=== PATIENT | male | born 1935 | race American Indian/Alaskan Native ===

== ENCOUNTER 2016-03-16 00:43 | Emergency (ER) | payer OTHER ==
[2016-03-16 01:01] VITALS: BP 148/57; PULSE 80; TEMP 98.7; BMI 24.3
--- NOTE | 2016-03-16 01:04 | PDOC ---
History of Present Illness - General Stated Complaint: BLEEDING FROM CARDIAC CATH SITE Time Seen by Provider: 03/16/16 00:57 History Source: Patient Exam Limitations: No Limitations - History of Present Illness Initial Comments: 03/16/16 00:57 This is an 80-year-old male who comes in with his for evaluation of bleeding status post cardiac catheter. said patient came home from the hospital today after the cardiac catheter and this evening she noted that there was blood leaking onto his trousers. change the dressing several times but it continued to have some bleeding so she brought him in for evaluation. Otherwise he is up without complaints no chest pain shortness of breath or dizziness or lightheadedness. PAST MEDICAL HISTORY: no significant history PAST SURGICAL HISTORY: no significant history FAMILY HISTORY: no pertinant history SOCIAL HISTORY: Pt lives with family and is retired MEDICATIONS: reviewed ALLERGIES: As per nursing notes Review of Systems General: No fevers or chills, no weakness, no weight loss HEENT: No change in vision. No sore throat,. No ear pain CardioVascular: No chest pain or shortness of breath Respiratory:No cough, or wheezing. Gastrointestinal: no nausea, vomitting, diarrhea or constipation, No rectal bleeding Genitourinary: No dysuria, hematuria, or frequency Musculoskeletal: No joint or muscle pain or swelling Neurologic: No headache, vertigo, dizziness or loss of consciousness Psychiatric: nor depression Skin: No rashes or easy bruising Endocrine: no increased thirst or abnormal weight change Allergic: no skin or latex allergy All other systems reviewed and normal GENERAL: The patient is awake, alert, and fully oriented, in no acute distress. HEAD: Normal with no signs of trauma. EYES: Pupils equal, round and reactive to light, extraocular movements intact, sclera anicteric, conjunctiva clear. EXTREMITIES: Left groin there is a dressing in place that is a small amount of blood on it. NEUROLOGICAL: Normal speech, no procedure: rmal gait. PSYCH: Normal mood, normal affect. SKIN: Warm, Dry, normal turgor, no rashes or lesions noted.. Procedure: Left groin there was a pressure dressing applied by myself with multiple layers of gauze and a white Adam bandage. Assessment and plan: This is an 80-year-old male who is status post cardiac air catheter and he was bleeding from catheter site the catheter site. Pressure was applied and a pressure dressing was put over the area with gauze and a wide Adam wrap. Patient discharged home will follow-up with his investigative research specialist as needed. Past History - Past Medical History Allergies/Adverse Reactions: Allergies Allergy/AdvReac Type Severity Reaction Status Date / Time amoxicillin Allergy Intermediate sob Verified 05/08/14 14:09 Penicillins Allergy Intermediate weakness & Verified 05/08/14 14:09 snoring Home Medications: Ambulatory Orders Aspirin [ASA -] 81 mg PO DAILY 03/11/12 Carvedilol [Coreg] 3.125 mg PO DAILY 03/11/12 Clopidogrel Bisulfate [Plavix -] 75 mg PO DAILY 03/11/12 Furosemide [Lasix -] 40 mg PO DAILY 03/11/12 Nitroglycerin Patch [Nitro-Dur Patch -] 0 mg TD DAILY 03/11/12 Ranolazine [Ranexa -] 500 mg PO DAILY 03/11/12 Rosuvastatin Calcium [Crestor] 20 mg PO DAILY 03/11/12 Isosorbide Mononitrate [Imdur -] 60 mg PO DAILY #0 tab.sr.24h 05/10/14 Anemia: No Asthma: No Cancer: No Cardiac Disorders: Yes CVA: No COPD: No CHF: No Dementia: No Diabetes: No GI Disorders: No Disorders: No HTN: Yes Hypercholesterolemia: Yes Liver Disease: No Seizures: No Thyroid Disease: No - Surgical History Abdominal Surgery: No Appendectomy: No Cardiac Surgery: Yes (CABG, STENT X1) Cholecystectomy: No Lung Surgery: No Neurologic Surgery: No Orthopedic Surgery: No - Psycho/Social/Smoking Cessation Hx Suicidal Ideation: No Smoking Status: Yes Smoking History: Former smoker Have you smoked in the past 12 months: No Number of Cigarettes Smoked Daily: 0 If you are a former smoker, when did you quit?: 1972 Hx Alcohol Use: Yes Drug/Substance Use Hx: No Substance Use Type: Alcohol Hx Substance Use Treatment: No *DC/Admit/Observation/Transfer Diagnosis at time of Disposition: Groin hematoma Qualifiers: Encounter type: initial encounter Qualified Code(s): S30.1XXA - Contusion of abdominal wall, initial encounter - Discharge Dispostion Disposition: HOME Condition at time of disposition: Stable Admit: No - Patient Instructions Printed Discharge Instructions: DI for Groin Hernia Additional Instructions: Leave the dressing and Adam bandage on the puncture site until tomorrow morning. Tomorrow morning U can take the extra gauze off but still leave a dressing over the area. If he starts bleeding again reapply the gauze and pressure. Return to the emergency department immediately with ANY new, persistent or worsening symptoms. Continue any medications as previously prescribed by your physician. You should follow up with your primary doctor as soon as possible regarding today's emergency department visit. . Please make sure your doctor reviews the results of your emergency evaluation. Thank you for coming to the Emergency Department today for your care. It was a pleasure to see you today. Please note that your evaluation is INCOMPLETE until you follow-up with your doctor.
== END 2016-03-16 01:17 | disposition home or self-care (01) ==
LOC: FER 00:43
DX: S30.1XXA Contusion of abdominal wall, initial encounter (principal); X58.XXXA Exposure to other specified factors, initial encounter; Y93.9 Activity, unspecified; Z95.1 Presence of aortocoronary bypass graft; Z95.5 Presence of coronary angioplasty implant and graft; Z87.891 Personal history of nicotine dependence; I10 Essential (primary) hypertension; E78.00 Pure hypercholesterolemia, unspecified; Z79.82 Long term (current) use of aspirin
CPT/HCPCS: 99281-25

== ENCOUNTER 2016-11-24 08:36 | Emergency (ER) | payer OTHER ==
[2016-11-24 08:53] VITALS: BP 139/55; PULSE 71; TEMP 98.4; BMI 27.3
--- NOTE | 2016-11-24 09:13 | PDOC ---
History of Present Illness - General Chief Complaint: Cold Symptoms Stated Complaint: COUGH Time Seen by Provider: 11/24/16 08:46 History Source: Patient Exam Limitations: No Limitations Past History - Past Medical History Allergies/Adverse Reactions: Allergies Allergy/AdvReac Type Severity Reaction Status Date / Time amoxicillin Allergy Intermediate sob Verified 11/24/16 08:42 Penicillins Allergy Intermediate weakness & Verified 11/24/16 08:42 snoring Home Medications: Ambulatory Orders Amlodipine Besylate [Norvasc -] 5 mg PO DAILY 03/16/16 Aspirin [ASA -] 81 mg PO DAILY 03/16/16 Carvedilol [Coreg] 6.25 mg PO DAILY 03/16/16 Furosemide [Lasix] 20 mg PO DAILY 03/16/16 Isosorbide Mononitrate [Isosorbide Mononitrate ER] 30 mg PO DAILY 03/16/16 Ranolazine [Ranexa] 500 mg PO DAILY 03/16/16 Rosuvastatin Calcium [Crestor] 20 mg PO DAILY 03/16/16 Ticagrelor [Brilinta] 90 mg PO DAILY 03/16/16 Anemia: No Asthma: No Cancer: No Cardiac Disorders: Yes CVA: No COPD: No CHF: No Dementia: No Diabetes: No GI Disorders: No Disorders: No HTN: Yes Hypercholesterolemia: Yes Liver Disease: No Seizures: No Thyroid Disease: No - Surgical History Abdominal Surgery: No Appendectomy: No Cardiac Surgery: Yes (CABG, STENT X1) Cholecystectomy: No Lung Surgery: No Neurologic Surgery: No Orthopedic Surgery: No - Psycho/Social/Smoking Cessation Hx Anxiety: No Suicidal Ideation: No Smoking Status: Yes Smoking History: Never smoked Have you smoked in the past 12 months: No Number of Cigarettes Smoked Daily: 0 If you are a former smoker, when did you quit?: 1972 Information on smoking cessation initiated: No Hx Alcohol Use: Yes Drug/Substance Use Hx: No Substance Use Type: Alcohol Hx Substance Use Treatment: No Respiratory Specific PMHX - Complaint Specific PMHX Angina: Yes *Physical Exam - Vital Signs Last Vital Signs Temp Pulse Resp BP Pulse Ox 98.4 F 71 18 139/55 99 11/24/16 08:38 11/24/16 08:38 11/24/16 08:38 11/24/16 08:38 11/24/16 08:38
--- NOTE | 2016-11-24 09:44 | PDOC ---
History of Present Illness - General History Source: Patient, Spouse Exam Limitations: No Limitations - History of Present Illness Initial Comments: 11/24/16 09:47 The patient is a 81 year old male, with a significant past medical history of [place] , CABG, hypertension, hyperlipidemi who presents to the emergency department complaining of a cough for approximately 1 week. The patient reports visiting his PCP 4 days ago for evaluation of his cough. At the time, the patient was started on azithromycin and virtussin. Patient reports he has been compliant with his antibiotic treatment thus far, with minimum relief of symptoms. As per , the patients cough has been worsening and is dry in nature. The patient reports associated pleuritic chest pain, but denies any diaphoresis, palpitations, shortness of breath, or lower extremity edema. Patient reports presenting to the ED 3 days ago, where he had a CXR done, which revealed no acute pathology. Patient denies any fever, chills, headache, or dizziness. He denies any abdominal pain, nausea, vomiting, diarrhea, constipation, or changes in urination patterns. He denies any recent travel or sick contacts. Allergies: Amoxicillin, penicillins Past Surgical History: CABG Cardiac Catheter Social History: Non smoker. No ETOH or recreational drug use. PCP: Dr. Rich Customer Care Consultant: Dr. Guzman <Obdulio Noel - Last Filed: 11/24/16 10:50> <Jessy Garcia - Last Filed: 11/24/16 11:08> - General Chief Complaint: Cold Symptoms Stated Complaint: COUGH Time Seen by Provider: 11/24/16 08:46 Past History <Obdulio Noel - Last Filed: 11/24/16 10:50> - Past Medical History Anemia: No Asthma: No Cancer: No Cardiac Disorders: Yes CVA: No COPD: No CHF: No Dementia: No Diabetes: No GI Disorders: No Disorders: No HTN: Yes Hypercholesterolemia: Yes Liver Disease: No Seizures: No Thyroid Disease: No - Surgical History Abdominal Surgery: No Appendectomy: No Cardiac Surgery: Yes (CABG, STENT X1) Cholecystectomy: No Lung Surgery: No Neurologic Surgery: No Orthopedic Surgery: No - Psycho/Social/Smoking Cessation Hx Anxiety: No Suicidal Ideation: No Smoking Status: Yes Smoking History: Former smoker Have you smoked in the past 12 months: No Number of Cigarettes Smoked Daily: 0 If you are a former smoker, when did you quit?: 1971 Information on smoking cessation initiated: No Hx Alcohol Use: Yes Drug/Substance Use Hx: No Substance Use Type: Alcohol Hx Substance Use Treatment: No <Brooke Garciaen - Last Filed: 11/24/16 11:08> - Past Medical History Allergies/Adverse Reactions: Allergies Allergy/AdvReac Type Severity Reaction Status Date / Time amoxicillin Allergy Intermediate sob Verified 11/24/16 08:42 Penicillins Allergy Intermediate weakness & Verified 11/24/16 08:42 snoring Home Medications: Ambulatory Orders Amlodipine Besylate [Norvasc -] 5 mg PO DAILY 03/16/16 Aspirin [ASA -] 81 mg PO DAILY 03/16/16 Furosemide [Lasix] 40 mg PO DAILY 03/16/16 Isosorbide Mononitrate [Isosorbide Mononitrate ER] 30 mg PO DAILY 03/16/16 Ranolazine [Ranexa] 500 mg PO DAILY 03/16/16 Rosuvastatin Calcium [Crestor] 20 mg PO DAILY 03/16/16 Albuterol Sulfate [Proair Respiclick] 90 mcg IH BID PRN #1 aer.[email or web address] 11/24/16 Azithromycin 250 mg PO DAILY 11/24/16 Benzonatate 100 mg PO BID #10 capsule 11/24/16 Guaifenesin/Codeine Phosphate [Virtussin AC Liquid] 5 mg PO BID 11/24/16 Methylprednisolone [Medrol Dose Justin] 4 mg PO ASDIR #21 tablet 11/24/16 Metoprolol Succinate [Toprol Xl -] 25 mg PO DAILY 11/24/16 Review of Systems - Review of Systems Able to Perform ROS?: Yes Comments:: 11/24/16 09:48 GENERAL/CONSTITUTIONAL: No fever or chills. No weakness. HEAD, EYES, EARS, NOSE AND THROAT: No change in vision. No ear pain or discharge. No sore throat. CARDIOVASCULAR: Yes: +chest pain. No shortness of breath. RESPIRATORY: Yes: +cough. No wheezing, or hemoptysis. GASTROINTESTINAL: No nausea, vomiting, diarrhea or constipation. GENITOURINARY: No dysuria, frequency, or change in urination. MUSCULOSKELETAL: No joint or muscle swelling or pain. No neck or back pain. SKIN: No rash NEUROLOGIC: No headache, vertigo, loss of consciousness, or change in strength/ sensation. ENDOCRINE: No increased thirst. No abnormal weight change. HEMATOLOGIC/LYMPHATIC: No anemia, easy bleeding, or history of blood clots. ALLERGIC/IMMUNOLOGIC: No hives or skin allergy. <Obdulio Noel - Last Filed: 11/24/16 10:50> *Physical Exam - Vital Signs Last Vital Signs Temp Pulse Resp BP Pulse Ox 98.4 F 71 18 139/55 99 11/24/16 08:38 11/24/16 08:38 11/24/16 08:38 11/24/16 08:38 11/24/16 08:38 - Physical Exam Comments: 11/24/16 09:49 GENERAL: Awake, alert, and fully oriented, in no acute distress HEAD: No signs of trauma EYES: PERRLA, EOMI, sclera anicteric, conjunctiva clear ENT: Auricles normal inspection, hearing grossly normal, nares patent, oropharynx clear without exudates. Moist mucosa NECK: Normal ROM, supple, no lymphadenopathy, JVD, or masses LUNGS: Breath sounds equal, clear to auscultation bilaterally. No wheezes, and no crackles HEART: Regular rate and rhythm, normal S1 and S2, no murmurs, rubs or gallops ABDOMEN: Soft, nontender, normoactive bowel sounds. No guarding, no rebound. No masses EXTREMITIES: Trace pedal edema bilaterally. Normal range of motion. No clubbing or cyanosis. No cords, erythema, or tenderness NEUROLOGICAL: Cranial nerves II through XII grossly intact. Normal speech( speaking in full sentences. nontoxic appearing), normal gait SKIN: Warm, Dry, normal turgor, no rashes or lesions noted. <Obdulio Noel - Last Filed: 11/24/16 10:50> - Vital Signs Last Vital Signs Temp Pulse Resp BP Pulse Ox 98.4 F 71 18 139/55 99 11/24/16 08:38 11/24/16 08:38 11/24/16 08:38 11/24/16 08:38 11/24/16 08:38 <Jessy Garcia - Last Filed: 11/24/16 11:08> Heart Score/ECG Review - ECG Intrepretation Comment:: 11/24/16 10:10 sinus at 67 bpm, intraventricular conduction delay. no acute st changes. <Obdulio Noel - Last Filed: 11/24/16 10:50> ED Treatment Course - LABORATORY CBC & Chemistry Diagram: 11/24/16 10:00 11/24/16 09:56 - RADIOLOGY Radiograph Interpretation: 11/24/16 10:12 EXAM: CXR INTERPRETED BY: Dr. Gonsalez REVIEWED BY: Dr. Garcia IMPRESSION: No evidence of active pulmonary disease. <Obdulio Noel - Last Filed: 11/24/16 10:50> - LABORATORY CBC & Chemistry Diagram: 11/24/16 10:00 11/24/16 09:56 - RADIOLOGY Radiology Studies Ordered: Category Date Time Status CHEST PA & LAT [RAD] Stat Radiology 11/24/16 09:22 Ordered <Jessy Garcia - Last Filed: 11/24/16 11:08> Medical Decision Making - Medical Decision Making 11/24/16 10:50 First call placed to Dr. Rich at 10:51. Case discussed at this time. <Obdulio Noel - Last Filed: 11/24/16 10:50> - Medical Decision Making 11/24/16 10:45 I, Dr. Jessy Garcia, DO, attest that this document has been prepared under my direction and personally reviewed by me in its entirety. I further attest, that it accurately reflects all work, treatment, procedures and medical decision -making performed by me. 11/24/16 10:45 a/p: 81yo male with cough/congestion x 4 days - on azithromycin since thursday without relief -hx of chf, will check labs, ekg, cxr -no infectious systemic symptoms - no f/c, cough productive white sputum -no increase in LE swelling (legs smaller than before with edema) -will discuss with PMD once labs/imaging obtained. 11/24/16 10:58 discussed all labs and imaging results with the patient. pt without acute cp/sob /cough in the ED. case discussed with Dr. Rich - recommends stopping azithromycin, starting medrol dose justin, benzonatate acetate, proair recommends follow up in the office on between 12-6 if symptoms persisting. case discussed with Dr. Osborne - hx of LBBB on prior EKG. <Jessy Garcia - Last Filed: 11/24/16 11:08> *DC/Admit/Observation/Transfer - Attestations Scribe Attestion: 11/24/16 09:49 Documentation prepared by Obdulio Noel, acting as medical record coder for Jessy Garcia DO. <Obdulio Noel - Last Filed: 11/24/16 10:50> - Discharge Dispostion Admit: No - Attestations Physician Attestion: 11/24/16 09:44 I, Dr. Jessy Garcia DO, attest that this document has been prepared under my direction and personally reviewed by me in its entirety. I further attest, that it accurately reflects all work, treatment, procedures and medical decision -making performed by me. <Jessy Garcia - Last Filed: 11/24/16 11:08> Diagnosis at time of Disposition: Cough in adult - Discharge Dispostion Disposition: HOME Condition at time of disposition: Stable - Prescriptions Prescriptions: Benzonatate 100 mg PO BID #10 capsule Methylprednisolone [Medrol Dose Justin] 4 mg PO ASDIR #21 tablet Albuterol Sulfate [Proair Respiclick] 90 mcg IH BID PRN #1 aer.[email or web address] PRN Reason: Cough - Referrals Referrals: Nacho Rich MD [Primary Care Provider] - Mauricio Guzman MD [Staff Physician] - - Patient Instructions Printed Discharge Instructions: DI for Viral Upper Respiratory Infection -- Adult Additional Instructions: Please take all meds as prescribed. Please follow up with your PMD on between 12-6p if symptoms persist. Please stop taking your azithromycin. Please return to the ED with any further concerns.
[2016-11-24 10:20] LABS: BASOPHIL 0.9 % (0-2.0); EOSINOPHIL 7.7 % (0-4.5); MCH 32.3 pg (25.7-33.7); MCHC 34.5 g/dl (32.0-35.9); MEAN CELL VOLUME 93.8 fl (80-96); MEAN PLT VOLUME 7.7 fl (7.5-11.1); NEUTROPHILS 50.7 % (42.8-82.8); PLATELET COUNT 157 K/MM3 (134-434); RDW 12.5 % (11.9-15.9); WHITE BLOOD COUNT 6.4 K/mm3 (4.0-10.0)
[2016-11-24 10:42] LABS: ALBUMIN 3.9 g/dl (3.4-5.0); ANION GAP 8 (8-16); BILIRUBIN,TOTAL 0.6 mg/dL (0.2-1.0); CALCIUM 8.4 mg/dL (8.5-10.1); CO2 26 mmol/L (21-32); CREATININE 1.3 mg/dL (0.7-1.3); GLUCOSE,RANDOM 111 mg/dL (74-106); MAGNESIUM 2.4 mg/dL (1.8-2.4); SGOT/AST 26 U/L (15-37); SGPT/ALT 29 U/L (12-78); TOT PROT 7.3 g/dl (6.4-8.2)
[2016-11-24 10:43] LABS: ALK PHOS 75 U/L (45-117); CPK 183 IU/L (39-308); TROPONIN I < 0.02 ng/ml (0.00-0.05)
--- NOTE | 2016-11-24 21:30 | EKG ---
Test Reason : Blood Pressure : / mmHG Vent. Rate : 067 BPM Atrial Rate : 067 BPM P-R Int : 182 ms QRS Dur : 138 ms QT Int : 464 ms P-R-T Axes : 043 036 003 degrees QTc Int : 490 ms NORMAL SINUS RHYTHM NON-SPECIFIC INTRA-VENTRICULAR CONDUCTION BLOCK ABNORMAL ECG WHEN COMPARED WITH ECG OF 08-MAY-2014 15:46, QUESTIONABLE CHANGE IN QRS DURATION Confirmed by MICHELLE MESA MD ([id number]) on 11/24/2016 9:30:30 PM Referred By: Confirmed By:MICHELLE MESA MD
== END 2016-11-24 11:45 | disposition home or self-care (01) ==
LOC: JER 08:36 → JERFT 08:36 → JER 11:45
DX: J06.9 Acute upper respiratory infection, unspecified (principal); B97.89 Other viral agents as the cause of diseases classified elsewhere; I25.2 Old myocardial infarction; I25.10 Atherosclerotic heart disease of native coronary artery without angina pectoris; I10 Essential (primary) hypertension; Z95.1 Presence of aortocoronary bypass graft; Z95.5 Presence of coronary angioplasty implant and graft; E78.00 Pure hypercholesterolemia, unspecified
CPT/HCPCS: 36415; 71020-TC; 80053; 82553; 83735; 83880; 84484; 85025; 93005; 93010; 99284-25

== ENCOUNTER 2017-06-23 09:57 | Inpatient (IN) | payer OTHER ==
[2017-06-23 20:37] VITALS: BMI 24.4
[2017-07-06 10:42] VITALS: BP 132/50; PULSE 88; TEMP 97.3
== END 2017-07-06 12:08 | DRG 871 ==
LOC: JER 09:57 → JERBED 13:15 → J7W 18:15 → J8W 06-26 21:52
PROVIDERS: ADMIT Family Medicine; ATTEND Family Medicine
DX: A41.9 Sepsis, unspecified organism (principal); J18.9 Pneumonia, unspecified organism; G93.41 Metabolic encephalopathy; E87.2 Acidosis; I13.0 Hypertensive heart and chronic kidney disease with heart failure and stage 1 through stage 4 chronic kidney disease, or unspecified chronic kidney disease; I50.32 Chronic diastolic (congestive) heart failure; R04.2 Hemoptysis; E78.5 Hyperlipidemia, unspecified; Z95.1 Presence of aortocoronary bypass graft; I25.10 Atherosclerotic heart disease of native coronary artery without angina pectoris; Z88.0 Allergy status to penicillin; Z87.891 Personal history of nicotine dependence; I44.7 Left bundle-branch block, unspecified; N18.9 Chronic kidney disease, unspecified; I27.20 Pulmonary hypertension, unspecified; R94.5 Abnormal results of liver function studies; K80.80 Other cholelithiasis without obstruction; R74.8 Abnormal levels of other serum enzymes
CPT/HCPCS: 36415; 71045-TC-FY; 71046-TC-FY; 71250-TC; 74019-TC-FY; 74181-TC; 76705-TC; 80053; 80074; 81003; 81015; 82150; 82248; 82550; 82803; 82977; 83605; 83690; 83735; 84100; 84484; 85025; 85610; 85651; 85730; 86140; 86480; 87040; 87070; 87077; 87086; 87116; 87205; 87206; 87556; 87804; 87899; 93005; 93010; 94640; 97116-GP; 97161-GP; 99285-25; J0131; J7030; J7620

== ENCOUNTER 2017-11-04 17:29 | Emergency (ER) | payer OTHER ==
[2017-11-04 17:57] VITALS: BP 96/71; PULSE 69; TEMP 98.6; BMI 27.4
--- NOTE | 2017-11-04 18:00 | PDOC ---
Rapid Medical Evaluation Chief Complaint: Headache Time Seen by Provider: 11/04/17 17:49 Medical Evaluation: Allergies Allergy/AdvReac Type Severity Reaction Status Date / Time amoxicillin Allergy Intermediate sob Verified 11/04/17 17:52 Penicillins Allergy Intermediate weakness & Verified 11/04/17 17:52 snoring Vital Signs Temp Pulse Resp BP Pulse Ox 98.6 F 69 16 96/71 98 11/04/17 17:53 11/04/17 17:53 11/04/17 17:53 11/04/17 17:53 11/04/17 17:53 11/04/17 18:00 Pt c/o: dizzinees then fell and hit hea, no loc, now with headache, on asa, also c/o rt hip pain Pt on exam: vss, aox3, perrl Pt ordered for: head ct Pt to proceed to the ED Discharge Disposition - Diagnosis Head injury - Referrals - Patient Instructions - Post Discharge Activity
[2017-11-04] MEDS ORDERED: DIPHTH,PERTUSS(ACELL),TET 0.5 ML DISP.SYRIN IM ONE (19:00)
--- NOTE | 2017-11-04 19:13 | PDOC ---
History of Present Illness - General Chief Complaint: Headache Stated Complaint: HEAD PAIN Time Seen by Provider: 11/04/17 17:49 - History of Present Illness Initial Comments: 11/04/17 19:01 Patient is an 82 year old male with a PMH of CAD (s/p CABG) presents to the ED following a fall on Thursday (10/31/2017). Patient was walking outside in [facility] when he was going to step up on a sidewalk and states his L leg twisted underneath him causing him to fall. Denies any pre-fall chest pain, shortness of breath lightheadedness, palpitations. EMS @ scene, patient declined transport to hospital as he wanted to attend his prayer group on Thursday and his 82nd birthday was on Thursday. Has been ambulatory since fall and was evaluated by his PMD, Dr. Rich earlier this week. H/o previous fall in 2016 w/intracerebral hemmorhage- no neurosurgical intervention. 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 Allergy: Penicillin family including amoxicillin Surgical: CABG (1981) Social: denies toxic habits PMD: Dr. Nacho Rich Past History - Past Medical History Allergies/Adverse Reactions: Allergies Allergy/AdvReac Type Severity Reaction Status Date / Time amoxicillin Allergy Intermediate sob Verified 11/04/17 17:52 Penicillins Allergy Intermediate weakness & Verified 11/04/17 17:52 snoring Home Medications: Ambulatory Orders Aspirin [Aspirin EC] 81 mg PO DAILY 11/04/17 Carvedilol [Coreg -] 3.125 mg PO BID 11/04/17 Furosemide [Lasix -] 20 mg PO DAILY 11/04/17 Isosorbide Mononitrate [Isosorbide Mononitrate ER] 30 mg PO DAILY 11/04/17 Metoprolol Succinate [Toprol Xl] 25 mg PO DAILY 11/04/17 Nystatin Ointment [Mycostatin Ointment -] 1 applic TP BID 11/04/17 Nystatin Powder [Nystop Topical Powder -] 60 gm TP DAILY 11/04/17 Ranolazine [Ranexa] 1,000 mg PO BID 11/04/17 Rosuvastatin Calcium [Crestor] 40 mg PO DAILY 11/04/17 Triamcinolone 0.1% Cream [Aristocort] 1 applic TP BID 11/04/17 Anemia: No Cardiac Disorders: Yes COPD: No DVT: No HTN: Yes Hypercholesterolemia: Yes - Surgical History Cardiac Surgery: Yes (CABG, STENT X1) - Immunization History Immunization Up to Date: Yes - Suicide/Smoking/Psychosocial Hx Smoking Status: Yes Smoking History: Never smoked Have you smoked in the past 12 months: No Number of Cigarettes Smoked Daily: 0 If you are a former smoker, when did you quit?: 1972 Cigars Per Day: 0 Information on smoking cessation initiated: No Hx Alcohol Use: No Drug/Substance Use Hx: No Substance Use Type: None Hx Substance Use Treatment: No Review of Systems - Review of Systems Constitutional: No: Chills, Fever HEENTM: No: Blurred Vision, Double Vision Respiratory: No: Cough, Shortness of Breath, Stridor, Wheezing Cardiac (ROS): No: Chest Pain, Lightheadedness, Palpitations, Syncope ABD/GI: No: Constipated, Diarrhea, Nausea, Vomiting : No: Burning, Dysuria Neurological: Yes: Unsteady Gait. No: Headache, Numbness, Tingling, Tremors *Physical Exam - Vital Signs Last Vital Signs Temp Pulse Resp BP Pulse Ox 98.6 F 69 16 96/71 98 11/04/17 17:53 11/04/17 17:53 11/04/17 17:53 11/04/17 17:53 11/04/17 17:53 - Physical Exam Comments: 11/04/17 19:18 General: Alert, jocular HEENT: healed abrasion on R frontal/temporal lobe, (-) Cagle sign, (-) racoon eyes, no C-spine, L/T/S vertebral tenderness CV: S1/S2, no M/R/G Respiratory: CLTA B/L Extremity: R lateral hip hematoma, 2+ DP pulses B/L; R 2nd and 3rd digits healed abrasions. General Appearance: Yes: Nourished, Appropriately Dressed HEENT: positive: EOMI, LEONIDAS, Normal Voice, Hearing Grossly Normal. negative: TM Bulging, TM Dull, TM Erythema Neck: positive: Trachea midline, Supple Respiratory/Chest: positive: Lungs Clear, Normal Breath Sounds. negative: Crackles, Rales, Rhonchi, Stridor, Wheezing Cardiovascular: positive: S1, S2, Edema (B/L LE edema ) Gastrointestinal/Abdominal: positive: Normal Bowel Sounds, Soft Musculoskeletal: negative: CVA Tenderness (R), CVA Tenderness (L), Vertebral Tenderness Extremity: positive: Normal Capillary Refill, Pelvis Stable, Other (R lateral thigh hematoma) Integumentary: positive: Normal Color, Dry, Warm, Ecchymosis Neurologic: positive: Fully Oriented, Alert ED Treatment Course - RADIOLOGY Radiology Studies Ordered: Category Date Time Status CHEST X-RAY PORTABLE* [RAD] Stat Radiology 11/04/17 18:59 Ordered HIP & PELVIS-RIGHT [RAD] Stat Radiology 11/04/17 18:59 Ordered Medical Decision Making - Medical Decision Making 11/04/17 19:14 82 year old male presents s/p fall. VS unremarkable. Neurologically intact. H/ o previous fall in 2017. Alert, moving all 4 extremities. No C-spine or L/T/S tenderness, pelvis stable. Will obtain CT head to r/o acute bleed. EKG to r/o arrthymia. CBC, CMP to r/o anemia and electrolyte abnormality respectively as fall etiology. Tetanus prophylaxis as patient has healing abrasions. Reassess. 11/04/17 20:[address] negative for acute bleed 11/04/17 21:49 ECG shows NSR, HR 66, no RAFIQ/STD/TWI - non ischemic ECG. At this time patient has no active bleed from fall and fall etiology is unlikely to be acute ischemic process. Will discharge home with strict return precautions and instruction to follow-up with cardiology and PMD. *DC/Admit/Observation/Transfer Diagnosis at time of Disposition: Fall - Discharge Dispostion Disposition: HOME Condition at time of disposition: Good Decision to Admit order: No - Referrals Referrals: Nacho Rich MD [Primary Care Provider] - Mauricio Guzman MD [Staff Physician] - - Patient Instructions Additional Instructions: You were evaluated today for a fall. Your head CT showed no acute bleed. At this time you are safe for discharge. Please follow up with Dr. Guzman for further cardiac evaluation as well as Dr. Rich. Return to the Emergency Department for any new/worsening/concerning symptoms including headache, confusion, chest pain, shortness of breath. - Post Discharge Activity
--- NOTE | 2017-11-04 21:18 | PDOC ---
Attending Attestation - HPI HPI: 11/04/17 21:58 The patient is a 82 year old male, with a significant PMH of CAD, HTN, and HLD, who presents to the emergency department for evaluation of a fall that occurred on 10/31/2017. The patient states he was in [facility] when he twisted his left leg and fell while trying to step up on a sidewalk. The patient states he denied transport to hospital from EMS because he wanted to attend his prayer group on Thursday and his 82nd birthday was on Thursday. He reports following up with his PCP, Dr. Rich, earlier this week and has been ambulatory since fall. The patient states he experienced a similar fall in 2017 with an intracerebral hemorrhage but there were no neurological intervention. The patient denies chest pain, shortness of breath, headache and dizziness. Denies fever, chills, nausea, vomit, diarrhea and constipation. Denies dysuria, frequency, urgency and hematuria. Allergies: amoxicillin, penicillin Past surgical history: CABG (1981) Social history: None reported PCP: Dr. Nacho Rich Documentation prepared by Ginny White, acting as medical office rep for Serafin Kendall MD. <Ginny White - Last Filed: 11/04/17 21:58> - Resident Resident Name: William Esteban - ED Attending Attestation I have performed the following: I have examined & evaluated the patient, The case was reviewed & discussed with the resident, I agree w/resident's findings & plan, Exceptions are as noted - Physicial Exam PE: 11/04/17 21:17 *Physical Exam General Appearance: Yes: Appropriately Dressed. No: Apparent Distress, Intoxicated HEENT: positive: EOMI, LEONIDAS, Normal ENT Inspection, Normal Voice, TMs Normal, Pharynx Normal. negative: Pale Conjunctivae, Photophobia, Scleral Icterus (R), Scleral Icterus (L) Neck: positive: Trachea midline, Normal Thyroid, Supple. negative: Tender, Rigid, Carotid bruit, Stridor, Lymphadenopathy (R), Lymphadenopathy (L), Thyromegaly Respiratory/Chest: positive: Lungs Clear, Normal Breath Sounds. negative: Chest Tender, Respiratory Distress, Accessory Muscle Use, Labored Respiration, RES, Crackles, Rales, Rhonchi, Stridor, Wheezing, Dullness Cardiovascular: positive: Regular Rhythm, Regular Rate, S1, S2. negative: Edema , JVD, Murmur, Bradycardia, Tachycardia Vascular Pulses: Dorsalis-Pedis (R): 2+, Doralis-Pedis (L): 2+ Gastrointestinal/Abdominal: positive: Normal Bowel Sounds, Flat, Soft. negative : Tender, Organomegaly, Pulsatile Mass, Increased Bowel Sounds, Decreased BS, Distended, Guarding, Rebound, Hernia, Hepatomegaly, Spleenomegaly Lymphatic: negative: Adenopathy, Tenderness Musculoskeletal: positive: Normal Inspection. negative: CVA Tenderness, Decreased Range of Motion Extremity: positive: Normal Capillary Refill, Normal Inspection, Normal Range of Motion, Pelvis Stable. negative: Tender, Pedal Edema, Swelling, Erythema Integumentary: positive: Normal Color, Dry, Warm. negative: Cyanotic, Erythema , Jaundice, Rash Neurologic: positive: steel erector II-XII NML intact, Fully Oriented, Alert, Normal Mood/ Affect, Motor Strength 5/5. negative: EOM Palsy, Facial Droop, Sensory Deficit - Medical Decision Making 11/04/17 21:17 Pt treated and released. <Serafin Kendall - Last Filed: 11/04/17 22:00>
--- NOTE | 2017-11-05 15:42 | EKG ---
Test Reason : Blood Pressure : / mmHG Vent. Rate : 066 BPM Atrial Rate : 066 BPM P-R Int : 172 ms QRS Dur : 110 ms QT Int : 438 ms P-R-T Axes : 057 022 064 degrees QTc Int : 459 ms NORMAL SINUS RHYTHM NORMAL ECG WHEN COMPARED WITH ECG OF 23-JUN-2017 10:48, PREMATURE ATRIAL COMPLEXES ARE NO LONGER PRESENT QRS DURATION HAS DECREASED T WAVE INVERSION NO LONGER EVIDENT IN INFERIOR LEADS QT HAS SHORTENED Confirmed by Ellie George ([id number]) on 11/05/2017 3:41:56 PM Referred By: Confirmed By:Ellie George
== END 2017-11-04 22:09 | disposition home or self-care (01) ==
LOC: JER 17:29
PROC: 3E0234Z Introduction of Serum, Toxoid and Vaccine into Muscle, Percutaneous Approach (ICD-10-PCS; principal; 2017-11-04)
DX: S09.8XXA Other specified injuries of head, initial encounter (principal); S70.01XA Contusion of right hip, initial encounter; S60.418A Abrasion of other finger, initial encounter; W10.1XXA Fall (on)(from) sidewalk curb, initial encounter; Y93.01 Activity, walking, marching and hiking; Y92.480 Sidewalk as the place of occurrence of the external cause; Y99.8 Other external cause status; I25.10 Atherosclerotic heart disease of native coronary artery without angina pectoris; I10 Essential (primary) hypertension; Z95.1 Presence of aortocoronary bypass graft; Z95.5 Presence of coronary angioplasty implant and graft; E78.5 Hyperlipidemia, unspecified; Z79.82 Long term (current) use of aspirin; Z88.0 Allergy status to penicillin
CPT/HCPCS: 70450-TC; 71045-TC-FY; 73523-TC-FY; 90715; 93005; 93010; 99281-25; 99283-25

== ENCOUNTER 2018-05-03 11:26 | Inpatient (IN) | payer OTHER ==
--- NOTE | 2018-05-03 11:55 | PDOC ---
History of Present Illness - General Chief Complaint: Weakness Stated Complaint: CHEST PAIN Time Seen by Provider: 05/03/18 11:52 History Source: Patient Exam Limitations: No Limitations - History of Present Illness Initial Comments: 82 yo M w a pmh of HTN, hyperlipidemia, CAD/CHF status post CABG in 1991 and s/ p cardiac stent in 2013, with baseline exertional dyspnea and angina, psoriasis , and chronic venous stasis dermatitis presents to the [facility] ED via private auto referred from Dr. Rich to be admitted with the chief complaint of generalized bilateral leg weakness this past Thursday associated with a fever up to 100.5. the patient also endorses more frequent episodes of chest pain which he says are his typical stable angina symptoms including dyspnea on exertion as well as chest pain with physical activity requiring him to take his nitro more frequently. The who is with the patient at bedside reports she has been giving him more tylenol recently because of his fever since Thursday, but the patient is not febrile here in the ER. The also says that for the past few days he has been very confused at times, dizzy like he is going to fall down, feels lightheaded, and is not steady on his feet, The patient endorses these random generalized episodes of bilateral leg weakness which when they come about he is unable to even stand up to goto the bathroom and urinate. He denies one side being worse than the other side. Patient currently denies any chest pain, SOB, nausea, vomiting, diarrhea, constipation, difficulty breathing, chills, numbness, tingling, headache, blurry vision, neck pain, back pain, abdominal pain, dysuria, frequency, urgency , or vertigo. Allergies: amoxicillin, penicillins Surgical History: CABG (1991 x1 stent) Social History: Former smoker (quit 1971), denies alcohol or other substance usage. PCP: Dr. Rich Wood Drill Operator: Dr. Guzman Past History - Past Medical History Allergies/Adverse Reactions: Allergies Allergy/AdvReac Type Severity Reaction Status Date / Time amoxicillin Allergy Intermediate sob Verified 11/04/17 17:52 Penicillins Allergy Intermediate weakness & Verified 11/04/17 17:52 snoring Home Medications: Ambulatory Orders Aspirin [Aspirin EC] 81 mg PO DAILY 11/04/17 Furosemide [Lasix -] 20 mg PO DAILY 11/04/17 Isosorbide Mononitrate [Isosorbide Mononitrate ER] 30 mg PO DAILY 11/04/17 Metoprolol Succinate [Toprol Xl] 25 mg PO BID 11/04/17 Nystatin Ointment [Mycostatin Ointment -] 1 applic TP BID 11/04/17 Nystatin Powder [Nystop Topical Powder -] 60 gm TP DAILY 11/04/17 Ranolazine [Ranexa] 1,000 mg PO BID 11/04/17 Rosuvastatin Calcium [Crestor] 40 mg PO DAILY 11/04/17 Triamcinolone 0.1% Cream [Aristocort] 1 applic TP BID 11/04/17 Anemia: No Cardiac Disorders: Yes COPD: No DVT: No HTN: Yes Hypercholesterolemia: Yes - Surgical History Cardiac Surgery: Yes (CABG, STENT X1) - Immunization History Immunization Up to Date: Yes - Suicide/Smoking/Psychosocial Hx Smoking Status: Yes Smoking History: Former smoker Have you smoked in the past 12 months: No Number of Cigarettes Smoked Daily: 0 If you are a former smoker, when did you quit?: many years ago Cigars Per Day: 0 Information on smoking cessation initiated: No Hx Alcohol Use: No Drug/Substance Use Hx: No Substance Use Type: None Hx Substance Use Treatment: No Review of Systems - Review of Systems Able to Perform ROS?: Yes Comments:: CONSTITUTIONAL: Present: Fevers Absent: no chills, no fatigue EYES: Absent: visual changes ENT: Absent: ear pain, no sore throat CARDIOVASCULAR: Present: Chest pain Absent: no palpitations RESPIRATORY: Absent: cough, no SOB GI: Absent: abdominal pain, no nausea, no vomiting, no constipation, no diarrhea GENITOURINARY: Absent: dysuria, no frequency, no hematuria MUSKULOSKELETAL: Absent: back pain, no arthralgia, no myalgia SKIN: Absent: rash NEURO: Present: Focal weakness, mental status changes, unsteady gait, dizziness Absent: headache, paresthesias, bladder or bowel incontinence *Physical Exam - Vital Signs Last Vital Signs Temp Pulse Resp BP Pulse Ox 98.3 F 70 18 147/60 98 05/03/18 11:42 05/03/18 11:42 05/03/18 11:42 05/03/18 11:42 05/03/18 11:42 - Physical Exam Comments: GENERAL: Well-appearing, well-nourished. No apparent distress. HEENT: bilateral cataacts.. Stuck on lesion on the left cheek. Normocephalic, atraumatic. PERRL, EOM intact. CARDIOVASCULAR: Normal S1, S2. Regular rate and rhythm. PULMONARY: No evidence of respiratory distress. Lungs clear to auscultation bilaterally. No wheezing, rales or rhonchi. ABDOMEN: Soft, non-distended, non-tender. EXTREMITIES: Normal ROM in all four extremities. No gross deformities. SKIN: Warm, dry. The right leg is erythematous, scaly and mildly painful to touch. NEUROLOGICAL: Alert, awake, appropriate. Cranial nerves 2-12 intact. No deficits to light touch in the face, upper extremities and lower extremities. No motor deficits in the in face, upper extremities and lower extremities. Normal speech. Moderate Sedation - Procedure Monitoring Vital Signs: Procedure Monitoring Vital Signs Temperature 98.3 F 05/03/18 11:42 Pulse Rate 70 05/03/18 11:42 Respiratory Rate 18 05/03/18 11:42 Blood Pressure 147/60 05/03/18 11:42 O2 Sat by Pulse Oximetry (%) 98 05/03/18 11:42 ED Treatment Course - LABORATORY CBC & Chemistry Diagram: 05/03/18 13:11 05/03/18 13:11 Medical Decision Making - Medical Decision Making 82 yo M w a pmh of HTN, hyperlipidemia, CAD/CHF status post CABG in 1991 and s/ p cardiac stent in 2013, with baseline exertional dyspnea and angina, psoriasis , and chronic venous stasis dermatitis presents to the [facility] ED via private auto referred from Dr. Rich to be admitted with the chief complaint of generalized bilateral leg weakness this past Thursday associated with a fever up to 100.5. the patient also endorses more frequent episodes of chest pain which he says are his typical stable angina symptoms including dyspnea on exertion as well as chest pain with physical activity requiring him to take his nitro more frequently. The who is with the patient at bedside reports she has been giving him more tylenol recently because of his fever since Thursday, but the patient is not febrile here in the ER. The also says that for the past few days he has been very confused at times, dizzy like he is going to fall down, feels lightheaded, and is not steady on his feet, The patient endorses these random generalized episodes of bilateral leg weakness which when they come about he is unable to even stand up to goto the bathroom and urinate. He denies one side being worse than the other side. VS: WNL DDx IBNLT: CVA/TIA, ACS/SC, arrhythmia, electrolyte disturbance, PNA, pneumothorax, influenza, other infection bacterial vs viral, Cellulitis, UTI, influenza. Plan: Labs, Urine, Head Ct, CXR, EKG, flu swab, cardiac monitoring, Cardiac consult, Neuro consult, re-assess. - Will ultimately admit patient to telemetry after workup. Labs do not support UTI, acs/mi. No elevated WBC count. - Head CT unremarkable for weakeness. Patient has an erythematous area on his left lower leg suspicious for cellulitis. - Will start treatment in the ED with Aztreonam and admit patient to telemetry for further care. *DC/Admit/Observation/Transfer Diagnosis at time of Disposition: Weakness, Chest pain, Cellulitis of leg, left - Discharge Dispostion Condition at time of disposition: Stable Decision to Admit order: Yes - Referrals - Patient Instructions - Post Discharge Activity
[2018-05-03 13:22] LABS: BASO % 0.6 % (0-2.0); EOS % 1.7 % (0-4.5); HEMATOCRIT 39.5 % (35.4-49); HEMOGLOBIN 13.9 GM/dL (11.7-16.9); LYMPH % 15.5 % (8-40); MCH 35.2 pg (25.7-33.7); MCHC 35.2 g/dl (32.0-35.9); MEAN PLT VOLUME 8.2 fl (7.5-11.1); MONO % 9.9 % (3.8-10.2); NEUT % 72.3 % (42.8-82.8); PLATELET COUNT 136 K/MM3 (134-434); RBC 3.95 M/mm3 (4.00-5.60); RDW 13.2 % (11.9-15.9); WHITE BLOOD COUNT 8.9 K/mm3 (4.0-10.0)
[2018-05-03 13:30] LABS: URINE APPEARANCE CLEAR; URINE BILIRUBIN NEGATIVE (<2.0 mg/dL); URINE COLOR STRAW; URINE GLUCOSE (UA) NEGATIVE (NEGATIVE); URINE KETONE NEGATIVE (NEGATIVE); URINE LEUK ESTERASE NEGATIVE (NEGATIVE); URINE NITRITE NEGATIVE (NEGATIVE); URINE PROTEIN NEGATIVE (NEGATIVE); URINE UROBILINOGEN NEGATIVE mg/dL (0.2-1.0)
[2018-05-03 13:46] LABS: ALBUMIN 3.5 g/dl (3.4-5.0); ALK PHOS 68 U/L (45-117); ANION GAP 7 MMOL/L (8-16); BILIRUBIN,TOTAL 0.4 mg/dL (0.2-1); BLOOD UREA NITROGEN 20 mg/dL (7-18); CALCIUM 8.3 mg/dL (8.5-10.1); CHLORIDE 103 mmol/L (98-107); CHOLESTEROL 125 mg/dL (50-200); CO2 26 mmol/L (21-32); CREATININE 1.6 mg/dL (0.55-1.3); GLUCOSE,RANDOM 102 mg/dL (74-106); HDL CHOLESTEROL 43 mg/dL (40-60); MAGNESIUM 2.5 mg/dL (1.8-2.4); POTASSIUM 4.4 mmol/L (3.5-5.1); SGOT/AST 25 U/L (15-37); SGPT/ALT 17 U/L (13-61); SODIUM 135 mmol/L (136-145); TOT PROT 6.9 g/dl (6.4-8.2); TRIGLYCERIDES 89 mg/dL (0-150)
--- NOTE | 2018-05-03 13:49 | EKG ---
Test Reason : Blood Pressure : / mmHG Vent. Rate : 077 BPM Atrial Rate : 077 BPM P-R Int : 000 ms QRS Dur : 144 ms QT Int : 442 ms P-R-T Axes : 031 056 -31 degrees QTc Int : 500 ms SINUS RHYTHM WITH PREMATURE SUPRAVENTRICULAR COMPLEXES LEFT BUNDLE BRANCH BLOCK ABNORMAL ECG WHEN COMPARED WITH ECG OF 04-NOV-2017 21:40, PREMATURE SUPRAVENTRICULAR COMPLEXES ARE NOW PRESENT LEFT BUNDLE BRANCH BLOCK IS NOW PRESENT Confirmed by REJI GORDON MD ([id number]) on 05/03/2018 1:49:02 PM Referred By: Confirmed By:REJI GORDON MD
[2018-05-03 13:52] LABS: INR 1.23 (0.83-1.09); PROTHROMBIN TIME (PATIENT) 14.5 SEC (9.7-13.0)
--- NOTE | 2018-05-03 14:53 | PDOC ---
Attending Attestation - HPI HPI: 05/03/18 15:54 The patient is a 82 year old male, with a significant past medical history of HTN, hyperlipidemia, CAD/CHF status post CABG in 1991 and s/p cardiac stent in 2013, with baseline exertional dyspnea and angina, psoriasis, and chronic venous stasis dermatitis, who presents to the emergency department from Dr. Min office with, blt leg weakness and fever (Tmax 100.5). Allergies: amoxicillin, penicillins Past surgical history: CABG (1991 x1 stent) Social History: Former smoker (quit 1971). Denies EtOH use and recreational drug use. Primary Care Physician: Dr. Rich Press Clipper: Dr. Guzman - Physicial Exam PE: 05/03/18 15:54 GENERAL: Awake, alert, and fully oriented, in no acute distress HEAD: No signs of trauma NECK: Normal ROM, supple, no lymphadenopathy, JVD, or masses LUNGS: Breath sounds equal, clear to auscultation bilaterally. No wheezes, and no crackles HEART: Regular rate and rhythm, normal S1 and S2, no murmurs, rubs or gallops ABDOMEN: Soft, nontender, normoactive bowel sounds. No guarding, no rebound. No masses +EXTREMITIES: Left anterior leg: Erythema, warmth, and tenderness. Normal range of motion, no edema. NEUROLOGICAL: Alert, awake, appropriate. Cranial nerves 2-12 intact. No deficits to light touch and temperature in face, upper extremities and lower extremities. No motor deficits in the in face, upper extremities and lower extremities. No pronator drift. Normoreflexic in the upper and lower extremities. Normal speech. Toes are down-going bilaterally. <Geovanny Velez - Last Filed: 05/03/18 15:54> - Resident Resident Name: Everton Cummins - ED Attending Attestation I have performed the following: I have examined & evaluated the patient, The case was reviewed & discussed with the resident, I agree w/resident's findings & plan, Exceptions are as noted - Medical Decision Making 05/03/18 14:53 A portion of this note was documented by scribe services under my direction. I have reviewed the details of the note, within reason, and agree with the documentation with the following case summary and management plan written by me. Patient treated in the ED. Nursing notes are reviewed and incorporated into the medical decision-making. Vital signs reviewed. Peripheral IV access obtained by the nurse, laboratory studies are drawn and sent, reviewed and interpreted by myself. Vital Signs Temp Pulse Resp BP Pulse Ox 98.3 F 70 18 147/60 98 05/03/18 11:42 05/03/18 11:42 05/03/18 11:42 05/03/18 11:42 05/03/18 11:42 82-year-old male with history of psoriasis, hypertension, hyperlipidemia, coronary disease, congestive heart failure status post CABG, cardiac stents in 2014, exertional dyspnea and angina, psoriasis, chronic venous stasis dermatitis presents to the emergency department for admission to the hospital for chest pain and weakness. 2 days ago, the patient was undergoing routine evaluation by his chaser tar, Dr. Guzman. At that time, was discovered that the patient had a new left bundle branch block. Patient never endorse any chest pain but felt generally weak. 2 days ago, the patient also started developing low-grade fevers up to 100. Patient also started noticing some worsening redness of the left leg. This is on top of his chronic psoriasis. Because of this, she symptoms, the patient sent to the ED for admission. The patient will need evaluation for new left bundle branch block including cardiac. Patient also feels unstable with his gait. Head CT is negative but patient should have a stroke evaluation. Left lower extremity concerning for cellulitis so should start empiric antibiotics. The patient should be admitted to the hospital. <Cam Green - Last Filed: 05/18/18 09:49> Attestations - Attestations 05/03/18 15:57 Documentation prepared by Geovanny Velez, acting as lpn or medical assistant for Cam Green MD. <Geovanny Velez - Last Filed: 05/03/18 15:54>
[2018-05-03] MEDS ORDERED: AZTREONAM 2 GM in DEXTROSE 5%-WATER 100 ML IVPB ONE (15:33)
--- NOTE | 2018-05-03 16:29 | HP ---
Admitting History and Physical - Primary Care Physician PCP: Nacho Rich - Admission Chief Complaint: sent in by pcp History of Present Illness: 82-year-old male with history of psoriasis, hypertension, hyperlipidemia, coronary disease, congestive heart failure status post CABG, cardiac stents in 2014, exertional dyspnea and angina, psoriasis, chronic venous stasis dermatitis presents to the emergency department for admission to the hospital for chest pain and weakness. 2 days ago, the patient was undergoing routine evaluation by his manager internet, Dr. Guzman. At that time, was discovered that the patient had a new left bundle branch block. Patient never endorse any chest pain but felt generally weak. 2 days ago, the patient also started developing low-grade fevers up to 100. Patient also started noticing some worsening redness of the left leg. This is on top of his chronic psoriasis. Because of this, she symptoms, the patient sent to the ED for admission. in ER aztreonam - Past Medical History Cardiovascular: Yes: Aortic Insufficiency, CAD (s/p CABG and stents), CHF (end diastolic), HTN, Hyperlipdemia, Pulmonary Hypertension, Other (carotid and peripheral vascular disease) Pulmonary: Yes: Pneumonia Hepatobiliary: Yes: Cholelithiasis Renal/: Yes: Renal Inusuff Endocrine: Yes: Diabetes Mellitus - Past Surgical History Past Surgical History: Yes: CABG, Stent - Smoking History Smoking history: Former smoker Have you smoked in the past 12 months: No Aproximately how many cigarettes per day: 0 If you are a former smoker, when did you quit?: many years ago - Alcohol/Substance Use Hx Alcohol Use: No History of Substance Use: reports: None - Social History ADL: Independent 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 [employer] History of Recent Travel: No Home Medications - Allergies Allergies/Adverse Reactions: Allergies Allergy/AdvReac Type Severity Reaction Status Date / Time amoxicillin Allergy Intermediate sob Verified 11/04/17 17:52 Penicillins Allergy Intermediate weakness & Verified 11/04/17 17:52 snoring - Home Medications Home Medications: Ambulatory Orders Aspirin [Aspirin EC] 81 mg PO DAILY 11/04/17 Furosemide [Lasix -] 20 mg PO DAILY 11/04/17 Isosorbide Mononitrate [Isosorbide Mononitrate ER] 30 mg PO DAILY 11/04/17 Metoprolol Succinate [Toprol Xl] 25 mg PO BID 11/04/17 Nystatin Ointment [Mycostatin Ointment -] 1 applic TP BID 11/04/17 Nystatin Powder [Nystop Topical Powder -] 60 gm TP DAILY 11/04/17 Ranolazine [Ranexa] 1,000 mg PO BID 11/04/17 Rosuvastatin Calcium [Crestor] 40 mg PO DAILY 11/04/17 Triamcinolone 0.1% Cream [Aristocort] 1 applic TP BID 11/04/17 Family Disease History - Family Disease History Family Disease History: Diabetes: Mother ( of diabetic complications), Respiratory: Father ( of COPD) Review of Systems - Review of Systems Cardiovascular: reports: Edema Musculoskeletal: reports: Muscle Weakness Physical Examination Vital Signs: Vital Signs Temperature 98.1 F 05/03/18 16:02 Pulse Rate 66 05/03/18 16:02 Respiratory Rate 20 05/03/18 16:02 Blood Pressure 131/53 L 05/03/18 16:02 O2 Sat by Pulse Oximetry (%) 99 05/03/18 16:02 Constitutional: Yes: Calm Cardiovascular: Yes: Regular Rate and Rhythm, S1, S2 Respiratory: Yes: CTA Bilaterally Gastrointestinal: Yes: Normal Bowel Sounds, Soft Extremities: Yes: Erythema (of the left leg with swelling) Labs: CBC, BMP 05/03/18 13:11 05/03/18 13:11 Problem List - Problems (1) Cellulitis of leg, left Assessment/Plan: pcn allergy ID eval aztreonam Code(s): L03.116 - CELLULITIS OF LEFT LOWER LIMB (2) Chest pain Assessment/Plan: telemtry echo carotid doppler head ct cardiologyu eval Code(s): R07.9 - CHEST PAIN, UNSPECIFIED (3) Weakness Assessment/Plan: carotid doppler echo ct head PT Code(s): R53.1 - WEAKNESS
[2018-05-03] MEDS ORDERED: AZTREONAM 1 GM in DEXTROSE 5%-WATER - 50 ML IVPB SCH ×2 (18:00→20:00)
[2018-05-03 18:11] VITALS: BMI 25.4
[2018-05-03] MEDS: metoPROLOL SUCCINATE 25 MG TAB.SR.24H (FP) PO SCH (22:56)
[2018-05-03] MEDS: ROSUVASTATIN CA 10 MG TABLET (FP) PO SCH (22:56)
[2018-05-03] MEDS: HEPARIN NA (PORCINE) 5,000 UNITS/ML 1ML VIAL SQ SCH (22:56)
[2018-05-03] MEDS: RANOLAZINE E.R. 1,000 MG TABLET (FP) PO SCH (22:56)
[2018-05-04] MEDS ORDERED: AZTREONAM 1 GM in DEXTROSE 5%-WATER - 50 ML IVPB ONE (05:00)
[2018-05-04 06:25] LABS: BASO % 0.4 % (0-2.0); HEMATOCRIT 36.3 % (35.4-49); HEMOGLOBIN 12.9 GM/dL (11.7-16.9); LYMPH % 22.3 % (8-40); MCH 34.8 pg (25.7-33.7); MCHC 35.5 g/dl (32.0-35.9); MEAN PLT VOLUME 8.3 fl (7.5-11.1); MONO % 11.7 % (3.8-10.2); NEUT % 61.6 % (42.8-82.8); PLATELET COUNT 130 K/MM3 (134-434); RBC 3.71 M/mm3 (4.00-5.60); RDW 13.2 % (11.9-15.9); WHITE BLOOD COUNT 6.7 K/mm3 (4.0-10.0)
[2018-05-04 06:40] LABS: INR 1.22 (0.83-1.09); PROTHROMBIN TIME (PATIENT) 14.4 SEC (9.7-13.0)
[2018-05-04 06:42] LABS: ACTIVATED PTT 34.3 SECONDS (25.2-36.5)
[2018-05-04 07:05] LABS: ANION GAP 8 MMOL/L (8-16); BLOOD UREA NITROGEN 21 mg/dL (7-18); CALCIUM 8.2 mg/dL (8.5-10.1); CHLORIDE 104 mmol/L (98-107); CHOLESTEROL 129 mg/dL (50-200); CO2 24 mmol/L (21-32); CREATININE 1.6 mg/dL (0.55-1.3); GLUCOSE,RANDOM 107 mg/dL (74-106); HDL CHOLESTEROL 37 mg/dL (40-60); MAGNESIUM 2.1 mg/dL (1.8-2.4); PHOSPHOROUS 2.6 mg/dL (2.5-4.9); POTASSIUM 3.9 mmol/L (3.5-5.1); SODIUM 137 mmol/L (136-145); TRIGLYCERIDES 97 mg/dL (0-150)
--- NOTE | 2018-05-04 07:50 | CON.CARD ---
Consult Consult Specialty:: Cardiology Referred by:: Dr. Rich Reason for Consultation:: abnl ECG, CAD, CABG - History of Present Illness Chief Complaint: Weakness History of Present Illness: 82-year-old male with past medical history of hypertension, hyperlipidemia, hypertriglyceridemia, former smoker, multiple coronary interventions, Plavix nonresponder, prior CABG, prior PTCA of the left circumflex with in-stent restenosis, recurrent ISR now PTCA and atherectomy of left circumflex 2015 at [facility]. Complex coronary anatomy with patent GONZALEZ to LAD , occluded SVG to RCA, occluded SVG to D1 and in-stent restenosis of mid left circumflex. Developed recurrent angina, but also fell at home and upon evaluation in the [place] [facility] head CT revealed subdural hematoma. He followed up with neurology in the [place] clinic and a repeat head CT done on 09/18/[address] Seth a neurology resident showed trace Parafalcine subdural hemorrhage decreased since the previous study of 2016. Has had great response with less SOB and less angina He was cathed again recently at [place] and was recommended for reop CABG but he refused. He was hospitalized with PNA at [facility] and went to rehab, about 6 weeks ago. Now returns to ER for: " presents to the [facility] ED via private auto referred from Dr. Rich to be admitted with the chief complaint of generalized bilateral leg weakness this past Thursday associated with a fever up to 100.5. the patient also endorses more frequent episodes of chest pain which he says are his typical stable angina symptoms including dyspnea on exertion as well as chest pain with physical activity requiring him to take his nitro more frequently. The who is with the patient at bedside reports she has been giving him more tylenol recently because of his fever since Thursday, but the patient is not febrile here in the ER. The also says that for the past few days he has been very confused at times, dizzy like he is going to fall down, feels lightheaded, and is not steady on his feet, The patient endorses these random generalized episodes of bilateral leg weakness which when they come about he is unable to even stand up to goto the bathroom and urinate. He denies one side being worse than the other side. Patient currently denies any chest pain, SOB, nausea, vomiting, diarrhea, constipation, difficulty breathing, chills, numbness, tingling, headache, blurry vision, neck pain, back pain, abdominal pain, dysuria, frequency, urgency , or vertigo. " - History Source History Provided By: Patient, Significant Other Limitations to Obtaining History: No Limitations - Past Medical History Cardio/Vascular: Yes: Aortic Insufficiency, CAD (s/p CABG and stents), CHF (end diastolic), HTN, Hyperlipdemia, Pulmonary Hypertension, Other (carotid and peripheral vascular disease) Pulmonary: Yes: Pneumonia Hepatobiliary: Yes: Cholelithiasis Renal/: Yes: Renal Inusuff Endocrine: Yes: Diabetes Mellitus - Past Surgical History Past Surgical History: Yes: CABG, Stent - Alcohol/Substance Use Hx Alcohol Use: No History of Substance Use: reports: None - Smoking History Smoking history: Former smoker Have you smoked in the past 12 months: No Aproximately how many cigarettes per day: 0 If you are a former smoker, when did you quit?: many years ago - Social History Usual Living Arrangement: With Spouse ADL: Independent 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 [employer] History of Recent Travel: No Home Medications - Allergies Allergies/Adverse Reactions: Allergies Allergy/AdvReac Type Severity Reaction Status Date / Time amoxicillin Allergy Intermediate sob Verified 11/04/17 17:52 Penicillins Allergy Intermediate weakness & Verified 11/04/17 17:52 snoring - Home Medications Home Medications: Ambulatory Orders Aspirin [Aspirin EC] 81 mg PO DAILY 11/04/17 Furosemide [Lasix -] 40 mg PO DAILY 11/04/17 Isosorbide Mononitrate [Isosorbide Mononitrate ER] 30 mg PO DAILY 11/04/17 Metoprolol Succinate [Toprol Xl] 25 mg PO BID 11/04/17 Nystatin Ointment [Mycostatin Ointment -] 1 applic TP BID 11/04/17 Nystatin Powder [Nystop Topical Powder -] 60 gm TP DAILY 11/04/17 Ranolazine [Ranexa] 500 mg PO BID 11/04/17 Rosuvastatin Calcium [Crestor] 40 mg PO DAILY 11/04/17 Triamcinolone 0.1% Cream [Aristocort] 1 applic TP BID 11/04/17 Family Disease History - Family Disease History Family Disease History: Diabetes: Mother ( of diabetic complications), Respiratory: Father ( of COPD) Review of Systems Findings/Remarks: see HPI - Review of Systems Constitutional: reports: Chills, Weakness Cardiovascular: reports: Chest Pain, Shortness of Breath Respiratory: reports: Exercise Intolerance, SOB on Exertion Gastrointestinal: denies: No Symptoms, Abdominal Pain, Bloating, Constipation, Diarrhea, Dysphagia, Indigestion, Melena, Nausea, Rectal Bleeding, Vomiting, Vomiting Blood, Other Genitourinary: denies: No Symptoms, Burning, Discharge, Dysuria, Flank Pain, Frequency, Hematuria, Incontinence, Lesions, Menses, Pain, Testicular Mass, Testicular Pain, Testicular Swelling, Urgency, Vaginal Bleeding, Other Breasts: denies: No Symptoms Reported, See HPI, Breast Implants, Discharge from Nipple, Lumps, Pain, Skin Changes, Other Musculoskeletal: denies: No Symptoms, Back Pain, Crepitus, Decreased ROM, Extremity Pain, Joint Pain, Joint Swelling, Muscle Pain, Muscle Cramps, Muscle Weakness, Other Neurological: reports: Weakness Endocrine: denies: No Symptoms, Excessive Sweating, Flushing, Increased Hunger, Increased Thirst, Intolerance to Cold, Intolerance to Heat, Unexplained Weight Gain, Unexplained Weight Loss, Other Hematology/Lymphatic: denies: No Symptoms, Easily Bruised, Excessive Bleeding, Swollen Glands, Other Psychiatric: denies: No Symptoms, Altered Sleep Pattern, Anxiety, Depression, Hallucinations, Panic, Paranoia, Suicidal, Other - Risk Factors Known Risk Factors: Yes: Hypertension, Prior [place] /Emb Stroke, Other (Known CAD) Vital Signs: Vital Signs Temperature 98.0 F 05/04/18 05:50 Pulse Rate 79 05/04/18 05:50 Respiratory Rate 18 05/04/18 05:50 Blood Pressure 140/56 L 05/04/18 05:50 O2 Sat by Pulse Oximetry (%) 99 05/03/18 20:00 Constitutional: Yes: No Distress, Calm Eyes: Yes: Conjunctiva Clear, EOM Intact HENT: Yes: Normocephalic Neck: Yes: Trachea Midline Respiratory: Yes: CTA Bilaterally Gastrointestinal: Yes: Soft (NT) Cardiovascular: Yes: Regular Rate and Rhythm JVD: No Carotid Bruit: No PMI: Non-Displaced Heart Sounds: Yes: S1, S2 (RRR) Edema: Yes Edema: RLE: 2+ Peripheral Pulses WNL: Yes Neurological: Yes: Alert ...Motor Strength: WNL Psychiatric: Yes: WNL - Other Data Labs, Other Data: CBC, BMP 05/04/18 05:30 05/04/18 05:30 INR, PTT INR 1.22 (0.83-1.09) H 05/04/18 05:30 Troponin, BNP 05/03/18 05/03/18 05/04/18 13:11 16:30 05:30 Troponin I < 0.02 < 0.02 B-Natriuretic Peptide 1390.5 H Troponin, BNP 05/03/18 05/03/18 05/04/18 13:11 16:30 05:30 Troponin I < 0.02 < 0.02 B-Natriuretic Peptide 1390.5 H Microbiology Laboratory Tests 05/03/18 05/03/18 05/03/18 13:11 13:11 13:11 WBC Hgb Hct Plt Count Sodium Potassium BUN Creatinine Magnesium Troponin I < 0.02 B-Natriuretic Peptide Cholesterol Ur Specific [place] 1.006 L Influenza A (Rapid) Negative Influenza B (Rapid) Negative 05/03/18 05/04/18 05/04/18 16:30 05:30 05:30 WBC 6.7 Hgb 12.9 Hct 36.3 Plt Count 130 L Sodium 137 Potassium 3.9 BUN 21 H Creatinine 1.6 H Magnesium 2.1 Troponin I < 0.02 B-Natriuretic Peptide 1390.5 H Cholesterol 129 Ur Specific [place] Influenza A (Rapid) Influenza B (Rapid) NSR, chronic LBBB/ IVCD Echo: Pending Imaging - Results Chest X-ray: Image Reviewed Cat Scan: Image Reviewed EKG: Image Reviewed Problem List - Problems (1) Cellulitis of leg, left Code(s): L03.116 - CELLULITIS OF LEFT LOWER LIMB (2) Weakness Code(s): R53.1 - WEAKNESS (3) ASHD (arteriosclerotic heart disease) Code(s): I25.10 - ATHSCL HEART DISEASE OF [place] CORONARY ARTERY W/O ANG PCTRS (4) Hx of CABG Code(s): Z95.1 - PRESENCE OF AORTOCORONARY BYPASS GRAFT (5) Chronic stable angina Code(s): I20.8 - OTHER FORMS OF ANGINA PECTORIS (6) LBBB (left bundle branch block) Code(s): I44.7 - LEFT BUNDLE-BRANCH BLOCK, UNSPECIFIED (7) Carotid arterial disease Code(s): I77.9 - DISORDER OF ARTERIES AND ARTERIOLES, UNSPECIFIED Qualifiers: Laterality: left Assessment/Plan IMP: CAD s/p CABG, chronic stable angina, anatomy not amenable to PCI (refused CABG) Generalized weakness and dizziness Suspected cellulitis lower extremity Moderate left carotid stenosis Abnl ECG REC: 1. Dizziness and weakness likely secondary to cellulitis/infection. -Given extensive cardiac hx and reports of presyncope will r/o arrhythmia 2. Echo for EF assessment, r/o 3. Blood cultures, abx as per PMD 4. Continue home meds for OMT CAD/chronic angina: Metoprolol/Imdur/Ranexa/ Statin. Resume ASA 5. DVT prophylaxis 6. Would likely benefit from SNF upon d/c Will follow Thank you.
--- NOTE | 2018-05-04 08:37 | PN ---
Progress Note, Physician - Current Medication List Current Medications: Active Medications Furosemide (Lasix -) 20 mg PO DAILY [facility] Heparin Sodium (Porcine) (Heparin -) 5,000 unit SQ BID [facility] Last Admin: 05/03/18 22:56 Dose: 5,000 unit Aztreonam 1 gm/ Dextrose 50 mls @ 100 mls/hr IVPB RBID [facility]; Protocol Isosorbide Mononitrate (Imdur -) 30 mg PO DAILY [facility] Metoprolol Succinate (Toprol Xl -) 25 mg PO BID [facility] Last Admin: 05/03/18 22:56 Dose: 25 mg Ranolazine (Ranexa -) 1,000 mg PO BID [facility] Last Admin: 05/03/18 22:56 Dose: 1,000 mg Rosuvastatin Calcium (Crestor -) 10 mg PO HS [facility] Last Admin: 05/03/18 22:56 Dose: 10 mg - Objective Vital Signs: Vital Signs Temperature 98.0 F 05/04/18 05:50 Pulse Rate 79 05/04/18 05:50 Respiratory Rate 18 05/04/18 05:50 Blood Pressure 140/56 L 05/04/18 05:50 O2 Sat by Pulse Oximetry (%) 99 05/03/18 20:00 Labs: CBC, BMP 05/04/18 05:30 05/04/18 05:30 INR, PTT INR 1.22 (0.83-1.09) H 05/04/18 05:30 Problem List - Problems (1) Cellulitis of leg, left Assessment/Plan: pcn allergy ID eval aztreonam Code(s): L03.116 - CELLULITIS OF LEFT LOWER LIMB (2) Chest pain Assessment/Plan: telemtry echo carotid doppler head ct cardiologyu eval Code(s): R07.9 - CHEST PAIN, UNSPECIFIED (3) Weakness Assessment/Plan: carotid doppler echo ct head PT Code(s): R53.1 - WEAKNESS
[2018-05-04] MEDS: ISOSORBIDE MONONITRATE 30 MG TAB.SR.24H (FP) PO SCH (09:30)
[2018-05-04] MEDS: FUROSEMIDE 20 MG TABLET (FP) PO SCH (09:30)
[2018-05-04] MEDS: metoPROLOL SUCCINATE 25 MG TAB.SR.24H (FP) PO SCH ×2 (09:30→21:42)
[2018-05-04] MEDS: RANOLAZINE E.R. 1,000 MG TABLET (FP) PO SCH ×2 (09:30→21:42)
[2018-05-04] MEDS: HEPARIN NA (PORCINE) 5,000 UNITS/ML 1ML VIAL SQ SCH ×2 (09:30→21:41)
[2018-05-04] MEDS: ASPIRIN 81 MG CHEWABLE TABLETS PO SCH (09:32)
--- NOTE | 2018-05-04 12:49 | PN ---
Progress Note (short form) - Note Progress Note: ID CONSULT DICTATED CELLULITIS L LE PCN ALLERGY AZOTEMIA EMPIRIC VANCOMYCIN, ADJUSTED FOR RENAL FAILURE
[2018-05-04] MEDS: VANCOMYCIN 1 GRAM (PRE-DOCKED) 1,000 MG/250 ML BAG IVPB SCH (13:21)
--- NOTE | 2018-05-04 15:00 | ECHO ---
Name: IVA SLATER Exam:Adult Echocardiogram Study Date: 05/04/2018 09:47 AM Age: 82 yrs Reason For Study: SYNCOPE,CAD,CABG Height: 64 in Weight: 152 lb BSA: 1.7 m2 MMode/2D Measurements & Calculations IVSd: 0.91 cm LVPWs: 1.4 cm LVIDd: 5.2 cm LVIDs: 4.0 cm LVPWd: 0.67 cm IVSs: 1.2 cm EDV(Teich): 129.1 ml LVOT diam: 2.0 cm ESV(Teich): 71.3 ml Doppler Measurements & Calculations MV E max balwinder: 101.2 cm/sec Ao V2 max: 244.0 cm/sec MV A max balwinder: 91.8 cm/sec Ao max P.0 mmHg MV E/A: 1.1 Ao V2 mean: 160.5 cm/sec Ao mean P.3 mmHg Ao V2 VTI: 59.3 cm LAM(I,D): 0.84 cm2 AI P1/2t: 294.0 msec LAM(V,D): 0.98 cm2 AI max balwinder: 361.1 cm/sec LV V1 max P.3 mmHg AI max P.4 mmHg LV V1 mean P.3 mmHg AI dec slope: 359.7 cm/sec2 LV V1 max: 75.9 cm/sec LV V1 mean: 53.9 cm/sec LV V1 VTI: 15.7 cm MR max balwinder: 323.4 cm/sec SV(LVOT): 49.6 ml MR max P.7 mmHg TR max balwinder: 325.8 cm/sec Med Peak E' Balwinder: 3.5 cm/sec TR max P.8 mmHg Med E/e': 28.8 Lat Peak E' Balwinder: 5.3 cm/sec Lat E/e': 19.2 Procedure A two-dimensional transthoracic echocardiogram with color flow and Doppler was performed. The study w as technically difficult with many images being suboptimal in quality. The patient was in normal sinus r hythm during the exam. Left Ventricle The left ventricle is normal in size. Left ventricular systolic function is low normal. Ejection Frac tion = 50%. Diastolic dysfunction, Grade II, consistent with elevated left atrial pressure. Right Ventricle The right ventricle is normal in size and function. Atria The left atrium is mildly dilated. Right atrial size is normal. Mitral Valve There is mild mitral annular calcification. There is mild mitral regurgitation. Tricuspid Valve The tricuspid valve is not well visualized, but is grossly normal. There is mild tricuspid regurgitat ion. Right ventricular systolic pressure is elevated at 50-60mmHg. Aortic Valve There is moderate to severe aortic sclerosis.;. Moderate valvular aortic stenosis. Moderate aortic regurgitation. Pulmonic Valve The pulmonic valve is not well visualized. Pericardium/Pleura There is no pericardial effusion. Interpretation Summary The study was technically difficult with many images being suboptimal in quality. Left ventricular systolic function is low normal. The right ventricle is normal in size and function. There is mild mitral regurgitation. There is mild tricuspid regurgitation. Moderate valvular aortic stenosis. Moderate aortic regurgitation. There is no pericardial effusion. Diastolic dysfunction, Grade II, consistent with elevated left atrial pressure. Right ventricular systolic pressure is elevated at 50-60mmHg. MD Ricco Parmar 05/04/2018 03:00 PM
--- NOTE | 2018-05-04 18:54 | CONS ---
DATE OF CONSULTATION: 05/04/2018 HISTORY OF PRESENT ILLNESS: The patient is an 82-year-old male who was evaluated for cellulitis of the left lower extremity. He was admitted to the hospital on May 03, 2018 with complaints of lower extremity weakness and low-grade fever. He also complained of dizziness and chest pain. The patient was admitted to the telemetry unit. He was found to have erythema, warmth and swelling of the left lower extremity. The patient has a history of PENICILLIN ALLERGY. The patient denies any traumatic injury to the left lower extremity; no insect or animal bites or scratches. He does have psoriasis. No history of previous soft tissue infection requiring hospitalization or documented history of MRSA. PAST MEDICAL HISTORY: Positive hypertension, hyperlipidemia, coronary artery disease, congestive heart failure, chronic venous stasis and dermatitis. PAST SURGICAL HISTORY: Status post coronary artery stent, coronary artery bypass. ALLERGIES: AMOXICILLIN and PENICILLIN. The patient is unaware of the nature of the allergy. MEDICATIONS: Aspirin, Lasix, isosorbide, Toprol, Ranexa, Crestor. SOCIAL HISTORY: He is a former smoker. He lives at home in the community. REVIEW OF SYSTEMS: Neurologic: No loss of consciousness, seizure activity or focal weakness. Cardiac: As per HPI. Respiratory: Negative for cough or sputum production. Gastrointestinal: Negative for vomiting or diarrhea. Genitourinary: Negative for urinary tract infection. LABORATORY DATA: White count 6.7, hematocrit 36.3, platelet count 130, BUN 21, creatinine 1.6. Urinalysis is negative. A flu swab is negative. Blood and urine cultures pending PHYSICAL EXAMINATION: General: He is awake and alert. He is in not acutely toxic-appearing. Vital Signs: Temperature 98.1, pulse 68 and regular, blood pressure 131/79, respiratory rate 20 per minute. HEENT:: Sclerae anicteric. Heart: Heart sounds S1, S2. Lungs: Clear bilaterally. No wheezes, rales or rhonchi. Abdomen: Soft and nontender. Extremities: On examination of the left lower extremity, there is swelling of the left lower extremity from below the knee to the foot with chronic venous stasis dermatitis and superimposed fine erythema and warmth. There is no calf tenderness. No crepitus or fluctuance. No lymphangitic streaking. IMPRESSION: 1. Cellulitis of the left lower extremity. 2. PENICILLIN ALLERGY. 3. Azotemia. PLAN: 1. Pending cultures. 2. Empiric antibiotic coverage in this PENICILLIN-ALLERGIC patient with vancomycin 1 gram IV piggyback every 24 hours. 3. Elevation. 4. Diuretic therapy. 5. Will follow. Thank you for the kind referral. DENNIS RYDER M.D. [id number]
[2018-05-04] MEDS: ROSUVASTATIN CA 10 MG TABLET (FP) PO SCH (21:42)
--- NOTE | 2018-05-05 08:55 | PN ---
Progress Note, Physician Chief Complaint: seen and examined on telemetry Denies CP, SOB. No further presyncope. TEL: NSR, APCs. No pauses or sustained arrhythmias. - Current Medication List Current Medications: Active Medications Aspirin (Asa -) 81 mg PO DAILY [facility] Last Admin: 05/04/18 09:32 Dose: 81 mg Furosemide (Lasix -) 20 mg PO DAILY [facility] Last Admin: 05/04/18 09:30 Dose: 20 mg Heparin Sodium (Porcine) (Heparin -) 5,000 unit SQ BID [facility] Last Admin: 05/04/18 21:41 Dose: 5,000 unit Vancomycin HCl (Vancomycin (Pre-Docked)) 1,000 mg in 250 mls @ 200 mls/hr IVPB Q24H [facility]; Protocol Last Admin: 05/04/18 13:21 Dose: 200 mls/hr Isosorbide Mononitrate (Imdur -) 30 mg PO DAILY [facility] Last Admin: 05/04/18 09:30 Dose: 30 mg Metoprolol Succinate (Toprol Xl -) 25 mg PO BID [facility] Last Admin: 05/04/18 21:42 Dose: 25 mg Ranolazine (Ranexa -) 1,000 mg PO BID [facility] Last Admin: 05/04/18 21:42 Dose: 1,000 mg Rosuvastatin Calcium (Crestor -) 10 mg PO HS [facility] Last Admin: 05/04/18 21:42 Dose: 10 mg - Objective Vital Signs: Vital Signs Temperature 98 F 05/05/18 06:00 Pulse Rate 77 05/05/18 06:00 Respiratory Rate 18 05/05/18 06:00 Blood Pressure 142/53 L 05/05/18 06:00 O2 Sat by Pulse Oximetry (%) 99 05/04/18 22:00 Constitutional: Yes: No Distress, Calm Eyes: Yes: Conjunctiva Clear Cardiovascular: Yes: Regular Rate and Rhythm Respiratory: Yes: CTA Bilaterally (no wheezing or rales) Gastrointestinal: Yes: Soft Edema: Yes Edema: LLE: 2+ (cellulitic) Neurological: Yes: Alert, Oriented ...Motor Strength: WNL Labs: CBC, BMP 05/04/18 05:30 05/04/18 05:30 INR, PTT INR 1.22 (0.83-1.09) H 05/04/18 05:30 - ....Imaging Ultrasound: Report Reviewed (negative for DVT) EKG: Image Reviewed Problem List - Problems (1) Cellulitis of leg, left Code(s): L03.116 - CELLULITIS OF LEFT LOWER LIMB (2) Weakness Code(s): R53.1 - WEAKNESS (3) ASHD (arteriosclerotic heart disease) Code(s): I25.10 - ATHSCL HEART DISEASE OF [place] CORONARY ARTERY W/O ANG PCTRS (4) Hx of CABG Code(s): Z95.1 - PRESENCE OF AORTOCORONARY BYPASS GRAFT (5) Chronic stable angina Code(s): I20.8 - OTHER FORMS OF ANGINA PECTORIS (6) LBBB (left bundle branch block) Code(s): I44.7 - LEFT BUNDLE-BRANCH BLOCK, UNSPECIFIED (7) Carotid arterial disease Code(s): I77.9 - DISORDER OF ARTERIES AND ARTERIOLES, UNSPECIFIED Qualifiers: Laterality: left Assessment/Plan IMP: CAD s/p CABG, chronic stable angina, anatomy not amenable to PCI (refused CABG) Moderate Aortic Valve stenosis Moderate to severe chronic PHTN Generalized weakness and dizziness Suspected cellulitis lower extremity Moderate left carotid stenosis Abnl ECG REC: 1. Dizziness and weakness likely secondary to cellulitis/infection. -Thus far no arrhythmias 2. Echo showed low normal EF, moderate - unlikely to explain his sx 3. Blood cultures remain negative to date 4. Continue home meds for OMT CAD/chronic angina: Metoprolol/Imdur/Ranexa/ Statin. Resume ASA 5. DVT prophylaxis 6. Chronic PHTN is secondary to left sided disease: Moderate chronic diastolic CHF and moderate . No specific treatment other than to optimize his volume status with good medical therapy. 7. Would likely benefit from SNF upon d/c
[2018-05-05] MEDS: metoPROLOL SUCCINATE 25 MG TAB.SR.24H (FP) PO SCH ×2 (09:21→21:47)
[2018-05-05] MEDS: RANOLAZINE E.R. 1,000 MG TABLET (FP) PO SCH ×2 (09:21→21:45)
[2018-05-05] MEDS: ISOSORBIDE MONONITRATE 30 MG TAB.SR.24H (FP) PO SCH (09:21)
[2018-05-05] MEDS: FUROSEMIDE 20 MG TABLET (FP) PO SCH (09:21)
[2018-05-05] MEDS: HEPARIN NA (PORCINE) 5,000 UNITS/ML 1ML VIAL SQ SCH ×2 (09:22→21:48)
[2018-05-05] MEDS: ASPIRIN 81 MG CHEWABLE TABLETS PO SCH (09:22)
--- NOTE | 2018-05-05 11:46 | PN ---
Progress Note, Physician - Current Medication List Current Medications: Active Medications Aspirin (Asa -) 81 mg PO DAILY [facility] Last Admin: 05/05/18 09:22 Dose: 81 mg Furosemide (Lasix -) 20 mg PO DAILY [facility] Last Admin: 05/05/18 09:21 Dose: 20 mg Heparin Sodium (Porcine) (Heparin -) 5,000 unit SQ BID [facility] Last Admin: 05/05/18 09:22 Dose: 5,000 unit Vancomycin HCl (Vancomycin (Pre-Docked)) 1,000 mg in 250 mls @ 200 mls/hr IVPB Q24H [facility]; Protocol Last Admin: 05/04/18 13:21 Dose: 200 mls/hr Isosorbide Mononitrate (Imdur -) 30 mg PO DAILY [facility] Last Admin: 05/05/18 09:21 Dose: 30 mg Metoprolol Succinate (Toprol Xl -) 25 mg PO BID [facility] Last Admin: 05/05/18 09:21 Dose: 25 mg Ranolazine (Ranexa -) 1,000 mg PO BID [facility] Last Admin: 05/05/18 09:21 Dose: 1,000 mg Rosuvastatin Calcium (Crestor -) 10 mg PO HS [facility] Last Admin: 05/04/18 21:42 Dose: 10 mg - Objective Vital Signs: Vital Signs Temperature 98 F 05/05/18 09:00 Pulse Rate 68 05/05/18 09:00 Respiratory Rate 18 05/05/18 09:00 Blood Pressure 136/60 05/05/18 09:00 O2 Sat by Pulse Oximetry (%) 99 05/05/18 09:00 Cardiovascular: Yes: Regular Rate and Rhythm Respiratory: Yes: Regular, CTA Bilaterally Gastrointestinal: Yes: Normal Bowel Sounds, Soft. No: Tenderness Edema: Yes Wound/Incision: Yes: Reddened (LESS) Labs: CBC, BMP 05/04/18 05:30 05/04/18 05:30 INR, PTT INR 1.22 (0.83-1.09) H 05/04/18 05:30 Problem List - Problems (1) Cellulitis of leg, left Assessment/Plan: pcn allergy ID eval aztreonam Code(s): L03.116 - CELLULITIS OF LEFT LOWER LIMB (2) Chest pain Assessment/Plan: RESOLVED telemtry echo carotid doppler head ct cardiology eval noted Code(s): R07.9 - CHEST PAIN, UNSPECIFIED (3) Weakness Assessment/Plan: carotid doppler echo ct head PT Code(s): R53.1 - WEAKNESS
[2018-05-05] MEDS: VANCOMYCIN 1 GRAM (PRE-DOCKED) 1,000 MG/250 ML BAG IVPB SCH (13:12)
[2018-05-05] MEDS: ROSUVASTATIN CA 10 MG TABLET (FP) PO SCH (21:47)
--- NOTE | 2018-05-05 21:47 | PN ---
Progress Note, Physician History of Present Illness: NO C/O LEG PAIN NO FEVER/ CHILLS TOLERATING VANCOMYCIN BC NO GROWTH - Current Medication List Current Medications: Active Medications Aspirin (Asa -) 81 mg PO DAILY [facility] Last Admin: 05/05/18 09:22 Dose: 81 mg Furosemide (Lasix -) 20 mg PO DAILY [facility] Last Admin: 05/05/18 09:21 Dose: 20 mg Heparin Sodium (Porcine) (Heparin -) 5,000 unit SQ BID [facility] Last Admin: 05/05/18 09:22 Dose: 5,000 unit Vancomycin HCl (Vancomycin (Pre-Docked)) 1,000 mg in 250 mls @ 200 mls/hr IVPB Q24H [facility]; Protocol Last Admin: 05/05/18 13:12 Dose: 200 mls/hr Isosorbide Mononitrate (Imdur -) 30 mg PO DAILY [facility] Last Admin: 05/05/18 09:21 Dose: 30 mg Metoprolol Succinate (Toprol Xl -) 25 mg PO BID [facility] Last Admin: 05/05/18 09:21 Dose: 25 mg Ranolazine (Ranexa -) 1,000 mg PO BID [facility] Last Admin: 05/05/18 09:21 Dose: 1,000 mg Rosuvastatin Calcium (Crestor -) 10 mg PO HS [facility] Last Admin: 05/04/18 21:42 Dose: 10 mg - Objective Vital Signs: Vital Signs Temperature 98.0 F 05/05/18 18:00 Pulse Rate 71 05/05/18 18:00 Respiratory Rate 18 05/05/18 18:00 Blood Pressure 139/57 L 05/05/18 18:00 O2 Sat by Pulse Oximetry (%) 99 05/05/18 09:00 Constitutional: Yes: No Distress Cardiovascular: Yes: Regular Rate and Rhythm, S1, S2 Respiratory: Yes: CTA Bilaterally Gastrointestinal: Yes: Normal Bowel Sounds, Soft Extremities: Yes: Other (PERSISTANT ERYTHEMA L LE) Labs: CBC, BMP 05/04/18 05:30 05/04/18 05:30 INR, PTT INR 1.22 (0.83-1.09) H 05/04/18 05:30 Assessment/Plan CELLULITIS L LE PCN ALERGY AZOTEMIA CONTINUE VANCOMYCIN
--- NOTE | 2018-05-06 08:45 | PN ---
Progress Note, Physician Chief Complaint: no distress Denies CP or SOB Feels light headed when stands - Current Medication List Current Medications: Active Medications Aspirin (Asa -) 81 mg PO DAILY [facility] Last Admin: 05/05/18 09:22 Dose: 81 mg Furosemide (Lasix -) 20 mg PO DAILY [facility] Last Admin: 05/05/18 09:21 Dose: 20 mg Heparin Sodium (Porcine) (Heparin -) 5,000 unit SQ BID [facility] Last Admin: 05/05/18 21:48 Dose: 5,000 unit Vancomycin HCl (Vancomycin (Pre-Docked)) 1,000 mg in 250 mls @ 200 mls/hr IVPB Q24H [facility]; Protocol Last Admin: 05/05/18 13:12 Dose: 200 mls/hr Isosorbide Mononitrate (Imdur -) 30 mg PO DAILY [facility] Last Admin: 05/05/18 09:21 Dose: 30 mg Metoprolol Succinate (Toprol Xl -) 25 mg PO BID [facility] Last Admin: 05/05/18 21:47 Dose: 25 mg Ranolazine (Ranexa -) 1,000 mg PO BID [facility] Last Admin: 05/05/18 21:45 Dose: 1,000 mg Rosuvastatin Calcium (Crestor -) 10 mg PO HS [facility] Last Admin: 05/05/18 21:47 Dose: 10 mg - Objective Vital Signs: Vital Signs Temperature 98.1 F 05/06/18 02:00 Pulse Rate 64 05/06/18 02:00 Respiratory Rate 18 05/06/18 02:00 Blood Pressure 136/84 05/06/18 02:00 O2 Sat by Pulse Oximetry (%) 99 05/05/18 21:00 Constitutional: Yes: No Distress, Calm Cardiovascular: Yes: Regular Rate and Rhythm Respiratory: Yes: CTA Bilaterally (no wheezing or rales.) Gastrointestinal: Yes: Soft (NT) Edema: Yes Edema: LLE: 1+ (venous stasis), RLE: 1+ (venous stasis) Neurological: Yes: Alert ...Motor Strength: WNL Labs: CBC, BMP 05/04/18 05:30 05/04/18 05:30 INR, PTT INR 1.22 (0.83-1.09) H 05/04/18 05:30 - ....Imaging EKG: Image Reviewed Problem List - Problems (1) Cellulitis of leg, left Code(s): L03.116 - CELLULITIS OF LEFT LOWER LIMB (2) Weakness Code(s): R53.1 - WEAKNESS (3) ASHD (arteriosclerotic heart disease) Code(s): I25.10 - ATHSCL HEART DISEASE OF [place] CORONARY ARTERY W/O ANG PCTRS (4) Hx of CABG Code(s): Z95.1 - PRESENCE OF AORTOCORONARY BYPASS GRAFT (5) Chronic stable angina Code(s): I20.8 - OTHER FORMS OF ANGINA PECTORIS (6) LBBB (left bundle branch block) Code(s): I44.7 - LEFT BUNDLE-BRANCH BLOCK, UNSPECIFIED (7) Carotid arterial disease Code(s): I77.9 - DISORDER OF ARTERIES AND ARTERIOLES, UNSPECIFIED Qualifiers: Laterality: left Assessment/Plan IMP: CAD s/p CABG, chronic stable angina, anatomy not amenable to PCI (refused CABG) Moderate Aortic Valve stenosis Moderate to severe chronic PHTN Generalized weakness and dizziness Suspected cellulitis lower extremity Moderate left carotid stenosis Abnl ECG Elevated BNP on the basis of chronic valvular heart disease, PHTN, CKD- does not reflect clinical decompensation. REC: 1. Dizziness and weakness likely secondary to cellulitis/infection. -Thus far no arrhythmias; will check orthostatics. 2. Echo showed low normal EF, moderate - unlikely to explain his sx 3. Blood cultures remain negative to date 4. Continue home meds for OMT CAD/chronic angina: Metoprolol/Imdur/Ranexa/ Statin. Resume ASA 5. DVT prophylaxis 6. Chronic PHTN is secondary to left sided disease: Moderate chronic diastolic CHF and moderate . No specific treatment other than to optimize his volume status with good medical therapy. 7. Would likely benefit from SNF upon d/c
[2018-05-06] MEDS: FUROSEMIDE 20 MG TABLET (FP) PO SCH (10:22)
[2018-05-06] MEDS: metoPROLOL SUCCINATE 25 MG TAB.SR.24H (FP) PO SCH (10:22)
[2018-05-06] MEDS: RANOLAZINE E.R. 1,000 MG TABLET (FP) PO SCH (10:22)
[2018-05-06] MEDS: ISOSORBIDE MONONITRATE 30 MG TAB.SR.24H (FP) PO SCH (10:22)
[2018-05-06] MEDS: ASPIRIN 81 MG CHEWABLE TABLETS PO SCH (10:23)
[2018-05-06] MEDS: HEPARIN NA (PORCINE) 5,000 UNITS/ML 1ML VIAL SQ SCH (10:23)
--- NOTE | 2018-05-06 12:35 | DS ---
Physical Examination Vital Signs: Vital Signs Temperature 98.1 F 05/06/18 02:00 Pulse Rate 71 05/06/18 08:43 Respiratory Rate 18 05/06/18 02:00 Blood Pressure 146/52 L 05/06/18 08:43 O2 Sat by Pulse Oximetry (%) 99 05/06/18 08:46 Constitutional: Yes: Calm Cardiovascular: Yes: Regular Rate and Rhythm, S1, S2 Respiratory: Yes: CTA Bilaterally Gastrointestinal: Yes: Normal Bowel Sounds, Soft Edema: Yes Neurological: Yes: Alert, Oriented Labs: CBC, BMP 05/04/18 05:30 05/04/18 05:30 Discharge Summary Reason For Visit: CHEST PAIN,WEAKNESS,CELLULITIS OF LEFT EXTREMITY Current Active Problems ASHD (arteriosclerotic heart disease) (Acute) Carotid arterial disease (Acute) Cellulitis of leg, left (Acute) Chest pain (Acute) Chronic stable angina (Acute) Hx of CABG (Acute) LBBB (left bundle branch block) (Acute) Weakness (Acute) Hospital Course: PCP: Nacho Rich - Admission Chief Complaint: sent in by pcp History of Present Illness: 82-year-old male with history of psoriasis, hypertension, hyperlipidemia, coronary disease, congestive heart failure status post CABG, cardiac stents in 2014, exertional dyspnea and angina, psoriasis, chronic venous stasis dermatitis presents to the emergency department for admission to the hospital for chest pain and weakness. 2 days ago, the patient was undergoing routine evaluation by his owner consulting engineer, Dr. Guzman. At that time, was discovered that the patient had a new left bundle branch block. Patient never endorse any chest pain but felt generally weak. 2 days ago, the patient also started developing low-grade fevers up to 100. Patient also started noticing some worsening redness of the left leg. This is on top of his chronic psoriasis. Because of this, she symptoms, the patient sent to the ED for admission. cellulitus on iv vancomycin Condition: Stable - Instructions [facility] - Home Medications Comprehensive Discharge Medication List: Ambulatory Orders Aspirin [Aspirin EC] 81 mg PO DAILY 11/04/17 Furosemide [Lasix -] 40 mg PO DAILY 11/04/17 Isosorbide Mononitrate [Isosorbide Mononitrate ER] 30 mg PO DAILY 11/04/17 Metoprolol Succinate [Toprol Xl] 25 mg PO BID 11/04/17 Nystatin Ointment [Mycostatin Ointment -] 1 applic TP BID 11/04/17 Nystatin Powder [Nystop Topical Powder -] 60 gm TP DAILY 11/04/17 Ranolazine [Ranexa] 500 mg PO BID 11/04/17 Rosuvastatin Calcium [Crestor] 40 mg PO DAILY 11/04/17 Triamcinolone 0.1% Cream [Aristocort] 1 applic TP BID 11/04/17
--- NOTE | 2018-05-06 15:09 | PN ---
Progress Note, Physician History of Present Illness: NO C/O LEG PAIN NO FEVER/ CHILLS AFEBRILE TOLERATING VANCOMYCIN BC NO GROWTH - Current Medication List Current Medications: Active Medications Aspirin (Asa -) 81 mg PO DAILY [facility] Last Admin: 05/06/18 10:23 Dose: 81 mg Furosemide (Lasix -) 20 mg PO DAILY [facility] Last Admin: 05/06/18 10:22 Dose: 20 mg Heparin Sodium (Porcine) (Heparin -) 5,000 unit SQ BID [facility] Last Admin: 05/06/18 10:23 Dose: 5,000 unit Vancomycin HCl (Vancomycin (Pre-Docked)) 1,000 mg in 250 mls @ 200 mls/hr IVPB Q24H [facility]; Protocol Last Admin: 05/05/18 13:12 Dose: 200 mls/hr Isosorbide Mononitrate (Imdur -) 30 mg PO DAILY [facility] Last Admin: 05/06/18 10:22 Dose: 30 mg Metoprolol Succinate (Toprol Xl -) 25 mg PO BID [facility] Last Admin: 05/06/18 10:22 Dose: 25 mg Ranolazine (Ranexa -) 1,000 mg PO BID [facility] Last Admin: 05/06/18 10:22 Dose: 1,000 mg Rosuvastatin Calcium (Crestor -) 10 mg PO HS [facility] Last Admin: 05/05/18 21:47 Dose: 10 mg - Objective Vital Signs: Vital Signs Temperature 98.1 F 05/06/18 02:00 Pulse Rate 71 05/06/18 08:43 Respiratory Rate 18 05/06/18 02:00 Blood Pressure 146/52 L 05/06/18 08:43 O2 Sat by Pulse Oximetry (%) 99 05/06/18 08:46 Constitutional: Yes: No Distress Cardiovascular: Yes: Regular Rate and Rhythm, S1, S2 Respiratory: Yes: CTA Bilaterally Gastrointestinal: Yes: Normal Bowel Sounds, Soft Extremities: Yes: Other (ERYTHEMA/ WARMTH L LE IMPROVED) Edema: Yes Edema: LUE: Trace, LLE: 2+, RLE: 2+ Labs: CBC, BMP 05/04/18 05:30 05/04/18 05:30 INR, PTT INR 1.22 (0.83-1.09) H 05/04/18 05:30 Assessment/Plan CELLULITIS L LE IMPROVED PCN ALLERGY AZOTEMIA SUBSTITUTE CLINDAMYCIN 300MG PO TID + PROBIOTIC X 5-7D
[2018-05-06 15:24] VITALS: BP 128/59; PULSE 65; TEMP 98.2
== END 2018-05-06 16:30 | DRG 603 ==
LOC: JER 11:26 → JERBED 14:41 → J4W 17:32
PROVIDERS: ADMIT Family Medicine; ATTEND Family Medicine
DX: L03.116 Cellulitis of left lower limb (principal); I25.110 Atherosclerotic heart disease of native coronary artery with unstable angina pectoris; I50.30 Unspecified diastolic (congestive) heart failure; E78.5 Hyperlipidemia, unspecified; L40.9 Psoriasis, unspecified; I27.20 Pulmonary hypertension, unspecified; E11.51 Type 2 diabetes mellitus with diabetic peripheral angiopathy without gangrene; R53.1 Weakness; R07.89 Other chest pain; I44.7 Left bundle-branch block, unspecified; E78.1 Pure hyperglyceridemia; I35.1 Nonrheumatic aortic (valve) insufficiency; I11.0 Hypertensive heart disease with heart failure; N28.9 Disorder of kidney and ureter, unspecified; R94.31 Abnormal electrocardiogram [ECG] [EKG]; I65.22 Occlusion and stenosis of left carotid artery; Z95.1 Presence of aortocoronary bypass graft; Z87.891 Personal history of nicotine dependence; Z95.5 Presence of coronary angioplasty implant and graft; Z88.0 Allergy status to penicillin
CPT/HCPCS: 36415; 70450-TC; 71045-TC-FY; 80048; 80053; 80061; 81003; 82465; 82550; 83036; 83605; 83718; 83721; 83735; 83880; 84100; 84478; 84484; 85025; 85027; 85610; 85730; 86850; 86900; 86901; 87040; 87086; 87804; 93005; 93010; 93306-TC; 93880-TC; 93970-TC; 97116-GP; 97161-GP; 99284-25; J1644

== ENCOUNTER 2018-05-10 02:35 | Inpatient (IN) | payer OTHER ==
--- NOTE | 2018-05-10 03:02 | PDOC ---
History of Present Illness <Alley Campbell - Last Filed: 05/10/18 04:52> - History of Present Illness Initial Comments: 05/10/18 02:59 82 yo M with h/o HTN, HLD, CAD ( s/p CABG, stents), LBBB, CHF, Pulm HTN, Aortic Valve Stenosis, Pulmonary HTN, who p/w fever and non productive cough. Patient reports 3 days of worsening, non productive cough. Patient reports 3 days of worsening non productive cough following rehabilitation at [facility]. 2 days of fevers, Tmax 102.0 (05/10/18). Nml CXR 05/09/18. Recent hospitalization for BL LE cellulitis, weakness. No home O2 requirements, or duoneb use. Ambulatory without assistance or difficulty. Patient denies Palpitations, leg pain/swelling, orthopnea, PND, N/V, F,C, CP, SOB, urinary complaints, abdominal pain, diarrhea, constipation, lightheadedness , weakness, sensory changes. PMHx: as noted above ROS: as noted SHx: Denies Etoh, IVDA. Distant tobacco use/smoking hx. Allergies: NKDA PMD: Nacho Rich Cardiology: Arlin <Naga Joshi - Last Filed: 05/10/18 05:12> - General Chief Complaint: Respiratory Stated Complaint: FEVER Time Seen by Provider: 05/10/18 02:49 Past History <Alley Campbell - Last Filed: 05/10/18 04:52> - Past Medical History Anemia: No Cardiac Disorders: Yes (CAD) COPD: No CHF: Yes DVT: No Diabetes: Yes HTN: Yes Hypercholesterolemia: Yes - Surgical History Cardiac Surgery: Yes (CABG, STENT X1) - Immunization History Immunization Up to Date: Yes - Suicide/Smoking/Psychosocial Hx Smoking Status: Yes Smoking History: Never smoked Have you smoked in the past 12 months: No Number of Cigarettes Smoked Daily: 0 If you are a former smoker, when did you quit?: many years ago Cigars Per Day: 0 Hx Alcohol Use: No Drug/Substance Use Hx: No Substance Use Type: None Hx Substance Use Treatment: No <Naga Joshi - Last Filed: 05/10/18 05:12> - Past Medical History Allergies/Adverse Reactions: Allergies Allergy/AdvReac Type Severity Reaction Status Date / Time amoxicillin Allergy Intermediate sob Verified 05/10/18 02:42 Penicillins Allergy Intermediate weakness & Verified 05/10/18 02:42 snoring Home Medications: Ambulatory Orders Aspirin [Aspirin EC] 81 mg PO DAILY 11/04/17 Furosemide [Lasix -] 40 mg PO DAILY 11/04/17 Isosorbide Mononitrate [Isosorbide Mononitrate ER] 30 mg PO DAILY 11/04/17 Metoprolol Succinate [Toprol Xl] 25 mg PO BID 11/04/17 Nystatin Ointment [Mycostatin Ointment -] 1 applic TP BID 11/04/17 Nystatin Powder [Nystop Powder -] 60 gm TP DAILY 11/04/17 Ranolazine [Ranexa] 500 mg PO BID 11/04/17 Rosuvastatin Calcium [Crestor] 40 mg PO DAILY 11/04/17 Triamcinolone 0.1% Cream [Aristocort 0.1% Cream -] 1 applic TP BID 11/04/17 Clindamycin [Cleocin -] 300 mg PO TID #14 capsule 05/06/18 Lactobacillus Acidophilus [Probiotic] 1 each PO BID #14 capsule MDD 2 05/06/18 Review of Systems - Review of Systems Comments:: 05/10/18 03:44 GENERAL/CONSTITUTIONAL: No fever or chills. No weakness. HEAD, EYES, EARS, NOSE AND THROAT: No change in vision. No ear pain or discharge. No sore throat. CARDIOVASCULAR: No chest pain or shortness of breath RESPIRATORY: + Fever, cough. No wheezing, or hemoptysis. GASTROINTESTINAL: No nausea, vomiting, diarrhea or constipation. GENITOURINARY: No dysuria, frequency, or change in urination. MUSCULOSKELETAL: No joint or muscle swelling or pain. No neck or back pain. SKIN: No rash NEUROLOGIC: No headache, vertigo, loss of consciousness, or change in strength/ sensation. ENDOCRINE: No increased thirst. No abnormal weight change HEMATOLOGIC/LYMPHATIC: No anemia, easy bleeding, or history of blood clots. ALLERGIC/IMMUNOLOGIC: No hives or skin allergy. <Naga Joshi - Last Filed: 05/10/18 05:12> *Physical Exam - Vital Signs Last Vital Signs Temp Pulse Resp BP Pulse Ox 99.0 F 78 20 146/50 L 93 L 05/10/18 02:36 05/10/18 02:36 05/10/18 02:36 05/10/18 02:36 05/10/18 02:36 <Alley Campbell - Last Filed: 05/10/18 04:52> - Vital Signs Last Vital Signs Temp Pulse Resp BP Pulse Ox 99.0 F 78 20 146/50 L 93 L 05/10/18 02:36 05/10/18 02:36 05/10/18 02:36 05/10/18 02:36 05/10/18 02:36 - Physical Exam Comments: 05/10/18 03:46 GENERAL: Awake, alert, and fully oriented, in no acute distress HEAD: No signs of trauma, normocephalic, atraumatic EYES: PERRLA, EOMI, sclera anicteric, conjunctiva clear ENT: Hearing grossly normal, nares patent, oropharynx clear without exudates. Moist mucosa NECK: Normal ROM, supple, no lymphadenopathy, JVD, or masses LUNGS: No distress, speaks full sentences, clear to auscultation bilaterally HEART: Regular rate and rhythm, normal S1 and S2, no murmurs, rubs or gallops, peripheral pulses normal and equal bilaterally. ABDOMEN: Soft, nontender, normoactive bowel sounds. No guarding, no rebound. No masses EXTREMITIES : Normal inspection, Normal range of motion, no edema. No clubbing or cyanosis. NEUROLOGICAL: Cranial nerves II through XII grossly intact. Normal speech, normal gait, no focal sensorimotor deficits SKIN: Warm, Dry, normal turgor, no rashes or lesions noted <Naga Joshi - Last Filed: 05/10/18 05:12> Moderate Sedation - Procedure Monitoring Vital Signs: Procedure Monitoring Vital Signs Temperature 99.0 F 05/10/18 02:36 Pulse Rate 78 05/10/18 02:36 Respiratory Rate 20 05/10/18 02:36 Blood Pressure 146/50 L 05/10/18 02:36 O2 Sat by Pulse Oximetry (%) 93 L 05/10/18 02:36 <Alley Campbell - Last Filed: 05/10/18 04:52> - Procedure Monitoring Vital Signs: Procedure Monitoring Vital Signs Temperature 99.0 F 05/10/18 02:36 Pulse Rate 78 05/10/18 02:36 Respiratory Rate 20 05/10/18 02:36 Blood Pressure 146/50 L 05/10/18 02:36 O2 Sat by Pulse Oximetry (%) 93 L 05/10/18 02:36 <Naga Joshi - Last Filed: 05/10/18 05:12> ED Treatment Course - LABORATORY CBC & Chemistry Diagram: 05/10/18 03:15 05/10/18 03:15 - ADDITIONAL ORDERS Additional order review: Laboratory Results 05/10/18 03:15 Sodium 134 L Potassium 4.2 Chloride 104 Carbon Dioxide 25 Anion Gap 6 L BUN 14 Creatinine 1.7 H Creat Clearance w eGFR 38.78 Random Glucose 118 H Calcium 7.9 L Total Bilirubin 0.5 AST 25 ALT 23 Alkaline Phosphatase 70 Total Protein 7.0 Albumin 3.5 05/10/18 03:15 RBC 4.01 MCV 98.8 H MCHC 35.4 RDW 13.3 MPV 7.7 Neutrophils % 70.6 Lymphocytes % 11.2 D Monocytes % 9.9 Eosinophils % 7.5 H D Basophils % 0.8 - Medications Given in the ED: ED Medications Discontinued Medications Generic Name Dose Route Start Last Admin Trade Name Freq PRN Reason Stop Dose Admin Oseltamivir Phosphate 75 mg 05/10/18 03:39 05/10/18 03:54 Tamiflu - PO 05/10/18 03:40 75 mg ONCE ONE Administration <Alley Campbell - Last Filed: 05/10/18 04:52> - LABORATORY CBC & Chemistry Diagram: 05/10/18 03:15 05/10/18 03:15 - RADIOLOGY Radiology Studies Ordered: Category Date Time Status CXRPORT [CHEST X-RAY PORTABLE*] [RAD] Stat Radiology 05/10/18 02:58 Ordered <Naga Joshi - Last Filed: 05/10/18 05:12> Medical Decision Making - Medical Decision Making 05/10/18 03:41 2 yo M with h/o HTN, HLD, CAD ( s/p CABG, stents), LBBB, CHF, Pulm HTN, Aortic Valve Stenosis, Pulmonary HTN, BIBA with fever and non productive cough, myalgias. O2 93 % RA, Oral temp 99.0. Physical exam unremarkable. Vitals otherwise wnl. ACS/GA r/o. Will consider PNA, Viral URI, Flu, acute CHF, COPD. ED Course: Flu A: + Tamiflu EKG: NSR with LBBB. Absent acute RAFIQ/STD. Normal interval duration and axis. Similiar to prior EKG ( 05/03/18) 05/10/18 03:51 Patient high risk Flu complications pulmonary disease, carrdiovasuclar dz. CBC: Unremarkable 05/10/18 04:21 CXR: Unremarkable 05/10/18 05:11 CMP: Unremarkable BNP: 1785 Trop: Neg Patient endorsed to Dr. Mckeon Admit to juno/zen <Naga Joshi - Last Filed: 05/10/18 05:12> *DC/Admit/Observation/Transfer - Discharge Dispostion Decision to Admit order: Yes <Alley Campbell - Last Filed: 05/10/18 04:52> <Naga Joshi - Last Filed: 05/10/18 05:12> Diagnosis at time of Disposition: Influenza A, Hx of CABG, LBBB (left bundle branch block), Cough in adult
--- NOTE | 2018-05-10 03:04 | PDOC ---
Attending Attestation - Resident Resident Name: Naga Joshi - ED Attending Attestation I have performed the following: I have examined & evaluated the patient, The case was reviewed & discussed with the resident, I agree w/resident's findings & plan - HPI HPI: 05/10/18 04:14 Pt comes with flu like symptoms and fever and cough from the [place]. He was recently admitted to our hospital. Pt seems to have influenza or pneumonia - Physicial Exam PE: 05/10/18 04:15 Agree with resident exam - Medical Decision Making 05/10/18 03:26 Pt is febrile and coughing. 05/10/18 04:21 Labs unchanged from previous. He has flu A positive. Pt has a clear CXR. Poor inspiratory effort; one view.
[2018-05-10 03:34] LABS: BASO % 0.8 % (0-2.0); EOS % 7.5 % (0-4.5); HEMATOCRIT 39.6 % (35.4-49); LYMPH % 11.2 % (8-40); MCHC 35.4 g/dl (32.0-35.9); MEAN CELL VOLUME 98.8 fl (80-96); MEAN PLT VOLUME 7.7 fl (7.5-11.1); MONO % 9.9 % (3.8-10.2); NEUT % 70.6 % (42.8-82.8); PLATELET COUNT 182 K/MM3 (134-434); RBC 4.01 M/mm3 (4.00-5.60); RDW 13.3 % (11.9-15.9); WHITE BLOOD COUNT 7.2 K/mm3 (4.0-10.0)
[2018-05-10] MEDS ORDERED: OSELTAMIVIR PHOSPHATE 75 MG CAPSULE PO ONE (03:39)
[2018-05-10] MEDS ORDERED: OSELTAMIVIR PHOSPHATE 75 MG CAPSULE ONE (03:51)
[2018-05-10 04:00] LABS: ALBUMIN 3.5 g/dl (3.4-5.0); ALK PHOS 70 U/L (45-117); ANION GAP 6 MMOL/L (8-16); BILIRUBIN,TOTAL 0.5 mg/dL (0.2-1); BLOOD UREA NITROGEN 14 mg/dL (7-18); CALCIUM 7.9 mg/dL (8.5-10.1); CHLORIDE 104 mmol/L (98-107); CO2 25 mmol/L (21-32); CREATININE 1.7 mg/dL (0.55-1.3); GLUCOSE,RANDOM 118 mg/dL (74-106); POTASSIUM 4.2 mmol/L (3.5-5.1); SGOT/AST 25 U/L (15-37); SGPT/ALT 23 U/L (13-61); SODIUM 134 mmol/L (136-145)
[2018-05-10 05:09] LABS: N-TERMINAL BNP 1785.7 pg/ml (5-450)
--- NOTE | 2018-05-10 06:07 | HP ---
CHIEF COMPLAINT: Coughing at [place] PCP: Dr. Miller's Service HISTORY OF PRESENT ILLNESS: Thank you Dr. Miller for allowing us to take part in the ongoing care of your patient. Briefly, this is a 82 y/o male with a PMH consisting of HTN, HLD, CAD s/p multiple PCI (with in-stent restenosis, found to be plavix nonresponder-- per his electro mechanical assembler's note he has very complex coronary anatomy)/CABG, SDH, carotid A. stenosis. He was recently re-cathed at [facility] and was recommended to undergo repeat CABG which was refused by patient. He was subsequentially hospitalized and sent to rehab and returned several weeks later for cellulitis. He was treated appropriately and seen by Dr. Guzman at that time and discharged to SNF. He states that during his last hospitalization his roommate was sick and that he developed a cough while here that worsened and was noted by staff when he was at his rehab. It is nonproductive. He was also note to be febrile at the [place] and to have some subjective fevers. He is otherwise in good spirits and is not requiring O2, etc. BNP in the ER is slightly higher than it was last time. He denies chest pain. He has some LE edema which is unchanged from his baseline. CXR is similar to prior and old LBBB seen on EKG. Echo was done 05/04 on last hospitalization and shows a technically difficult study but with low normal LVEF, moderate valvular , mod AR, Grade 2 DD with elevated LAP and RVSP 50-60. He is found to be positive for Influenza A. Recent Travel: None PAST MEDICAL HISTORY: Per HPI PAST SURGICAL HISTORY: CABG, PCI; unchanged from prior admits Social History: No current EtOH or tobacco Family History: Asked and noncontributory Allergies amoxicillin Allergy (Intermediate, Verified 05/10/18 02:42) sob Penicillins Allergy (Intermediate, Verified 05/10/18 02:42) weakness & snoring Diarrhea HOME MEDICATIONS: Home Medications Medication Instructions Recorded Aspirin [Aspirin EC] 81 mg PO DAILY 11/04/17 Furosemide [Lasix -] 40 mg PO DAILY 11/04/17 Isosorbide Mononitrate [Isosorbide 30 mg PO DAILY 11/04/17 Mononitrate ER] Metoprolol Succinate [Toprol Xl] 25 mg PO BID 11/04/17 Nystatin Ointment [Mycostatin 1 applic TP BID 11/04/17 Ointment -] Nystatin Powder [Nystop Powder -] 60 gm TP DAILY 11/04/17 Ranolazine [Ranexa] 500 mg PO BID 11/04/17 Rosuvastatin Calcium [Crestor] 40 mg PO DAILY 11/04/17 Triamcinolone 0.1% Cream 1 applic TP BID 11/04/17 [Aristocort 0.1% Cream -] Clindamycin [Cleocin -] 300 mg PO TID #14 capsule 05/06/18 Lactobacillus Acidophilus 1 each PO BID #14 capsule MDD 2 05/06/18 [Probiotic] REVIEW OF SYSTEMS 10 sys ROS done and negative aside from HPI PHYSICAL EXAMINATION Vital Signs - 24 hr 05/10/18 02:36 Temperature 99.0 F Pulse Rate 78 Respiratory 20 Rate Blood Pressure 146/50 L O2 Sat by Pulse 93 L Oximetry (%) GENERAL: Awake, alert, and fully oriented, in no acute distress. HEAD: Normal with no signs of trauma. EYES: Pupils equal, round and reactive to light, extraocular movements intact EARS, NOSE, THROAT: Ears normal, nares patent, oropharynx clear without exudates NECK: Normal range of motion, supple without lymphadenopathy, trace to +1 LE edema noed LUNGS: Breath sounds equal, mild rales near the L base, w/ sym exp HEART: Regular rate and rhythm, normal S1 and S2 without murmur, rub or gallop. ABDOMEN: Soft, nontender, not distended, normoactive bowel sounds MUSCULOSKELETAL: Normal range of motion at all joints. NEUROLOGICAL: Cranial nerves II-XII intact. Normal speech. Normal gait. PSYCHIATRIC: Cooperative. Good eye contact. Appropriate mood and affect. SKIN: Warm, dry, normal turgor, L-leg consistent with prior exams Laboratory Results - last 24 hr 05/10/18 05/10/18 05/10/18 02:40 03:15 03:15 WBC 7.2 RBC 4.01 Hgb 14.0 Hct 39.6 MCV 98.8 H MCH 35.0 H MCHC 35.4 RDW 13.3 Plt Count 182 D MPV 7.7 Absolute Neuts (auto) 5.1 Neutrophils % 70.6 Lymphocytes % 11.2 D Monocytes % 9.9 Eosinophils % 7.5 H D Basophils % 0.8 Nucleated RBC % 0 Sodium Potassium Chloride Carbon Dioxide Anion Gap BUN Creatinine Creat Clearance w eGFR Random Glucose Lactic Acid Calcium Total Bilirubin AST ALT Alkaline Phosphatase Creatine Kinase 136 Troponin I 0.03 B-Natriuretic Peptide 1785.7 H Total Protein Albumin Influenza A (Rapid) Positive A Influenza B (Rapid) Negative 05/10/18 05/10/18 03:15 03:15 WBC RBC Hgb Hct MCV MCH MCHC RDW Plt Count MPV Absolute Neuts (auto) Neutrophils % Lymphocytes % Monocytes % Eosinophils % Basophils % Nucleated RBC % Sodium 134 L Potassium 4.2 Chloride 104 Carbon Dioxide 25 Anion Gap 6 L BUN 14 Creatinine 1.7 H Creat Clearance w eGFR 38.78 Random Glucose 118 H Lactic Acid 1.1 Calcium 7.9 L Total Bilirubin 0.5 AST 25 ALT 23 Alkaline Phosphatase 70 Creatine Kinase Troponin I B-Natriuretic Peptide Total Protein 7.0 Albumin 3.5 Influenza A (Rapid) Influenza B (Rapid) Echo 2019 reviewed Old imaging reviewed CXR reviewed CT pending ASSESSMENT/PLAN: Patient presents with cough from [place] found to be flu positive with slightly elevated BNP compared to last time (hx gII-DD); admitting to telemetry 1) Cough -2/2 influenza likely vs. mild fluid overload; not frankly SOB and not requiring O2. Will be discussed separately. -Incentive spirometry -Obtaining CT to r/o occult process; if he does have an occult PNA given his recent history will need to consider HAP treatment. 2) Influenza -Positive in ER; on tamiflu BID. Monitor for any superinfection. Followup CT and abx if needed 3) Elevated BNP with history of diastolic dysfunction -1700-range now and was 1300-range 1 week ago; his renal function is impaired though with minor increase in Cr from 1.6 to 1.7 which in and of itself doesn't constitute an DRE but definitely could explain renal retention. Clinically doesn't appar to be in a trudy CHF exacerbation. Continue home medications and monitor respiratory status; can consider CV consult for med optimization if warranted 4) Recent Cellulitis -Dc'd with recommendation for PO clindamycin for 5-7 days; no growth blood cx. Will continue course. 5) Moderate -Noted on echo; careful BP management 6) LBBB -Known; seen on last admission 7) Chronic PHTN -As per CV's last note work to continue GDMT to optimize his volume status. 8) Moderate L-Carotid Stenosis -Noted on history; asx at this point. Close OP followup 9) Severe CAD not amenable to PCI (with refusal of CABG) -Continue optimal medical care as per cardiology with continuation of his home medications. Metoprolol, Imdur, ranolazine, high-intensity statin, ASA 10) CKD -Last Cr 1.6 now 1.7; continue to trend,. Continue home diuresis for now.
[2018-05-10 08:54] LABS: MAGNESIUM 2.4 mg/dL (1.8-2.4)
--- NOTE | 2018-05-10 09:41 | EKG ---
Test Reason : Blood Pressure : / mmHG Vent. Rate : 076 BPM Atrial Rate : 076 BPM P-R Int : 176 ms QRS Dur : 142 ms QT Int : 438 ms P-R-T Axes : 050 048 -44 degrees QTc Int : 492 ms NORMAL SINUS RHYTHM LEFT BUNDLE BRANCH BLOCK ABNORMAL ECG WHEN COMPARED WITH ECG OF 03-MAY-2018 11:31, PREMATURE SUPRAVENTRICULAR COMPLEXES ARE NO LONGER PRESENT Confirmed by MICHELLE MESA MD [id number]) on 05/10/2018 9:41:15 AM Referred By: Confirmed By:MICHELLE MESA MD
[2018-05-10] MEDS ORDERED: FUROSEMIDE 40 MG TABLET (FP) PO SCH (10:00)
[2018-05-10 10:25] VITALS: BMI 25.0
--- NOTE | 2018-05-10 11:18 | PN ---
Progress Note, Physician Chief Complaint: patient admitted for cough positve flu sleeping in bed - Current Medication List Current Medications: Active Medications Aspirin (Ecotrin -) 81 mg PO DAILY [facility] Clindamycin HCl (Cleocin -) 300 mg PO TID [facility] Furosemide (Lasix -) 40 mg PO DAILY [facility] Heparin Sodium (Porcine) (Heparin -) 5,000 unit SQ BID [facility] Isosorbide Mononitrate (Imdur -) 30 mg PO DAILY [facility] Lactobacillus Acidophilus (Bacid -) 1 tab PO BID [facility] Metoprolol Succinate (Toprol Xl -) 25 mg PO BID [facility] Nystatin (Mycostatin Ointment -) 1 applic TP BID [facility] Oseltamivir Phosphate (Tamiflu -) 30 mg PO BID [facility] Stop: 05/15/18 10:59 Ranolazine (Ranexa -) 500 mg PO BID [facility] Rosuvastatin Calcium (Crestor -) 40 mg PO HS [facility] Triamcinolone Acetonide (Aristocort 0.1% Cream -) 1 applic TP BID [facility] - Objective Vital Signs: Vital Signs Temperature 99.4 F 05/10/18 10:20 Pulse Rate 83 05/10/18 10:20 Respiratory Rate 20 05/10/18 10:20 Blood Pressure 159/64 05/10/18 10:20 O2 Sat by Pulse Oximetry (%) 94 L 05/10/18 10:36 Constitutional: Yes: Calm Cardiovascular: Yes: Regular Rate and Rhythm, S1, S2 Respiratory: Yes: CTA Bilaterally Gastrointestinal: Yes: Normal Bowel Sounds, Soft Labs: CBC, BMP 05/10/18 03:15 05/10/18 03:15 Problem List - Problems (1) Cough in adult Assessment/Plan: chest ct ID tamiflu droplet precuation on clindamcyin Code(s): R05 - COUGH (2) Influenza A Assessment/Plan: tamiflu dose adjusted for crcl Code(s): J10.1 - FLU DUE TO OTH IDENT INFLUENZA VIRUS W OTH RESP MANIFEST (3) ASHD (arteriosclerotic heart disease) Assessment/Plan: aspirin,imdur ranexa,toprol.statin Code(s): I25.10 - ATHSCL HEART DISEASE OF [place] CORONARY ARTERY W/O ANG PCTRS (4) CKD (chronic kidney disease) Assessment/Plan: kidney bladder sono renal eval Code(s): N18.9 - CHRONIC KIDNEY DISEASE, UNSPECIFIED
[2018-05-10] MEDS: metoPROLOL SUCCINATE 25 MG TAB.SR.24H (FP) PO SCH ×2 (11:54→21:43)
[2018-05-10] MEDS: LACTOBACILLUS ACIDOPHILUS 1 TABLET PO SCH ×2 (11:54→21:44)
[2018-05-10] MEDS: ASPIRIN COATED 81 MG TABLET.EC PO SCH (11:55)
[2018-05-10] MEDS: HEPARIN NA (PORCINE) 5,000 UNITS/ML 1ML VIAL SQ SCH ×2 (11:55→21:44)
[2018-05-10] MEDS: RANOLAZINE E.R. 500 MG TABLET (FP) PO SCH ×2 (11:55→21:44)
[2018-05-10] MEDS: ISOSORBIDE MONONITRATE 30 MG TAB.SR.24H (FP) PO SCH (11:55)
[2018-05-10] MEDS: TRIAMCINOLONE ACET 0.1% CREAM 15 GM TUBE TP SCH ×2 (11:56→21:46)
[2018-05-10] MEDS: OSELTAMIVIR PHOSPHATE 30 MG CAPSULE PO SCH ×2 (11:57→21:45)
[2018-05-10] MEDS: NYSTATIN 100000 UNIT/GM TOPICAL OINTMENT 15 GM TUBE TP SCH ×2 (11:57→21:48)
--- NOTE | 2018-05-10 14:06 | PN ---
Progress Note (short form) - Note Progress Note: ID consult dictated imp/reccd Influenza A cellulitis resolved ckd droplet isolation tamiflu adjusted for ckd d/c clindamycin- cellulitis resolved Problem List - Problems (1) Influenza A Code(s): J10.1 - FLU DUE TO OTH IDENT INFLUENZA VIRUS W OTH RESP MANIFEST (2) Cellulitis of leg, left Code(s): L03.116 - CELLULITIS OF LEFT LOWER LIMB (3) CKD (chronic kidney disease) Code(s): N18.9 - CHRONIC KIDNEY DISEASE, UNSPECIFIED
[2018-05-10] MEDS ORDERED: PT OWN MED DRAWER 7, Y5N ONE (14:30)
--- NOTE | 2018-05-10 16:33 | CONS ---
DATE OF CONSULTATION: DATE OF DICTATION: 05/10/2018 REQUESTING PHYSICIAN: Nacho Rich M.D. CONSULTING PHYSICIAN: Lissa Nazario M.D. HISTORY OF PRESENT ILLNESS: This is an 82-year-old man who was [facility] with fever and cough. He was recently in the hospital from the to the with chest pain and cellulitis of his left lower extremity. He was discharged on clindamycin, as he has a PENICILLIN allergy. He now returns with fever and cough. In the emergency room he had an influenza screen done that was found to be positive for influenza A. I was asked to see him for further evaluation. His past medical history notable for history of hypertension, hyperlipidemia, hypertriglyceridemia, congestive heart failure, pulmonary hypertension, carotid and peripheral vascular disease. He has a history of aortic insufficiency. Prior pneumonia, cholelithiasis, chronic kidney disease, diabetes. Surgical history of notable for CABG and stent. He currently, since his last admission, was discharged to the [facility], and he has been residing at the penitentiary. SOCIAL HISTORY: He is a former smoker. He quit many years ago. No history of substance use. Social history, prior to his last admission, he was living at home with his independently. 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 ALLERGIES: He is allergic to AMOXICILLIN and PENICILLIN. CURRENT MEDICATIONS: His current medications at the penitentiary include Crestor, Ranexa, Mycostatin ointment, Toprol XL, probiotics, clindamycin, Lasix, isosorbide, and aspirin. REVIEW OF SYSTEMS: He essentially has no complaints. PHYSICAL EXAMINATION: VITAL SIGNS: He apparently had fever to 102.8 in the penitentiary. Here in the hospital, his recorded T-max is 99.4. Pulse is 83, blood pressure 159/64, respiratory rate 20, he weighs 66 kg. He is saturating 94% on room air. HEENT: Normocephalic. Eyes are anicteric. No thrush. LUNGS: Clear to auscultation. He has diminished breath sounds at the bases. HEART: Regular rate and rhythm. ABDOMEN: Soft, nontender. EXTREMITIES: He has bilateral venous stasis changes. There is no evidence of any erythema. LABORATORY: Notable for white count of 7.2, hemoglobin 14, platelets 182. The chemistries are notable for BUN and creatinine of 14 and 1.7 with a sodium of 134. Liver function tests are normal. BNP is 1785. As stated before, his influenza A screen is positive and blood cultures are pending. Chest x-ray shows no acute infiltrate. IMPRESSION: In summary, this is an elderly man admitted from the [facility]it[facility]iary with influenza A, resolved cellulitis, chronic kidney disease, in the setting of coronary artery disease. I would suggest droplet isolation, Tamiflu which would be 30 mg p.o. b.i.d. I would stop his clindamycin as his cellulitis is resolved. Further recommendations to follow. Tali CONWAY/[id number]
--- NOTE | 2018-05-10 17:15 | CONSULT ---
Consult - text type - Consultation Consultation Note: Renal consult for DRE vs. CKD This is a 82 year old gentleman with hx of CAD s/p CABG, HTN, HLD who presented [place] home with cough and fever from the [place] and found to have influenza with Cr of 1.7. Pt denies any hx fo CKD. EMR shows that his Cr colin to 1.5 last year but was normal after that. Denies any NSAID use. No flank pain, urinary retention. No CP or SOB. Does reports decreased oral intake. No N/V/D. No skin rash. PMhx: as above Allergies: PCN Family Hx: NC Social Hx: No T/A/D ROS: as per HPI all other pertinent ros negative Home Medications Medication Instructions Recorded Aspirin [Aspirin EC] 81 mg PO DAILY 11/04/17 Furosemide [Lasix -] 40 mg PO DAILY 11/04/17 Isosorbide Mononitrate [Isosorbide 30 mg PO DAILY 11/04/17 Mononitrate ER] Metoprolol Succinate [Toprol Xl] 25 mg PO BID 11/04/17 Nystatin Ointment [Mycostatin 1 applic TP BID 11/04/17 Ointment -] Nystatin Powder [Nystop Powder -] 60 gm TP DAILY 11/04/17 Ranolazine [Ranexa] 500 mg PO BID 11/04/17 Rosuvastatin Calcium [Crestor] 40 mg PO DAILY 11/04/17 Triamcinolone 0.1% Cream 1 applic TP BID 11/04/17 [Aristocort 0.1% Cream -] Clindamycin [Cleocin -] 300 mg PO TID #14 capsule 05/06/18 Lactobacillus Acidophilus 1 each PO BID #14 capsule MDD 2 05/06/18 [Probiotic] Vital Signs Temperature 99.4 F 05/10/18 10:20 Pulse Rate 83 05/10/18 10:20 Respiratory Rate 20 05/10/18 10:20 Blood Pressure 159/64 05/10/18 10:20 O2 Sat by Pulse Oximetry (%) 94 L 05/10/18 10:36 Intake & Output 05/07/18 05/08/18 05/09/18 05/10/18 23:59 23:59 23:59 23:59 Output Total 100 Balance -100 Weight 66.281 kg NAD awake and alert neck supple, no JVD RRR, no m/R CTA soft NT/ND no flank tenderness no bladder distension no LE edema CBC, BMP 05/10/18 03:15 05/10/18 03:15 Current Medications Aspirin (Ecotrin -) 81 mg PO DAILY [facility] Last Admin: 05/10/18 11:55 Dose: 81 mg Furosemide (Lasix -) 40 mg PO DAILY [facility] Last Admin: 05/10/18 11:55 Dose: 40 mg Heparin Sodium (Porcine) (Heparin -) 5,000 unit SQ BID [facility] Last Admin: 05/10/18 11:55 Dose: 5,000 unit Isosorbide Mononitrate (Imdur -) 30 mg PO DAILY [facility] Last Admin: 05/10/18 11:55 Dose: 30 mg Lactobacillus Acidophilus (Bacid -) 1 tab PO BID [facility] Last Admin: 05/10/18 11:54 Dose: 1 tab Metoprolol Succinate (Toprol Xl -) 25 mg PO BID [facility] Last Admin: 05/10/18 11:54 Dose: 25 mg Nystatin (Mycostatin Ointment -) 1 applic TP BID [facility] Last Admin: 05/10/18 11:57 Dose: 1 applic Oseltamivir Phosphate (Tamiflu -) 30 mg PO BID [facility] Stop: 05/15/18 10:59 Last Admin: 05/10/18 11:57 Dose: Not Given Ranolazine (Ranexa -) 500 mg PO BID [facility] Last Admin: 05/10/18 11:55 Dose: 500 mg Rosuvastatin Calcium (Crestor -) 40 mg PO HS [facility] Triamcinolone Acetonide (Aristocort 0.1% Cream -) 1 applic TP BID [facility] Last Admin: 05/10/18 11:56 Dose: 1 applic 82 year old gentleman with hx of CAD s/p CABG, HTN, HLD who presented [place] with [place] and found to have influenza with Cr of 1.7. #DRE vs. CKD #Influenza #CAD #Hx of CHF with reduced LVEF Suspect mild component of volume depletion imaging studies showed no evidence of CHF would consider holding diuretics for 48 hours and monitoring renal function and clinical status during that time check US of the kidney to r/o obstruction would not start RALPH/ARB at this time Continue Tamiflu as per ID Thank you Will follow Tony Castro DO
[2018-05-10] MEDS ORDERED: ROSUVASTATIN CA 40 MG TABLET PO SCH (22:00)
[2018-05-11 08:06] LABS: BASO % 0.4 % (0-2.0); HEMOGLOBIN 13.6 GM/dL (11.7-16.9); LYMPH % 23.5 % (8-40); MCH 34.7 pg (25.7-33.7); MCHC 35.9 g/dl (32.0-35.9); MEAN CELL VOLUME 96.7 fl (80-96); MEAN PLT VOLUME 7.9 fl (7.5-11.1); MONO % 11.2 % (3.8-10.2); NEUT % 60.9 % (42.8-82.8); PLATELET COUNT 182 K/MM3 (134-434); RBC 3.93 M/mm3 (4.00-5.60); RDW 13.1 % (11.9-15.9); WHITE BLOOD COUNT 6.7 K/mm3 (4.0-10.0)
[2018-05-11] MEDS: CLINDAMYCIN HCL 150 MG CAPSULE (FP) PO SCH (08:42)
[2018-05-11 08:49] LABS: ALBUMIN 3.2 g/dl (3.4-5.0); ALK PHOS 60 U/L (45-117); ANION GAP 10 MMOL/L (8-16); BLOOD UREA NITROGEN 18 mg/dL (7-18); CALCIUM 7.9 mg/dL (8.5-10.1); CHLORIDE 104 mmol/L (98-107); CO2 22 mmol/L (21-32); CREATININE 1.6 mg/dL (0.55-1.3); GLUCOSE,RANDOM 96 mg/dL (74-106); POTASSIUM 3.8 mmol/L (3.5-5.1); SGOT/AST 25 U/L (15-37); SGPT/ALT 23 U/L (13-61); SODIUM 136 mmol/L (136-145); TOT PROT 6.6 g/dl (6.4-8.2)
[2018-05-11] MEDS: HEPARIN NA (PORCINE) 5,000 UNITS/ML 1ML VIAL SQ SCH ×2 (10:18→21:11)
[2018-05-11] MEDS: metoPROLOL SUCCINATE 25 MG TAB.SR.24H (FP) PO SCH ×2 (10:18→21:11)
[2018-05-11] MEDS: ISOSORBIDE MONONITRATE 30 MG TAB.SR.24H (FP) PO SCH (10:18)
[2018-05-11] MEDS: RANOLAZINE E.R. 500 MG TABLET (FP) PO SCH ×2 (10:18→21:11)
[2018-05-11] MEDS: LACTOBACILLUS ACIDOPHILUS 1 TABLET PO SCH ×2 (10:18→21:11)
[2018-05-11] MEDS: ASPIRIN COATED 81 MG TABLET.EC PO SCH (10:18)
[2018-05-11] MEDS: NYSTATIN 100000 UNIT/GM TOPICAL OINTMENT 15 GM TUBE TP SCH ×2 (10:19→21:12)
[2018-05-11] MEDS: TRIAMCINOLONE ACET 0.1% CREAM 15 GM TUBE TP SCH ×2 (10:19→21:12)
[2018-05-11] MEDS: OSELTAMIVIR PHOSPHATE 30 MG CAPSULE PO SCH ×2 (10:19→21:15)
--- NOTE | 2018-05-11 15:05 | PN ---
Progress Note (short form) - Note Progress Note: Renal follow up for DRE Pt seen and examined at the bedside continues to have cough no chest pain, sob, abd pain making urine Vital Signs Temperature 98.7 F 05/11/18 14:00 Pulse Rate 73 05/11/18 14:00 Respiratory Rate 18 05/11/18 14:00 Blood Pressure 127/48 L 05/11/18 14:00 O2 Sat by Pulse Oximetry (%) 94 L 05/11/18 09:00 Intake & Output 05/08/18 05/09/18 05/10/18 05/11/18 23:59 23:59 23:59 23:59 Intake Total 350 Output Total 300 Balance -300 350 Weight 66.281 kg 65.431 kg NAD awake and alert neck supple, no JVD RRR, no m/R CTA soft NT/ND no flank tenderness no bladder distension no LE edema CBC, BMP 05/11/18 07:00 05/11/18 07:00 Current Medications Aspirin (Ecotrin -) 81 mg PO DAILY [facility] Last Admin: 05/11/18 10:18 Dose: 81 mg Heparin Sodium (Porcine) (Heparin -) 5,000 unit SQ BID [facility] Last Admin: 05/11/18 10:18 Dose: 5,000 unit Isosorbide Mononitrate (Imdur -) 30 mg PO DAILY [facility] Last Admin: 05/11/18 10:18 Dose: 30 mg Lactobacillus Acidophilus (Bacid -) 1 tab PO BID [facility] Last Admin: 05/11/18 10:18 Dose: 1 tab Metoprolol Succinate (Toprol Xl -) 25 mg PO BID [facility] Last Admin: 05/11/18 10:18 Dose: 25 mg Nystatin (Mycostatin Ointment -) 1 applic TP BID [facility] Last Admin: 05/11/18 10:19 Dose: 1 applic Oseltamivir Phosphate (Tamiflu -) 30 mg PO BID [facility] Stop: 05/15/18 10:59 Last Admin: 05/11/18 10:19 Dose: 30 mg Ranolazine (Ranexa -) 500 mg PO BID [facility] Last Admin: 05/11/18 10:18 Dose: 500 mg Rosuvastatin Calcium (Crestor -) 40 mg PO [facility] Triamcinolone Acetonide (Aristocort 0.1% Cream -) 1 applic TP BID [facility] Last Admin: 05/11/18 10:19 Dose: 1 applic 82 year old gentleman with hx of CAD s/p CABG, HTN, HLD who presented from home with cough and fever from the [place] and found to have influenza with Cr of 1.7. #DRE vs. CKD #Influenza #CAD #Hx of CHF with reduced LVEF Renal function stable/slight improvement imaging studies showed no evidence of CHF urine studies show FeNa < 1 indicating preserved tubular function Continue to hold diuretics for now check US of the kidney to r/o obstruction would not start RALPH/ARB at this time Continue Tamiflu as per ID Thank you Will follow Tony Castro DO
--- NOTE | 2018-05-11 16:23 | PN ---
Progress Note, Physician Chief Complaint: AWAKE ALERT EVENTS AND NOTES REVIEWED - Current Medication List Current Medications: Active Medications Aspirin (Ecotrin -) 81 mg PO DAILY [facility] Last Admin: 05/11/18 10:18 Dose: 81 mg Heparin Sodium (Porcine) (Heparin -) 5,000 unit SQ BID [facility] Last Admin: 05/11/18 10:18 Dose: 5,000 unit Isosorbide Mononitrate (Imdur -) 30 mg PO DAILY [facility] Last Admin: 05/11/18 10:18 Dose: 30 mg Lactobacillus Acidophilus (Bacid -) 1 tab PO BID [facility] Last Admin: 05/11/18 10:18 Dose: 1 tab Metoprolol Succinate (Toprol Xl -) 25 mg PO BID [facility] Last Admin: 05/11/18 10:18 Dose: 25 mg Nystatin (Mycostatin Ointment -) 1 applic TP BID [facility] Last Admin: 05/11/18 10:19 Dose: 1 applic Oseltamivir Phosphate (Tamiflu -) 30 mg PO BID [facility] Stop: 05/15/18 10:59 Last Admin: 05/11/18 10:19 Dose: 30 mg Ranolazine (Ranexa -) 500 mg PO BID [facility] Last Admin: 05/11/18 10:18 Dose: 500 mg Rosuvastatin Calcium (Crestor -) 40 mg PO HS [facility] Triamcinolone Acetonide (Aristocort 0.1% Cream -) 1 applic TP BID [facility] Last Admin: 05/11/18 10:19 Dose: 1 applic - Objective Vital Signs: Vital Signs Temperature 98.7 F 05/11/18 14:00 Pulse Rate 73 05/11/18 14:00 Respiratory Rate 18 05/11/18 14:00 Blood Pressure 127/48 L 05/11/18 14:00 O2 Sat by Pulse Oximetry (%) 94 L 05/11/18 09:00 Constitutional: Yes: Mild Distress Eyes: Yes: WNL HENT: Yes: WNL Neck: Yes: WNL Cardiovascular: Yes: Regular Rate and Rhythm Respiratory: Yes: Diminished Gastrointestinal: Yes: WNL Genitourinary: Yes: WNL Musculoskeletal: Yes: WNL Extremities: Yes: WNL Edema: No Peripheral Pulses WNL: Yes Integumentary: Yes: WNL Wound/Incision: Yes: Clean/Dry Neurological: Yes: WNL ...Motor Strength: WNL Psychiatric: Yes: WNL Labs: CBC, BMP 05/11/18 07:00 05/11/18 07:00 Problem List - Problems (1) Influenza A Code(s): J10.1 - FLU DUE TO OTH IDENT INFLUENZA VIRUS W OTH RESP MANIFEST Assessment/Plan TAMIFLU PER ID NEBS OOB TO CHAIR COUGH SUPPRESSANT
[2018-05-11] MEDS ORDERED: ROSUVASTATIN CA 10 MG TABLET (FP) ONE (21:03)
[2018-05-11] MEDS ORDERED: PT OWN MED DRAWER 7, Y5N ONE (21:14)
[2018-05-11] MEDS ORDERED: ROSUVASTATIN CA 20 MG TABLET (FP) PO SCH (22:00)
[2018-05-12 07:53] LABS: ANION GAP 8 MMOL/L (8-16); BLOOD UREA NITROGEN 18 mg/dL (7-18); CALCIUM 7.8 mg/dL (8.5-10.1); CHLORIDE 104 mmol/L (98-107); CO2 24 mmol/L (21-32); CREATININE 1.6 mg/dL (0.55-1.3); GLUCOSE,RANDOM 101 mg/dL (74-106); MAGNESIUM 2.6 mg/dL (1.8-2.4); PHOSPHOROUS 3.1 mg/dL (2.5-4.9); POTASSIUM 4.1 mmol/L (3.5-5.1); SODIUM 136 mmol/L (136-145)
[2018-05-12] MEDS: RANOLAZINE E.R. 500 MG TABLET (FP) PO SCH (09:36)
[2018-05-12] MEDS: ASPIRIN COATED 81 MG TABLET.EC PO SCH (09:36)
[2018-05-12] MEDS: LACTOBACILLUS ACIDOPHILUS 1 TABLET PO SCH (09:36)
[2018-05-12] MEDS: metoPROLOL SUCCINATE 25 MG TAB.SR.24H (FP) PO SCH (09:36)
[2018-05-12] MEDS: HEPARIN NA (PORCINE) 5,000 UNITS/ML 1ML VIAL SQ SCH (09:36)
[2018-05-12] MEDS: ISOSORBIDE MONONITRATE 30 MG TAB.SR.24H (FP) PO SCH (09:36)
[2018-05-12] MEDS: NYSTATIN 100000 UNIT/GM TOPICAL OINTMENT 15 GM TUBE TP SCH (09:37)
[2018-05-12] MEDS: TRIAMCINOLONE ACET 0.1% CREAM 15 GM TUBE TP SCH (09:37)
[2018-05-12] MEDS: OSELTAMIVIR PHOSPHATE 30 MG CAPSULE PO SCH (09:37)
[2018-05-12 10:26] VITALS: BP 132/54; PULSE 83; TEMP 97.8
--- NOTE | 2018-05-12 11:01 | DS ---
Physical Examination Vital Signs: Vital Signs Temperature 97.8 F 05/12/18 10:25 Pulse Rate 83 05/12/18 10:25 Respiratory Rate 20 05/12/18 10:25 Blood Pressure 132/54 L 05/12/18 10:25 O2 Sat by Pulse Oximetry (%) 95 05/12/18 09:00 Findings/Remarks: Briefly, this is a 82 y/o male with a PMH consisting of HTN, HLD, CAD s/p multiple PCI (with in-stent restenosis, found to be plavix nonresponder--per his cns's note he has very complex coronary anatomy)/CABG, SDH, carotid A. stenosis. He was recently re-cathed at [facility] and was recommended to undergo repeat CABG which was refused by patient. He was subsequentially hospitalized and sent to rehab and returned several weeks later for cellulitis. He was treated appropriately and seen by Dr. Guzman at that time and discharged to SNF. He states that during his last hospitalization his roommate was sick and that he developed a cough while here that worsened and was noted by staff when he was at his rehab. It is nonproductive. He was also note to be febrile at the [facility] and to have some subjective fevers. He is otherwise in good spirits and is not requiring O2, etc. BNP in the ER is slightly higher than it was last time. He denies chest pain. He has some LE edema which is unchanged from his baseline. CXR is similar to prior and old LBBB seen on EKG. Echo was done on last hospitalization and shows a technically difficult study but with low normal LVEF, moderate valvular , mod AR, Grade 2 DD with elevated LAP and RVSP 50-60. He is found to be positive for Influenza A. Constitutional: Yes: Well Nourished, No Distress, Calm Cardiovascular: Yes: Regular Rate and Rhythm Respiratory: Yes: Regular Gastrointestinal: Yes: Normal Bowel Sounds, Soft Musculoskeletal: Yes: WNL Extremities: Yes: WNL Edema: No Peripheral Pulses WNL: Yes Neurological: Yes: Alert, Oriented Psychiatric: Yes: Alert, Oriented Labs: CBC, BMP 05/11/18 07:00 05/12/18 07:00 Discharge Summary Reason For Visit: INFLUENZA DUE TO INFLUENZA VIRUS, TYPE A, HUMAN Current Active Problems CKD (chronic kidney disease) (Acute) Cough in adult (Acute) Hx of CABG (Acute) Influenza A (Acute) LBBB (left bundle branch block) (Acute) Hospital Course: Laboratory Last Values WBC 6.7 K/mm3 (4.0-10.0) 05/11/18 07:00 RBC 3.93 M/mm3 (4.00-5.60) L 05/11/18 07:00 Hgb 13.6 GM/dL (11.7-16.9) 05/11/18 07:00 Hct 38.0 % (35.4-49) 05/11/18 07:00 MCV 96.7 fl (80-96) H 05/11/18 07:00 MCH 34.7 pg (25.7-33.7) H 05/11/18 07:00 MCHC 35.9 g/dl (32.0-35.9) 05/11/18 07:00 RDW 13.1 % (11.9-15.9) 05/11/18 07:00 Plt Count 182 K/MM3 (134-434) 05/11/18 07:00 MPV 7.9 fl (7.5-11.1) 05/11/18 07:00 Absolute Neuts (auto) 4.1 K/mm3 (1.5-8.0) 05/11/18 07:00 Neutrophils % 60.9 % (42.8-82.8) 05/11/18 07:00 Lymphocytes % 23.5 % (8-40) D 05/11/18 07:00 Monocytes % 11.2 % (3.8-10.2) H 05/11/18 07:00 Eosinophils % 4.0 % (0-4.5) 05/11/18 07:00 Basophils % 0.4 % (0-2.0) 05/11/18 07:00 Nucleated RBC % 0 % (0-0) 05/11/18 07:00 Sodium 136 mmol/L (136-145) 05/12/18 07:00 Potassium 4.1 mmol/L (3.5-5.1) 05/12/18 07:00 Chloride 104 mmol/L (98-107) 05/12/18 07:00 Carbon Dioxide 24 mmol/L (21-32) 05/12/18 07:00 Anion Gap 8 MMOL/L (8-16) 05/12/18 07:00 BUN 18 mg/dL (7-18) 05/12/18 07:00 Creatinine 1.6 mg/dL (0.55-1.3) H 05/12/18 07:00 Creat Clearance w eGFR 41.59 (>60) 05/12/18 07:00 POC Glucometer 108 UNITS (80-120) 05/10/18 21:41 Random Glucose 101 mg/dL (74-106) 05/12/18 07:00 Lactic Acid 1.1 mmol/L (0.4-2.0) 05/10/18 03:15 Calcium 7.8 mg/dL (8.5-10.1) L 05/12/18 07:00 Phosphorus 3.1 mg/dL (2.5-4.9) 05/12/18 07:00 Magnesium 2.6 mg/dL (1.8-2.4) H 05/12/18 07:00 Total Bilirubin 1.0 mg/dL (0.2-1) 05/11/18 07:00 AST 25 U/L (15-37) 05/11/18 07:00 ALT 23 U/L (13-61) 05/11/18 07:00 Alkaline Phosphatase 60 U/L (45-117) 05/11/18 07:00 Creatine Kinase 140 U/L (26-308) 05/10/18 04:00 Troponin I 0.02 ng/ml (0.00-0.05) 05/10/18 04:00 B-Natriuretic Peptide 1785.7 pg/ml (5-450) H 05/10/18 03:15 Total Protein 6.6 g/dl (6.4-8.2) 05/11/18 07:00 Albumin 3.2 g/dl (3.4-5.0) L 05/11/18 07:00 U Random Total Protein 62.6 mg/dl (0-11.9) H 05/10/18 21:00 Ur Random Sodium 69 MMOL/L (40-220) 05/10/18 21:00 Urine Creatinine 131.0 mg/dL (20-320) 05/10/18 21:00 Influenza A (Rapid) Positive A 05/10/18 02:40 Influenza B (Rapid) Negative 05/10/18 02:40 Microbiology 05/10/18 03:15 Blood - Peripheral Venous Blood Culture - Preliminary NO GROWTH OBTAINED AFTER 48 HOURS, INCUBATION TO CONTINUE FOR 3 DAYS. 05/10/18 03:15 Blood - Peripheral Venous Blood Culture - Preliminary NO GROWTH OBTAINED AFTER 48 HOURS, INCUBATION TO CONTINUE FOR 3 DAYS. Vital Signs Temp 97.8 F 05/12/18 10:25 Pulse 83 05/12/18 10:25 Resp 20 05/12/18 10:25 BP 132/54 L 05/12/18 10:25 Pulse Ox 95 05/12/18 09:00 Intake & Output 05/11/18 05/11/18 05/12/18 11:59 23:59 11:59 Intake Total 750 250 Balance 750 250 Weight 65.431 kg 65.374 kg Intake: Oral 750 250 Other: Voiding Method Urinal Urinal Urinal # Unmeasured Voids Void 2 1 Bowel Movement Yes No # Bowel Movements 1 Weight Measurement Method [facility] Condition: Stable - Instructions Disposition: SNF FACILITY - Home Medications Comprehensive Discharge Medication List: Ambulatory Orders Aspirin [Aspirin EC] 81 mg PO DAILY 11/04/17 Furosemide [Lasix -] 40 mg PO DAILY 11/04/17 Isosorbide Mononitrate [Isosorbide Mononitrate ER] 30 mg PO DAILY 11/04/17 Metoprolol Succinate [Toprol Xl] 25 mg PO BID 11/04/17 Nystatin Ointment [Mycostatin Ointment -] 1 applic TP BID 11/04/17 Nystatin Powder [Nystop Powder -] 60 gm TP DAILY 11/04/17 Ranolazine [Ranexa] 500 mg PO BID 11/04/17 Rosuvastatin Calcium [Crestor] 40 mg PO DAILY 11/04/17 Triamcinolone 0.1% Cream [Aristocort 0.1% Cream -] 1 applic TP BID 11/04/17 Lactobacillus Acidophilus [Probiotic] 1 each PO BID #14 capsule MDD 2 05/06/18 Oseltamivir Phosphate [Tamiflu -] 30 mg PO BID #5 capsule 05/12/18
--- NOTE | 2018-05-12 14:14 | PN ---
Progress Note (short form) - Note Progress Note: Renal follow up for DRE Pt seen and examined at the bedside feels better no acute complaints no sob, chest pain, abd pain, fever, chills Vital Signs Temperature 97.8 F 05/12/18 10:25 Pulse Rate 83 05/12/18 10:25 Respiratory Rate 20 05/12/18 10:25 Blood Pressure 132/54 L 05/12/18 10:25 O2 Sat by Pulse Oximetry (%) 95 05/12/18 09:00 NAD no LE edema CBC, BMP 05/11/18 07:00 05/12/18 07:00 Current Medications Aspirin (Ecotrin -) 81 mg PO DAILY [facility] Last Admin: 05/12/18 09:36 Dose: 81 mg Heparin Sodium (Porcine) (Heparin -) 5,000 unit SQ BID [facility] Last Admin: 05/12/18 09:36 Dose: 5,000 unit Isosorbide Mononitrate (Imdur -) 30 mg PO DAILY [facility] Last Admin: 05/12/18 09:36 Dose: 30 mg Lactobacillus Acidophilus (Bacid -) 1 tab PO BID [facility] Last Admin: 05/12/18 09:36 Dose: 1 tab Metoprolol Succinate (Toprol Xl -) 25 mg PO BID [facility] Last Admin: 05/12/18 09:36 Dose: 25 mg Nystatin (Mycostatin Ointment -) 1 applic TP BID [facility] Last Admin: 05/12/18 09:37 Dose: 1 applic Oseltamivir Phosphate (Tamiflu -) 30 mg PO BID [facility] Stop: 05/15/18 10:59 Last Admin: 05/12/18 09:37 Dose: 30 mg Ranolazine (Ranexa -) 500 mg PO BID [facility] Last Admin: 05/12/18 09:36 Dose: 500 mg Rosuvastatin Calcium (Crestor -) 40 mg PO HS [facility] Last Admin: 05/11/18 21:11 Dose: 40 mg Triamcinolone Acetonide (Aristocort 0.1% Cream -) 1 applic TP BID [facility] Last Admin: 05/12/18 09:37 Dose: 1 applic 82 year old gentleman with hx of CAD s/p CABG, HTN, HLD who [place] and found to have influenza with Cr of 1.7. #DRE vs. CKD #Influenza #CAD #Hx of CHF with reduced LVEF Renal function stable at this time can resume home dose of diuretics on discharge will need monitoring of renal function as an outpatient office contact information provided to the patient Tony Castro DO
== END 2018-05-12 14:50 | DRG 194 ==
LOC: JER 02:35 → JERBED 04:52 → OBSVTOIN 06:05 → J6S 10:00
PROVIDERS: ADMIT Family Medicine; ATTEND Family Medicine
DX: J10.1 Influenza due to other identified influenza virus with other respiratory manifestations (principal); L03.116 Cellulitis of left lower limb; N17.9 Acute kidney failure, unspecified; I13.0 Hypertensive heart and chronic kidney disease with heart failure and stage 1 through stage 4 chronic kidney disease, or unspecified chronic kidney disease; I25.10 Atherosclerotic heart disease of native coronary artery without angina pectoris; E78.5 Hyperlipidemia, unspecified; I44.7 Left bundle-branch block, unspecified; I27.20 Pulmonary hypertension, unspecified; I35.0 Nonrheumatic aortic (valve) stenosis; R05 Cough; I65.22 Occlusion and stenosis of left carotid artery; E11.22 Type 2 diabetes mellitus with diabetic chronic kidney disease; N18.9 Chronic kidney disease, unspecified; I50.9 Heart failure, unspecified; Z95.5 Presence of coronary angioplasty implant and graft; Z95.1 Presence of aortocoronary bypass graft; Z88.0 Allergy status to penicillin
CPT/HCPCS: 36415; 71045-TC-FY; 71250-TC; 76775-TC; 76856-TC; 80048; 80053; 82550; 82570; 82962; 83605; 83735; 83880; 84100; 84156; 84300; 84484; 85025; 87040; 87804; 93005; 93010; 99282-25; G0378; J1644

== ENCOUNTER 2019-02-05 09:39 | Emergency (ER) | payer OTHER ==
[2019-02-05 09:45] VITALS: BMI 25.7
--- NOTE | 2019-02-05 10:32 | PDOC ---
History of Present Illness - General Chief Complaint: Respiratory Stated Complaint: COUGHING Time Seen by Provider: 02/05/19 10:32 History Source: Patient Exam Limitations: No Limitations - History of Present Illness Initial Comments: Pt is an 83 yo M, with PMH of CAD (CABG, stents), LBBB, HTN, HLD, pulm HTN, pneumonia, chronic venous stasis, and stable angina (PRN SL NG), who is presenting with cough x4 days. Pt states he has baseline chest pain and cough, but his cough "was a little thicker than usual" over the past few days. Pt states he had chest pain while doing his bedtime routine last night, which worsened with leaning forward, and improved quickly with 1 dose of 0.4 SL NG at home. Pt had loose BMs last night after his gave him obie tea for the cough. Pt denies any fevers/chills, headache, vision changes, syncope, palpitations, SOB or orthopnea changed from baseline, nausea/vomiting, abdominal pain, urinary symptoms, constipation, or leg swelling. Allergies: PCN PCP: Layla Cards: Thomas Social: Pt denies any cigarette, alcohol, or drug use. Pt denies any recent travel or sick contacts. Surgical: CABG, stents Family: no relevant history. 02/05/19 11:15 Past History - Travel Traveled outside of the country in the last 30 days: No Close contact w/someone who was outside of country & ill: No - Past Medical History Allergies/Adverse Reactions: Allergies Allergy/AdvReac Type Severity Reaction Status Date / Time amoxicillin Allergy Intermediate sob Verified 02/05/19 09:45 Penicillins Allergy Intermediate weakness & Verified 02/05/19 09:45 snoring Home Medications: Ambulatory Orders Aspirin [Aspirin EC] 81 mg PO DAILY 11/04/17 Furosemide [Lasix -] 40 mg PO DAILY 11/04/17 Isosorbide Mononitrate [Isosorbide Mononitrate ER] 30 mg PO DAILY 11/04/17 Metoprolol Succinate [Toprol Xl] 25 mg PO BID 11/04/17 Nystatin Ointment [Mycostatin Ointment -] 1 applic TP BID 11/04/17 Nystatin Powder [Nystop Powder -] 60 gm TP DAILY 11/04/17 Ranolazine [Ranexa] 500 mg PO BID 11/04/17 Rosuvastatin Calcium [Crestor] 40 mg PO DAILY 11/04/17 Triamcinolone 0.1% Cream [Aristocort 0.1% Cream -] 1 applic TP BID 11/04/17 Lactobacillus Acidophilus [Probiotic] 1 each PO BID #14 capsule MDD 2 05/06/18 Oseltamivir Phosphate [Tamiflu -] 30 mg PO BID #5 capsule 05/12/18 Anemia: No Cardiac Disorders: Yes (CAD) COPD: No CHF: Yes DVT: No Diabetes: Yes HTN: Yes Hypercholesterolemia: Yes - Surgical History Cardiac Surgery: Yes (CABG, STENT X1) - Immunization History Immunization Up to Date: Yes - Psycho Social/Smoking Cessation Hx Smoking Status: Yes Smoking History: Never smoked Have you smoked in the past 12 months: No Number of Cigarettes Smoked Daily: 0 If you are a former smoker, when did you quit?: many years ago Cigars Per Day: 0 Hx Alcohol Use: No Drug/Substance Use Hx: No Substance Use Type: None Hx Substance Use Treatment: No Respiratory Specific PMHX - Complaint Specific PMHX Hx Airway Support: No Hx Intubation: No Hx Asthma: No Hx Smoking Exposure: No Hx Vaping: No Hx Allergic Rhinitis: No Hx Exposure to Respiratory Irritants: No Hx Bronchitis: No Hx Pneumonia: Yes Hx Pulmonary Embolus: No Hx TB (Tuberculosis): No Review of Systems - Review of Systems Able to Perform ROS?: Yes Is the patient limited Zimbabwean proficient: No Constitutional: Yes: Weight Stable. No: Chills, Diaphoresis, Fever, Loss of Appetite, Malaise, Weakness HEENTM: No: Recent change in vision, Nose Congestion, Throat Pain, Throat Swelling, Difficulty Swallowing Respiratory: Yes: See HPI, Cough, Orthopnea (at baseline), Productive cough. No : Shortness of Breath, SOB with Exertion, SOB at Rest, Wheezing, Hemoptysis Cardiac (ROS): Yes: See HPI, Chest Pain. No: Edema, Irregular Heart Rate, Lightheadedness, Palpitations, Syncope, Chest Tightness ABD/GI: Yes: Diarrhea. No: Constipated, Nausea, Poor Appetite, Poor Fluid Intake, Vomiting, Abdominal cramping : No: Burning, Dysuria, Frequency, Flank Pain, Pain, Urgency Musculoskeletal: No: Back Pain, Joint Pain, Muscle Weakness Integumentary: No: Rash Neurological: No: Headache, Numbness, Weakness, Unsteady Gait, Dizziness Psychiatric: No: Sleep Pattern Change, Change in Appetite Endocrine: No: Increased Urine, Change in Weight Hematologic/Lymphatic: Yes: Blood Clots. No: Anemia, Easy Bleeding, Easy Bruising All Other Systems: Reviewed and Negative *Physical Exam - Vital Signs Last Vital Signs Temp Pulse Resp BP Pulse Ox 98 F 69 18 162/49 L 97 02/05/19 09:40 02/05/19 09:40 02/05/19 09:40 02/05/19 09:40 02/05/19 09:40 - Physical Exam Comments: HTN (162/49), pt afebrile. Pt in NAD, sitting up comfortably in the best, no increased WOB. Normal body habitus. Pt alert and oriented x3. glass grinder generally intact, muscular strength and sensation intact. No midline spinal tenderness, step-offs, or crepitus. Head normocephalic, atraumatic. Eyes PERRLA, EOMI. Oropharynx without erythema or exudates, no LAD b/l. No nasal congestion. Hearing intact. Clear heart sounds, S1/S2, no JVD, or heart murmur. +midline chest scar (prior CABG), +b/l pitting edema to mid shins Clear lung sounds, no respiratory distress, wheezes, crackles, or accessory muscle use. No abdominal or CVA tenderness to palpation, no rebound, no guarding. Abdomen soft, non-distended, and with normoactive bowel sounds. Skin without jaundice or rash. 02/05/19 11:23 ED Treatment Course - LABORATORY CBC & Chemistry Diagram: 02/05/19 11:02 02/05/19 11:02 Medical Decision Making - Medical Decision Making Pt was seen at bedside, also will be seen by attending Dr. Wills. Pt presenting with cough with sputum thickened from baseline; chest pain and SOB with exertion is at baseline with no acute changes. Will evaluate for infection ( pneumonia, influenza) vs ACS vs CHF exacerbation Will continue to reassess pt and monitor for symptomatic improvement. 02/05/19 11:24 CBC and CMP WNL for pt baseline Chest x-ray with no acute pathology BNP less than prior visits with no clinical signs of fluid overload Trop <.02 Influenza negative Pt safe for d/c to home with PCP f/u. Strict return precautions provided with pt understanding. 02/05/19 13:03 Discharge - Discharge Information Problems reviewed: Yes Clinical Impression/Diagnosis: Cough Condition: Good Disposition: HOME - Admission No - Follow up/Referral Referrals: Nacho Rich MD [Primary Care Provider] - Mauricio Guzman MD [Staff Physician] - - Patient Discharge Instructions Patient Printed Discharge Instructions: DI for Cough -- Adult Additional Instructions: You were seen in the ER today for cough. The results of your labs and imaging today were at your normal baseline. Please follow-up with your primary care doctor within 1-2 days to discuss your visit and make sure your symptoms have improved. Please return to the ER if you have any worsening pain, development of fevers or chills, loss of consciousness, inability to tolerate food or fluids , or any other concerns. We have sent medications to your pharmacy. Please take these medications as prescribed. - Post Discharge Activity
--- NOTE | 2019-02-05 10:48 | PDOC ---
Attending Attestation - Resident Resident Name: Jeannie Cullen - ED Attending Attestation I have performed the following: I have examined & evaluated the patient, The case was reviewed & discussed with the resident, I agree w/resident's findings & plan, Exceptions are as noted - HPI HPI: 02/05/19 13:11 Mr. Nunn is an 83 yo M h/o CAD (CABG, stents), LBBB, HTN, HLD, pulm HTN, pneumonia, chronic venous stasis, and stable angina (PRN SLNG), who presents to the ER with a complaint of cough x 4 days. He has a history of chronic chest pain and cough Over the past few days, he has noted thicker sputum No fevers or chills No shortness of breath now No current chest pain No peripheral edema Allergies: PCN PCP: Layla Cards: [place] Social: Pt denies any cigarette, alcohol, or drug use. Pt denies any recent travel or sick contacts. Surgical: CABG, stents Family: no relevant history. 02/05/19 11:15 - Physicial Exam PE: 02/05/19 10:48 GENERAL: The patient is in no acute distress. ENT: Ears normal, nares patent, oropharynx clear without exudates. Moist mucous membranes. NECK: Normal range of motion, supple LUNGS: Breath sounds equal, clear to auscultation bilaterally. No wheezes, and no crackles. HEART:Regular rate and rhythm, normal S1 and S2 without murmur, rub or gallop. ABDOMEN: Soft, nontender, normoactive bowel sounds. EXTREMITIES: Normal range of motion, no edema. NEUROLOGICAL: Cranial nerves II through XII grossly intact. Normal speech. No focal neurological deficits. SKIN: Warm, Dry, normal turgor, no rashes or lesions noted. 02/05/19 13:20 - Medical Decision Making 02/05/19 13:21 83-year-old male with a history of chronic cough presenting to the emergency department due to thickening of his sputum No current chest pain however patient had transient chest pain yesterday relieved by sublingual nitro No exertional symptoms Differential diagnosis includes but is not limited to: Brhonchitis, atypical pneumonia, pleural effusion, pneumothorax We will do: Labs, EKG, chest x-ray Reassess Laboratory Tests 02/05/19 02/05/19 02/05/19 11:00 11:00 11:00 WBC Hgb Hct Plt Count INR 1.11 H VBG pH 7.35 POC VBG pCO2 52.4 H POC VBG pO2 < 49 H BUN Creatinine Creatine Kinase Troponin I B-Natriuretic Peptide Influenza A (Rapid) Negative Influenza B (Rapid) Negative 02/05/19 02/05/19 11:02 11:02 WBC 7.5 Hgb 15.1 Hct 43.3 Plt Count 141 D INR VBG pH POC VBG pCO2 POC VBG pO2 BUN 11.8 Creatinine 1.6 H Creatine Kinase 120 Troponin I < 0.02 B-Natriuretic Peptide 1201.1 H Influenza A (Rapid) Influenza B (Rapid) BNP 1200 (improved from prior) 02/05/19 13:23 Chest x-ray shows no pleural effusion, no infiltrate, no consolidation, no pneumothorax EKG: Sinus rhythm, left bundle branch block (seen previously) Patient states he feels better is requesting a refill of his cough medication (initially prescribed by Dr. Rich) Will discharge home Return to the ER for any other concerns or complain I discussed the physical exam findings, ancillary test results and final diagnoses with the patient. I answered all of the patient's questions. The patient was satisfied with the care received and felt comfortable with the discharge plan and treatment plan. The patient will call their primary care physician within 24 hours to arrange follow-up and will return to the Emergency Department with any new, persistent or worsening symptoms. 02/05/19 13:26
[2019-02-05 11:22] LABS: BASO % 0.5 % (0-2.0); HEMATOCRIT 43.3 % (35.4-49); HEMOGLOBIN 15.1 GM/dL (11.7-16.9); MCH 33.8 pg (25.7-33.7); MCHC 34.9 g/dl (32.0-35.9); MEAN CELL VOLUME 96.7 fl (80-96); MEAN PLT VOLUME 8.3 fl (7.5-11.1); MONO % 9.6 % (3.8-10.2); NEUT % 55.9 % (42.8-82.8); PLATELET COUNT 141 K/MM3 (134-434); RBC 4.48 M/mm3 (4.00-5.60); RDW 13.1 % (11.9-15.9); WHITE BLOOD COUNT 7.5 K/mm3 (4.0-10.0)
[2019-02-05 11:23] LABS: VENOUS PC02 52.4 mmHg (38-52); VENOUS PH 7.35 (7.31-7.41)
[2019-02-05 11:27] LABS: VENOUS PO2 < 49 mmHg (28-48)
[2019-02-05 11:40] LABS: INR 1.11 (0.83-1.09); PROTHROMBIN TIME (PATIENT) 13.1 SEC (9.7-13.0)
[2019-02-05 11:58] LABS: ALBUMIN 3.8 g/dl (3.4-5.0); ALK PHOS 79 U/L (45-117); ANION GAP 4 MMOL/L (8-16); BILIRUBIN,TOTAL 0.7 mg/dL (0.2-1); BLOOD UREA NITROGEN 11.8 mg/dL (7-18); CALCIUM 8.8 mg/dL (8.5-10.1); CHLORIDE 104 mmol/L (98-107); CO2 28 mmol/L (21-32); CREATININE 1.6 mg/dL (0.55-1.3); GLUCOSE,RANDOM 94 mg/dL (74-106); N-TERMINAL BNP 1201.1 pg/ml (5-450); POTASSIUM 4.2 mmol/L (3.5-5.1); SGOT/AST 20 U/L (15-37); SGPT/ALT 19 U/L (13-61); SODIUM 137 mmol/L (136-145)
[2019-02-05 13:30] VITALS: BP 146/89; PULSE 87; TEMP 97.9
--- NOTE | 2019-02-05 18:05 | EKG ---
Test Reason : Blood Pressure : / mmHG Vent. Rate : 063 BPM Atrial Rate : 063 BPM P-R Int : 162 ms QRS Dur : 110 ms QT Int : 446 ms P-R-T Axes : 007 024 007 degrees QTc Int : 456 ms SINUS RHYTHM WITH OCCASIONAL PREMATURE VENTRICULAR COMPLEXES INCOMPLETE LEFT BUNDLE BRANCH BLOCK BORDERLINE ECG Confirmed by MD Agata, Ricco ([id number]) on 02/05/2019 6:05:06 PM Referred By: Confirmed By:Ricco Parmar MD
== END 2019-02-05 13:30 | disposition home or self-care (01) ==
LOC: JER 09:39
DX: R05 Cough (principal); I10 Essential (primary) hypertension; I25.10 Atherosclerotic heart disease of native coronary artery without angina pectoris; E11.9 Type 2 diabetes mellitus without complications; I44.7 Left bundle-branch block, unspecified; Z95.1 Presence of aortocoronary bypass graft; Z95.5 Presence of coronary angioplasty implant and graft; I27.20 Pulmonary hypertension, unspecified; Z88.0 Allergy status to penicillin; Z88.1 Allergy status to other antibiotic agents
CPT/HCPCS: 36415; 71046-TC-FY; 80053; 82550; 82803; 83880; 84484; 85025; 85610; 87804; 93005; 93010; 99282-25

== ENCOUNTER 2019-12-05 10:33 | Inpatient (IN) | payer OTHER ==
--- NOTE | 2019-12-05 10:51 | PDOC ---
History of Present Illness - General Chief Complaint: Injury Stated Complaint: FALL Time Seen by Provider: 12/05/19 10:43 History Source: Patient Exam Limitations: No Limitations - History of Present Illness Initial Comments: 12/05/19 11:22 84 y.o. M PMHx CAD, CABG (stents x6), HTN, HLD, pulm HTN, chronic venous statsis. Pt states he had fallen yesterday. He was walking around his home when he fell to the floor. He states he did not lose consciousness or hit his head. After the fall he states he was dizzy but had no decreased/burry vision or confusion. Pt. had another fall this morning where he landed on his L side with a superficial laceration on the elbow. Patient states he has been getting anginal symptoms and needing to take his nitro more frequently after walking around. Patient uses a cane to ambulate outside but is unassisted at home. PCP: Dr. Rich Cardio: Dr. Holly PMHx: CAD, CABG (stents x6), HTN, HLD, pulm HTN, chronic venous statsis Meds: In chart Allergies: Amoxicillin, penicillin. CT scan: No cute intracranial pathology, ground class opacities seen in the lungs, mild degenerative arthritis. Dispo: Admission to med surg. 12/05/19 15:16 Is this a multiple visit Asthma Patient?: No Timing/Duration: momentarily Severity: mild Associated Symptoms: reports: other (dizziness) Beta Andrew Given by EMS(Core Measure): No Beta Andrew Taken at Home(Core Measure): No Beta Andrew Not Indicated at this Time(Core Measure): No Past History - Medical History Allergies/Adverse Reactions: Allergies Allergy/AdvReac Type Severity Reaction Status Date / Time amoxicillin Allergy Intermediate sob Verified 12/05/19 10:37 Penicillins Allergy Intermediate weakness & Verified 12/05/19 10:37 snoring Home Medications: Ambulatory Orders Ammonium Lactate Lotion [Lac-Hydrin 12] 1 applic DAILY 12/05/19 Aspirin [Aspirin EC] 81 mg PO DAILY 12/05/19 Fluticasone Prop 0.05% Nasal [Flonase -] 1 spray IH DAILY 12/05/19 Furosemide 40 mg PO DAILY 12/05/19 Isosorbide Mononitrate [Isosorbide Mononitrate ER] 15 mg PO BID 12/05/19 Metoprolol Succinate 25 mg PO BID 12/05/19 Metoprolol Succinate [Toprol Xl] 25 mg PO BID 12/05/19 Nitroglycerin Sublingual [Nitrostat -] 0.4 mg SL ONCE PRN 12/05/19 Nystatin Powder [Nystop Powder -] 1 applic ID DAILY 12/05/19 Ranolazine [Ranexa -] 1,000 mg PO BID 12/05/19 Rosuvastatin [Crestor -] 20 mg PO DAILY 12/05/19 Triamcinolone 0.025% Cream [Aristocort 0.025% Cream -] 1 applic ID DAILY 12/05/19 Anemia: No Asthma: No Cardiac Disorders: Yes (CAD) COPD: No CHF: Yes DVT: No Diabetes: Yes HTN: Yes Hypercholesterolemia: Yes - Surgical History Cardiac Surgery: Yes (CABG, STENT X1) - Immunization History Immunization Up to Date: Yes - Psycho-Social/Smoking History Smoking Status: Yes Smoking History: Never smoked Have you smoked in the past 12 months: No Number of Cigarettes Smoked Daily: 0 If you are a former smoker, when did you quit?: many years ago Cigars Per Day: 0 Review of Systems - Review of Systems Able to Perform ROS?: Yes Is the patient limited Serbian proficient: No Constitutional: No: Chills, Fever HEENTM: No: Blurred Vision, Recent change in vision, Double Vision Respiratory: No: Cough, Shortness of Breath Cardiac (ROS): No: Chest Pain, Lightheadedness ABD/GI: No: Nausea, Vomiting : No: Burning, Dysuria Musculoskeletal: No: Muscle Pain, Muscle Weakness Integumentary: Yes: Dryness, Lesions (L arm). No: Change in Color Neurological: Yes: Unsteady Gait, Dizziness. No: Headache, Numbness, Paresthesia, Seizure Hematologic/Lymphatic: No: Easy Bleeding, Easy Bruising *Physical Exam - Physical Exam General Appearance: Yes: Nourished, Appropriately Dressed. No: Apparent Distress Respiratory/Chest: positive: Lungs Clear, Normal Breath Sounds. negative: Chest Tender, Respiratory Distress, Accessory Muscle Use, Crackles, Wheezing Cardiovascular: positive: Regular Rhythm, Regular Rate. negative: JVD, Tachycardia Gastrointestinal/Abdominal: positive: Normal Bowel Sounds, Flat, Soft, Distended. negative: Tender, Organomegaly, Pulsatile Mass, Guarding, Rebound, Tenderness Musculoskeletal: positive: Normal Inspection. negative: CVA Tenderness Extremity: positive: Other (Dry skin on LE). negative: Tender, Calf Tenderness, Erythema Integumentary: positive: Normal Color, Dry, Warm. negative: Rash, Swelling Neurologic: positive: Fully Oriented, Alert, Normal Mood/Affect, Normal Response, Other (Sensation intact throughout) ED Treatment Course - LABORATORY CBC & Chemistry Diagram: 12/05/19 12:45 12/05/19 12:45 Medical Decision Making - Medical Decision Making 12/05/19 11:53 84 y.o. M PMHx CAD, CABG (stents x6), HTN, HLD, pulm HTN, chronic venous statsis. DDx: Vasovagal syncope, cardiogenic syncope, seizure, mechanical fall. labs: Cr 1.5 CT: No cute intracranial pathology, ground class opacities seen in the lungs, mild degenerative arthritis. EKG: NSR, QTc 487, LBBB Dispo: Patient admitt to tele obs 12/05/19 15:40 Discharge - Discharge Information Problems reviewed: Yes Clinical Impression/Diagnosis: Fall Qualifiers: Encounter type: initial encounter Qualified Code(s): W19.XXXA - Unspecified fall, initial encounter Condition: Fair - Admission Yes - Follow up/Referral - Patient Discharge Instructions - Post Discharge Activity
--- OUTSIDE RECORDS SUMMARY | 2019-12-05 11:39 | XMS ---
:1935 Author Organization [facility] Care Team Providers Name Role Phone Layla, Ammir Unavailable [phone] Layla, Ammir Unavailable [phone] Layla, Ammir Unavailable [phone] Layla, Ammir Unavailable [phone] Layla, Ammir Unavailable [phone] Layla, Ammir Unavailable [phone] Layla, Ammir Unavailable [phone] Layla, Ammir Unavailable [phone] Layla, Ammir Unavailable [phone] Layla, Ammir Unavailable [phone] Layla, Ammir Unavailable [phone] Layla, Ammir Unavailable [phone] Layla, Ammir Unavailable [phone] Layla, Ammir Unavailable [phone] Layla, Ammir Unavailable [phone] Layla, Ammir Unavailable [phone] Re-disclosure Warning The records that you are about to access may contain information from federally- assisted alcohol or drug abuse programs. If such information is present, then the following federally mandated warning applies: This information has been disclosed to you from records protected by federal confidentiality rules (42 CFR part 2). The federal rules prohibit you from making any further disclosure of this information unless further disclosure is expressly permitted by the written consent of the person to whom it pertains or as otherwise permitted by 42 CFR part 2. A general authorization for the release of medical or other information is NOT sufficient for this purpose. The Federal rules restrict any use of the information to criminally investigate or prosecute any alcohol or drug abuse patient.The records that you are about to access may contain highly sensitive health information, the redisclosure of which is protected by Article 27-F of the [facility] Public Health law. If you continue you may haveaccess to information: Regarding HIV / AIDS; Provided by facilities licensed or operated by the [facility] Office of Mental Health; or Provided by the [facility] Office for People With Developmental Disabilities. If such information is present, then the following [facility] mandated warning applies: This information has been disclosed to you from confidential records which are protected by state law. State law prohibits you from making any further disclosure of this information without the specific written consent of the person to whom it pertains, or as otherwise permitted by law. Any unauthorized further disclosure in violation of state law may result in a fine or mcfp sentence or both. A general authorization for the release of medical or other information is NOT sufficient authorization for further disclosure. Encounters Encounter Providers Location Date Indications Data Source(s ) Attender: [facility] 11/15/2019 MEDGEN (A mmir Layla 12:00:00 AM BILLY Rich Ph ysician) [facility]/15/2019 12:00:00 AM E DT MEDGEN (Ammir Layla Physician) [facility] 11/15/2019 12:00:00 AM E DT MEDGEN (Ammir Layla Physician) [facility] 11/15/2019 12:00:00 AM E DT MEDGEN (Ammir Layla Physician) [facility] 11/15/2019 12:00:00 AM E DT MEDGEN (Ammir Layla Physician) [facility] 11/15/2019 12:00:00 AM E DT MEDGEN (Ammir Layla Physician) [facility] 11/15/2019 12:00:00 AM E DT MEDGEN (Ammir Layla Physician) [facility] 11/15/2019 12:00:00 AM E DT MEDGEN (Ammir Layla Physician) [facility] 11/15/2019 12:00:00 AM E DT MEDGEN (Ammir Layla Physician) [facility] 11/15/2019 12:00:00 AM E DT MEDGEN (Ammir Layla Physician) Office Attender: Ammir Layla 11/15/2019 12:00:00 AM E DT MEDGEN (Ammir Layla Physician) Office Attender: Ammir Layla 11/15/2019 12:00:00 AM E DT MEDGEN (Ammir Layla Physician) Office Attender: Ammir Layla 11/15/2019 12:00:00 AM E DT MEDGEN (Ammir Layla Physician) Office Attender: Ammir Layla 11/15/2019 12:00:00 AM E DT MEDGEN (Ammir Layla Physician) Office Attender: Ammir Layla 11/15/2019 12:00:00 AM E DT MEDGEN (Ammir Layla Physician) Office Immunizations Vaccine Date Status Description Data Source(s) Pneumococcal conjugate 02/07/2019 completed MEDGE N (Ammir Layla PCV 13 12:00:00 AM EST Physician) Influenza, high dose 02/07/2019 completed MEDGEN (Ammir Layla seasonal 12:00:00 AM EST Physician) Pneumococcal conjugate 02/07/2019 completed MEDGE N (Ammir Layla PCV 13 12:00:00 AM EST Physician) Influenza, high dose 02/07/2019 completed MEDGEN (Ammir Layla seasonal 12:00:00 AM EST Physician) Influenza, high dose 02/09/2018 completed MEDGEN (Ammir Layla seasonal 12:00:00 AM EST Physician) Influenza, high dose 02/09/2018 completed MEDGEN (Ammir Layla seasonal 12:00:00 AM EST Physician) Influenza, high dose 12/18/2016 completed MEDGEN (Ammir Layla seasonal 12:00:00 AM EDT Physician) Influenza, high dose 12/18/2016 completed MEDGEN (Ammir Layla seasonal 12:00:00 AM EDT Physician) Medications Medication Brand Start Product Dose Route Administrative Pharmacy [facility] Indications Reaction Description Data Name Date Form Instructions Instructions Source(s) Ramipril RAMIPR 11/14/ CAPSULE 90 complet RAMIPR [place] MEDGEN 2.5 MG Oral IL:198 2019 ed (Ammir Capsule 188 12:00: Layla RAMIPRIL:19 00 AM Physici an) 8188 EDT Ramipril RAMIPR 11/14/ CAPSULE 90 complet RAMIPR [place] MEDGEN 2.5 MG Oral IL:198 2019 ed (Ammir Capsule 188 12:00: Layla RAMIPRIL:19 00 AM Physici an) 8188 EDT Nitroglycer NITROG 08/22/ TABLET 1 complet NITR OGLYCERI MEDGEN in 0.4 MG LYCERI 2019 ed N (Ammir Sublingual N:1979 12:00: Rabad i Tablet 39 00 AM Physician) NITROGLYCER EDT IN:056206 Pramipexole PRAMIP 08/22/ TABLET 90 complet PRAM IPEXOLE MEDGEN dihydrochlo EXOLE: 2019 ed (Ammir ride 0.125 092426 12:00: Rabad i MG Oral 00 AM Physician) Tablet EDT PRAMIPEXOLE :666015 metoprolol METOPR 08/22/ TABLET, 90 complet METO PROLOL MEDGEN succinate OLOL 2019 EXTENDED ed SUCCINATE E R (Ammir 25 MG SUCCIN 12:00: RELEASE Layla Extended ATE 00 AM Physician) Release ER:866 EDT Oral Tablet 430 METOPROLOL SUCCINATE ER:[id number] 12 HR RANEXA 08/22/ TABLET, 180 complet RANEXA ME DGEN ranolazine :29054 2019 EXTENDED ed (Am yolie 500 MG 9 12:00: RELEASE Layla Extended 00 AM Physician) Release EDT Oral Tablet RANEXA:6167 49 Furosemide LASIX: 08/22/ TABLET 90 complet LASIX MEDGEN 40 MG Oral [id number] 6756 ed (Ammir Tablet 12:00: Layla LASIX:03419 00 AM Physici an) 8 EDT 24 HR ISOSOR 08/22/ TABLET, 90 complet ISOSORBID E MEDGEN Isosorbide BIDE 2019 EXTENDED ed MONONITRAT E (Ammir Mononitrate MONONI 12:00: RELEASE R josi 30 MG TRATE: 00 AM Physician) Extended [id number] EDT Release Oral Tablet ISOSORBIDE MONONITRATE :116132 Budesonide SYMBIC 08/22/ AEROSOL 3 complet SYMB ICORT MEDGEN 0.08 ORT:40 2019 ed (Ammir MG/ACTUAT / 9732 12:00: Layla formoterol 00 AM Physicia n) 0.0045 EDT MG/ACTUAT Inhalant Powder SYMBICORT:4 14439 Albuterol ALBUTE 08/22/ SOLUTION 1 complet ALBU TEROL MEDGEN 0.83 MG/ML ROL:63 2019 ed (Ammir Inhalant 0208 12:00: Layla Solution 00 AM Physician) ALBUTEROL:6 EDT 94514 Aspirin 81 ASPIRI 08/22/ DELAYED 90 complet ASPI RIN MEDGEN MG Delayed N:3084 2019 RELEASE ed (Amm ir Release 16 12:00: TABLET Layla Oral Tablet 00 AM Physici an) ASPIRIN:308 EDT 416 Rosuvastati CRESTO 08/22/ TABLET 90 complet JACKY TOR MEDGEN n calcium R:8597 2019 ed (Ammir 20 MG Oral 51 12:00: Layla Tablet 00 AM Physician) CRESTOR:859 EDT 751 Albuterol ALBUTE 08/22/ SOLUTION 1 complet ALBU TEROL MEDGEN 0.83 MG/ML ROL:63 2019 ed (Ammir Inhalant 0208 12:00: Layla Solution 00 AM Physician) ALBUTEROL:6 EDT 93434 Rosuvastati CRESTO 08/22/ TABLET 90 complet JACKY TOR MEDGEN n calcium R:8597 2019 ed (Ammir 20 MG Oral 51 12:00: Layla Tablet 00 AM Physician) CRESTOR:859 EDT 751 Aspirin 81 ASPIRI 08/22/ DELAYED 90 complet ASPI RIN MEDGEN MG Delayed N:[id number] RELEASE ed (Amm ir Release 16 12:00: TABLET Layla Oral Tablet 00 AM Physici an) ASPIRIN:308 EDT 416 12 HR RANEXA 08/22/ TABLET, 180 complet RANEXA ME DGEN ranolazine :70361 2019 EXTENDED ed (Am yolie 500 MG 9 12:00: RELEASE Layla Extended 00 AM Physician) Release EDT Oral Tablet RANEXA:6167 49 Pramipexole PRAMIP 08/22/ TABLET 90 complet PRAM IPEXOLE MEDGEN dihydrochlo EXOLE: 2019 ed (Ammir ride 0.125 443004 12:00: Rabad i MG Oral 00 AM Physician) Tablet EDT PRAMIPEXOLE :598215 Nitroglycer NITROG 08/22/ TABLET 1 complet NITR OGLYCERI MEDGEN in 0.4 MG LYCERI 2020 ed N (Ammir Sublingual N:1979 12:00: Rabad i Tablet 39 00 AM Physician) NITROGLYCER EDT IN:19790523 metoprolol METOPR 08/22/ TABLET, 90 complet METO PROLOL MEDGEN succinate OLOL 2019 EXTENDED ed SUCCINATE E R (Ammir 25 MG SUCCIN 12:00: RELEASE Layla Extended ATE 00 AM Physician) Release ER:866 EDT Oral Tablet 430 METOPROLOL SUCCINATE ER:352696 Furosemide LASIX: 08/22/ TABLET 90 complet LASIX MEDGEN 40 MG Oral [id number] 0647 ed (Ammir Tablet 12:00: Layla LASIX:25881 00 AM Physici an) 8 EDT 24 HR ISOSOR 08/22/ TABLET, 90 complet ISOSORBID E MEDGEN Isosorbide BIDE 2019 EXTENDED ed MONONITRAT E (Ammir Mononitrate MONONI 12:00: RELEASE R josi 30 MG TRATE: 00 AM Physician) Extended 132102 EDT Release Oral Tablet ISOSORBIDE MONONITRATE :576477 Budesonide SYMBIC 08/22/ AEROSOL 3 complet SYMB ICORT MEDGEN 0.08 ORT:40 2019 ed (Ammir MG/ACTUAT / 9732 12:00: Layla formoterol 00 AM Physicia n) 0.0045 EDT MG/ACTUAT Inhalant Powder SYMBICORT:4 74115 NEBULIZER complet NEBULIZER MEDGEN DEVICE: 2019 ed DEVICE (Ammir 12:00: Layla 00 AM Physician) EDT NEBULIZER complet NEBULIZER MEDGEN DEVICE: 2019 ed DEVICE (Ammir 12:00: Layla 00 AM Physician) EDT Acetaminoph TYLENO 04/21/ TABLET 90 complet TYLE NOL MEDGEN en 325 MG L:2092 2019 ed (Ammir Oral Tablet 87 12:00: Layla [Tylenol] 00 AM Physician ) TYLENOL:209 EST 387 Acetaminoph TYLENO 04/21/ TABLET 90 complet TYLE NOL MEDGEN en 325 MG L:2092 2019 ed (Ammir Oral Tablet 87 12:00: Layla [Tylenol] 00 AM Physician ) TYLENOL:209 EST 387 ammonium LAC-HY 03/24/ LOTION 1 complet LAC-HYD RIN MEDGEN lactate 120 DRIN:5 2019 ed (Ammir MG/ML 69966 12:00: Layla Topical 00 AM Physician) Lotion EST [Lac-Hydrin ] LAC-HYDRIN: 614723 TRIAMCINOLO complet TRIAMCIN OLON MEDGEN NE 2020 ed E ACETONIDE (Ammir ACETONIDE 12:00: EXTERNAL Raba di EXTERNAL 00 AM CREAM Physician ) CREAM: EST ammonium LAC-HY 03/24/ LOTION 1 complet LAC-HYD RIN MEDGEN lactate 120 DRIN:5 2019 ed (Ammir MG/ML 80410 12:00: Layla Topical 00 AM Physician) Lotion EST [Lac-Hydrin ] LAC-HYDRIN: 575473 TRIAMCINOLO complet TRIAMCIN OLON MEDGEN NE 2019 ed E ACETONIDE (Ammir ACETONIDE 12:00: EXTERNAL Raba di EXTERNAL 00 AM CREAM Physician ) CREAM: EST Ergocalcife VITAMI 09/24/ CAPSULE 12 complet VIT DIA D2 MEDGEN rol 15076 N 2019 ed (Ammir UNT Oral D2:136 12:00: Layla Capsule 7410 00 AM Physician) VITAMIN EDT D2:5701795 Ergocalcife VITAMI 09/24/ CAPSULE 12 complet VIT DIA D2 MEDGEN rol 28423 N 2019 ed (Ammir UNT Oral D2:136 12:00: Layla Capsule 7410 00 AM Physician) VITAMIN EDT D2:[id number] Insurance Providers Payer name Policy type Policy ID Covered Covered libertarian's Policy P clayton / Coverage libertarian ID relationship to [employer] ormation type dickey PG[employer], [id number] SP [id number]/ MEDICARE [id number] SP [id number] [employer], [id number] SP [id number]/ FOR [id number] SP [id number] LIFE -[employer]-RETI[employer] MEDICARE [id number] SP [id number] A Problems, Conditions, and Diagnoses Code Display Name Description Problem Effective Data Type Dates Source(s) I95.1 Orthostatic ORTHOSTATIC Problem 11/15/2019 MEDGEN (Ammi r hypotension HYPOTENSION 12:00:00 AM Layla EDT Physician) I35.1 Nonrheumatic aortic NONRHEUMATIC AORTIC Problem 020 MEDGEN (Ammir (valve) (VALVE) 12:00:00 AM Layla insufficiency INSUFFICIENCY EDT Physicia n) I34.0 Nonrheumatic mitral NONRHEUMATIC MITRAL Problem 020 MEDGEN (Ammir (valve) (VALVE) 12:00:00 AM Layla insufficiency INSUFFICIENCY EDT Physicia n) I95.1 Orthostatic ORTHOSTATIC Problem 11/15/2019 MEDGEN (Ammi r hypotension HYPOTENSION 12:00:00 AM Layla EDT Physician) I35.1 Nonrheumatic aortic NONRHEUMATIC AORTIC Problem 020 MEDGEN (Ammir (valve) (VALVE) 12:00:00 AM Layla insufficiency INSUFFICIENCY EDT Physicia n) I34.0 Nonrheumatic mitral NONRHEUMATIC MITRAL Problem 020 MEDGEN (Ammir (valve) (VALVE) 12:00:00 AM Layla insufficiency INSUFFICIENCY EDT Physicia n) F03.90 Unspecified dementia UNSPECIFIED Problem 11/15/2019 MED GEN (Ammir without behavioral DEMENTIA WITHOUT 12:00:00 AM Layla disturbance BEHAVIORAL EDT Physician) DISTURBANCE R06.02 Shortness of breath SHORTNESS OF BREATH Problem 020 MEDGEN (Ammir 12:00:00 AM Layla EDT Physician) R06.02 Shortness of breath SHORTNESS OF BREATH Problem 020 MEDGEN (Ammir 12:00:00 AM Layla EDT Physician) M25.569 Pain in unspecified PAIN IN UNSPECIFIED Problem 020 MEDGEN (Ammir knee KNEE 12:00:00 AM Layla EST Physician) M25.569 Pain in unspecified PAIN IN UNSPECIFIED Problem 020 MEDGEN (Ammir knee KNEE 12:00:00 AM Layla EST Physician) E55.9 Vitamin D VITAMIN D Problem 03/24/2019 MEDGEN (Ammir deficiency, DEFICIENCY, 12:00:00 AM Layla unspecified UNSPECIFIED EST Physician) E55.9 Vitamin D VITAMIN D Problem 03/24/2019 MEDGEN (Ammir deficiency, DEFICIENCY, 12:00:00 AM Alyla unspecified UNSPECIFIED EST Physician) R09.82 Postnasal drip POSTNASAL DRIP Problem 02/07/2019 MEDGEN (Ammir 12:00:00 AM Layla EST Physician) R09.82 Postnasal drip POSTNASAL DRIP Problem 02/07/2019 MEDGEN (Ammir 12:00:00 AM Layla EST Physician) R42 Dizziness and DIZZINESS AND Problem 09/23/2018 MEDGEN ( Ammir giddiness GIDDINESS 12:00:00 AM Layla EDT Physician) R42 Dizziness and DIZZINESS AND Problem 09/23/2018 MEDGEN ( Ammir giddiness GIDDINESS 12:00:00 AM Layla EDT Physician) L30.9 Dermatitis, DERMATITIS, Problem 06/28/2018 MEDGEN (Ammi r unspecified UNSPECIFIED 12:00:00 AM Layla EDT Physician) J30.9 Allergic rhinitis, ALLERGIC RHINITIS, Problem 9 MEDGEN (Ammir unspecified UNSPECIFIED 12:00:00 AM Layla EDT Physician) Z09 Encounter for ENCOUNTER FOR Problem 06/28/2018 MEDGEN ( Ammir follow-up FOLLOW-UP 12:00:00 AM Layla examination after EXAMINATION AFTER EDT Physician) completed treatment COMPLETED TREATMENT for conditions other FOR CONDITIONS than malignant OTHER THAN neoplasm MALIGNANT NEOPLASM L30.9 Dermatitis, DERMATITIS, Problem 06/28/2018 MEDGEN (Ammi r unspecified UNSPECIFIED 12:00:00 AM Layla EDT Physician) J30.9 Allergic rhinitis, ALLERGIC RHINITIS, Problem 9 MEDGEN (Ammir unspecified UNSPECIFIED 12:00:00 AM Layla EDT Physician) Z09 Encounter for ENCOUNTER FOR Problem 06/28/2018 MEDGEN ( Ammir follow-up FOLLOW-UP 12:00:00 AM Layla examination after EXAMINATION AFTER EDT Physician) completed treatment COMPLETED TREATMENT for conditions other FOR CONDITIONS than malignant OTHER THAN neoplasm MALIGNANT NEOPLASM N19 Unspecified kidney UNSPECIFIED KIDNEY Problem 9 MEDGEN (Ammir failure FAILURE 12:00:00 AM Layla EST Physician) R07.9 Chest pain, CHEST PAIN, Problem 04/30/2018 MEDGEN (Ammi r unspecified UNSPECIFIED 12:00:00 AM Layla EST Physician) N19 Unspecified kidney UNSPECIFIED KIDNEY Problem 9 MEDGEN (Ammir failure FAILURE 12:00:00 AM Layla EST Physician) R07.9 Chest pain, CHEST PAIN, Problem 04/30/2018 MEDGEN (Ammi r unspecified UNSPECIFIED 12:00:00 AM Layla EST Physician) Z23 Encounter for ENCOUNTER FOR Problem 02/09/2018 MEDGEN ( Ammir immunization IMMUNIZATION 12:00:00 AM Layla EST Physician) Z23 Encounter for ENCOUNTER FOR Problem 02/09/2018 MEDGEN ( Ammir immunization IMMUNIZATION 12:00:00 AM Layla EST Physician) R60.9 Edema, unspecified EDEMA, UNSPECIFIED Problem 8 MEDGEN (Ammir 12:00:00 AM Layla EST Physician) I50.9 Heart failure, HEART FAILURE, Problem 02/03/2018 MEDGEN (Ammir unspecified UNSPECIFIED 12:00:00 AM Layla EST Physician) 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 Problem 02/03/2018 MEDGEN (Ammir cramps CRAMPS 12:00:00 AM Layla EST Physician) R60.9 Edema, unspecified EDEMA, UNSPECIFIED Problem 8 MEDGEN (Ammir 12:00:00 AM Layla EST Physician) I50.9 Heart failure, HEART FAILURE, Problem 02/03/2018 MEDGEN (Ammir unspecified UNSPECIFIED 12:00:00 AM Layla EST Physician) 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 Problem 02/03/2018 MEDGEN (Ammir cramps CRAMPS 12:00:00 AM Layla EST Physician) Z91.81 History of falling HISTORY OF FALLING Problem 8 MEDGEN (Ammir 12:00:00 AM Layla EDT Physician) R21 Rash and other RASH AND OTHER Problem 11/02/2017 MEDGEN (Ammir nonspecific skin NONSPECIFIC SKIN 12:00:00 AM R josi eruption ERUPTION EDT Physician) Z91.81 History of falling HISTORY OF FALLING Problem 8 MEDGEN (Ammir 12:00:00 AM Layla EDT Physician) R21 Rash and other RASH AND OTHER Problem 11/02/2017 MEDGEN (Ammir nonspecific skin NONSPECIFIC SKIN 12:00:00 AM R josi eruption ERUPTION EDT Physician) J44.9 Chronic obstructive CHRONIC OBSTRUCTIVE Problem 018 MEDGEN (Ammir pulmonary disease, PULMONARY DISEASE, 12:00:00 AM Layla unspecified UNSPECIFIED EDT Physician) J44.9 Chronic obstructive CHRONIC OBSTRUCTIVE Problem 018 MEDGEN (Ammir pulmonary disease, PULMONARY DISEASE, 12:00:00 AM Layla unspecified UNSPECIFIED EDT Physician) R74.0 Nonspecific NONSPECIFIC Problem 06/11/2017 MEDGEN (Ammi r elevation of levels ELEVATION OF LEVELS 12:00:0 0 AM Layla of transaminase and OF TRANSAMINASE AND EDT Physician) lactic acid LACTIC ACID dehydrogenase [LDH] DEHYDROGENASE [LDH] R60.0 Localized edema LOCALIZED EDEMA Problem 06/11/2017 MEDG EN (Ammir 12:00:00 AM Layla EDT Physician) R74.0 Nonspecific NONSPECIFIC Problem 06/11/2017 MEDGEN (Ammi r elevation of levels ELEVATION OF LEVELS 12:00:0 0 AM Layla of transaminase and OF TRANSAMINASE AND EDT Physician) lactic acid LACTIC ACID dehydrogenase [LDH] DEHYDROGENASE [LDH] R60.0 Localized edema LOCALIZED EDEMA Problem 06/11/2017 MEDG EN (Ammir 12:00:00 AM Layla EDT Physician) R05 Cough COUGH Problem 11/21/2016 MEDGEN (Ammir 12:00:00 AM Layla EDT Physician) R05 Cough COUGH Problem 11/21/2016 MEDGEN (Ammir 12:00:00 AM Layla EDT Physician) E78.5 Hyperlipidemia, HYPERLIPIDEMIA, Problem 10/02/2016 MEDG EN (Ammir unspecified UNSPECIFIED 12:00:00 AM Layla EDT Physician) R26.89 Other abnormalities OTHER ABNORMALITIES Problem MEDGEN (Ammir of gait and mobility OF GAIT AND 12:00:00 AM Ra badi MOBILITY EDT Physician) 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 10/02/2016 MEDG EN (Ammir heart disease of HEART DISEASE OF 12:00:00 AM R josi [place] coronary [place] CORONARY EDT Phys ician) 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 I10 Essential (primary) ESSENTIAL (PRIMARY) Problem 017 MEDGEN (Ammir hypertension HYPERTENSION 12:00:00 AM Layla EDT Physician) 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 Problem 7 MEDGEN (Ammir hemorrhage without HEMORRHAGE WITHOUT 12:00:00 AM Layla loss of LOSS OF EDT Physician) consciousness, CONSCIOUSNESS, initial encounter INITIAL ENCOUNTER E78.5 Hyperlipidemia, HYPERLIPIDEMIA, Problem 10/02/2016 MEDG EN (Ammir unspecified UNSPECIFIED 12:00:00 AM Layla EDT Physician) R26.89 Other abnormalities OTHER ABNORMALITIES Problem 017 MEDGEN (Ammir of gait and mobility OF GAIT AND 12:00:00 AM Ra badi MOBILITY EDT Physician) 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 10/02/2016 MEDG EN (Ammir heart disease of HEART DISEASE OF 12:00:00 AM R josi [place] coronary [place] CORONARY EDT Phys ician) 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 I10 Essential (primary) ESSENTIAL (PRIMARY) Problem 017 MEDGEN (Ammir hypertension HYPERTENSION 12:00:00 AM Layla EDT Physician) 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 Problem 7 MEDGEN (Ammir hemorrhage without HEMORRHAGE WITHOUT 12:00:00 AM Layla loss of LOSS OF EDT Physician) consciousness, CONSCIOUSNESS, initial encounter INITIAL ENCOUNTER Surgeries/Procedures Procedure Description Date Indications Data Source(s) Documentation of current 03/24/2019 MED GEN (Ammir Layla medications (procedure) 12:00:00 AM EST P hysician) Documentation of current 03/24/2019 MED GEN (Ammir Layla medications (procedure) 12:00:00 AM EST P hysician) Documentation of current 06/28/2018 MED GEN (Ammir Layla medications (procedure) 12:00:00 AM EDT P hysician) Documentation of current 06/28/2018 MED GEN (Ammir Layla medications (procedure) 12:00:00 AM EDT P hysician) Documentation of current 06/28/2018 MED GEN (Ammir Layla medications (procedure) 12:00:00 AM EDT P hysician) Medication Reconciliation 06/28/2018 ME DGEN (Ammir Layla (procedure) 12:00:00 AM EDT Physician) Documentation of current 06/28/2018 MED GEN (Ammir Layla medications (procedure) 12:00:00 AM EDT P hysician) Documentation of current 06/28/2018 MED GEN (Ammir Layla medications (procedure) 12:00:00 AM EDT P hysician) Documentation of current 06/28/2018 MED GEN (Ammir Layla medications (procedure) 12:00:00 AM EDT P hysician) Documentation of current 06/28/2018 MED GEN (Ammir Layla medications (procedure) 12:00:00 AM EDT P hysician) Medication Reconciliation 06/28/2018 ME DGEN (Ammir Layla (procedure) 12:00:00 AM EDT Physician) Documentation of current 06/28/2018 MED GEN (Ammir Layla medications (procedure) 12:00:00 AM EDT P hysician) Documentation of current 04/30/2018 MED GEN (Ammir Layla medications (procedure) 12:00:00 AM EST P hysician) Documentation of current 04/30/2018 MED GEN (Ammir Layla medications (procedure) 12:00:00 AM EST P hysician) Documentation of current 04/30/2018 MED GEN (Ammir Layla medications (procedure) 12:00:00 AM EST P hysician) Documentation of current 04/30/2018 MED GEN (Ammir Layla medications (procedure) 12:00:00 AM EST P hysician) Documentation of current 04/30/2018 MED GEN (Ammir Layla medications (procedure) 12:00:00 AM EST P hysician) Documentation of current 04/30/2018 MED GEN (Ammir Layla medications (procedure) 12:00:00 AM EST P hysician) Documentation of current 02/09/2018 MED GEN (Ammir Layla medications (procedure) 12:00:00 AM EST P hysician) Documentation of current 02/09/2018 MED GEN (Ammir Layla medications (procedure) 12:00:00 AM EST P hysician) Documentation of current 02/09/2018 MED GEN (Ammir Layla medications (procedure) 12:00:00 AM EST P hysician) Documentation of current 02/09/2018 MED GEN (Ammir Layla medications (procedure) 12:00:00 AM EST P hysician) Documentation of current 02/09/2018 MED GEN (Ammir Layla medications (procedure) 12:00:00 AM EST P hysician) Documentation of current 02/09/2018 MED GEN (Ammir Layla medications (procedure) 12:00:00 AM EST P hysician) Documentation of current 02/09/2018 MED GEN (Ammir Layla medications (procedure) 12:00:00 AM EST P hysician) Documentation of current 02/09/2018 MED GEN (Ammir Layla medications (procedure) 12:00:00 AM EST P hysician) Documentation of current 02/09/2018 MED GEN (Ammir Layla medications (procedure) 12:00:00 AM EST P hysician) Documentation of current 02/09/2018 MED GEN (Ammir Layla medications (procedure) 12:00:00 AM EST P hysician) Documentation of current 02/09/2018 MED GEN (Ammir Layla medications (procedure) 12:00:00 AM EST P hysician) Documentation of current 02/09/2018 MED GEN (Ammir Layla medications (procedure) 12:00:00 AM EST P hysician) Documentation of current 02/09/2018 MED GEN (Ammir Layla medications (procedure) 12:00:00 AM EST P hysician) Documentation of current 02/09/2018 MED GEN (Ammir Layla medications (procedure) 12:00:00 AM EST P hysician) Documentation of current 02/09/2018 MED GEN (Ammir Layla medications (procedure) 12:00:00 AM EST P hysician) Documentation of current 02/09/2018 MED GEN (Ammir Layla medications (procedure) 12:00:00 AM EST P hysician) Documentation of current 02/09/2018 MED GEN (Ammir Layla medications (procedure) 12:00:00 AM EST P hysician) Documentation of current 02/09/2018 MED GEN (Ammir Layla medications (procedure) 12:00:00 AM EST P hysician) Documentation of current 02/09/2018 MED GEN (Ammir Layla medications (procedure) 12:00:00 AM EST P hysician) Documentation of current 02/09/2018 MED GEN (Ammir Layla medications (procedure) 12:00:00 AM EST P hysician) Documentation of current 02/03/2018 MED GEN (Ammir Layla medications (procedure) 12:00:00 AM EST P hysician) Documentation of current 02/03/2018 [facility] (Ammir Layla medications (procedure) 12:00:00 AM EST P hysician) Documentation of current 02/03/2018 [facility] (Ammir Layla medications (procedure) 12:00:00 AM EST P hysician) Documentation of current 02/03/2018 [facility] (Ammir Layla medications (procedure) 12:00:00 AM EST P hysician) Documentation of current 11/02/2017 [facility] (Ammir Layla medications (procedure) 12:00:00 AM EDT P hysician) Documentation of current 11/02/2017 [facility] (Ammir Layla medications (procedure) 12:00:00 AM EDT P hysician) Documentation of current 11/02/2017 [facility] (Ammir Layla medications (procedure) 12:00:00 AM EDT P hysician) Documentation of current 11/02/2017 [facility] (Ammir Layla medications (procedure) 12:00:00 AM EDT P hysician) Documentation of current 11/02/2017 [facility] (Ammir Layla medications (procedure) 12:00:00 AM EDT P hysician) Documentation of current 11/02/2017 [facility] (Ammir Layla medications (procedure) 12:00:00 AM EDT P hysician) Documentation of current 11/02/2017 MED [facility] (Ammir Layla medications (procedure) 12:00:00 AM EDT P hysician) Documentation of current 11/02/2017 [facility] (Ammir Layla medications (procedure) 12:00:00 AM EDT P hysician) Documentation of current 11/02/2017 [facility] (Ammir Layla medications (procedure) 12:00:00 AM EDT P hysician) Documentation of current 11/02/2017 MED [facility] (Ammir Layla medications (procedure) 12:00:00 AM EDT P hysician) Documentation of current 11/02/2017 MED [facility] (Ammir Layla medications (procedure) 12:00:00 AM EDT P hysician) Documentation of current 11/02/2017 MED [facility] (Ammir Layla medications (procedure) 12:00:00 AM EDT P hysician) Documentation of current 11/02/2017 MED [facility] (Ammir Layla medications (procedure) 12:00:00 AM EDT P hysician) Documentation of current 11/02/2017 MED [facility] (Ammir Layla medications (procedure) 12:00:00 AM EDT P hysician) Documentation of current 11/21/2016 MED [facility] (Ammir Layla medications (procedure) 12:00:00 AM EDT P hysician) Documentation of current 11/21/2016 MED [facility] (Ammir Layla medications (procedure) 12:00:00 AM EDT P hysician) Documentation of current 11/21/2016 MED [facility] (Ammir Layla medications (procedure) 12:00:00 AM EDT P hysician) Documentation of current 11/21/2016 MED [facility] (Ammir Layla medications (procedure) 12:00:00 AM EDT P hysician) Documentation of current 11/21/2016 MED [facility] (Ammir Layla medications (procedure) 12:00:00 AM EDT P hysician) Documentation of current 11/21/2016 MED [facility] (Ammir Layla medications (procedure) 12:00:00 AM EDT P hysician) Documentation of current 11/21/2016 MED [facility] (Ammir Layla medications (procedure) 12:00:00 AM EDT P hysician) Documentation of current 11/21/2016 MED [facility] (Ammir Layla medications (procedure) 12:00:00 AM EDT P hysician) Documentation of current 10/02/2016 MED [facility] (Ammir Layla medications (procedure) 12:00:00 AM EDT P hysician) Documentation of current 10/02/2016 MED [facility] (Ammir Layla medications (procedure) 12:00:00 AM EDT P hysician) Documentation of current 10/02/2016 MED [facility] (Ammir Layla medications (procedure) 12:00:00 AM EDT P hysician) Documentation of current 10/02/2016 MED GEN (Ammir Layla medications (procedure) 12:00:00 AM EDT P hysician) Documentation of current 10/02/2016 MED [facility] (Ammir Layla medications (procedure) 12:00:00 AM EDT P hysician) Documentation of current 10/02/2016 MED [facility] (Ammir Layla medications (procedure) 12:00:00 AM EDT P hysician) Results ID Date Data Source [id number] 11/15/2019 12:00:00 AM EDT [facility] (Ammir Layla Physician) Name Value Range Interpretation Description Data Sup porting Code Source(s) Document(s ) BNP, B-TYPE 375.1 Above high normal [facility] NATRIURETIC pg/mL (Ammir Layla Physician) ID Date Data Source [id number] 09/23/2018 12:00:00 AM EDT [facility] (Ammir Layla Physician) Name Value Range Interpretation Description Data Sup porting Code Source(s) Document(s ) Cholesterol 158 Normal (applies [facility] [Moles/volume] mg/dL to non-numeric (Ammir in Pericardial results) Layla fluid Physician) LDL CALCULATION 66.6 Normal (applies [facility] mg/dL to non-numeric (Ammir results) Layla Physician) CHOL/HDL RATIO 3.04 Normal (applies [facility] ratio to non-numeric (Ammir results) Layla Physician) HDL CHOLESTEROL 52 mg/dL Above high normal [facility] (Ammir Layla Physician) VLDL CALCULATION 39.4 Normal (applies [facility] mg/dl to non-numeric (Ammir results) Layla Physician) TRIGLYCERIDES 197 Above high normal [facility] mg/dL (Ammir Layla Physician) ID Date Data Source [id number] 09/23/2018 12:00:00 AM EDT [facility] (Ammir Layla Physician) Name Value Range Interpretation Description Data Sup porting Code Source(s) Document(s ) GLUCOSE 119 Normal (applies [facility] NONFASTING,SERUM mg/dL to non-numeric (Ammir results) Layla Physician) SODIUM, SERUM 141 Normal (applies [facility] mEq/L to non-numeric (Ammir results) Layla Physician) POTASSIUM, SERUM 3.7 Normal (applies [facility] mEq/L to non-numeric (Ammir results) Layla Physician) Carbon dioxide 28 mEq/L Normal (applies [facility] [VFr/PPres] in to non-numeric (Ammir Gas delivery results) Layla system Physician) CHLORIDE, SERUM 103 Normal (applies [facility] mEq/L to non-numeric (Ammir results) Layla Physician) Anion gap in 13.7 Normal (applies [facility] Body fluid mEq/L to non-numeric (Ammir results) Layla Physician) BLOOD UREA 21 mg/dL Normal (applies [facility] NITROGEN to non-numeric (Ammir results) Layla Physician) CREATININE, 1.60 Above high normal [facility] SERUM mg/dL (Ammir Layla Physician) BUN/CREATININE 13.13 Normal (applies [facility] RATIO to non-numeric (Ammir results) Layla Physician) CALCIUM, SERUM 8.9 Normal (applies [facility] mg/dL to non-numeric (Ammir results) Layla Physician) TOTAL PROTEIN 7.0 g/dL Normal (applies [facility] to non-numeric (Ammir results) Layla Physician) Microalbumin 4.5 g/dL Normal (applies [facility] [Mass/time] in to non-numeric (Ammir Urine collected results) Layla for unspecified Physician) duration Globulin 2.5 gldl Normal (applies [facility] [Mass/time] in to non-numeric (Ammir 24 hour Urine results) Layla Physician) A/G RATIO 1.80 Normal (applies [facility] g/dl to non-numeric (Ammir results) Layla Physician) BILIRUBIN, TOTAL 0.4 Normal (applies [facility] mg/dL to non-numeric (Ammir results) Layla Physician) ALKALINE 109 U/L Normal (applies [facility] PHOSPHATASE, ALP to non-numeric (Ammir results) Layla Physician) ALT (SGPT) 39 U/L Normal (applies [facility] to non-numeric (Ammir results) Layla Physician) AST 36 U/L Above high normal [facility] (Ammir Layla Physician) EGFR NON AFR 44 Above high normal [facility] MONTSERRATIAN mL/min/1 (Ammir .73m2 Layla Physician) EGFR AFR 53 Above high normal [facility] MON[place] mL/min/1 (Ammir .73m2 Layla Physician) ID Date Data Source [id number] 09/23/2018 12:00:00 AM EDT [facility] (Ammir Layla Physician) Name Value Range Interpretation Description Data Sup porting Code Source(s) Document(s ) TSH,3RD 1.48 Normal (applies to [facility] GENERATION uIU/mL non-numeric (Ammir results) Layla Physician) T4 FREE, 1.24 Normal (applies to [facility] THYROXINE ng/dL non-numeric (Ammir results) Layla Physician) ID Date Data Source [id number] 09/23/2018 12:00:00 AM EDT [facility] (Ammir Layla Physician) Name Value Range Interpretation Description Data Sup porting Code Source(s) Document(s ) Ferritin 63.8 Normal (applies to [facility] (Amm ir [Interpretat ng/mL non-numeric Layla ion] in results) Physician) Blood ID Date Data Source [id number] 09/23/2018 12:00:00 AM EDT [facility] (Ammir Layla Physician) Name Value Range Interpretation Description Data Sup porting Code Source(s) Document(s ) Transferrin 278 mg/dL Normal (applies [facility] [Mass/time] in to non-numeric (Ammir 24 hour Urine results) Layla Physician) TIBC 389.8 Normal (applies [facility] ug/dL to non-numeric (Ammir results) Layla Physician) UIBC 307.8 Normal (applies [facility] ug/dL to non-numeric (Ammir results) Layla Physician) %SATURATION 21.0 % Normal (applies [facility] to non-numeric (Ammir results) Layla Physician) ID Date Data Source [id number] 09/23/2018 12:00:00 AM EDT [facility] (Ammir Layla Physician) Name Value Range Interpretation Description Data Sup porting Code Source(s) Document(s ) WBC 7.5 Normal (applies [facility] 10(3)/uL to non-numeric (Ammir results) Layla Physician) RBC 4.8 Normal (applies [facility] 10(6)/uL to non-numeric (Ammir results) Layla Physician) Hemoglobin 15.7 g/dL Normal (applies [facility] [Mass/volume] to non-numeric (Ammir in Mixed venous results) Layla blood by Physician) Oximetry Hematocrit 46.5 % Normal (applies [facility] [Pure volume to non-numeric (Ammir fraction] of results) Layla Blood by Physician) Automated count MCV 96.1 fL Normal (applies [facility] to non-numeric (Ammir results) Layla Physician) MCHC 34 g/dL Normal (applies [facility] to non-numeric (Ammir results) Layla Physician) MCH 32 pg Normal (applies [facility] to non-numeric (Ammir results) Layla Physician) RDWSD 42.9 fL Normal (applies [facility] to non-numeric (Ammir results) Layla Physician) RDWCV 12.3 % Normal (applies [facility] to non-numeric (Ammir results) Layla Physician) Platelet Count 141 Below low normal [facility] 10(3)/uL (Ammir Layla Physician) MPV 10.1 fL Normal (applies [facility] to non-numeric (Ammir results) Layla Physician) Neutrophil Abs 4.45 Normal (applies [facility] 10(3)/uL to non-numeric (Ammir results) Layla Physician) Lymphocyte Abs 2.25 Normal (applies [facility] 10(3)/uL to non-numeric (Ammir results) Layla Physician) Monocyte Abs 0.51 Normal (applies [facility] 10(3)/uL to non-numeric (Ammir results) Layla Physician) Eosinophil Abs 0.24 Normal (applies [facility] 10(3)/uL to non-numeric (Ammir results) Layla Physician) Lymphocyte % 30 % Normal (applies [facility] to non-numeric (Ammir results) Lalya Physician) Neutrophil % 59.00 % Normal (applies [facility] to non-numeric (Ammir results) Layla Physician) Monocyte % 6.8 % Normal (applies [facility] to non-numeric (Ammir results) Layla Physician) Eosinophil % 3.2 % Normal (applies [facility] to non-numeric (Ammir results) Layla Physician) Basophil % 0.8 % Normal (applies [facility] to non-numeric (Ammir results) Layla Physician) Immature 0.40 % Normal (applies [facility] Granulocyte % to non-numeric (Ammir results) Layla Physician) ID Date Data Source [id number] 09/23/2018 12:00:00 AM EDT [facility] (Ammir Layla Physician) Name Value Range Interpretation Description Data Sup porting Code Source(s) Document(s ) FOLATE SERUM 51.1 Above high normal [facility] (A mmir ng/mL Layla Physician) VITAMIN B12 578 pg/mL Normal (applies to [facility] (A mmir non-numeric Layla results) Physician) ID Date Data Source [id number] 09/23/2018 12:00:00 AM EDT [facility] (Ammir Layla Physician) Name Value Range Interpretation Description Data Sup porting Code Source(s) Document(s ) VITAMIN D 22.02 Below low normal [facility] (Ammir 25-HYDROXY ng/mL Layla Physician) ID Date Data Source [id number] 09/23/2018 12:00:00 AM EDT [facility] (Ammir Layla Physician) Name Value Range Interpretation Description Data Sup porting Code Source(s) Document(s ) Hemoglobin A1c 6.2 % Above high normal [facility] (Ammir in Blood Layla Physician) ID Date Data Source [id number] 09/23/2018 12:00:00 AM EDT [facility] (Ammir Layla Physician) Name Value Range Interpretation Code Description Data Yulia rce(s) Supporting Document(s ) IRON, 82 ug/dL Normal (applies to [facility] (Amm ir TOTAL non-numeric Layla results) Physician) ID Date Data Source [id number] 09/23/2018 12:00:00 AM EDT [facility] (Ammir Layla Physician) Name Value Range Interpretation Description Data Sup porting Code Source(s) Document(s ) Cholesterol 158 Normal (applies [facility] [Moles/volume] mg/dL to non-numeric (Ammir in Pericardial results) Layla fluid Physician) CHOL/HDL RATIO 3.04 Normal (applies [facility] ratio to non-numeric (Ammir results) Layla Physician) LDL CALCULATION 66.6 Normal (applies [facility] mg/dL to non-numeric (Ammir results) Layla Physician) HDL CHOLESTEROL 52 mg/dL Above high normal [facility] (Ammir Layla Physician) VLDL CALCULATION 39.4 Normal (applies [facility] mg/dl to non-numeric (Ammir results) Layla Physician) TRIGLYCERIDES 197 Above high normal [facility] mg/dL (Ammir Layla Physician) ID Date Data Source [id number] 09/23/2018 12:00:00 AM EDT [facility] (Ammir Layla Physician) Name Value Range Interpretation Description Data Sup porting Code Source(s) Document(s ) GLUCOSE 119 Normal (applies [facility] NONFASTING,SERUM mg/dL to non-numeric (Ammir results) Layla Physician) SODIUM, SERUM 141 Normal (applies [facility] mEq/L to non-numeric (Ammir results) Layla Physician) CHLORIDE, SERUM 103 Normal (applies [facility] mEq/L to non-numeric (Ammir results) Layla Physician) POTASSIUM, SERUM 3.7 Normal (applies [facility] mEq/L to non-numeric (Ammir results) Layla Physician) Carbon dioxide 28 mEq/L Normal (applies [facility] [VFr/PPres] in to non-numeric (Ammir Gas delivery results) Layla system Physician) Anion gap in 13.7 Normal (applies [facility] Body fluid mEq/L to non-numeric (Ammir results) Layla Physician) CREATININE, 1.60 Above high normal [facility] SERUM mg/dL (Ammir Layla Physician) BLOOD UREA 21 mg/dL Normal (applies [facility] NITROGEN to non-numeric (Ammir results) Layla Physician) BUN/CREATININE 13.13 Normal (applies [facility] RATIO to non-numeric (Ammir results) Layla Physician) CALCIUM, SERUM 8.9 Normal (applies [facility] mg/dL to non-numeric (Ammir results) Layla Physician) TOTAL PROTEIN 7.0 g/dL Normal (applies [facility] to non-numeric (Ammir results) Layla Physician) Microalbumin 4.5 g/dL Normal (applies [facility] [Mass/time] in to non-numeric (Ammir Urine collected results) Layla for unspecified Physician) duration Globulin 2.5 gldl Normal (applies [facility] [Mass/time] in to non-numeric (Ammir 24 hour Urine results) Layla Physician) A/G RATIO 1.80 Normal (applies [facility] g/dl to non-numeric (Ammir results) Layla Physician) BILIRUBIN, TOTAL 0.4 Normal (applies [facility] mg/dL to non-numeric (Ammir results) Layla Physician) ALKALINE 109 U/L Normal (applies [facility] PHOSPHATASE, ALP to non-numeric (Ammir results) Layla Physician) AST 36 U/L Above high normal [facility] (Ammir Layla Physician) ALT (SGPT) 39 U/L Normal (applies [facility] to non-numeric (Ammir results) Layla Physician) EGFR NON AFR 44 Above high normal [facility] [place] mL/min/1 (Ammir .73m2 Layla Physician) EGFR AFR 53 Above high normal [facility] [place] mL/min/1 (Ammir .73m2 Layla Physician) ID Date Data Source [id number] 09/23/2018 12:00:00 AM EDT [facility] (Ammir Layla Physician) Name Value Range Interpretation Description Data Sup porting Code Source(s) Document(s ) T4 FREE, 1.24 Normal (applies to [facility] THYROXINE ng/dL non-numeric (Ammir results) Layla Physician) TSH,3RD 1.48 Normal (applies to [facility] GENERATION uIU/mL non-numeric (Ammir results) Layla Physician) ID Date Data Source [id number] 09/23/2018 12:00:00 AM EDT [facility] (Ammir Layla Physician) Name Value Range Interpretation Description Data Sup porting Code Source(s) Document(s ) Ferritin 63.8 Normal (applies to [facility] (Amm ir [Interpretat ng/mL non-numeric Layla ion] in results) Physician) Blood ID Date Data Source [id number] 09/23/2018 12:00:00 AM EDT [facility] (Ammir Layla Physician) Name Value Range Interpretation Description Data Sup porting Code Source(s) Document(s ) Transferrin 278 mg/dL Normal (applies [facility] [Mass/time] in to non-numeric (Ammir 24 hour Urine results) Layla Physician) TIBC 389.8 Normal (applies [facility] ug/dL to non-numeric (Ammir results) Layla Physician) UIBC 307.8 Normal (applies [facility] ug/dL to non-numeric (Ammir results) Layla Physician) %SATURATION 21.0 % Normal (applies [facility] to non-numeric (Ammir results) Layla Physician) ID Date Data Source [id number] 09/23/2018 12:00:00 AM EDT [facility] (Ammir Layla Physician) Name Value Range Interpretation Description Data Sup porting Code Source(s) Document(s ) WBC 7.5 Normal (applies [facility] 10(3)/uL to non-numeric (Ammir results) Layla Physician) RBC 4.8 Normal (applies [facility] 10(6)/uL to non-numeric (Ammir results) Layla Physician) Hematocrit 46.5 % Normal (applies [facility] [Pure volume to non-numeric (Ammir fraction] of results) Layla Blood by Physician) Automated count Hemoglobin 15.7 g/dL Normal (applies [facility] [Mass/volume] to non-numeric (Ammir in Mixed venous results) Layla blood by Physician) Oximetry MCV 96.1 fL Normal (applies [facility] to non-numeric (Ammir results) Layla Physician) MCH 32 pg Normal (applies [facility] to non-numeric (Ammir results) Layla Physician) RDWSD 42.9 fL Normal (applies [facility] to non-numeric (Ammir results) Layla Physician) MCHC 34 g/dL Normal (applies [facility] to non-numeric (Ammir results) Layla Physician) RDWCV 12.3 % Normal (applies [facility] to non-numeric (Ammir results) Layla Physician) Platelet Count 141 Below low normal [facility] 10(3)/uL (Ammir Layla Physician) MPV 10.1 fL Normal (applies [facility] to non-numeric (Ammir results) Layla Physician) Neutrophil Abs 4.45 Normal (applies [facility] 10(3)/uL to non-numeric (Ammir results) Layla Physician) Lymphocyte Abs 2.25 Normal (applies [facility] 10(3)/uL to non-numeric (Ammir results) Layla Physician) Monocyte Abs 0.51 Normal (applies [facility] 10(3)/uL to non-numeric (Ammir results) Layla Physician) Eosinophil Abs 0.24 Normal (applies [facility] 10(3)/uL to non-numeric (Ammir results) Layla Physician) Neutrophil % 59.00 % Normal (applies [facility] to non-numeric (Ammir results) Layla Physician) Monocyte % 6.8 % Normal (applies [facility] to non-numeric (Ammir results) Layla Physician) Lymphocyte % 30 % Normal (applies [facility] to non-numeric (Ammir results) Layla Physician) Eosinophil % 3.2 % Normal (applies [facility] to non-numeric (Ammir results) Layla Physician) Immature 0.40 % Normal (applies [facility] Granulocyte % to non-numeric (Ammir results) Layla Physician) Basophil % 0.8 % Normal (applies [facility] to non-numeric (Ammir results) Layla Physician) ID Date Data Source [id number] 09/23/2018 12:00:00 AM EDT [facility] (Ammir Layla Physician) Name Value Range Interpretation Description Data Sup porting Code Source(s) Document(s ) FOLATE SERUM 51.1 Above high normal [facility] (A mmir ng/mL Layla Physician) VITAMIN B12 578 pg/mL Normal (applies to [facility] (A mmir non-numeric Layla results) Physician) ID Date Data Source [id number] 09/23/2018 12:00:00 AM EDT [facility] (Ammir Layla Physician) Name Value Range Interpretation Description Data Sup porting Code Source(s) Document(s ) VITAMIN D 22.02 Below low normal [facility] (Ammir 25-HYDROXY ng/mL Layla Physician) ID Date Data Source [id number] 09/23/2018 12:00:00 AM EDT [facility] (Ammir Layla Physician) Name Value Range Interpretation Description Data Sup porting Code Source(s) Document(s ) Hemoglobin A1c 6.2 % Above high normal [facility] (Ammir in Blood Layla Physician) ID Date Data Source [id number] 09/23/2018 12:00:00 AM EDT [facility] (Ammir Layla Physician) Name Value Range Interpretation Code Description Data Yulia rce(s) Supporting Document(s ) IRON, 82 ug/dL Normal (applies to [facility] (Amm ir TOTAL non-numeric Layla results) Physician) ID Date Data Source [id number] 06/28/2018 12:00:00 AM EDT [facility] (Ammir Layla Physician) Name Value Range Interpretation Description Data Sup porting Code Source(s) Document(s ) Adenovirus Not Normal (applies [facility] [Presence] in Detected to non-numeric (Ammir Unspecified results) Layla specimen by Physician) Organism specific culture CORONAVIRUS 229E Not Normal (applies [facility] Detected to non-numeric (Ammir results) Layla Physician) CORONAVIRUS HKU1 Not Normal (applies [facility] Detected to non-numeric (Ammir results) Layla Physician) CORONAVIRUS NL63 Not Normal (applies [facility] Detected to non-numeric (Ammir results) Layla Physician) CORONAVIRUS OC43 Not Normal (applies [facility] Detected to non-numeric (Ammir results) Layla Physician) HUMAN Not Normal (applies [facility] RHINOVIRUS/ENTERO Detected to non-numeric (Ammir VIRUS results) Layla Physician) HUMAN Not Normal (applies [facility] METAPNEUMOVIRUS Detected to non-numeric (Ammir results) Layla Physician) INFLUENZA A/H1 Not Normal (applies [facility] Detected to non-numeric (Ammir results) Layla Physician) INFLUENZA A/H3 Not Normal (applies [facility] Detected to non-numeric (Ammir results) Layla Physician) INFLUENZA Not Normal (applies [facility] A/H1-2009 Detected to non-numeric (Ammir results) Layla Physician) INFLUENZA B Not Normal (applies [facility] Detected to non-numeric (Ammir results) Layla Physician) Parainfluenza Not Normal (applies [facility] virus 1 Detected to non-numeric (Ammir [Presence] in results) Layla Unspecified Physician) specimen by Organism specific culture Parainfluenza Not Normal (applies [facility] virus 2 Detected to non-numeric (Ammir [Presence] in results) Layla Unspecified Physician) specimen by Organism specific culture Parainfluenza Not Normal (applies [facility] virus 3 Detected to non-numeric (Ammir [Presence] in results) Layla Unspecified Physician) specimen by Organism specific culture PARAINFLUENZA Not Normal (applies [facility] VIRUS 4 Detected to non-numeric (Ammir results) Layla Physician) RESP.SYNCYTIAL Not Normal (applies [facility] VIRUS Detected to non-numeric (Ammir results) Layla Physician) Bordetella Not Normal (applies [facility] pertussis Detected to non-numeric (Ammir [Presence] in results) Layla Unspecified Physician) specimen by Organism specific culture Chlamydophila Not Normal (applies [facility] pneumoniae Detected to non-numeric (Ammir [Presence] in results) Layla Unspecified Physician) specimen by Organism specific culture Bordetella Not Normal (applies [facility] parapertussis Detected to non-numeric (Ammir [Presence] in results) Layla Unspecified Physician) specimen by Organism specific culture Mycoplasma Not Normal (applies [facility] pneumoniae Detected to non-numeric (Ammir [Presence] in results) Layla Unspecified Physician) specimen by Organism specific culture ID Date Data Source [id number] 06/28/2018 12:00:00 AM EDT [facility] (Ammir Layla Physician) Name Value Range Interpretation Description Data Sup porting Code Source(s) Document(s ) Adenovirus Not Normal (applies [facility] [Presence] in Detected to non-numeric (Ammir Unspecified results) Layla specimen by Physician) Organism specific culture CORONAVIRUS 229E Not Normal (applies [facility] Detected to non-numeric (Ammir results) Layla Physician) CORONAVIRUS HKU1 Not Normal (applies [facility] Detected to non-numeric (Ammir results) Layla Physician) CORONAVIRUS NL63 Not Normal (applies [facility] Detected to non-numeric (Ammir results) Layla Physician) HUMAN Not Normal (applies [facility] METAPNEUMOVIRUS Detected to non-numeric (Ammir results) Layla Physician) CORONAVIRUS OC43 Not Normal (applies [facility] Detected to non-numeric (Ammir results) Layla Physician) HUMAN Not Normal (applies [facility] RHINOVIRUS/ENTERO Detected to non-numeric (Ammir VIRUS results) Layla Physician) INFLUENZA A/H3 Not Normal (applies [facility] Detected to non-numeric (Ammir results) Layla Physician) INFLUENZA A/H1 Not Normal (applies [facility] Detected to non-numeric (Ammir results) Layla Physician) INFLUENZA Not Normal (applies [facility] A/H1-2009 Detected to non-numeric (Ammir results) Layla Physician) INFLUENZA B Not Normal (applies [facility] Detected to non-numeric (Ammir results) Layla Physician) Parainfluenza Not Normal (applies [facility] virus 1 Detected to non-numeric (Ammir [Presence] in results) Layla Unspecified Physician) specimen by Organism specific culture Parainfluenza Not Normal (applies [facility] virus 2 Detected to non-numeric (Ammir [Presence] in results) Layla Unspecified Physician) specimen by Organism specific culture Parainfluenza Not Normal (applies [facility] virus 3 Detected to non-numeric (Ammir [Presence] in results) Layla Unspecified Physician) specimen by Organism specific culture PARAINFLUENZA Not Normal (applies [facility] VIRUS 4 Detected to non-numeric (Ammir results) Layla Physician) RESP.SYNCYTIAL Not Normal (applies [facility] VIRUS Detected to non-numeric (Ammir results) Layla Physician) Chlamydophila Not Normal (applies [facility] pneumoniae Detected to non-numeric (Ammir [Presence] in results) Layla Unspecified Physician) specimen by Organism specific culture Bordetella Not Normal (applies [facility] pertussis Detected to non-numeric (Ammir [Presence] in results) Layla Unspecified Physician) specimen by Organism specific culture Mycoplasma Not Normal (applies [facility] pneumoniae Detected to non-numeric (Ammir [Presence] in results) Layla Unspecified Physician) specimen by Organism specific culture Bordetella Not Normal (applies [facility] parapertussis Detected to non-numeric (Ammir [Presence] in results) Layla Unspecified Physician) specimen by Organism specific culture ID Date Data Source [id number] 05/01/2018 12:00:00 AM EST [facility] (Ammir Layla Physician) Name Value Range Interpretation Description Data Sup porting Code Source(s) Document(s ) GLUCOSE 98 mg/dL Normal (applies [facility] NONFASTING,SERUM to non-numeric (Ammir results) Layla Physician) SODIUM, SERUM 144 Normal (applies [facility] mEq/L to non-numeric (Ammir results) Layla Physician) POTASSIUM, SERUM 4.1 Normal (applies [facility] mEq/L to non-numeric (Ammir results) Layla Physician) CHLORIDE, SERUM 101 Normal (applies [facility] mEq/L to non-numeric (Ammir results) Layla Physician) Carbon dioxide 28 mEq/L Normal (applies [facility] [VFr/PPres] in to non-numeric (Ammir Gas delivery results) Layla system Physician) Anion gap in 19.1 Above high normal [facility] Body fluid mEq/L (Ammir Layla Physician) BLOOD UREA 16 mg/dL Normal (applies [facility] NITROGEN to non-numeric (Ammir results) Layla Physician) CREATININE, 1.40 Above high normal [facility] SERUM mg/dL (Ammir Layla Physician) BUN/CREATININE 11.43 Normal (applies [facility] RATIO to non-numeric (Ammir results) Layla Physician) CALCIUM, SERUM 8.8 Normal (applies [facility] mg/dL to non-numeric (Ammir results) Layla Physician) TOTAL PROTEIN 7.5 g/dL Normal (applies [facility] to non-numeric (Ammir results) Layla Physician) Microalbumin 4.5 g/dL Normal (applies [facility] [Mass/time] in to non-numeric (Ammir Urine collected results) Layla for unspecified Physician) duration Globulin 3.0 gldl Normal (applies [facility] [Mass/time] in to non-numeric (Ammir 24 hour Urine results) Layla Physician) A/G RATIO 1.50 Normal (applies [facility] g/dl to non-numeric (Ammir results) Layla Physician) BILIRUBIN, TOTAL 0.7 Normal (applies [facility] mg/dL to non-numeric (Ammir results) Layla Physician) ALKALINE 74 U/L Normal (applies [facility] PHOSPHATASE, ALP to non-numeric (Ammir results) Layla Physician) ALT (SGPT) 18 U/L Normal (applies [facility] to non-numeric (Ammir results) Layla Physician) AST 27 U/L Normal (applies [facility] to non-numeric (Ammir results) Layla Physician) EGFR NON AFR 52 Above high normal [facility] [place] mL/min/1 (Ammir .73m2 Layla Physician) EGFR AFR 62 Above high normal [facility] [place] mL/min/1 (Ammir .73m2 Layla Physician) ID Date Data Source [id number] 05/01/2018 12:00:00 AM EST [facility] (Ammir Layla Physician) Name Value Range Interpretation Description Data Sup porting Code Source(s) Document(s ) WBC 6.6 Normal (applies [facility] 10(3)/uL to non-numeric (Ammir results) Layla Physician) RBC 4.3 Normal (applies [facility] 10(6)/uL to non-numeric (Ammir results) Layla Physician) Hemoglobin 14.8 g/dL Normal (applies [facility] [Mass/volume] to non-numeric (Ammir in Mixed venous results) Layla blood by Physician) Oximetry Hematocrit 41.4 % Normal (applies [facility] [Pure volume to non-numeric (Ammir fraction] of results) Layla Blood by Physician) Automated count MCV 95.4 fL Normal (applies [facility] to non-numeric (Ammir results) Layla Physician) MCH 34 pg Above high normal [facility] (Ammir Layla Physician) MCHC 36 g/dL Above high normal [facility] (Ammir Layla Physician) RDWSD 43.1 fL Normal (applies [facility] to non-numeric (Ammir results) Layla Physician) RDWCV 12.6 % Normal (applies [facility] to non-numeric (Ammir results) Layla Physician) Platelet Count 166 Normal (applies [facility] 10(3)/uL to non-numeric (Ammir results) Layla Physician) MPV 10.7 fL Normal (applies [facility] to non-numeric (Ammir results) Layla Physician) Neutrophil Abs 3.54 Normal (applies [facility] 10(3)/uL to non-numeric (Ammir results) Layla Physician) Lymphocyte Abs 1.81 Normal (applies [facility] 10(3)/uL to non-numeric (Ammir results) Layla Physician) Monocyte Abs 0.65 Normal (applies [facility] 10(3)/uL to non-numeric (Ammir results) Layla Physician) Eosinophil Abs 0.54 Above high normal [facility] 10(3)/uL (Ammir Layla Physician) Immature 0.02 Normal (applies [facility] Granulocyte Abs 10(3)/uL to non-numeric (Ammir results) Layla Physician) Neutrophil % 53.60 % Normal (applies [facility] to non-numeric (Ammir results) Layla Physician) Lymphocyte % 28 % Normal (applies [facility] to non-numeric (Ammir results) Layla Physician) Monocyte % 9.9 % Normal (applies [facility] to non-numeric (Ammir results) Layla Physician) Eosinophil % 8.2 % Above high normal [facility] (Ammir Layla Physician) Basophil % 0.5 % Normal (applies [facility] to non-numeric (Ammir results) Layla Physician) Immature 0.30 % Normal (applies [facility] Granulocyte % to non-numeric (Ammir results) Layla Physician) ID Date Data Source [id number] 05/01/2018 12:00:00 AM EST [facility] (Ammir Layla Physician) Name Value Range Interpretation Description Data Sup porting Code Source(s) Document(s ) GLUCOSE 98 mg/dL Normal (applies [facility] NONFASTING,SERUM to non-numeric (Ammir results) Layla Physician) SODIUM, SERUM 144 Normal (applies [facility] mEq/L to non-numeric (Ammir results) Layla Physician) CHLORIDE, SERUM 101 Normal (applies [facility] mEq/L to non-numeric (Ammir results) Layla Physician) POTASSIUM, SERUM 4.1 Normal (applies [facility] mEq/L to non-numeric (Ammir results) Layla Physician) Carbon dioxide 28 mEq/L Normal (applies [facility] [VFr/PPres] in to non-numeric (Ammir Gas delivery results) Layla system Physician) Anion gap in 19.1 Above high normal [facility] Body fluid mEq/L (Ammir Layla Physician) BLOOD UREA 16 mg/dL Normal (applies [facility] NITROGEN to non-numeric (Ammir results) Layla Physician) CREATININE, 1.40 Above high normal [facility] SERUM mg/dL (Ammir Layla Physician) BUN/CREATININE 11.43 Normal (applies [facility] RATIO to non-numeric (Ammir results) Layla Physician) TOTAL PROTEIN 7.5 g/dL Normal (applies [facility] to non-numeric (Ammir results) Layla Physician) CALCIUM, SERUM 8.8 Normal (applies [facility] mg/dL to non-numeric (Ammir results) Layla Physician) Microalbumin 4.5 g/dL Normal (applies [facility] [Mass/time] in to non-numeric (Ammir Urine collected results) Layla for unspecified Physician) duration Globulin 3.0 gldl Normal (applies [facility] [Mass/time] in to non-numeric (Ammir 24 hour Urine results) Layla Physician) A/G RATIO 1.50 Normal (applies [facility] g/dl to non-numeric (Ammir results) Layla Physician) BILIRUBIN, TOTAL 0.7 Normal (applies [facility] mg/dL to non-numeric (Ammir results) Layla Physician) ALKALINE 74 U/L Normal (applies [facility] PHOSPHATASE, ALP to non-numeric (Ammir results) Layla Physician) ALT (SGPT) 18 U/L Normal (applies [facility] to non-numeric (Ammir results) Layla Physician) AST 27 U/L Normal (applies [facility] to non-numeric (Ammir results) Layla Physician) EGFR NON AFR 52 Above high normal [facility] [place] mL/min/1 (Ammir .73m2 Layla Physician) EGFR AFR 62 Above high normal [facility] [place] mL/min/1 (Ammir .73m2 Layla Physician) ID Date Data Source [id number] 05/01/2018 12:00:00 AM EST [facility] (Ammir Layla Physician) Name Value Range Interpretation Description Data Sup porting Code Source(s) Document(s ) WBC 6.6 Normal (applies [facility] 10(3)/uL to non-numeric (Ammir results) Layla Physician) RBC 4.3 Normal (applies [facility] 10(6)/uL to non-numeric (Ammir results) Layla Physician) Hemoglobin 14.8 g/dL Normal (applies [facility] [Mass/volume] to non-numeric (Ammir in Mixed venous results) Layla blood by Physician) Oximetry MCV 95.4 fL Normal (applies [facility] to non-numeric (Ammir results) Layla Physician) Hematocrit 41.4 % Normal (applies [facility] [Pure volume to non-numeric (Ammir fraction] of results) Layla Blood by Physician) Automated count MCH 34 pg Above high normal [facility] (Ammir Layla Physician) MCHC 36 g/dL Above high normal [facility] (Ammir Layla Physician) RDWSD 43.1 fL Normal (applies [facility] to non-numeric (Ammir results) Layla Physician) RDWCV 12.6 % Normal (applies [facility] to non-numeric (Ammir results) Layla Physician) MPV 10.7 fL Normal (applies [facility] to non-numeric (Ammir results) Layla Physician) Platelet Count 166 Normal (applies [facility] 10(3)/uL to non-numeric (Ammir results) Layla Physician) Neutrophil Abs 3.54 Normal (applies [facility] 10(3)/uL to non-numeric (Ammir results) Layla Physician) Monocyte Abs 0.65 Normal (applies [facility] 10(3)/uL to non-numeric (Ammir results) Layla Physician) Lymphocyte Abs 1.81 Normal (applies [facility] 10(3)/uL to non-numeric (Ammir results) Layla Physician) Eosinophil Abs 0.54 Above high normal [facility] 10(3)/uL (Ammir Layla Physician) Immature 0.02 Normal (applies [facility] Granulocyte Abs 10(3)/uL to non-numeric (Ammir results) Layla Physician) Neutrophil % 53.60 % Normal (applies [facility] to non-numeric (Ammir results) Layla Physician) Lymphocyte % 28 % Normal (applies [facility] to non-numeric (Ammir results) Layla Physician) Monocyte % 9.9 % Normal (applies [facility] to non-numeric (Ammir results) Layla Physician) Basophil % 0.5 % Normal (applies [facility] to non-numeric (Ammir results) Layla Physician) Eosinophil % 8.2 % Above high normal [facility] (Ammir Layla Physician) Immature 0.30 % Normal (applies [facility] Granulocyte % to non-numeric (Ammir results) Layla Physician) ID Date Data Source [id number] 02/10/2018 12:00:00 AM EST [facility] (Ammir Layla Physician) Name Value Range Interpretation Description Data Sup porting Code Source(s) Document(s ) MICROALBUMIN 0.9 Normal (applies [facility] URINE mg/dL to non-numeric (Ammir results) Layla Physician) CREATININE, 116.4 Normal (applies [facility] URINE mg/dL to non-numeric (Ammir results) Layla Physician) MICROALBUMIN/CRE 7.7 mg/g Normal (applies [facility] ATININ RATIO creat to non-numeric (Ammir results) Layla Physician) ID Date Data Source [id number] 02/10/2018 12:00:00 AM EST [facility] (Ammir Layla Physician) Name Value Range Interpretation Code Description Data Yulia rce(s) Supporting Document(s ) %PSA, Test not Normal (applies to [facility] (Amm ir FREE performed. non-numeric Layla results) Physician) ID Date Data Source [id number] 02/10/2018 12:00:00 AM EST [facility] (Ammir Layla Physician) Name Value Range Interpretation Code Description Data Yulia rce(s) Supporting Document(s ) PSA, FREE 1.07 ng/mL Normal (applies to [facility] (Am yolie non-numeric Layla results) Physician) ID Date Data Source [id number] 02/10/2018 12:00:00 AM EST [facility] (Ammir Layla Physician) Name Value Range Interpretation Code Description Data Supporting Source(s) Document(s ) PSA, TOTAL 3.58 ng/mL Normal (applies to [facility] (A mmir non-numeric Layla results) Physician) ID Date Data Source [id number] 02/10/2018 12:00:00 AM EST [facility] (Ammir Layla Physician) Name Value Range Interpretation Description Data Sup porting Code Source(s) Document(s ) Cholesterol 149 Normal (applies [facility] [Moles/volume] mg/dL to non-numeric (Ammir in Pericardial results) Layla fluid Physician) LDL CALCULATION 71.6 Normal (applies [facility] mg/dL to non-numeric (Ammir results) Layla Physician) CHOL/HDL RATIO 3.10 Normal (applies [facility] ratio to non-numeric (Ammir results) Layla Physician) HDL CHOLESTEROL 48 mg/dL Above high normal [facility] (Ammir Layla Physician) VLDL CALCULATION 29.4 Normal (applies [facility] mg/dl to non-numeric (Ammir results) Layla Physician) TRIGLYCERIDES 147 Normal (applies [facility] mg/dL to non-numeric (Ammir results) Layla Physician) ID Date Data Source [id number] 02/10/2018 12:00:00 AM EST [facility] (Ammir Layla Physician) Name Value Range Interpretation Description Data Sup porting Code Source(s) Document(s ) GLUCOSE 125 mg/dL Normal (applies to [facility] (Amm ir NONFASTING,S non-numeric Layla FLOYD results) Physician) SODIUM, 138 mEq/L Normal (applies to [facility] (Amm ir SERUM non-numeric Layla results) Physician) POTASSIUM, 3.4 mEq/L Below low normal [facility] (Ammi r SERUM Layla Physician) CHLORIDE, 98 mEq/L Below low normal [facility] (Ammir SERUM Layla Physician) Carbon 30 mEq/L Normal (applies to [facility] (Amm ir dioxide non-numeric Layla [VFr/PPres] results) Physician) in Gas delivery system Anion gap in 13.4 Normal (applies to [facility] ( Ammir Body fluid mEq/L non-numeric Layla results) Physician) CREATININE, 2.00 Above high normal [facility] (Am yolie SERUM mg/dL Layla Physician) BLOOD UREA 32 mg/dL Above high normal [facility] (Amm ir NITROGEN Layla Physician) BUN/CREATINI 16.00 Normal (applies to [facility] ( Ammir NE RATIO non-numeric Layla results) Physician) CALCIUM, 9.6 mg/dL Normal (applies to [facility] (Amm ir SERUM non-numeric Layla results) Physician) EGFR NON AFR 34 Above high normal [facility] (A mmir [place] mL/min/1. Layla 73m2 Physician) EGFR AFR 41 Above high normal [facility] (Ammi r [place] mL/min/1. Layla 73m2 Physician) ID Date Data Source [id number] 02/10/2018 12:00:00 AM EST [facility] (Ammir Layla Physician) Name Value Range Interpretation Description Data Sup porting Code Source(s) Document(s ) WBC 7.5 Normal (applies to [facility] 10(3)/uL non-numeric (Ammir results) Layla Physician) RBC 4.4 Normal (applies to [facility] 10(6)/uL non-numeric (Ammir results) Layla Physician) Hemoglobin 14.6 g/dL Normal (applies to [facility] [Mass/volume] non-numeric (Ammir in Mixed results) Layla venous blood Physician) by Oximetry Hematocrit 41.4 % Normal (applies to [facility] [Pure volume non-numeric (Ammir fraction] of results) Layla Blood by Physician) Automated count MCV 94.1 fL Normal (applies to [facility] non-numeric (Ammir results) Layla Physician) MCH 33 pg Normal (applies to [facility] non-numeric (Ammir results) Layla Physician) MCHC 35 g/dL Normal (applies to [facility] non-numeric (Ammir results) Layla Physician) RDWCV 13.1 % Normal (applies to [facility] non-numeric (Ammir results) Layla Physician) RDWSD 44.7 fL Normal (applies to [facility] non-numeric (Ammir results) Layla Physician) PLT 202 Normal (applies to [facility] 10(3)/uL non-numeric (Ammir results) Layla Physician) MPV 10.1 fL Normal (applies to [facility] non-numeric (Ammir results) Layla Physician) LY# 1.87 Normal (applies to [facility] 10(3)/uL non-numeric (Ammir results) Layla Physician) NE# 4.20 Normal (applies to [facility] 10(3)/uL non-numeric (Ammir results) Layla Physician) MO# 0.78 Normal (applies to [facility] 10(3)/uL non-numeric (Ammir results) Layla Physician) EO# 0.54 Above high normal [facility] 10(3)/uL (Ammir Layla Physician) NE% 56.10 % Normal (applies to [facility] non-numeric (Ammir results) Layla Physician) IG# 0.04 Above high normal [facility] 10(3)/uL (Ammir Layla Physician) LY% 25 % Normal (applies to [facility] non-numeric (Ammir results) Layla Physician) MO% 10.4 % Normal (applies to [facility] non-numeric (Ammir results) Layla Physician) EO% 7.2 % Above high normal [facility] (Ammir Layla Physician) BA% 0.8 % Normal (applies to [facility] non-numeric (Ammir results) Layla Physician) IG% 0.50 % Normal (applies to [facility] non-numeric (Ammir results) Layla Physician) ID Date Data Source [id number] 02/10/2018 12:00:00 AM EST [facility] (Ammir Layla Physician) Name Value Range Interpretation Description Data Sup porting Code Source(s) Document(s ) Hemoglobin A1c 5.6 % Normal (applies to [facility] (Ammir in Blood non-numeric Layla results) Physician) ID Date Data Source [id number] 02/10/2018 12:00:00 AM EST [facility] (Ammir Layla Physician) Name Value Range Interpretation Description Data Sup porting Code Source(s) Document(s ) MICROALBUMIN 0.9 Normal (applies [facility] URINE mg/dL to non-numeric (Ammir results) Layla Physician) CREATININE, 116.4 Normal (applies [facility] URINE mg/dL to non-numeric (Ammir results) Layla Physician) MICROALBUMIN/CRE 7.7 mg/g Normal (applies [facility] ATININ RATIO creat to non-numeric (Ammir results) Layla Physician) ID Date Data Source [id number] 02/10/2018 12:00:00 AM EST [facility] (Ammir Layla Physician) Name Value Range Interpretation Code Description Data Yulia rce(s) Supporting Document(s ) %PSA, Test not Normal (applies to [facility] (Amm ir FREE performed. non-numeric Layla results) Physician) ID Date Data Source [id number] 02/10/2018 12:00:00 AM EST [facility] (Ammir Layla Physician) Name Value Range Interpretation Code Description Data Yulia rce(s) Supporting Document(s ) PSA, FREE 1.07 ng/mL Normal (applies to [facility] (Am yolie non-numeric Layla results) Physician) ID Date Data Source [id number] 02/10/2018 12:00:00 AM EST [facility] (Ammir Layla Physician) Name Value Range Interpretation Code Description Data Supporting Source(s) Document(s ) PSA, TOTAL 3.58 ng/mL Normal (applies to [facility] (A mmir non-numeric Layla results) Physician) ID Date Data Source [id number] 02/10/2018 12:00:00 AM EST [facility] (Ammir Layla Physician) Name Value Range Interpretation Description Data Sup porting Code Source(s) Document(s ) Cholesterol 149 Normal (applies [facility] [Moles/volume] mg/dL to non-numeric (Ammir in Pericardial results) Layla fluid Physician) LDL CALCULATION 71.6 Normal (applies [facility] mg/dL to non-numeric (Ammir results) Layla Physician) CHOL/HDL RATIO 3.10 Normal (applies [facility] ratio to non-numeric (Ammir results) Layla Physician) HDL CHOLESTEROL 48 mg/dL Above high normal [facility] (Ammir Layla Physician) VLDL CALCULATION 29.4 Normal (applies [facility] mg/dl to non-numeric (Ammir results) Layla Physician) TRIGLYCERIDES 147 Normal (applies [facility] mg/dL to non-numeric (Ammir results) Layla Physician) ID Date Data Source [id number] 02/10/2018 12:00:00 AM EST [facility] (Ammir Layla Physician) Name Value Range Interpretation Description Data Sup porting Code Source(s) Document(s ) GLUCOSE 125 mg/dL Normal (applies to [facility] (Amm ir NONFASTING,S non-numeric Layla FLOYD results) Physician) SODIUM, 138 mEq/L Normal (applies to [facility] (Amm ir SERUM non-numeric Layla results) Physician) POTASSIUM, 3.4 mEq/L Below low normal [facility] (Ammi r SERUM Layla Physician) CHLORIDE, 98 mEq/L Below low normal [facility] (Ammir SERUM Layla Physician) Carbon 30 mEq/L Normal (applies to [facility] (Amm ir dioxide non-numeric Layla [VFr/PPres] results) Physician) in Gas delivery system Anion gap in 13.4 Normal (applies to [facility] ( Ammir Body fluid mEq/L non-numeric Layla results) Physician) BLOOD UREA 32 mg/dL Above high [facility] ([facility] N[facility] Layla Physician) CREATININE, 2.00 Above high normal [facility] (Am yolie SERUM mg/dL Layla Physician) BUN/CREATINI 16.00 Normal (applies to [facility] ( Ammir NE RATIO non-numeric Layla results) Physician) CALCIUM, 9.6 mg/dL Normal (applies to [facility] (Amm ir SERUM non-numeric Layla results) Physician) EGFR NON AFR 34 Above high normal [facility] (A mmir [place] mL/min/1. Layla 73m2 Physician) EGFR AFR 41 Above high normal [facility] (Ammi r [place] mL/min/1. Layla 73m2 Physician) ID Date Data Source [id number] 02/10/2018 12:00:00 AM EST [facility] (Ammir Layla Physician) Name Value Range Interpretation Description Data Sup porting Code Source(s) Document(s ) WBC 7.5 Normal (applies to [facility] 10(3)/uL non-numeric (Ammir results) Layla Physician) Hemoglobin 14.6 g/dL Normal (applies to [facility] [Mass/volume] non-numeric (Ammir in Mixed results) Layla venous blood Physician) by Oximetry RBC 4.4 Normal (applies to [facility] 10(6)/uL non-numeric (Ammir results) Layla Physician) Hematocrit 41.4 % Normal (applies to [facility] [Pure volume non-numeric (Ammir fraction] of results) Layla Blood by Physician) Automated count MCV 94.1 fL Normal (applies to [facility] non-numeric (Ammir results) Layla Physician) MCH 33 pg Normal (applies to [facility] non-numeric (Ammir results) Layla Physician) MCHC 35 g/dL Normal (applies to [facility] non-numeric (Ammir results) Layla Physician) RDWSD 44.7 fL Normal (applies to [facility] non-numeric (Ammir results) Layla Physician) RDWCV 13.1 % Normal (applies to [facility] non-numeric (Ammir results) Layla Physician) PLT 202 Normal (applies to [facility] 10(3)/uL non-numeric (Ammir results) Layla Physician) MPV 10.1 fL Normal (applies to [facility] non-numeric (Ammir results) Layla Physician) LY# 1.87 Normal (applies to [facility] 10(3)/uL non-numeric (Ammir results) Layla Physician) NE# 4.20 Normal (applies to [facility] 10(3)/uL non-numeric (Ammir results) Layla Physician) MO# 0.78 Normal (applies to [facility] 10(3)/uL non-numeric (Ammir results) Layla Physician) IG# 0.04 Above high normal [facility] 10(3)/uL (Ammir Layla Physician) EO# 0.54 Above high normal [facility] 10(3)/uL (Ammir Layla Physician) NE% 56.10 % Normal (applies to [facility] non-numeric (Ammir results) Layla Physician) MO% 10.4 % Normal (applies to [facility] non-numeric (Ammir results) Layla Physician) LY% 25 % Normal (applies to [facility] non-numeric (Ammir results) Layla Physician) EO% 7.2 % Above high normal [facility] (Ammir Layla Physician) BA% 0.8 % Normal (applies to [facility] non-numeric (Ammir results) Layla Physician) IG% 0.50 % Normal (applies to [facility] non-numeric (Ammir results) Layla Physician) ID Date Data Source [id number] 02/10/2018 12:00:00 AM EST [facility] (Ammir Layla Physician) Name Value Range Interpretation Description Data Sup porting Code Source(s) Document(s ) Hemoglobin A1c 5.6 % Normal (applies to [facility] (Ammir in Blood non-numeric Layla results) Physician) ID Date Data Source [id number] 02/03/2018 12:00:00 AM EST [facility] (Ammir Layla Physician) Name Value Range Interpretation Description Data Sup porting Code Source(s) Document(s ) BNP, B-TYPE 70.8 Normal (applies [facility] NATRIURETIC pg/mL to non-numeric (Ammir results) Layla Physician) ID Date Data Source [id number] 02/03/2018 12:00:00 AM EST [facility] (Ammir Layla Physician) Name Value Range Interpretation Description Data Sup porting Code Source(s) Document(s ) SODIUM, 140 mEq/L Normal (applies to [facility] (Amm ir SERUM non-numeric Layla results) Physician) GLUCOSE 108 mg/dL Normal (applies to [facility] (Amm ir NONFASTING,S non-numeric Layla FLOYD results) Physician) POTASSIUM, 4.2 mEq/L Normal (applies to [facility] (Am yolie SERUM non-numeric Layla results) Physician) CHLORIDE, 105 mEq/L Normal (applies to [facility] (Amm ir SERUM non-numeric Layla results) Physician) Anion gap in 14.2 Normal (applies to [facility] ( Ammir Body fluid mEq/L non-numeric Layla results) Physician) Carbon 25 mEq/L Normal (applies to [facility] (Amm ir dioxide non-numeric Layla [VFr/PPres] results) Physician) in Gas delivery system BLOOD UREA 14 mg/dL Normal (applies to [facility] (Am yolie NITROGEN non-numeric Layla results) Physician) CREATININE, 1.50 Above high normal [facility] (Am yolie SERUM mg/dL Layla Physician) BUN/CREATINI 9.33 Normal (applies to [facility] ( Ammir NE RATIO non-numeric Layla results) Physician) CALCIUM, 9.7 mg/dL Normal (applies to [facility] (Amm ir SERUM non-numeric Layla results) Physician) EGFR NON AFR 48 Above high normal [facility] (A mmir [place] mL/min/1. Layla 73m2 Physician) EGFR AFR 58 Above high normal [facility] (Ammi r [place] mL/min/1. Layla 73m2 Physician) ID Date Data Source [id number] 02/03/2018 12:00:00 AM EST [facility]Ammir Layla Physician) Name Value Range Interpretation Description Data Sup porting Code Source(s) Document(s ) BNP, B-TYPE 70.8 Normal (applies [facility] NATRIURETIC pg/mL to non-numeric (Ammir results) Layla Physician) ID Date Data Source [id number] 02/03/2018 12:00:00 AM EST [facility]Amm[facility] Layla Physician) Name Value Range Interpretation Description Data Sup porting Code Source(s) Document(s ) SODIUM, 140 mEq/L Normal (applies to [facility] (Amm ir SERUM non-numeric Layla results) Physician) GLUCOSE 108 mg/dL Normal (applies to [facility] (Amm ir NONFASTING,S non-numeric Layla FLOYD results) Physician) POTASSIUM, 4.2 mEq/L Normal (applies to [facility] (Am yolie SERUM non-numeric Layla results) Physician) Carbon 25 mEq/L Normal (applies to [facility] (Amm ir dioxide non-numeric Layla [VFr/PPres] results) Physician) in Gas delivery system CHLORIDE, 105 mEq/L Normal (applies to [facility] (Amm ir SERUM non-numeric Layla results) Physician) Anion gap in 14.2 Normal (applies to [facility] ( Ammir Body fluid mEq/L non-numeric Layla results) Physician) CREATININE, 1.50 Above high normal [facility] (Am yolie SERUM mg/dL Layla Physician) BLOOD UREA 14 mg/dL Normal (applies to [facility] (Am yolie NITROGEN non-numeric Layla results) Physician) BUN/CREATINI 9.33 Normal (applies to [facility] ( Ammir NE RATIO non-numeric Layla results) Physician) CALCIUM, 9.7 mg/dL Normal (applies to [facility] (Amm ir SERUM non-numeric Layla results) Physician) EGFR NON AFR 48 Above high normal [facility] (A mmir [place] mL/min/1. Layla 73m2 Physician) EGFR AFR 58 Above high normal [facility] (Ammi r [place] mL/min/1. Layla 73m2 Physician) ID Date Data Source [id number] 06/11/2017 12:00:00 AM EDT [facility] (Ammir Layla Physician) Name Value Range Interpretation Description Data Sup porting Code Source(s) Document(s ) HEPATITIS NONREACTIVE Normal (applies [facility] A(IGM) to non-numeric (Ammir results) Layla Physician) ID Date Data Source [id number] 06/11/2017 12:00:00 AM EDT [facility] (Ammir Layla Physician) Name Value Range Interpretation Description Data Sup porting Code Source(s) Document(s ) GLUCOSE 130 Normal (applies [facility] NONFASTING,SERUM mg/dL to non-numeric (Ammir results) Layla Physician) SODIUM, SERUM 139 Normal (applies [facility] mEq/L to non-numeric (Ammir results) Layla Physician) POTASSIUM, SERUM 3.7 Normal (applies [facility] mEq/L to non-numeric (Ammir results) Layla Physician) CHLORIDE, SERUM 102 Normal (applies [facility] mEq/L to non-numeric (Ammir results) Layla Physician) Carbon dioxide 26 mEq/L Normal (applies [facility] [VFr/PPres] in to non-numeric (Ammir Gas delivery results) Layla system Physician) Anion gap in 14.7 Normal (applies [facility] Body fluid mEq/L to non-numeric (Ammir results) Layla Physician) BLOOD UREA 14 mg/dL Normal (applies [facility] NITROGEN to non-numeric (Ammir results) Layla Physician) CREATININE, 1.40 Above high normal [facility] SERUM mg/dL (Ammir Layla Physician) BUN/CREATININE 10.00 Normal (applies [facility] RATIO to non-numeric (Ammir results) Layla Physician) CALCIUM, SERUM 9.6 Normal (applies [facility] mg/dL to non-numeric (Ammir results) Layla Physician) Microalbumin 4.7 g/dL Normal (applies [facility] [Mass/time] in to non-numeric (Ammir Urine collected results) Layla for unspecified Physician) duration TOTAL PROTEIN 7.5 g/dL Normal (applies [facility] to non-numeric (Ammir results) Layla Physician) Globulin 2.8 gldl Normal (applies [facility] [Mass/time] in to non-numeric (Ammir 24 hour Urine results) Layla Physician) A/G RATIO 1.68 Normal (applies [facility] g/dl to non-numeric (Ammir results) Layla Physician) BILIRUBIN, TOTAL 0.4 Normal (applies [facility] mg/dL to non-numeric (Ammir results) Layla Physician) ALKALINE 108 U/L Normal (applies [facility] PHOSPHATASE, ALP to non-numeric (Ammir results) Layla Physician) ALT (SGPT) 25 U/L Normal (applies [facility] to non-numeric (Ammir results) Layla Physician) AST 30 U/L Normal (applies [facility] to non-numeric (Ammir results) Layla Physician) EGFR NON AFR 52 Above high normal [facility] [place] mL/min/1 (Ammir .73m2 Layla Physician) EGFR AFR 63 Above high normal [facility] [place] mL/min/1 (Ammir .73m2 Layla Physician) ID Date Data Source [id number] 06/11/2017 12:00:00 AM EDT [facility] (Ammir Layla Physician) Name Value Range Interpretation Description Data Sup porting Code Source(s) Document(s ) WBC 5.8 Normal (applies to [facility] 10(3)/uL non-numeric (Ammir results) Layla Physician) RBC 4.4 Normal (applies to [facility] 10(6)/uL non-numeric (Ammir results) Layla Physician) Hemoglobin 14.2 g/dL Normal (applies to [facility] [Mass/volume] non-numeric (Ammir in Mixed results) Layla venous blood Physician) by Oximetry Hematocrit 41.4 % Normal (applies to [facility] [Pure volume non-numeric (Ammir fraction] of results) Layla Blood by Physician) Automated count MCV 94.7 fL Normal (applies to [facility] non-numeric (Ammir results) Layla Physician) MCH 33 pg Normal (applies to [facility] non-numeric (Ammir results) Layla Physician) MCHC 34 g/dL Normal (applies to [facility] non-numeric (Ammir results) Layla Physician) RDWCV 12.6 % Normal (applies to [facility] non-numeric (Ammir results) Layla Physician) RDWSD 43.0 fL Normal (applies to [facility] non-numeric (Ammir results) Layla Physician) PLT 172 Normal (applies to [facility] 10(3)/uL non-numeric (Ammir results) Layla Physician) MPV 10.4 fL Normal (applies to [facility] non-numeric (Ammir results) Layla Physician) NE# 2.81 Normal (applies to [facility] 10(3)/uL non-numeric (Ammir results) Layla Physician) MO# 0.56 Normal (applies to [facility] 10(3)/uL non-numeric (Ammir results) Layla Physician) LY# 1.77 Normal (applies to [facility] 10(3)/uL non-numeric (Ammir results) Layla Physician) EO# 0.54 Above high normal [facility] 10(3)/uL (Ammir Layla Physician) NE% 48.70 % Normal (applies to [facility] non-numeric (Ammir results) Layla Physician) IG# 0.03 Normal (applies to [facility] 10(3)/uL non-numeric (Ammir results) Layla Physician) LY% 31 % Normal (applies to [facility] non-numeric (Ammir results) Layla Physician) MO% 9.7 % Normal (applies to [facility] non-numeric (Ammir results) Layla Physician) EO% 9.4 % Above high normal [facility] (Ammir Layla Physician) BA% 1.0 % Normal (applies to [facility] non-numeric (Ammir results) Layla Physician) IG% 0.50 % Normal (applies to [facility] non-numeric (Ammir results) Layla Physician) ID Date Data Source [id number] 06/11/2017 12:00:00 AM EDT [facility] (Ammir Layla Physician) Name Value Range Interpretation Description Data Sup porting Code Source(s) Document(s ) HEPATITIS BE NONREACTIVE Normal (applies [facility] AG to non-numeric (Ammir results) Layla Physician) ID Date Data Source [id number] 06/11/2017 12:00:00 AM EDT [facility] (Ammir Layla Physician) Name Value Range Interpretation Description Data Sup porting Code Source(s) Document(s ) HEPATITIS B <3.10 Normal (applies to [facility] (A mmir SURFACE AB (NONREACT non-numeric Layla YFN) results) Physician) ID Date Data Source [id number] 06/11/2017 12:00:00 AM EDT [facility] (Ammir Layla Physician) Name Value Range Interpretation Description Data Sup porting Code Source(s) Document(s ) HEPATITIS B NONREACTIVE Normal (applies [facility] CORE AB QL to non-numeric (Ammir results) Layla Physician) ID Date Data Source [id number] 06/11/2017 12:00:00 AM EDT [facility] (Ammir Layla Physician) Name Value Range Interpretation Description Data Sup porting Code Source(s) Document(s ) HEPATITIS C NONREACTIVE Normal (applies [facility] AB QL to non-numeric (Ammir results) Layla Physician) ID Date Data Source [id number] 06/11/2017 12:00:00 AM EDT [facility] (Ammir Layla Physician) Name Value Range Interpretation Code Description Data Yulia rce(s) Supporting Document(s ) HBeAB NEGATIVE Normal (applies to [facility] (Amm ir non-numeric results) Layla Physician) ID Date Data Source [id number] 06/11/2017 12:00:00 AM EDT [facility] (Ammir Layla Physician) Name Value Range Interpretation Description Data Sup porting Code Source(s) Document(s ) HEPATITIS BS NONREACTIVE Normal (applies [facility] AG SCREEN to non-numeric (Ammir results) Layla Physician) ID Date Data Source [id number] 06/11/2017 12:00:00 AM EDT [facility] (Ammir Layla Physician) Name Value Range Interpretation Description Data Sup porting Code Source(s) Document(s ) HEPATITIS A REACTIVE Normal (applies to [facility] (A mmir AB non-numeric Layla results) Physician) ID Date Data Source [id number] 06/11/2017 12:00:00 AM EDT [facility] (Ammir Layla Physician) Name Value Range Interpretation Description Data Sup porting Code Source(s) Document(s ) T4 FREE, 1.46 Normal (applies to [facility] THYROXINE ng/dL non-numeric (Ammir results) Layla Physician) TSH,3RD 2.52 Normal (applies to [facility] GENERATION uIU/mL non-numeric (Ammir results) Layla Physician) ID Date Data Source [id number] 06/11/2017 12:00:00 AM EDT [facility] (Ammir Layla Physician) Name Value Range Interpretation Description Data Sup porting Code Source(s) Document(s ) HEPATITIS BE NONREACTIVE Normal (applies [facility] AG to non-numeric (Ammir results) Layla Physician) ID Date Data Source [id number] 06/11/2017 12:00:00 AM EDT [facility] (Ammir Layla Physician) Name Value Range Interpretation Description Data Sup porting Code Source(s) Document(s ) HEPATITIS B <3.10 Normal (applies to [facility] (A mmir SURFACE AB (NONREACT non-numeric Layla YFN) results) Physician) ID Date Data Source [id number] 06/11/2017 12:00:00 AM EDT [facility] (Ammir Layla Physician) Name Value Range Interpretation Description Data Sup porting Code Source(s) Document(s ) HEPATITIS B NONREACTIVE Normal (applies [facility] CORE AB QL to non-numeric (Ammir results) Layla Physician) ID Date Data Source [id number] 06/11/2017 12:00:00 AM EDT [facility] (Ammir Layla Physician) Name Value Range Interpretation Description Data Sup porting Code Source(s) Document(s ) HEPATITIS C NONREACTIVE Normal (applies [facility] AB QL to non-numeric (Ammir results) Layla Physician) ID Date Data Source [id number] 06/11/2017 12:00:00 AM EDT [facility] (Ammir Layla Physician) Name Value Range Interpretation Code Description Data Yulia rce(s) Supporting Document(s ) HBeAB NEGATIVE Normal (applies to [facility] (Amm ir non-numeric results) Layla Physician) ID Date Data Source [id number] 06/11/2017 12:00:00 AM EDT [facility] (Ammir Layla Physician) Name Value Range Interpretation Description Data Sup porting Code Source(s) Document(s ) HEPATITIS BS NONREACTIVE Normal (applies [facility] AG SCREEN to non-numeric (Ammir results) Layla Physician) ID Date Data Source [id number] 06/11/2017 12:00:00 AM EDT [facility] (Ammir Layla Physician) Name Value Range Interpretation Description Data Sup porting Code Source(s) Document(s ) HEPATITIS A REACTIVE Normal (applies to [facility] (A mmir AB non-numeric Layla results) Physician) ID Date Data Source [id number] 06/11/2017 12:00:00 AM EDT [facility] (Ammir Layla Physician) Name Value Range Interpretation Description Data Sup porting Code Source(s) Document(s ) T4 FREE, 1.46 Normal (applies to [facility] THYROXINE ng/dL non-numeric (Ammir results) Layla Physician) TSH,3RD 2.52 Normal (applies to [facility] GENERATION uIU/mL non-numeric (Ammir results) Layla Physician) ID Date Data Source [id number] 06/11/2017 12:00:00 AM EDT [facility] (Ammir Layla Physician) Name Value Range Interpretation Description Data Sup porting Code Source(s) Document(s ) HEPATITIS NONREACTIVE Normal (applies [facility] A(IGM) to non-numeric (Ammir results) Layla Physician) ID Date Data Source [id number] 06/11/2017 12:00:00 AM EDT [facility] (Ammir Layla Physician) Name Value Range Interpretation Description Data Sup porting Code Source(s) Document(s ) GLUCOSE 130 Normal (applies [facility] NONFASTING,SERUM mg/dL to non-numeric (Ammir results) Layla Physician) SODIUM, SERUM 139 Normal (applies [facility] mEq/L to non-numeric (Ammir results) Layla Physician) POTASSIUM, SERUM 3.7 Normal (applies [facility] mEq/L to non-numeric (Ammir results) Layla Physician) Carbon dioxide 26 mEq/L Normal (applies [facility] [VFr/PPres] in to non-numeric (Ammir Gas delivery results) Layla system Physician) CHLORIDE, SERUM 102 Normal (applies [facility] mEq/L to non-numeric (Ammir results) Layla Physician) Anion gap in 14.7 Normal (applies [facility] Body fluid mEq/L to non-numeric (Ammir results) Layla Physician) CREATININE, 1.40 Above high normal [facility] SERUM mg/dL (Ammir Layla Physician) BLOOD UREA 14 mg/dL Normal (applies [facility] NITROGEN to non-numeric (Ammir results) Layla Physician) BUN/CREATININE 10.00 Normal (applies [facility] RATIO to non-numeric (Ammir results) Layla Physician) CALCIUM, SERUM 9.6 Normal (applies [facility] mg/dL to non-numeric (Ammir results) Layla Physician) TOTAL PROTEIN 7.5 g/dL Normal (applies [facility] to non-numeric (Ammir results) Layla Physician) Microalbumin 4.7 g/dL Normal (applies [facility] [Mass/time] in to non-numeric (Ammir Urine collected results) Layla for unspecified Physician) duration Globulin 2.8 gldl Normal (applies [facility] [Mass/time] in to non-numeric (Ammir 24 hour Urine results) Layla Physician) A/G RATIO 1.68 Normal (applies [facility] g/dl to non-numeric (Ammir results) Layla Physician) ALKALINE 108 U/L Normal (applies [facility] PHOSPHATASE, ALP to non-numeric (Ammir results) Layla Physician) BILIRUBIN, TOTAL 0.4 Normal (applies [facility] mg/dL to non-numeric (Ammir results) Layla Physician) ALT (SGPT) 25 U/L Normal (applies [facility] to non-numeric (Ammir results) Layla Physician) AST 30 U/L Normal (applies [facility] to non-numeric (Ammir results) Layla Physician) EGFR NON AFR 52 Above high normal [facility] [place] mL/min/1 (Ammir .73m2 Layla Physician) EGFR AFR 63 Above high normal [facility] [place] mL/min/1 (Ammir .73m2 Layla Physician) ID Date Data Source [id number] 06/11/2017 12:00:00 AM EDT [facility] (Ammir Layla Physician) Name Value Range Interpretation Description Data Sup porting Code Source(s) Document(s ) WBC 5.8 Normal (applies to [facility] 10(3)/uL non-numeric (Ammir results) Layla Physician) RBC 4.4 Normal (applies to [facility] 10(6)/uL non-numeric (Ammir results) Layla Physician) Hematocrit 41.4 % Normal (applies to [facility] [Pure volume non-numeric (Ammir fraction] of results) Layla Blood by Physician) Automated count Hemoglobin 14.2 g/dL Normal (applies to [facility] [Mass/volume] non-numeric (Ammir in Mixed results) Layla venous blood Physician) by Oximetry MCV 94.7 fL Normal (applies to [facility] non-numeric (Ammir results) Layla Physician) MCH 33 pg Normal (applies to [facility] non-numeric (Ammir results) Layla Physician) MCHC 34 g/dL Normal (applies to [facility] non-numeric (Ammir results) Layla Physician) RDWSD 43.0 fL Normal (applies to [facility] non-numeric (Ammir results) Layla Physician) RDWCV 12.6 % Normal (applies to [facility] non-numeric (Ammir results) Layla Physician) PLT 172 Normal (applies to [facility] 10(3)/uL non-numeric (Ammir results) Layla Physician) MPV 10.4 fL Normal (applies to [facility] non-numeric (Ammir results) Layla Physician) LY# 1.77 Normal (applies to [facility] 10(3)/uL non-numeric (Ammir results) Layla Physician) NE# 2.81 Normal (applies to [facility] 10(3)/uL non-numeric (Ammir results) Layla Physician) MO# 0.56 Normal (applies to [facility] 10(3)/uL non-numeric (Ammir results) Layla Physician) EO# 0.54 Above high normal [facility] 10(3)/uL (Ammir Layla Physician) IG# 0.03 Normal (applies to [facility] 10(3)/uL non-numeric (Ammir results) Layla Physician) NE% 48.70 % Normal (applies to [facility] non-numeric (Ammir results) Layla Physician) LY% 31 % Normal (applies to [facility] non-numeric (Ammir results) Layla Physician) EO% 9.4 % Above high normal [facility] (Ammir Layla Physician) MO% 9.7 % Normal (applies to [facility] non-numeric (Ammir results) Layla Physician) BA% 1.0 % Normal (applies to [facility] non-numeric (Ammir results) Layla Physician) IG% 0.50 % Normal (applies to [facility] non-numeric (Ammir results) Layla Physician) ID Date Data Source [id number] 12/19/2016 12:00:00 AM EDT [facility] (Ammir Layla Physician) Name Value Range Interpretation Description Data Sup porting Code Source(s) Document(s ) CORONAVIRUS 229E Not Normal (applies [facility] Detected to non-numeric (Ammir results) Layla Physician) Adenovirus Not Normal (applies [facility] [Presence] in Detected to non-numeric (Ammir Unspecified results) Layla specimen by Physician) Organism specific culture CORONAVIRUS HKU1 Not Normal (applies [facility] Detected to non-numeric (Ammir results) Layla Physician) CORONAVIRUS NL63 Not Normal (applies [facility] Detected to non-numeric (Ammir results) Layla Physician) CORONAVIRUS OC43 Not Normal (applies [facility] Detected to non-numeric (Ammir results) Layla Physician) HUMAN Not Normal (applies [facility] METAPNEUMOVIRUS Detected to non-numeric (Ammir results) Layla Physician) HUMAN Detected Normal (applies [facility] RHINOVIRUS/ENTERO to non-numeric (Ammir VIRUS results) Layla Physician) INFLUENZA A/H1 Not Normal (applies [facility] Detected to non-numeric (Ammir results) Layla Physician) INFLUENZA A/H3 Not Normal (applies [facility] Detected to non-numeric (Ammir results) Layla Physician) INFLUENZA Not Normal (applies [facility] A/H1-2009 Detected to non-numeric (Ammir results) Layla Physician) Parainfluenza Not Normal (applies [facility] virus 1 Detected to non-numeric (Ammir [Presence] in results) Layla Unspecified Physician) specimen by Organism specific culture INFLUENZA B Not Normal (applies [facility] Detected to non-numeric (Ammir results) Layla Physician) Parainfluenza Not Normal (applies [facility] virus 2 Detected to non-numeric (Ammir [Presence] in results) Layla Unspecified Physician) specimen by Organism specific culture Parainfluenza Not Normal (applies [facility] virus 3 Detected to non-numeric (Ammir [Presence] in results) Layla Unspecified Physician) specimen by Organism specific culture PARAINFLUENZA Not Normal (applies [facility] VIRUS 4 Detected to non-numeric (Ammir results) Layla Physician) Bordetella Not Normal (applies [facility] pertussis Detected to non-numeric (Ammir [Presence] in results) Layla Unspecified Physician) specimen by Organism specific culture RESP.SYNCYTIAL Not Normal (applies [facility] VIRUS Detected to non-numeric (Ammir results) Layla Physician) Chlamydophila Not Normal (applies [facility] pneumoniae Detected to non-numeric (Ammir [Presence] in results) Layla Unspecified Physician) specimen by Organism specific culture Mycoplasma Not Normal (applies [facility] pneumoniae Detected to non-numeric (Ammir [Presence] in results) Layla Unspecified Physician) specimen by Organism specific culture ID Date Data Source [id number] 12/19/2016 12:00:00 AM EDT [facility] (Ammir Layla Physician) Name Value Range Interpretation Description Data Sup porting Code Source(s) Document(s ) STREPTOCOCCUS NEGATIVE Normal (applies [facility] GROUP A to non-numeric (Ammir results) Layla Physician) STREPTOCOCCUS NEGATIVE Normal (applies [facility] GROUP C/G to non-numeric (Ammir results) Layla Physician) ID Date Data Source [id number] 12/19/2016 12:00:00 AM EDT [facility] (Ammir Layla Physician) Name Value Range Interpretation Description Data Sup porting Code Source(s) Document(s ) Adenovirus Not Normal (applies [facility] [Presence] in Detected to non-numeric (Ammir Unspecified results) Layla specimen by Physician) Organism specific culture CORONAVIRUS 229E Not Normal (applies [facility] Detected to non-numeric (Ammir results) Layla Physician) CORONAVIRUS HKU1 Not Normal (applies [facility] Detected to non-numeric (Ammir results) Layla Physician) CORONAVIRUS NL63 Not Normal (applies [facility] Detected to non-numeric (Ammir results) Layla Physician) CORONAVIRUS OC43 Not Normal (applies [facility] Detected to non-numeric (Ammir results) Layla Physician) HUMAN Not Normal (applies [facility] METAPNEUMOVIRUS Detected to non-numeric (Ammir results) Layla Physician) HUMAN Detected Normal (applies [facility] RHINOVIRUS/ENTERO to non-numeric (Ammir VIRUS results) Layla Physician) INFLUENZA A/H3 Not Normal (applies [facility] Detected to non-numeric (Ammir results) Layla Physician) INFLUENZA A/H1 Not Normal (applies [facility] Detected to non-numeric (Ammir results) Layla Physician) INFLUENZA Not Normal (applies [facility] A/H1-2009 Detected to non-numeric (Ammir results) Layla Physician) Parainfluenza Not Normal (applies [facility] virus 1 Detected to non-numeric (Ammir [Presence] in results) Layla Unspecified Physician) specimen by Organism specific culture INFLUENZA B Not Normal (applies [facility] Detected to non-numeric (Ammir results) Layla Physician) Parainfluenza Not Normal (applies [facility] virus 2 Detected to non-numeric (Ammir [Presence] in results) Layla Unspecified Physician) specimen by Organism specific culture PARAINFLUENZA Not Normal (applies [facility] VIRUS 4 Detected to non-numeric (Ammir results) Layla Physician) Parainfluenza Not Normal (applies [facility] virus 3 Detected to non-numeric (Ammir [Presence] in results) Layla Unspecified Physician) specimen by Organism specific culture RESP.SYNCYTIAL Not Normal (applies [facility] VIRUS Detected to non-numeric (Ammir results) Layla Physician) Bordetella Not Normal (applies [facility] pertussis Detected to non-numeric (Ammir [Presence] in results) Layla Unspecified Physician) specimen by Organism specific culture Chlamydophila Not Normal (applies [facility] pneumoniae Detected to non-numeric (Ammir [Presence] in results) Layla Unspecified Physician) specimen by Organism specific culture Mycoplasma Not Normal (applies [facility] pneumoniae Detected to non-numeric (Ammir [Presence] in results) Layla Unspecified Physician) specimen by Organism specific culture ID Date Data Source [id number] 12/19/2016 12:00:00 AM EDT [facility] (Ammir Layla Physician) Name Value Range Interpretation Description Data Sup porting Code Source(s) Document(s ) STREPTOCOCCUS NEGATIVE Normal (applies [facility] GROUP A to non-numeric (Ammir results) Layla Physician) STREPTOCOCCUS NEGATIVE Normal (applies [facility] GROUP C/G to non-numeric (Ammir results) Layla Physician) ID Date Data Source [id number] 10/03/2016 12:00:00 AM EDT [facility] (Ammir Layla Physician) Name Value Range Interpretation Code Description Data Yulia rce(s) Supporting Document(s ) %PSA, Test not Normal (applies to [facility] (Amm ir FREE performed. non-numeric Layla results) Physician) ID Date Data Source [id number] 10/03/2016 12:00:00 AM EDT [facility] (Ammir Layla Physician) Name Value Range Interpretation Code Description Data Yulia rce(s) Supporting Document(s ) PSA, FREE 0.44 ng/mL Normal (applies to [facility] (Am yolie non-numeric Layla results) Physician) ID Date Data Source [id number] 10/03/2016 12:00:00 AM EDT [facility] (Ammir Layla Physician) Name Value Range Interpretation Code Description Data Supporting Source(s) Document(s ) PSA, TOTAL 1.85 ng/mL Normal (applies to [facility] (A mmir non-numeric Layla results) Physician) ID Date Data Source [id number] 10/03/2016 12:00:00 AM EDT [facility] (Ammir Layla Physician) Name Value Range Interpretation Code Description Data Yulia rce(s) Supporting Document(s ) REFLEX FOR Abnormal (applies [facility] (Amm ir MAN-ID - 1 to non-numeric Layla UNIT results) Physician) ID Date Data Source [id number] 10/03/2016 12:00:00 AM EDT [facility] (Ammir Layla Physician) Name Value Range Interpretation Description Data Sup porting Code Source(s) Document(s ) NGYN RESULTS Specimen# Normal (applies to [facility] ( Ammir [id number] non-numeric Layla 30 results) Physician) ID Date Data Source [id number] 10/03/2016 12:00:00 AM EDT [facility] (Ammir Layla Physician) Name Value Range Interpretation Description Data Sup porting Code Source(s) Document(s ) GLUCOSE UA NEGATIVE Normal (applies [facility] to non-numeric (Ammir results) Layal Physician) BILIRUBIN, TOTAL NEGATIVE Normal (applies [facility] to non-numeric (Ammir results) Layla Physician) Ketones NEGATIVE Normal (applies [facility] [Presence] in to non-numeric (Ammir Blood by Tablet results) Layla Physician) Specific gravity 1.006 SG Normal (applies [facility] of Pericardial units to non-numeric (Ammir fluid by results) Layla Refractometry Physician) Blood [Presence] NEGATIVE Normal (applies [facility] in Urine by to non-numeric (Ammir Visual results) Layla Physician) pH of Lower 7 Ph units Normal (applies [facility] respiratory to non-numeric (Ammir specimen results) Layla Physician) Protein NEGATIVE Normal (applies [facility] [Mass/volume] in to non-numeric (Ammir Lower results) Layla respiratory Physician) specimen Urobilinogen 0-2.0 Normal (applies [facility] [Presence] in to non-numeric (Ammir Urine by results) Layla Automated test Physician) strip Nitrite NEGATIVE Normal (applies [facility] [Presence] in to non-numeric (Ammir Urine by Test results) Layla strip Physician) Leukocyte NEGATIVE Normal (applies [facility] esterase to non-numeric (Ammir [Presence] in results) Layla Body fluid by Physician) Automated test strip Color of YELLOW Normal (applies [facility] Peritoneal to non-numeric (Ammir dialysis fluid results) Layla Physician) TRANSPARENCY CLEAR Normal (applies [facility] to non-numeric (Ammir results) Layla Physician) ID Date Data Source [id number] 10/03/2016 12:00:00 AM EDT [facility] (Ammir Layla Physician) Name Value Range Interpretation Code Description Data Yulia rce(s) Supporting Document(s ) T3 TOTAL 107 ng/dL Normal (applies to [facility] (Amm ir non-numeric Layla results) Physician) ID Date Data Source [id number] 10/03/2016 12:00:00 AM EDT [facility] (Ammir Layla Physician) Name Value Range Interpretation Description Data Sup porting Code Source(s) Document(s ) T4 TOTAL 10.4 Normal (applies to [facility] (Amm ir THYROXINE ug/dL non-numeric Layla results) Physician) ID Date Data Source [id number] 10/03/2016 12:00:00 AM EDT [facility] (Ammir Layla Physician) Name Value Range Interpretation Description Data Sup porting Code Source(s) Document(s ) T3 FREE 2.90 Normal (applies [facility] TRIIODOTHYRONINE pg/mL to non-numeric (Ammir results) Layla Physician) ID Date Data Source [id number] 10/03/2016 12:00:00 AM EDT [facility] (Ammir Layla Physician) Name Value Range Interpretation Description Data Sup porting Code Source(s) Document(s ) Cholesterol 123 Normal (applies [facility] [Moles/volume] mg/dL to non-numeric (Ammir in Pericardial results) Layla fluid Physician) LDL CALCULATION 55.8 Normal (applies [facility] mg/dL to non-numeric (Ammir results) Layla Physician) CHOL/HDL RATIO 2.93 Normal (applies [facility] ratio to non-numeric (Ammir results) Layla Physician) HDL CHOLESTEROL 42 mg/dL Above high normal [facility] (Ammir Layla Physician) TRIGLYCERIDES 126 Normal (applies [facility] mg/dL to non-numeric (Ammir results) Layla Physician) VLDL CALCULATION 25.2 Normal (applies [facility] mg/dl to non-numeric (Ammir results) Layla Physician) ID Date Data Source [id number] 10/03/2016 12:00:00 AM EDT [facility] (Ammir Layla Physician) Name Value Range Interpretation Description Data Sup porting Code Source(s) Document(s ) GLUCOSE 103 Normal (applies [facility] NONFASTING,SERUM mg/dL to non-numeric (Ammir results) Layla Physician) SODIUM, SERUM 139 Normal (applies [facility] mEq/L to non-numeric (Ammir results) Layla Physician) POTASSIUM, SERUM 3.9 Normal (applies [facility] mEq/L to non-numeric (Ammir results) Layla Physician) CHLORIDE, SERUM 103 Normal (applies [facility] mEq/L to non-numeric (Ammir results) Layla Physician) Anion gap in 17 mEq/L Above high normal [facility] Body fluid (Ammir Layla Physician) Carbon dioxide 23 mEq/L Normal (applies [facility] [VFr/PPres] in to non-numeric (Ammir Gas delivery results) Layla system Physician) BLOOD UREA 19 mg/dL Normal (applies [facility] NITROGEN to non-numeric (Ammir results) Layla Physician) CREATININE, 1.40 Above high normal [facility] SERUM mg/dL (Ammir Layla Physician) BUN/CREATININE 13.6 Normal (applies [facility] RATIO to non-numeric (Ammir results) Layla Physician) CALCIUM, SERUM 9.1 Normal (applies [facility] mg/dL to non-numeric (Ammir results) Layla Physician) TOTAL PROTEIN 7.1 g/dL Normal (applies [facility] to non-numeric (Ammir results) Layla Physician) Microalbumin 4.2 g/dL Normal (applies [facility] [Mass/time] in to non-numeric (Ammir Urine collected results) Layla for unspecified Physician) duration Globulin 2.9 gldl Normal (applies [facility] [Mass/time] in to non-numeric (Ammir 24 hour Urine results) Layla Physician) A/G RATIO 1.45 Normal (applies [facility] g/dl to non-numeric (Ammir results) Layla Physician) BILIRUBIN, TOTAL 0.5 Normal (applies [facility] mg/dL to non-numeric (Ammir results) Layla Physician) ALKALINE 97 U/L Normal (applies [facility] PHOSPHATASE, ALP to non-numeric (Ammir results) Layla Physician) ALT (SGPT) 20 U/L Normal (applies [facility] to non-numeric (Ammir results) Layla Physician) AST 29 U/L Normal (applies [facility] to non-numeric (Ammir results) Layla Physician) EGFR AFR 63 Above high normal [facility] [place] mL/min/1 (Ammir .73m2 Layla Physician) EGFR NON AFR 52 Above high normal [facility] [place] mL/min/1 (Ammir .73m2 Layla Physician) ID Date Data Source [id number] 10/03/2016 12:00:00 AM EDT [facility] (Ammir Layla Physician) Name Value Range Interpretation Description Data Sup porting Code Source(s) Document(s ) WBC 5.5 Normal (applies to [facility] 10(3)/uL non-numeric (Ammir results) Layla Physician) RBC 3.9 Below low normal [facility] 10(6)/uL (Ammir Layla Physician) Hemoglobin 12.7 g/dL Below low normal [facility] [Mass/volume] (Ammir in Mixed Layla venous blood Physician) by Oximetry MCV 97.9 fL Normal (applies to [facility] non-numeric (Ammir results) Layla Physician) Hematocrit 38.2 % Below low normal [facility] [Pure volume (Ammir fraction] of Layla Blood by Physician) Automated count MCH 33 pg Normal (applies to [facility] non-numeric (Ammir results) Layla Physician) MCHC 33 g/dL Normal (applies to [facility] non-numeric (Ammir results) Layla Physician) PLT 157 Normal (applies to [facility] 10(3)/uL non-numeric (Ammir results) Layla Physician) RDWSD 44.5 fL Normal (applies to [facility] non-numeric (Ammir results) Layla Physician) RDWCV 12.5 % Normal (applies to [facility] non-numeric (Ammir results) Layla Physician) MPV 9.8 fL Normal (applies to [facility] non-numeric (Ammir results) Layla Physician) NE# 2.62 Normal (applies to [facility] 10(3)/uL non-numeric (Ammir results) Layla Physician) LY# 1.73 Normal (applies to [facility] 10(3)/uL non-numeric (Ammir results) Layla Physician) MO# 0.57 Normal (applies to [facility] 10(3)/uL non-numeric (Ammir results) Layla Physician) EO# 0.47 Above high normal [facility] 10(3)/uL (Ammir Layla Physician) BA# 0.06 Normal (applies to [facility] 10(3)/uL non-numeric (Ammir results) Layla Physician) NE% 48.00 % Normal (applies to [facility] non-numeric (Ammir results) Layla Physician) IG# 0.01 Normal (applies to [facility] 10(3)/uL non-numeric (Ammir results) Layla Physician) LY% 32 % Normal (applies to [facility] non-numeric (Ammir results) Layla Physician) MO% 10.4 % Normal (applies to [facility] non-numeric (Ammir results) Layla Physician) EO% 8.6 % Above high normal [facility] (Ammir Layla Physician) BA% 1.1 % Normal (applies to [facility] non-numeric (Ammir results) Layla Physician) IG% 0.20 % Normal (applies to [facility] non-numeric (Ammir results) Layla Physician) ID Date Data Source [id number] 10/03/2016 12:00:00 AM EDT [facility] (Ammir Layla Physician) Name Value Range Interpretation Code Description Data Supporting Source(s) Document(s ) GLYCOMARK 8.89 ug/mL Normal (applies to [facility] (Am yolie non-numeric Layla results) Physician) ID Date Data Source [id number] 10/03/2016 12:00:00 AM EDT [facility] (Ammir Layla Physician) Name Value Range Interpretation Description Data Sup porting Code Source(s) Document(s ) Hemoglobin A1c 5.5 % Normal (applies to [facility] (Ammir in Blood non-numeric Layla results) Physician) ID Date Data Source [id number] 10/03/2016 12:00:00 AM EDT [facility] (Ammir Layla Physician) Name Value Range Interpretation Description Data Sup porting Code Source(s) Document(s ) T4 FREE, 1.30 Normal (applies to [facility] THYROXINE ng/dL non-numeric (Ammir results) Layla Physician) TSH,3RD 2.64 Normal (applies to [facility] GENERATION uIU/mL non-numeric (Ammir results) Layla Physician) ID Date Data Source [id number] 10/03/2016 12:00:00 AM EDT [facility] (Ammir Layla Physician) Name Value Range Interpretation Description Data Sup porting Code Source(s) Document(s ) FOLATE SERUM 47.4 Above high normal [facility] (A mmir ng/mL Layla Physician) VITAMIN B12 448 pg/mL Normal (applies to [facility] (A mmir non-numeric Layla results) Physician) ID Date Data Source [id number] 10/03/2016 12:00:00 AM EDT [facility] (Ammir Layla Physician) Name Value Range Interpretation Description Data Sup porting Code Source(s) Document(s ) VITAMIN D 33.2 Normal (applies to [facility] (Amm ir 1.25 pg/mL non-numeric Layla results) Physician) ID Date Data Source [id number] 10/03/2016 12:00:00 AM EDT [facility] (Ammir Layla Physician) Name Value Range Interpretation Code Description Data Yulia rce(s) Supporting Document(s ) %PSA, Test not Normal (applies to [facility] (Amm ir FREE performed. non-numeric Layla results) Physician) ID Date Data Source [id number] 10/03/2016 12:00:00 AM EDT [facility] (Ammir Layla Physician) Name Value Range Interpretation Code Description Data Yulia rce(s) Supporting Document(s ) PSA, FREE 0.44 ng/mL Normal (applies to [facility] (Am yolie non-numeric Layla results) Physician) ID Date Data Source [id number] 10/03/2016 12:00:00 AM EDT [facility] (Ammir Layla Physician) Name Value Range Interpretation Code Description Data Supporting Source(s) Document(s ) PSA, TOTAL 1.85 ng/mL Normal (applies to [facility] (A mmir non-numeric Layla results) Physician) ID Date Data Source [id number] 10/03/2016 12:00:00 AM EDT [facility] (Ammir Layla Physician) Name Value Range Interpretation Code Description Data Yulia rce(s) Supporting Document(s ) REFLEX FOR Abnormal (applies [facility] (Amm ir MAN-ID - 1 to non-numeric Layla UNIT results) Physician) ID Date Data Source [id number] 10/03/2016 12:00:00 AM EDT [facility] (Ammir Layla Physician) Name Value Range Interpretation Description Data Sup porting Code Source(s) Document(s ) NGYN RESULTS Specimen# Normal (applies to [facility] ( Ammir [id number] non-numeric Layla 30 results) Physician) ID Date Data Source [id number] 10/03/2016 12:00:00 AM EDT [facility] (Ammir Layla Physician) Name Value Range Interpretation Description Data Sup porting Code Source(s) Document(s ) GLUCOSE UA NEGATIVE Normal (applies [facility] to non-numeric (Ammir results) Layla Physician) BILIRUBIN, TOTAL NEGATIVE Normal (applies [facility] to non-numeric (Ammir results) Layla Physician) Ketones NEGATIVE Normal (applies [facility] [Presence] in to non-numeric (Ammir Blood by Tablet results) Layla Physician) Specific gravity 1.006 SG Normal (applies [facility] of Pericardial units to non-numeric (Ammir fluid by results) Layla Refractometry Physician) Blood [Presence] NEGATIVE Normal (applies [facility] in Urine by to non-numeric (Ammir Visual results) Layla Physician) pH of Lower 7 Ph units Normal (applies [facility] respiratory to non-numeric (Ammir specimen results) Layla Physician) Urobilinogen 0-2.0 Normal (applies [facility] [Presence] in to non-numeric (Ammir Urine by results) Layla Automated test Physician) strip Protein NEGATIVE Normal (applies [facility] [Mass/volume] in to non-numeric (Ammir Lower results) Layla respiratory Physician) specimen Nitrite NEGATIVE Normal (applies [facility] [Presence] in to non-numeric (Ammir Urine by Test results) Layla strip Physician) Leukocyte NEGATIVE Normal (applies [facility] esterase to non-numeric (Ammir [Presence] in results) Layla Body fluid by Physician) Automated test strip Color of YELLOW Normal (applies [facility] Peritoneal to non-numeric (Ammir dialysis fluid results) Layla Physician) TRANSPARENCY CLEAR Normal (applies [facility] to non-numeric (Ammir results) Layla Physician) ID Date Data Source [id number] 10/03/2016 12:00:00 AM EDT [facility] (Ammir Layla Physician) Name Value Range Interpretation Code Description Data Yulia rce(s) Supporting Document(s ) T3 TOTAL 107 ng/dL Normal (applies to [facility] (Amm ir non-numeric Layla results) Physician) ID Date Data Source [id number] 10/03/2016 12:00:00 AM EDT [facility] (Ammir Layla Physician) Name Value Range Interpretation Description Data Sup porting Code Source(s) Document(s ) T4 TOTAL 10.4 Normal (applies to [facility] (Amm ir THYROXINE ug/dL non-numeric Layla results) Physician) ID Date Data Source [id number] 10/03/2016 12:00:00 AM EDT [facility] (Ammir Layla Physician) Name Value Range Interpretation Description Data Sup porting Code Source(s) Document(s ) T3 FREE 2.90 Normal (applies [facility] TRIIODOTHYRONINE pg/mL to non-numeric (Ammir results) Layla Physician) ID Date Data Source [id number] 10/03/2016 12:00:00 AM EDT [facility] (Ammir Layla Physician) Name Value Range Interpretation Description Data Sup porting Code Source(s) Document(s ) Cholesterol 123 Normal (applies [facility] [Moles/volume] mg/dL to non-numeric (Ammir in Pericardial results) Layla fluid Physician) LDL CALCULATION 55.8 Normal (applies [facility] mg/dL to non-numeric (Ammir results) Layla Physician) HDL CHOLESTEROL 42 mg/dL Above high normal [facility] (Ammir Layla Physician) CHOL/HDL RATIO 2.93 Normal (applies [facility] ratio to non-numeric (Ammir results) Layla Physician) VLDL CALCULATION 25.2 Normal (applies [facility] mg/dl to non-numeric (Ammir results) Layla Physician) TRIGLYCERIDES 126 Normal (applies [facility] mg/dL to non-numeric (Ammir results) Layla Physician) ID Date Data Source [id number] 10/03/2016 12:00:00 AM EDT [facility] (Ammir Layla Physician) Name Value Range Interpretation Description Data Sup porting Code Source(s) Document(s ) GLUCOSE 103 Normal (applies [facility] NONFASTING,SERUM mg/dL to non-numeric (Ammir results) Layla Physician) SODIUM, SERUM 139 Normal (applies [facility] mEq/L to non-numeric (Ammir results) Layla Physician) POTASSIUM, SERUM 3.9 Normal (applies [facility] mEq/L to non-numeric (Ammir results) Layla Physician) CHLORIDE, SERUM 103 Normal (applies [facility] mEq/L to non-numeric (Ammir results) Layla Physician) Carbon dioxide 23 mEq/L Normal (applies [facility] [VFr/PPres] in to non-numeric (Ammir Gas delivery results) Layla system Physician) Anion gap in 17 mEq/L Above high normal [facility] Body fluid (Ammir Layla Physician) BLOOD UREA 19 mg/dL Normal (applies [facility] NITROGEN to non-numeric (Ammir results) Layla Physician) CREATININE, 1.40 Above high normal [facility] SERUM mg/dL (Ammir Layla Physician) BUN/CREATININE 13.6 Normal (applies [facility] RATIO to non-numeric (Ammir results) Layla Physician) CALCIUM, SERUM 9.1 Normal (applies [facility] mg/dL to non-numeric (Ammir results) Layla Physician) TOTAL PROTEIN 7.1 g/dL Normal (applies [facility] to non-numeric (Ammir results) Layla Physician) Microalbumin 4.2 g/dL Normal (applies [facility] [Mass/time] in to non-numeric (Ammir Urine collected results) Layla for unspecified Physician) duration A/G RATIO 1.45 Normal (applies [facility] g/dl to non-numeric (Ammir results) Lalya Physician) Globulin 2.9 gldl Normal (applies [facility] [Mass/time] in to non-numeric (Ammir 24 hour Urine results) Layla Physician) BILIRUBIN, TOTAL 0.5 Normal (applies [facility] mg/dL to non-numeric (Ammir results) Layla Physician) ALKALINE 97 U/L Normal (applies [facility] PHOSPHATASE, ALP to non-numeric (Ammir results) Layla Physician) ALT (SGPT) 20 U/L Normal (applies [facility] to non-numeric (Ammir results) Layla Physician) AST 29 U/L Normal (applies [facility] to non-numeric (Ammir results) Layla Physician) EGFR AFR 63 Above high normal [facility] [place] mL/min/1 (Ammir .73m2 Layla Physician) EGFR NON AFR 52 Above high normal [facility] [place] mL/min/1 (Ammir .73m2 Layla Physician) ID Date Data Source [id number] 10/03/2016 12:00:00 AM EDT [facility] (Ammir Layla Physician) Name Value Range Interpretation Description Data Sup porting Code Source(s) Document(s ) WBC 5.5 Normal (applies to [facility] 10(3)/uL non-numeric (Ammir results) Layla Physician) RBC 3.9 Below low normal [facility] 10(6)/uL (Ammir Layla Physician) Hematocrit 38.2 % Below low normal [facility] [Pure volume (Ammir fraction] of Layla Blood by Physician) Automated count Hemoglobin 12.7 g/dL Below low normal [facility] [Mass/volume] (Ammir in Mixed Layla venous blood Physician) by Oximetry MCV 97.9 fL Normal (applies to [facility] non-numeric (Ammir results) Layla Physician) MCHC 33 g/dL Normal (applies to [facility] non-numeric (Ammir results) Layla Physician) MCH 33 pg Normal (applies to [facility] non-numeric (Ammir results) Layla Physician) PLT 157 Normal (applies to [facility] 10(3)/uL non-numeric (Ammir results) Layla Physician) RDWCV 12.5 % Normal (applies to [facility] non-numeric (Ammir results) Layla Physician) RDWSD 44.5 fL Normal (applies to [facility] non-numeric (Ammir results) Layla Physician) MPV 9.8 fL Normal (applies to [facility] non-numeric (Ammir results) Layla Physician) LY# 1.73 Normal (applies to [facility] 10(3)/uL non-numeric (Ammir results) Layla Physician) NE# 2.62 Normal (applies to [facility] 10(3)/uL non-numeric (Ammir results) Layla Physician) MO# 0.57 Normal (applies to [facility] 10(3)/uL non-numeric (Ammir results) Layla Physician) EO# 0.47 Above high normal [facility] 10(3)/uL (Ammir Layla Physician) BA# 0.06 Normal (applies to [facility] 10(3)/uL non-numeric (Ammir results) Layla Physician) IG# 0.01 Normal (applies to [facility] 10(3)/uL non-numeric (Ammir results) Layla Physician) NE% 48.00 % Normal (applies to [facility] non-numeric (Ammir results) Layla Physician) LY% 32 % Normal (applies to [facility] non-numeric (Ammir results) Layla Physician) MO% 10.4 % Normal (applies to [facility] non-numeric (Ammir results) Layla Physician) BA% 1.1 % Normal (applies to [facility] non-numeric (Ammir results) Layla Physician) EO% 8.6 % Above high normal [facility] (Ammir Layla Physician) IG% 0.20 % Normal (applies to [facility] non-numeric (Ammir results) Layla Physician) ID Date Data Source [id number] 10/03/2016 12:00:00 AM EDT [facility] (Ammir Layla Physician) Name Value Range Interpretation Code Description Data Supporting Source(s) Document(s ) GLYCOMARK 8.89 ug/mL Normal (applies to [facility] (Am yolie non-numeric Layla results) Physician) ID Date Data Source [id number] 10/03/2016 12:00:00 AM EDT [facility] (Ammir Layla Physician) Name Value Range Interpretation Description Data Sup porting Code Source(s) Document(s ) Hemoglobin A1c 5.5 % Normal (applies to [facility] (Ammir in Blood non-numeric Layla results) Physician) ID Date Data Source [id number] 10/03/2016 12:00:00 AM EDT [facility] (Ammir Layla Physician) Name Value Range Interpretation Description Data Sup porting Code Source(s) Document(s ) T4 FREE, 1.30 Normal (applies to [facility] THYROXINE ng/dL non-numeric (Ammir results) Layla Physician) TSH,3RD 2.64 Normal (applies to [facility] GENERATION uIU/mL non-numeric (Ammir results) Layla Physician) ID Date Data Source [id number] 10/03/2016 12:00:00 AM EDT [facility] (Ammir Layla Physician) Name Value Range Interpretation Description Data Sup porting Code Source(s) Document(s ) FOLATE SERUM 47.4 Above high normal [facility] (A mmir ng/mL Alyla Physician) VITAMIN B12 448 pg/mL Normal (applies to [facility] (A mmir non-numeric Layla results) Physician) ID Date Data Source [id number] 10/03/2016 12:00:00 AM EDT [facility] (Ammir Layla Physician) Name Value Range Interpretation Description Data Sup porting Code Source(s) Document(s ) VITAMIN D 33.2 Normal (applies to [facility] (Amm ir 1.25 pg/mL non-numeric Layla results) Physician) Procedure Social History Code Duration Value Status Description Data Source(s ) Smoking 11/17/2019 Unknown if ever completed Unknown if ever [facility] EN (Ammir 12:00:00 AM EDT smoked smoked Layla Ph ysician) Smoking 11/15/2019 Unknown if ever completed Unknown if ever [facility] EN (Ammir 12:00:00 AM EDT smoked smoked Layla Ph ysician) Vital Signs ID Date Data Source [id number] Name Value Range Interpretation Code Description Data Source(s) Body height 62 in 62 in [facility] (Ammir Layla Physician) Heart rate 78 /min 78 /min [facility] (Ammir Layla Physician) Body temperature 98 F 98 F [facility] ( Ammir Layla Physician) Heart rate 78 /min 78 /min [facility] (Ammir Layla Physician) Body temperature 98 F 98 F [facility] ( Ammir Layla Physician) Inhaled oxygen 96 % 96 % [facility] (Am yolie concentration Layla Physician) Body mass index 28 kg/m2 28 kg/m2 [facility] (A mmir (BMI) [Ratio] Layla Physician) Diastolic blood 60 mm[Hg] 60 mm[Hg] [facility] (A mmir pressure Layla Physician) Systolic blood 155 mm[Hg] 155 mm[Hg] [facility] (Am yolie pressure Layla Physician) Body weight 153 lb 153 lb [facility] (Ammir Layla Physician) Body height 62 in 62 in [facility] (Ammir Layla Physician) Inhaled oxygen 96 % 96 % [facility] (Am yolie concentration Layla Physician) Body mass index 28 kg/m2 28 kg/m2 [facility] (A mmir (BMI) [Ratio] Layla Physician) Diastolic blood 60 mm[Hg] 60 mm[Hg] [facility] (A mmir pressure Layla Physician) Systolic blood 155 mm[Hg] 155 mm[Hg] [facility] (Am yolie pressure Layla Physician) Body weight 153 lb 153 lb [facility] (Ammir Layla Physician) Heart rate 78 /min 78 /min [facility] (Ammir Layla Physician) Body temperature 98 F 98 F [facility] ( Ammir Layla Physician) Inhaled oxygen 98 % 98 % [facility] (Am yolie concentration Layla Physician) Diastolic blood 75 mm[Hg] 75 mm[Hg] [facility] (A mmir pressure Layla Physician) Systolic blood 130 mm[Hg] 130 mm[Hg] [facility] (Am yolie pressure Layla Physician) Body weight 154 lb 154 lb [facility] (Ammir Layla Physician) Heart rate 78 /min 78 /min [facility] (Ammir Layla Physician) Body temperature 98 F 98 F [facility] ( Ammir Layla Physician) Inhaled oxygen 98 % 98 % [facility] (Am yolie concentration Layla Physician) Diastolic blood 75 mm[Hg] 75 mm[Hg] [facility] (A mmir pressure Layla Physician) Systolic blood 130 mm[Hg] 130 mm[Hg] [facility] (Am yolie pressure Layla Physician) Body weight 154 lb 154 lb [facility] (Ammir Layla Physician) Heart rate 68 /min 68 /min [facility] (Ammir Layla Physician) Inhaled oxygen 98 % 98 % [facility] (Am yolie concentration Layla Physician) Diastolic blood 75 mm[Hg] 75 mm[Hg] [facility] (A mmir pressure Layla Physician) Systolic blood 130 mm[Hg] 130 mm[Hg] [facility] (Am yolie pressure Layla Physician) Body weight 154 lb 154 lb [facility] (Ammir Layla Physician) Heart rate 68 /min 68 /min [facility] (Ammir Layla Physician) Inhaled oxygen 98 % 98 % [facility] (Am yolie concentration Layla Physician) Diastolic blood 75 mm[Hg] 75 mm[Hg] [facility] (A mmir pressure Layla Physician) Systolic blood 130 mm[Hg] 130 mm[Hg] [facility] (Am yolie pressure Layla Physician) Body weight 154 lb 154 lb [facility] (Ammir Layla Physician) Heart rate 58 /min 58 /min [facility] (Ammir Layla Physician) Inhaled oxygen 96 % 96 % [facility] (Am yolie concentration Layla Physician) Diastolic blood 58 mm[Hg] 58 mm[Hg] [facility] (A mmir pressure Layla Physician) Systolic blood 142 mm[Hg] 142 mm[Hg] [facility] (Am yolie pressure Layla Physician) Body weight 152 lb 152 lb [facility] (Ammir Layla Physician) Heart rate 58 /min 58 /min [facility] (Ammir Layla Physician) Inhaled oxygen 96 % 96 % [facility] (Am yolie concentration Layla Physician) Diastolic blood 58 mm[Hg] 58 mm[Hg] [facility] (A mmir pressure Layla Physician) Systolic blood 142 mm[Hg] 142 mm[Hg] [facility] (Am yolie pressure Layla Physician) Body weight 152 lb 152 lb [facility] (Ammir Layla Physician) Heart rate 76 /min 76 /min [facility] (Ammir Layla Physician) Inhaled oxygen 98 % 98 % [facility] (Am yolie concentration Layla Physician) Diastolic blood 74 mm[Hg] 74 mm[Hg] [facility] (A mmir pressure Layla Physician) Systolic blood 120 mm[Hg] 120 mm[Hg] [facility] (Am yolie pressure Layla Physician) Body weight 153 lb 153 lb [facility] (Ammir Layla Physician) Heart rate 76 /min 76 /min [facility] (Ammir Layla Physician) Inhaled oxygen 98 % 98 % [facility] (Am yolie concentration Layla Physician) Diastolic blood 74 mm[Hg] 74 mm[Hg] [facility] (A mmir pressure Layla Physician) Systolic blood 120 mm[Hg] 120 mm[Hg] [facility] (Am yolie pressure Layla Physician) Body weight 153 lb 153 lb [facility] (Ammir Layla Physician) Heart rate 75 /min 75 /min [facility] (Ammir Layla Physician) Inhaled oxygen 98 % 98 % [facility] (Am yolie concentration Layla Physician) Body mass index 28.5 kg/m2 28.5 kg/m2 [facility] (A mmir (BMI) [Ratio] Layla Physician) Diastolic blood 56 mm[Hg] 56 mm[Hg] [facility] (A mmir pressure Layla Physician) Systolic blood 132 mm[Hg] 132 mm[Hg] [facility] (Am yolie pressure Layla Physician) Body weight 150.8 lb 150.8 lb [facility] (Ammir Layla Physician) Body height 61 in 61 in [facility] (Ammir Layla Physician) Heart rate 75 /min 75 /min [facility] (Ammir Layla Physician) Inhaled oxygen 98 % 98 % [facility] (Am yolie concentration Layla Physician) Body mass index 28.5 kg/m2 28.5 kg/m2 [facility] (A mmir (BMI) [Ratio] Layla Physician) Diastolic blood 56 mm[Hg] 56 mm[Hg] [facility] (A mmir pressure Layla Physician) Systolic blood 132 mm[Hg] 132 mm[Hg] [facility] (Am yolie pressure Layla Physician) Body weight 150.8 lb 150.8 lb [facility] (Ammir Layla Physician) Body height 61 in 61 in [facility] (Ammir Layla Physician) Heart rate 80 /min 80 /min [facility] (Ammir Layla Physician) Inhaled oxygen 98 % 98 % [facility] (Am yolie concentration Layla Physician) Body mass index 25.4 kg/m2 25.4 kg/m2 [facility] (A mmir (BMI) [Ratio] Layla Physician) Diastolic blood 86 mm[Hg] 86 mm[Hg] [facility] (A mmir pressure Layla Physician) Systolic blood 144 mm[Hg] 144 mm[Hg] [facility] (Am yolie pressure Layla Physician) Body weight 148 lb 148 lb [facility] (Ammir Layla Physician) Body height 64 in 64 in [facility] (Ammir Layla Physician) Heart rate 80 /min 80 /min [facility] (Ammir Layla Physician) Inhaled oxygen 98 % 98 % [facility] (Am yolie concentration Layla Physician) Body mass index 25.4 kg/m2 25.4 kg/m2 [facility] (A mmir (BMI) [Ratio] Layla Physician) Diastolic blood 86 mm[Hg] 86 mm[Hg] [facility] (A mmir pressure Layla Physician) Systolic blood 144 mm[Hg] 144 mm[Hg] [facility] (Am yolie pressure Layla Physician) Body weight 148 lb 148 lb [facility] (Ammir Layla Physician) Body height 64 in 64 in [facility] (Ammir Layla Physician) Heart rate 60 /min 60 /min [facility] (Ammir Layla Physician) Body temperature 97.9 F 97.9 F [facility] ( Ammir Layla Physician) Inhaled oxygen 96 % 96 % [facility] (Am yolie concentration Layla Physician) Diastolic blood 50 mm[Hg] 50 mm[Hg] [facility] (A mmir pressure Layla Physician) Systolic blood 160 mm[Hg] 160 mm[Hg] [facility] (Am yolie pressure Layla Physician) Body weight 148 lb 148 lb [facility] (Ammir Layla Physician) Heart rate 60 /min 60 /min [facility] (Ammir Layla Physician) Body temperature 97.9 F 97.9 F [facility] ( Ammir Layla Physician) Inhaled oxygen 96 % 96 % [facility] (Am yolie concentration Layla Physician) Diastolic blood 50 mm[Hg] 50 mm[Hg] [facility] (A mmir pressure Layla Physician) Systolic blood 160 mm[Hg] 160 mm[Hg] [facility] (Am yolie pressure Layla Physician) Body weight 148 lb 148 lb [facility] (Ammir Layla Physician) Heart rate 83 /min 83 /min [facility] (Ammir Layla Physician) Body temperature 97.9 F 97.9 F [facility] ( Ammir Layla Physician) Inhaled oxygen 96 % 96 % [facility] (Am yolie concentration Layla Physician) Diastolic blood 65 mm[Hg] 65 mm[Hg] [facility] (A mmir pressure Layla Physician) Systolic blood 145 mm[Hg] 145 mm[Hg] MEDGEN (Am yolie pressure Layla Physician) Body weight 148 lb 148 lb MEDGEN (Ammir Layla Physician) Heart rate 83 /min 83 /min MEDGEN (Ammir Layla Physician) Body temperature 97.9 F 97.9 F MEDGEN ( Ammir Layla Physician) Inhaled oxygen 96 % 96 % MEDGEN (Am yolie concentration Layla Physician) Diastolic blood 65 mm[Hg] 65 mm[Hg] MEDGEN (A mmir pressure Layla Physician) Systolic blood 145 mm[Hg] 145 mm[Hg] MEDGEN (Am yolie pressure Layla Physician) Body weight 148 lb 148 lb MEDGEN (Ammir Layla Physician) Heart rate 83 /min 83 /min MEDGEN (Ammir Layla Physician) Body temperature 97.9 F 97.9 F MEDGEN ( Ammir Layla Physician) Inhaled oxygen 96 % 96 % MEDGEN (Am yolie concentration Layla Physician) Diastolic blood 65 mm[Hg] 65 mm[Hg] MEDGEN (A mmir pressure Layla Physician) Systolic blood 145 mm[Hg] 145 mm[Hg] MEDGEN (Am yolie pressure Layla Physician) Body weight 150 lb 150 lb MEDGEN (Ammir Layla Physician) Heart rate 83 /min 83 /min MEDGEN (Ammir Layla Physician) Body temperature 97.9 F 97.9 F MEDGEN ( Ammir Layla Physician) Inhaled oxygen 96 % 96 % MEDGEN (Am yolie concentration Layla Physician) Diastolic blood 65 mm[Hg] 65 mm[Hg] MEDGEN (A mmir pressure Layla Physician) Systolic blood 145 mm[Hg] 145 mm[Hg] MEDGEN (Am yolie pressure Layla Physician) Body weight 150 lb 150 lb MEDGEN (Ammir Layla Physician) Heart rate 72 /min 72 /min MEDGEN (Ammir Layla Physician) Inhaled oxygen 98 % 98 % MEDGEN (Am yolie concentration Layla Physician) Diastolic blood 58 mm[Hg] 58 mm[Hg] MEDGEN (A mmir pressure Layla Physician) Systolic blood 124 mm[Hg] 124 mm[Hg] MEDGEN (Am yolie pressure Layla Physician) Body weight 145 lb 145 lb MEDGEN (Ammir Layla Physician) Heart rate 72 /min 72 /min MEDGEN (Ammir Layla Physician) Inhaled oxygen 98 % 98 % MEDGEN (Am yolie concentration Layla Physician) Diastolic blood 58 mm[Hg] 58 mm[Hg] MEDGEN (A mmir pressure Layla Physician) Systolic blood 124 mm[Hg] 124 mm[Hg] MEDGEN (Am yolie pressure Layla Physician) Body weight 145 lb 145 lb MEDGEN (Ammir Layla Physician) Heart rate 72 /min 72 /min MEDGEN (Ammir Layla Physician) Inhaled oxygen 98 % 98 % MEDGEN (Am yolie concentration Layla Physician) Diastolic blood 60 mm[Hg] 60 mm[Hg] MEDGEN (A mmir pressure Layla Physician) Systolic blood 125 mm[Hg] 125 mm[Hg] MEDGEN (Am yolie pressure Layla Physician) Body weight 145 lb 145 lb MEDGEN (Ammir Layla Physician) Heart rate 72 /min 72 /min MEDGEN (Ammir Layla Physician) Inhaled oxygen 98 % 98 % MEDGEN (Am yolie concentration Layla Physician) Diastolic blood 60 mm[Hg] 60 mm[Hg] MEDGEN (A mmir pressure Layla Physician) Systolic blood 125 mm[Hg] 125 mm[Hg] MEDGEN (Am yolie pressure Layla Physician) Body weight 145 lb 145 lb MEDGEN (Ammir Layla Physician) Heart rate 68 /min 68 /min MEDGEN (Ammir Layla Physician) Inhaled oxygen 97 % 97 % MEDGEN (Am yolie concentration Layla Physician) Body mass index 27.6 kg/m2 27.6 kg/m2 MEDGEN (A mmir (BMI) [Ratio] Layla Physician) Diastolic blood 60 mm[Hg] 60 mm[Hg] MEDGEN (A mmir pressure Layla Physician) Systolic blood 155 mm[Hg] 155 mm[Hg] MEDGEN (Am yolie pressure Layla Physician) Body weight 156 lb 156 lb MEDGEN (Ammir Layla Physician) Body height 63 in 63 in MEDGEN (Ammir Layla Physician) Heart rate 68 /min 68 /min MEDGEN (Ammir Layla Physician) Inhaled oxygen 97 % 97 % MEDGEN (Am yolie concentration Layla Physician) Body mass index 27.6 kg/m2 27.6 kg/m2 MEDGEN (A mmir (BMI) [Ratio] Layla Physician) Diastolic blood 60 mm[Hg] 60 mm[Hg] MEDGEN (A mmir pressure Layla Physician) Systolic blood 155 mm[Hg] 155 mm[Hg] MEDGEN (Am yolie pressure Layla Physician) Body weight 156 lb 156 lb MEDGEN (Ammir Layla Physician) Body height 63 in 63 in MEDGEN (Ammir Layla Physician) Heart rate 81 /min 81 /min MEDGEN (Ammir Layla Physician) Body temperature 97.9 F 97.9 F MEDGEN ( Ammir Layla Physician) Inhaled oxygen 98 % 98 % MEDGEN (Am yolie concentration Layla Physician) Diastolic blood 60 mm[Hg] 60 mm[Hg] MEDGEN (A mmir pressure Layla Physician) Systolic blood 150 mm[Hg] 150 mm[Hg] MEDGEN (Am yolie pressure Layla Physician) Body weight 154 lb 154 lb MEDGEN (Ammir Layla Physician) Heart rate 81 /min 81 /min MEDGEN (Ammir Layla Physician) Body temperature 97.9 F 97.9 F MEDGEN ( Ammir Layla Physician) Inhaled oxygen 98 % 98 % MEDGEN (Am yolie concentration Layla Physician) Diastolic blood 60 mm[Hg] 60 mm[Hg] MEDGEN (A mmir pressure Layla Physician) Systolic blood 150 mm[Hg] 150 mm[Hg] MEDGEN (Am yolie pressure Layla Physician) Body weight 154 lb 154 lb MEDGEN (Ammir Layla Physician) Heart rate 71 /min 71 /min MEDGEN (Ammir Layla Physician) Body temperature 98.9 F 98.9 F MEDGEN ( Ammir Layla Physician) Inhaled oxygen 98 % 98 % MEDGEN (Am yolie concentration Layla Physician) Diastolic blood 58 mm[Hg] 58 mm[Hg] MEDGEN (A mmir pressure Layla Physician) Systolic blood 132 mm[Hg] 132 mm[Hg] MEDGEN (Am yolie pressure Layla Physician) Body weight 154 lb 154 lb MEDGEN (Ammir Layla Physician) Heart rate 71 /min 71 /min MEDGEN (Ammir Layla Physician) Body temperature 98.9 F 98.9 F MEDGEN ( Ammir Layla Physician) Inhaled oxygen 98 % 98 % MEDGEN (Am yolie concentration Layla Physician) Diastolic blood 58 mm[Hg] 58 mm[Hg] MEDGEN (A mmir pressure Layla Physician) Systolic blood 132 mm[Hg] 132 mm[Hg] MEDGEN (Am yolie pressure Layla Physician) Body weight 154 lb 154 lb MEDGEN (Ammir Layla Physician) Heart rate 68 /min 68 /min MEDGEN (Ammir Layla Physician) Inhaled oxygen 97 % 97 % MEDGEN (Am yolie concentration Layla Physician) Diastolic blood 50 mm[Hg] 50 mm[Hg] MEDGEN (A mmir pressure Layla Physician) Systolic blood 140 mm[Hg] 140 mm[Hg] MEDGEN (Am yolie pressure Layla Physician) Body weight 154 lb 154 lb MEDGEN (Ammir Layla Physician) Heart rate 68 /min 68 /min MEDGEN (Ammir Layla Physician) Inhaled oxygen 97 % 97 % MEDGEN (Am yolie concentration Layla Physician) Diastolic blood 50 mm[Hg] 50 mm[Hg] MEDGEN (A mmir pressure Layla Physician) Systolic blood 140 mm[Hg] 140 mm[Hg] TERI (Am yolie pressure Layla Physician) Body weight 154 lb 154 lb TERI (Raymir Layla Physician)
--- NOTE | 2019-12-05 11:51 | PDOC ---
Documentation entered by Yennifer Serrano SCRIBE, acting as scribe for Neeta Eisenberg MD. Neeta Eisenberg MD: This documentation has been prepared by the Maggie gutierrez Xhesika, SCRIBE, under my direction and personally reviewed by me in its entirety. I confirm that the documentation accurately reflects all work, treatment, procedures, and medical decision making performed by me. Attending Attestation - Resident Resident Name: Francisco Ward - ED Attending Attestation I have performed the following: I have examined & evaluated the patient, The case was reviewed & discussed with the resident, I agree w/resident's findings & plan, Exceptions are as noted - HPI HPI: 12/05/19 10:40 The patient is a 84y/o M, with PMH of CAD (CABG, stents), LBBB, HTN, HLD, pulm HTN, pneumonia, chronic venous stasis, and stable angina (PRN SL NG), who presents to the ED BIBA s/p fall. Pt states he had one fall last night and one fall this morning. Pt states he gets up to ambulate, does not know how he falls (maybe loses his balance) he just ends up on the floor feeling dizzy. Pt states his falls are usually witnessed or a family member is there immediately after the incident. Pt reports chest pain when walking around which is typical for him and he states he takes medication for this. Pt denies head trauma, LOC or confusion. Allergies: PCN, Amoxicillin PCP: Layla Cards: Thomas - Physicial Exam PE: 12/05/19 11:47 General: well appearing HEENT: NCAT Chest: trace R basilar crackles improved with repeat respirations, good air entry, no wheezes CVS: + s1 s2 Neuro: Aox3, speech fluent, unable to assess gait at this time, strength preserved - Medical Decision Making 12/05/19 11:49 84 yo M with multiple falls, possible mechanical vs. syncope, EKG with LBBB unchanged from prior, possible ACS or arrhythmia, also possible neurologic d/o such as parkinson's or Lewy body dementia as patient with frequent falls and also reports some memory issues. Plan: -labs -cxr -CT head -CT c-spine -admit tele obs This clinical encounter is taking place during a federal and state health care emergency attributable to the novel [place] Virus pandemic. The [employer] of the Department of Health and Human Services has declared, pursuant to the Public Health Service Act 319F-3 (42 U.S.C. 247d-6d), that a covered persons activities related to medical countermeasures against COVID-19 will be immune from liability under Federal and State law. Discharge - Discharge Information Problems reviewed: Yes Clinical Impression/Diagnosis: Fall Qualifiers: Encounter type: initial encounter Qualified Code(s): W19.XXXA - Unspecified fall, initial encounter Condition: Fair - Follow up/Referral - Patient Discharge Instructions - Post Discharge Activity
[2019-12-05 13:05] LABS: BASO % 0.2 % (0-2.0); EOS % 3.9 % (0-4.5); HEMATOCRIT 43.3 % (35.4-49); HEMOGLOBIN 15.1 GM/dL (11.7-16.9); LYMPH % 19.7 % (8-40); MCH 33.9 pg (25.7-33.7); MEAN PLT VOLUME 8.4 fl (7.5-11.1); MONO % 6.7 % (3.8-10.2); NEUT % 69.5 % (42.8-82.8); PLATELET COUNT 127 K/MM3 (134-434); RBC 4.46 M/mm3 (4.00-5.60); RDW 13.6 % (11.9-15.9); WHITE BLOOD COUNT 8.1 K/mm3 (4.0-10.0)
[2019-12-05 13:34] LABS: ALBUMIN 3.7 g/dl (3.4-5.0); ALK PHOS 75 U/L (45-117); ANION GAP 6 MMOL/L (8-16); BILIRUBIN,TOTAL 0.6 mg/dL (0.2-1); BLOOD UREA NITROGEN 13.2 mg/dL (7-18); CALCIUM 8.9 mg/dL (8.5-10.1); CHLORIDE 104 mmol/L (98-107); CO2 28 mmol/L (21-32); CREATININE 1.5 mg/dL (0.55-1.3); GLUCOSE,RANDOM 132 mg/dL (74-106); POTASSIUM 4.6 mmol/L (3.5-5.1); SGOT/AST 24 U/L (15-37); SGPT/ALT 24 U/L (13-61); SODIUM 137 mmol/L (136-145)
[2019-12-05 13:53] LABS: PH,URINE 7.5 (5.0-8.0); URINE APPEARANCE CLEAR; URINE BILIRUBIN NEGATIVE (NEGATIVE); URINE COLOR YELLOW; URINE GLUCOSE (UA) NEGATIVE (NEGATIVE); URINE KETONE NEGATIVE (NEGATIVE); URINE LEUK ESTERASE NEGATIVE (NEGATIVE); URINE NITRITE NEGATIVE (NEGATIVE); URINE PROTEIN NEGATIVE (NEGATIVE); URINE UROBILINOGEN 0.2 mg/dL (0.2-1.0)
--- NOTE | 2019-12-05 14:07 | EKG ---
Test Reason : Blood Pressure : / mmHG Vent. Rate : 062 BPM Atrial Rate : 062 BPM P-R Int : 164 ms QRS Dur : 146 ms QT Int : 480 ms P-R-T Axes : 026 056 -30 degrees QTc Int : 487 ms SINUS RHYTHM WITH PREMATURE ATRIAL COMPLEXES LEFT BUNDLE BRANCH BLOCK ABNORMAL ECG WHEN COMPARED WITH ECG OF 05-FEB-2019 11:39, PREMATURE VENTRICULAR COMPLEXES ARE NO LONGER PRESENT PREMATURE ATRIAL COMPLEXES ARE NOW PRESENT Confirmed by BONITA JOSUE, MICHELLE ([id number]) on 12/05/2019 2:06:55 PM Referred By: Confirmed By:MICHELLE MESA MD
[2019-12-05 18:57] VITALS: BMI 25.4
[2019-12-05] MEDS ORDERED: RANOLAZINE E.R. 500 MG TABLET (FP) ONE (21:24)
[2019-12-05] MEDS: HEPARIN NA (PORCINE) 5,000 UNITS/ML 1ML VIAL SQ SCH (21:34)
[2019-12-05] MEDS: metoPROLOL SUCCINATE 25 MG TAB.SR.24H (FP) PO SCH (21:35)
[2019-12-05] MEDS: ISOSORBIDE MONONITRATE 30 MG TAB.SR.24H (FP) PO SCH (21:35)
[2019-12-05] MEDS: RANOLAZINE E.R. 1,000 MG TABLET (FP) PO SCH (21:36)
[2019-12-06 07:50] LABS: BASO % 0.7 % (0-2.0); EOS % 5.4 % (0-4.5); HEMATOCRIT 40.5 % (35.4-49); HEMOGLOBIN 14.1 GM/dL (11.7-16.9); LYMPH % 29.3 % (8-40); MCH 33.7 pg (25.7-33.7); MCHC 34.8 g/dl (32.0-35.9); MEAN CELL VOLUME 96.9 fl (80-96); MEAN PLT VOLUME 8.5 fl (7.5-11.1); MONO % 9.5 % (3.8-10.2); NEUT % 55.1 % (42.8-82.8); PLATELET COUNT 121 K/MM3 (134-434); RBC 4.19 M/mm3 (4.00-5.60); RDW 13.7 % (11.9-15.9); WHITE BLOOD COUNT 6.5 K/mm3 (4.0-10.0)
--- NOTE | 2019-12-06 07:56 | HP ---
Admitting History and Physical - Primary Care Physician PCP: Nacho Rich - Admission Chief Complaint: FALL/SYNCOPE History of Present Illness: The patient is a 84y/o M, with PMH of CAD (CABG, stents), LBBB, HTN, HLD, pulm HTN, pneumonia, chronic venous stasis, and stable angina (PRN SL NG), who presents to the ED BIBA s/p fall. Pt states he had one fall last night and one fall this morning. Pt states he gets up to ambulate, does not know how he falls (maybe loses his balance) he just ends up on the floor feeling dizzy. Pt states his falls are usually witnessed or a family member is there immediately after the incident. Pt reports chest pain when walking around which is typical for him and he states he takes medication for this. Pt denies head trauma, LOC or confusion. - Past Medical History Cardiovascular: Yes: Aortic Insufficiency, CAD (s/p CABG and stents), CHF (end diastolic), HTN, Hyperlipdemia, Pulmonary Hypertension, Other (carotid and peripheral vascular disease) Pulmonary: Yes: Pneumonia Hepatobiliary: Yes: Cholelithiasis Renal/: Yes: Renal Inusuff Endocrine: Yes: Diabetes Mellitus - Past Surgical History Past Surgical History: Yes: CABG, Stent - Smoking History Smoking history: Never smoked Have you smoked in the past 12 months: No Aproximately how many cigarettes per day: 0 If you are a former smoker, when did you quit?: many years ago - Alcohol/Substance Use Hx Alcohol Use: No History of Substance Use: reports: None - Social History ADL: Independent 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 [place] History of Recent Travel: No Home Medications - Allergies Allergies/Adverse Reactions: Allergies Allergy/AdvReac Type Severity Reaction Status Date / Time amoxicillin Allergy Intermediate sob Verified 12/05/19 10:37 Penicillins Allergy Intermediate weakness & Verified 12/05/19 10:37 snoring - Home Medications Home Medications: Ambulatory Orders Ammonium Lactate Lotion [Lac-Hydrin 12] 1 applic DAILY 12/05/19 Aspirin [Aspirin EC] 81 mg PO DAILY 12/05/19 Fluticasone Prop 0.05% Nasal [Flonase -] 1 spray IH DAILY 12/05/19 Furosemide 40 mg PO DAILY 12/05/19 Isosorbide Mononitrate [Isosorbide Mononitrate ER] 15 mg PO BID 12/05/19 Metoprolol Succinate 25 mg PO BID 12/05/19 Metoprolol Succinate [Toprol Xl] 25 mg PO BID 12/05/19 Nitroglycerin Sublingual [Nitrostat -] 0.4 mg SL ONCE PRN 12/05/19 Nystatin Powder [Nystop Powder -] 1 applic ID DAILY 12/05/19 Ranolazine [Ranexa -] 1,000 mg PO BID 12/05/19 Rosuvastatin [Crestor -] 20 mg PO DAILY 12/05/19 Triamcinolone 0.025% Cream [Aristocort 0.025% Cream -] 1 applic ID DAILY 12/05/19 Review of Systems - Review of Systems Constitutional: reports: Weakness Cardiovascular: reports: Palpitations, Shortness of Breath Respiratory: reports: Exercise Intolerance, SOB. denies: Orthopnea Gastrointestinal: reports: Abdominal Pain Musculoskeletal: reports: Muscle Weakness Neurological: reports: Weakness Physical Examination Vital Signs: Vital Signs Temperature 98.2 F 12/06/19 05:00 Pulse Rate 64 12/06/19 05:00 Respiratory Rate 12/06/19 05:00 Blood Pressure 136/73 12/06/19 05:00 O2 Sat by Pulse Oximetry (%) 95 12/05/19 21:23 Constitutional: Yes: Mild Distress Cardiovascular: Yes: Pulse Irregular, Murmur Respiratory: Yes: Diminished, On Nasal O2 Gastrointestinal: Yes: Soft Renal/: Yes: WNL Musculoskeletal: Yes: Muscle Weakness Edema: Yes Neurological: Yes: Weakness Imaging - Results Chest X-ray: Report Reviewed Cat Scan: Report Reviewed Problem List - Problems (1) Fall Code(s): W19.XXXA - UNSPECIFIED FALL, INITIAL ENCOUNTER Qualifiers: Encounter type: initial encounter Qualified Code(s): W19.XXXA - Unspecified fall, initial encounter (2) ASHD (arteriosclerotic heart disease) Code(s): I25.10 - ATHSCL HEART DISEASE OF [place] CORONARY ARTERY W/O ANG PCTRS (3) Abdominal pain Code(s): R10.9 - UNSPECIFIED ABDOMINAL PAIN (4) Abnormal liver function tests Code(s): R94.5 - ABNORMAL RESULTS OF LIVER FUNCTION STUDIES (5) CKD (chronic kidney disease) Code(s): N18.9 - CHRONIC KIDNEY DISEASE, UNSPECIFIED (6) Carotid arterial disease Code(s): I77.9 - DISORDER OF ARTERIES AND ARTERIOLES, UNSPECIFIED Qualifiers: Laterality: left (7) Hx of CABG Code(s): Z95.1 - PRESENCE OF AORTOCORONARY BYPASS GRAFT (8) LBBB (left bundle branch block) Code(s): I44.7 - LEFT BUNDLE-BRANCH BLOCK, UNSPECIFIED (9) Weakness Code(s): R53.1 - WEAKNESS Assessment/Plan MONITOR ON TELE/CARDIAC FLOOR CARDIOLOGY F/U PT EVAL FALL RISKS OOB TO CHAIR WITH ASSIST ORTHOSTATIC BP CHECKS EKG PENDING
[2019-12-06 08:26] LABS: ALBUMIN 3.4 g/dl (3.4-5.0); BILIRUBIN,TOTAL 1.3 mg/dL (0.2-1); BLOOD UREA NITROGEN 13.9 mg/dL (7-18); CALCIUM 8.3 mg/dL (8.5-10.1); CREATININE 1.5 mg/dL (0.55-1.3); MAGNESIUM 2.4 mg/dL (1.8-2.4); POTASSIUM 4.2 mmol/L (3.5-5.1); TOT PROT 6.3 g/dl (6.4-8.2)
[2019-12-06] MEDS ORDERED: RANOLAZINE E.R. 500 MG TABLET (FP) ONE ×2 (09:44→20:59)
[2019-12-06] MEDS: ASPIRIN COATED 81 MG TABLET.EC PO SCH (09:48)
[2019-12-06] MEDS: HEPARIN NA (PORCINE) 5,000 UNITS/ML 1ML VIAL SQ SCH ×2 (09:48→21:36)
[2019-12-06] MEDS: RANOLAZINE E.R. 1,000 MG TABLET (FP) PO SCH ×2 (09:48→21:37)
[2019-12-06] MEDS: metoPROLOL SUCCINATE 25 MG TAB.SR.24H (FP) PO SCH ×2 (09:48→21:37)
[2019-12-06] MEDS: ISOSORBIDE MONONITRATE 30 MG TAB.SR.24H (FP) PO SCH ×2 (09:48→21:37)
--- NOTE | 2019-12-06 11:13 | CON.CARD ---
Consult Consult Specialty:: cardiology Referred by:: Medicine Reason for Consultation:: fall, chest pain - History of Present Illness Chief Complaint: fall History of Present Illness: 84M h/o CAD s/p CABG 1991, stents x 6, HTN, HLD, pulm HTN, chronic venous stasis p/w fall. Fell on day prior to admission, felt normal until about 5 minutes before maybe had a headache which resolved quickly, no dizziness, palps, syncope. After the fall he felt a little off but then was better. Then on morning of admission he fell again without any warning, no loss of consciousness. Has ongoing angina for which he sees Dr. Guzman. Repeat CABG had been recommended, patient declined and he has been medically managed. At times chest pain episodes come with less activity than before, resolve with sublingual nitroglycerin which he takes about once a day or every other day. - Past Medical History Cardio/Vascular: Yes: Aortic Insufficiency, CAD (s/p CABG and stents), CHF (end diastolic), HTN, Hyperlipdemia, Pulmonary Hypertension, Other (carotid and peripheral vascular disease) Pulmonary: Yes: Pneumonia Hepatobiliary: Yes: Cholelithiasis Renal/: Yes: Renal Inusuff Endocrine: Yes: Diabetes Mellitus - Past Surgical History Past Surgical History: Yes: CABG, Stent - Alcohol/Substance Use Hx Alcohol Use: No History of Substance Use: reports: None - Smoking History Smoking history: Never smoked Have you smoked in the past 12 months: No Aproximately how many cigarettes per day: 0 If you are a former smoker, when did you quit?: many years ago - Social History Usual Living Arrangement: With Spouse ADL: Independent 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[place] [employer] History of Recent Travel: No Home Medications - Allergies Allergies/Adverse Reactions: Allergies Allergy/AdvReac Type Severity Reaction Status Date / Time amoxicillin Allergy Intermediate sob Verified 12/05/19 10:37 Penicillins Allergy Intermediate weakness & Verified 12/05/19 10:37 snoring - Home Medications Home Medications: Ambulatory Orders Ammonium Lactate Lotion [Lac-Hydrin 12] 1 applic DAILY 12/05/19 Aspirin [Aspirin EC] 81 mg PO DAILY 12/05/19 Fluticasone Prop 0.05% Nasal [Flonase -] 1 spray IH DAILY 12/05/19 Furosemide 40 mg PO DAILY 12/05/19 Isosorbide Mononitrate [Isosorbide Mononitrate ER] 15 mg PO BID 12/05/19 Metoprolol Succinate 25 mg PO BID 12/05/19 Metoprolol Succinate [Toprol Xl] 25 mg PO BID 12/05/19 Nitroglycerin Sublingual [Nitrostat -] 0.4 mg SL ONCE PRN 12/05/19 Nystatin Powder [Nystop Powder -] 1 applic ID DAILY 12/05/19 Ranolazine [Ranexa -] 1,000 mg PO BID 12/05/19 Rosuvastatin [Crestor -] 20 mg PO DAILY 12/05/19 Triamcinolone 0.025% Cream [Aristocort 0.025% Cream -] 1 applic ID DAILY 12/05/19 Family Medical History Family History: Unremarkable Review of Systems - Review of Systems Constitutional: reports: No Symptoms Eyes: reports: No Symptoms HENT: reports: No Symptoms Neck: reports: No Symptoms Cardiovascular: reports: No Symptoms Respiratory: reports: No Symptoms Gastrointestinal: reports: No Symptoms Genitourinary: reports: No Symptoms Musculoskeletal: reports: No Symptoms Integumentary: reports: No Symptoms Neurological: reports: No Symptoms Endocrine: reports: No Symptoms Hematology/Lymphatic: reports: No Symptoms Psychiatric: reports: No Symptoms Vital Signs: Vital Signs Temperature 98.3 F 12/06/19 09:59 Pulse Rate 62 12/06/19 09:59 Respiratory Rate 18 12/06/19 09:59 Blood Pressure 144/69 12/06/19 09:59 O2 Sat by Pulse Oximetry (%) 95 12/06/19 10:00 Constitutional: Yes: No Distress, Calm Eyes: Yes: Conjunctiva Clear, EOM Intact HENT: Yes: Atraumatic, Normocephalic Neck: Yes: Supple, Trachea Midline Respiratory: Yes: Regular, CTA Bilaterally Gastrointestinal: Yes: Normal Bowel Sounds, Soft Cardiovascular: Yes: Regular Rate and Rhythm JVD: No Heart Sounds: Yes: S1, S2 Musculoskeletal: No: Back Pain Extremities: No: Cold Edema: No Integumentary: No: Jaundice Neurological: Yes: Alert, Oriented Psychiatric: No: Agitated - Other Data Labs, Other Data: CBC, BMP 12/06/19 06:45 12/06/19 06:45 Troponin, BNP 12/05/19 12/05/19 12/06/19 12:45 19:15 06:45 Troponin I < 0.02 0.03 0.04 Troponin, BNP 12/05/19 12/05/19 12/06/19 12:45 19:15 06:45 Troponin I < 0.02 0.03 0.04 Assessment/Plan EKG: sinus, LBBB, PACs - stable echo 10/2019 nl LV/RV function, LA mildly dilated, mild MR, mild AR, mod 84M h/o CAD s/p CABG 1991, stents x 6, HTN, HLD, pulm HTN, chronic venous stasis p/w fall fall - trop neg x 2, EKG stable - denies loss of consciousness - less likely ACS - no prodrome - monitoring on tele CAD s/p CABG, stents with stable angina - prior CABG 1991 - s/p prior PTCA of the left circumflex with in-stent restenosis, recurrent ISR now PTCA and atherectomy of left circumflex 03/14/[address] [facility]. Complex coronary anatomy with patent GONZALEZ to LAD, occluded SVG to RCA, occluded SVG to D1 and in-stent restenosis of mid left circumflex - had repeat cath more recently, was recommended for reop CABG and declined - per patient symptoms have been stable over the last few months - cont aspirin, bb, metoprolol, ranexa, isosorbide mononitrate, resume home crestor 20 mg daily aortic stenosis - outpatient follow up HTN - cont current meds venous stasis - cont lasix
--- NOTE | 2019-12-06 12:30 | EKG ---
Test Reason : Blood Pressure : / mmHG Vent. Rate : 070 BPM Atrial Rate : 070 BPM P-R Int : 146 ms QRS Dur : 118 ms QT Int : 436 ms P-R-T Axes : 023 044 180 degrees QTc Int : 470 ms SINUS RHYTHM WITH PREMATURE SUPRAVENTRICULAR COMPLEXES NON-SPECIFIC INTRA-VENTRICULAR CONDUCTION DELAY NONSPECIFIC ST AND T WAVE ABNORMALITY PROLONGED QT ABNORMAL ECG WHEN COMPARED WITH ECG OF 05-DEC-2019 10:58, NON-SPECIFIC INTRA-VENTRICULAR CONDUCTION DELAY HAS REPLACED LEFT BUNDLE BRANCH BLOCK Confirmed by Benjamin Garsia MD ([id number]) on 12/06/2019 12:29:56 PM Referred By: Bruno SEN Confirmed By:Benjamin Garsia MD
[2019-12-06] MEDS ORDERED: ROSUVASTATIN CA 20 MG TABLET (FP) PO SCH (22:00)
[2019-12-07 06:34] VITALS: TEMP 97.8
--- NOTE | 2019-12-07 08:35 | DS ---
Physical Examination Vital Signs: Vital Signs Temperature 97.8 F 12/07/19 06:00 Pulse Rate 58 L 12/07/19 06:34 Respiratory Rate 20 12/07/19 06:00 Blood Pressure 144/58 L 12/07/19 06:34 O2 Sat by Pulse Oximetry (%) 99 12/07/19 06:00 Findings/Remarks: PATIENT ADMITTED TO TRIPPING NOT SYNCOPE Constitutional: Yes: No Distress Eyes: Yes: WNL HENT: Yes: WNL Neck: Yes: WNL Cardiovascular: Yes: Pulse Irregular Respiratory: Yes: WNL Gastrointestinal: Yes: WNL Edema: Yes Integumentary: Yes: Venous Stasis Changes, Other Wound/Incision: Yes: Clean/Dry Neurological: Yes: Pre-Existing Deficit ...Motor Strength: LLE, RLE Psychiatric: Yes: WNL Labs: CBC, BMP 12/06/19 06:45 12/06/19 06:45 Discharge Summary Problems reviewed: Yes Reason For Visit: FALL Current Active Problems Fall (Acute) Procedures: Principal: CT SCANS / XRAYS Hospital Course: ADMITTED FOR TRIPPING AND FALLING, MEDICALLY CLEARED AFTER TELEMETRY WORKUP DC PLANNING WITH HOME P.T. Goals: HOME P.T./OUTPATIENT Condition: Fair - Instructions Referrals: Nacho Rich MD [Primary Care Provider] - Disposition: VNS/HOME HEALTH CARE - Home Medications Comprehensive Discharge Medication List: Ambulatory Orders Ammonium Lactate Lotion [Lac-Hydrin 12] 1 applic DAILY 12/05/19 Aspirin [Aspirin EC] 81 mg PO DAILY 12/05/19 Fluticasone Prop 0.05% Nasal [Flonase -] 1 spray IH DAILY 12/05/19 Furosemide 40 mg PO DAILY 12/05/19 Isosorbide Mononitrate [Isosorbide Mononitrate ER] 15 mg PO BID 12/05/19 Metoprolol Succinate 25 mg PO BID 12/05/19 Metoprolol Succinate [Toprol Xl] 25 mg PO BID 12/05/19 Nitroglycerin Sublingual [Nitrostat -] 0.4 mg SL ONCE PRN 12/05/19 Nystatin Powder [Nystop Powder -] 1 applic ID DAILY 12/05/19 Ranolazine [Ranexa -] 1,000 mg PO BID 12/05/19 Rosuvastatin [Crestor -] 20 mg PO DAILY 12/05/19 Triamcinolone 0.025% Cream [Aristocort 0.025% Cream -] 1 applic ID DAILY 12/05/19 Rosuvastatin [Crestor -] 20 mg PO HS tablet 12/07/19
[2019-12-07] MEDS ORDERED: RANOLAZINE E.R. 500 MG TABLET (FP) ONE (10:14)
[2019-12-07] MEDS: HEPARIN NA (PORCINE) 5,000 UNITS/ML 1ML VIAL SQ SCH (10:17)
[2019-12-07] MEDS: ISOSORBIDE MONONITRATE 30 MG TAB.SR.24H (FP) PO SCH (10:18)
[2019-12-07] MEDS: metoPROLOL SUCCINATE 25 MG TAB.SR.24H (FP) PO SCH (10:19)
[2019-12-07] MEDS: RANOLAZINE E.R. 1,000 MG TABLET (FP) PO SCH (10:19)
[2019-12-07] MEDS: ASPIRIN COATED 81 MG TABLET.EC PO SCH (10:20)
[2019-12-07 10:39] VITALS: BP 146/54; PULSE 69
--- NOTE | 2019-12-07 12:19 | PN ---
Progress Note (short form) - Note Progress Note: cc: fall, chest pain s: no chest pain, palps, dizziness, dyspnea Current Medications Generic Name Dose Route Start Last Admin Trade Name Andrew PRN Reason Stop Dose Admin Aspirin 81 mg 12/06/19 10:00 12/07/19 10:20 Ecotrin - PO 81 mg DAILY SHIRLEY Administration Heparin Sodium (Porcine) 5,000 unit 12/05/19 22:00 12/07/19 10:17 Heparin - SQ 5,000 unit BID SHIRLEY Administration Isosorbide Mononitrate 15 mg 12/05/19 22:00 12/07/19 10:18 Imdur - PO 15 mg BID SHIRLEY Administration Metoprolol Succinate 25 mg 12/05/19 22:00 12/07/19 10:19 Toprol Xl - PO 25 mg BID SHIRLEY Administration Ranolazine 1,000 mg 12/05/19 22:00 12/07/19 10:19 Ranexa - PO 1,000 mg BID SHIRLEY Administration Rosuvastatin Calcium 20 mg 12/06/19 22:00 12/06/19 21:38 Crestor - PO 20 mg HS SHIRLEY Administration Vital Signs Period Temp Pulse Resp BP Sys/Nieto Pulse Ox Last 24 Hr 97.8 F-98.1 F 58-78 18-20 129-153/54-70 97-100 Constitutional: Yes: No Distress, Calm Eyes: Yes: Conjunctiva Clear, EOM Intact HENT: Yes: Atraumatic, Normocephalic Neck: Yes: Supple, Trachea Midline Respiratory: Yes: Regular, CTA Bilaterally Gastrointestinal: Yes: Normal Bowel Sounds, Soft Cardiovascular: Yes: Regular Rate and Rhythm JVD: No Heart Sounds: Yes: S1, S2 Musculoskeletal: No: Back Pain Extremities: No: Cold Edema: No Integumentary: No: Jaundice Neurological: Yes: Alert, Oriented Psychiatric: No: Agitated Assessment/Plan EKG: sinus, LBBB, PACs - stable echo 10/2019 nl LV/RV function, LA mildly dilated, mild MR, mild AR, mod 84M h/o CAD s/p CABG 1991, stents x 6, HTN, HLD, pulm HTN, chronic venous stasis p/w fall fall - trop neg x 2, EKG stable - denies loss of consciousness - less likely ACS - no prodrome - tele unremarkable - no further cardiac workup at this point CAD s/p CABG, stents with stable angina - prior CABG 1991 - s/p prior PTCA of the left circumflex with in-stent restenosis, recurrent ISR now PTCA and atherectomy of left circumflex 03/14/2016 at [facility]. Complex coronary anatomy with patent GONZALEZ to LAD, occluded SVG to RCA, occluded SVG to D1 and in-stent restenosis of mid left circumflex - had repeat cath more recently, was recommended for reop CABG and declined - per patient symptoms have been stable over the last few months - cont aspirin, bb, metoprolol, ranexa, isosorbide mononitrate, resume home crestor 20 mg daily aortic stenosis - outpatient follow up HTN - cont current meds venous stasis - cont lasix
== END 2019-12-07 14:04 | disposition home health service (06) | DRG 92 ==
LOC: JER 10:33 → JERBED 13:59 → J4W 17:40
PROVIDERS: ADMIT Family Medicine; ATTEND Family Medicine
DX: R29.6 Repeated falls (principal); I13.0 Hypertensive heart and chronic kidney disease with heart failure and stage 1 through stage 4 chronic kidney disease, or unspecified chronic kidney disease; I50.32 Chronic diastolic (congestive) heart failure; N18.9 Chronic kidney disease, unspecified; E78.5 Hyperlipidemia, unspecified; I73.9 Peripheral vascular disease, unspecified; I25.119 Atherosclerotic heart disease of native coronary artery with unspecified angina pectoris; W18.39XA Other fall on same level, initial encounter; I77.9 Disorder of arteries and arterioles, unspecified; I44.7 Left bundle-branch block, unspecified; I27.20 Pulmonary hypertension, unspecified; I35.1 Nonrheumatic aortic (valve) insufficiency; R53.1 Weakness; R94.5 Abnormal results of liver function studies; R10.9 Unspecified abdominal pain; Z95.1 Presence of aortocoronary bypass graft; Z88.0 Allergy status to penicillin; Z95.5 Presence of coronary angioplasty implant and graft; Y92.098 Other place in other non-institutional residence as the place of occurrence of the external cause
CPT/HCPCS: 36415; 70450-TC; 71046-TC-FY; 72125-TC; 80053; 80061; 81003; 82550; 83036; 83721; 83735; 84443; 84484; 85025; 87086; 93005; 93010; 97116-GP; 97161-GP; 99285-25; J1644; U0003

== ENCOUNTER 2020-05-28 09:51 | Inpatient (IN) | payer OTHER ==
[2020-05-28 11:06] LABS: ALBUMIN 3.6 g/dl (3.4-5.0); BILIRUBIN,TOTAL 1.8 mg/dl (0.2-1); CALCIUM 8.2 mg/dl (8.5-10); CREATININE 1.7 mg/dl (0.55-1.3); MAGNESIUM 2.1 mg/dL (1.8-2.4); TOT PROT 6.4 g/dl (6.4-8.2)
[2020-05-28 11:08] LABS: INR 1.31 (0.82-1.09); PROTHROMBIN TIME (PATIENT) 14.4 SEC (10.2-13.0)
[2020-05-28 11:10] LABS: BASO % 0.7 % (0-2.0); EOS % 0.5 % (0-4.5); HEMATOCRIT 40.7 % (35.4-49); HEMOGLOBIN 13.5 GM/dl (11.7-16.9); LYMPH % 13.9 % (8-40); MCH 32.7 pg (25.7-33.7); MCHC 33.2 g/dl (32.0-35.9); MEAN CELL VOLUME 98.6 fl (80-96); MEAN PLT VOLUME 8.2 fl (7.5-11.1); MONO % 8.2 % (3.8-10.2); NEUT % 76.7 % (42.8-82.8); PLATELET COUNT 127 K/MM3 (134-434); RBC 4.13 M/mm3 (4.00-5.60); RDW 12.4 % (11.9-15.9); WHITE BLOOD COUNT 11.3 K/mm3 (4.0-10.8)
[2020-05-28 13:48] LABS: EPITHELIAL CELLS FEW /hpf; URINE SPERM 1+
[2020-05-28] MEDS ORDERED: ERTAPENEM SODIUM 1 GM in SODIUM CHLORIDE 50 ML IVPB ONE (15:55)
[2020-05-28] MEDS: PRAMIPEXOLE DIHYDROCHLORIDE 0.125 MG TABLET PO SCH (21:36)
[2020-05-28] MEDS: metoPROLOL SUCCINATE 25 MG TAB.SR.24H (FP) PO SCH (21:37)
[2020-05-28] MEDS: ACETAMINOPHEN 325 MG TABLET (FP) PO PRN (21:37)
[2020-05-28] MEDS: RANOLAZINE E.R. 500 MG TABLET (FP) PO SCH (21:37)
[2020-05-28] MEDS ORDERED: ROSUVASTATIN CA 40 MG TABLET PO SCH (22:00)
[2020-05-28] MEDS: ROSUVASTATIN CA 20 MG TABLET (FP) PO SCH (22:49)
[2020-05-28] MEDS: BUDESONIDE/FORMETEROL FUMARATE 80/4.5 mcg INHALER IH SCH (23:36)
[2020-05-29 08:14] LABS: HEMATOCRIT 38.1 % (35.4-49); MCH 33.7 pg (25.7-33.7); MCHC 34.1 g/dl (32.0-35.9); MEAN CELL VOLUME 98.7 fl (80-96); MEAN PLT VOLUME 8.2 fl (7.5-11.1); PLATELET COUNT 119 K/MM3 (134-434); RBC 3.86 M/mm3 (4.00-5.60); RDW 11.9 % (11.9-15.9); WHITE BLOOD COUNT 7.7 K/mm3 (4.0-10.8)
[2020-05-29] MEDS: TAMSULOSIN HCL 0.4 MG CAP PO SCH (08:19)
[2020-05-29 08:32] LABS: ALBUMIN 3.1 g/dl (3.4-5.0); BILIRUBIN,TOTAL 1.2 mg/dl (0.2-1); CREATININE 1.4 mg/dl (0.55-1.3); POTASSIUM 3.7 mmol/L (3.5-5.1)
[2020-05-29] MEDS: BUDESONIDE/FORMETEROL FUMARATE 80/4.5 mcg INHALER IH SCH ×2 (09:51→21:30)
[2020-05-29] MEDS: RANOLAZINE E.R. 500 MG TABLET (FP) PO SCH ×2 (09:51→21:30)
[2020-05-29] MEDS: metoPROLOL SUCCINATE 25 MG TAB.SR.24H (FP) PO SCH ×2 (09:51→21:31)
[2020-05-29] MEDS: FUROSEMIDE 40 MG TABLET (FP) PO SCH (09:52)
[2020-05-29] MEDS: ASPIRIN COATED 81 MG TABLET.EC PO SCH (09:52)
[2020-05-29] MEDS ORDERED: cefTRIAXone SODIUM 1 GM VIAL ONE (10:23)
[2020-05-29] MEDS ORDERED: DEXTROSE 5%-WATER - 50 ML IVPB ONE (10:23)
[2020-05-29] MEDS: CEFTRIAXONE 1 GM in DEXTROSE 5%-WATER - 50 ML IVPB SCH (10:26)
[2020-05-29 18:38] VITALS: BMI 25.2
[2020-05-29] MEDS: ROSUVASTATIN CA 20 MG TABLET (FP) PO SCH (21:29)
[2020-05-29] MEDS: PRAMIPEXOLE DIHYDROCHLORIDE 0.125 MG TABLET PO SCH (21:29)
[2020-05-29] MEDS: ACETAMINOPHEN 325 MG TABLET (FP) PO PRN (21:31)
[2020-05-30] MEDS ORDERED: cefTRIAXone SODIUM 1 GM VIAL ONE (09:15)
[2020-05-30] MEDS ORDERED: DEXTROSE 5%-WATER - 50 ML IVPB ONE (09:15)
[2020-05-30] MEDS: TAMSULOSIN HCL 0.4 MG CAP PO SCH (09:18)
[2020-05-30] MEDS: ASPIRIN COATED 81 MG TABLET.EC PO SCH (09:18)
[2020-05-30] MEDS: FUROSEMIDE 40 MG TABLET (FP) PO SCH (09:18)
[2020-05-30] MEDS: RANOLAZINE E.R. 500 MG TABLET (FP) PO SCH (09:18)
[2020-05-30] MEDS: CEFTRIAXONE 1 GM in DEXTROSE 5%-WATER - 50 ML IVPB SCH (09:19)
[2020-05-30] MEDS: metoPROLOL SUCCINATE 25 MG TAB.SR.24H (FP) PO SCH (09:20)
[2020-05-30] MEDS: BUDESONIDE/FORMETEROL FUMARATE 80/4.5 mcg INHALER IH SCH (09:20)
[2020-05-30 14:01] VITALS: BP 153/47; PULSE 74; TEMP 98.4
== END 2020-05-30 17:46 | disposition home health service (06) | DRG 690 ==
LOC: FER 09:51 → FM/S 16:33
PROVIDERS: ADMIT Family Medicine; ATTEND Family Medicine
DX: N39.0 Urinary tract infection, site not specified (principal); I50.30 Unspecified diastolic (congestive) heart failure; I13.0 Hypertensive heart and chronic kidney disease with heart failure and stage 1 through stage 4 chronic kidney disease, or unspecified chronic kidney disease; N17.9 Acute kidney failure, unspecified; E78.5 Hyperlipidemia, unspecified; I25.10 Atherosclerotic heart disease of native coronary artery without angina pectoris; E11.22 Type 2 diabetes mellitus with diabetic chronic kidney disease; G20 Parkinson's disease; N18.9 Chronic kidney disease, unspecified; I27.20 Pulmonary hypertension, unspecified; I44.7 Left bundle-branch block, unspecified; I35.1 Nonrheumatic aortic (valve) insufficiency; D69.6 Thrombocytopenia, unspecified; R53.1 Weakness; E11.51 Type 2 diabetes mellitus with diabetic peripheral angiopathy without gangrene; Z95.1 Presence of aortocoronary bypass graft; Z95.5 Presence of coronary angioplasty implant and graft; Z88.0 Allergy status to penicillin
CPT/HCPCS: 36415; 71045-TC-FY; 80053; 81003; 81015; 82550; 82553; 83735; 84443; 84484; 85025; 85027; 85610; 87040; 87086; 93005; 97116-GP; 97162-GP; 99285-25; C9803; U0003

== ENCOUNTER 2021-06-25 17:40 | Inpatient (IN) | payer OTHER ==
[2021-06-25 20:46] LABS: BASO % 0.4 % (0-2.0); EOS % 1.9 % (0-4.5); HEMATOCRIT 41.9 % (35.4-49); HEMOGLOBIN 14.4 GM/dL (11.7-16.9); LYMPH % 17.2 % (8-40); MCH 32.6 pg (25.7-33.7); MCHC 34.4 g/dl (32.0-35.9); MEAN CELL VOLUME 94.7 fl (80-96); MEAN PLT VOLUME 8.3 fl (7.5-11.1); NEUT % 75.5 % (42.8-82.8); PLATELET COUNT 138 10^3/uL (134-434); RBC 4.42 M/mm3 (4.00-5.60); RDW 13.5 % (11.9-15.9); WHITE BLOOD COUNT 7.9 K/mm3 (4.0-10.0)
[2021-06-25 20:52] LABS: INR 1.08 (0.83-1.09); PROTHROMBIN TIME (PATIENT) 12.4 SEC (9.7-13.0)
[2021-06-25 20:53] LABS: ACTIVATED PTT 32.6 SECONDS (25.2-36.5)
[2021-06-25] MEDS ORDERED: LABETALOL HCL 5 MG/1 ML (100MG/20 ML VIAL) IVPUSH ONE (20:53)
[2021-06-25] MEDS ORDERED: levETIRAcetam 500 MG/5 ML INJECTION VIAL IVPB ONE ×2 (21:01→21:11)
[2021-06-25 21:05] LABS: BLOOD UREA NITROGEN 15.6 mg/dL (7-18); CALCIUM 8.8 mg/dL (8.5-10.1)
[2021-06-25 21:06] LABS: ALBUMIN 3.8 g/dl (3.4-5.0)
[2021-06-25 21:09] LABS: CREATININE 1.5 mg/dL (0.55-1.3)
[2021-06-25 21:10] LABS: BILIRUBIN,TOTAL 0.7 mg/dL (0.2-1); TOT PROT 7.5 g/dl (6.4-8.2)
[2021-06-25] MEDS: SODIUM CHLORIDE 1,000 ML IV SCH (21:24)
[2021-06-25] MEDS ORDERED: ACETAMINOPHEN 1000 MG/100 ML BAG IVPB PRN (22:06)
[2021-06-25] MEDS ORDERED: LABETALOL HCL 5 MG/1 ML (100MG/20 ML VIAL) IVPUSH PRN ×2 (22:28→23:04)
[2021-06-25] MEDS: MUPIROCIN 2% TOPICAL OINTMENT FOR DECOLONIZATION NS SCH (22:42)
[2021-06-25] MEDS: CHLORHEXIDINE GLUCONATE 4% CLEANSER FOR DECOLONIZATION TP SCH (22:42)
[2021-06-26 07:30] LABS: HEMATOCRIT 38.5 % (35.4-49); HEMOGLOBIN 13.5 GM/dL (11.7-16.9); MCH 33.2 pg (25.7-33.7); MCHC 35.2 g/dl (32.0-35.9); MEAN CELL VOLUME 94.3 fl (80-96); MEAN PLT VOLUME 8.4 fl (7.5-11.1); PLATELET COUNT 116 10^3/uL (134-434); RBC 4.08 M/mm3 (4.00-5.60); RDW 13.7 % (11.9-15.9); WHITE BLOOD COUNT 5.7 K/mm3 (4.0-10.0)
[2021-06-26 07:34] LABS: INR 1.15 (0.83-1.09); PROTHROMBIN TIME (PATIENT) 13.3 SEC (9.7-13.0)
[2021-06-26 07:49] LABS: ALBUMIN 3.2 g/dl (3.4-5.0); BLOOD UREA NITROGEN 13.4 mg/dL (7-18); MAGNESIUM 2.4 mg/dL (1.8-2.4)
[2021-06-26 07:52] LABS: CREATININE 1.5 mg/dL (0.55-1.3); PHOSPHOROUS 2.7 mg/dL (2.5-4.9)
[2021-06-26 07:53] LABS: BILIRUBIN,TOTAL 0.8 mg/dL (0.2-1); TOT PROT 6.4 g/dl (6.4-8.2)
[2021-06-26] MEDS: ISOSORBIDE MONONITRATE 30 MG TAB.SR.24H (FP) PO SCH ×2 (09:52→22:38)
[2021-06-26] MEDS: RANOLAZINE E.R. 500 MG TABLET (FP) PO SCH ×2 (09:53→22:39)
[2021-06-26] MEDS: FUROSEMIDE 40 MG TABLET (FP) PO SCH (09:53)
[2021-06-26] MEDS: levETIRAcetam 500 MG TABLET (FP) PO SCH ×2 (09:53→22:38)
[2021-06-26] MEDS: PRAMIPEXOLE DIHYDROCHLORIDE 0.125 MG TABLET PO SCH (09:53)
[2021-06-26] MEDS: MUPIROCIN 2% TOPICAL OINTMENT FOR DECOLONIZATION NS SCH ×2 (09:54→22:40)
[2021-06-26] MEDS ORDERED: FUROSEMIDE 40 MG TABLET (FP) PO SCH (10:00)
[2021-06-26] MEDS ORDERED: metoPROLOL SUCCINATE 25 MG TAB.SR.24H (FP) PO SCH (10:00)
[2021-06-26] MEDS ORDERED: PATIENT'S OWN MEDICATION (NON-FORMULARY) (Mirabegron [Myrbetriq] 25 MG Tab.Er.24h) PO SCH (10:00)
[2021-06-26] MEDS ORDERED: ISOSORBIDE MONONITRATE 30 MG TAB.SR.24H (FP) PO SCH (10:00)
[2021-06-26] MEDS: metoPROLOL SUCCINATE 25 MG TAB.SR.24H (FP) PO SCH ×2 (10:54→22:38)
[2021-06-26] MEDS: FLUTICASONE PROP 0.05% 16 GM NASAL SPRAY NS SCH (11:49)
[2021-06-26] MEDS: TRIAMCINOLONE ACET 0.025% CREAM 15 GM TUBE TP SCH (11:50)
[2021-06-26] MEDS: BUDESONIDE/FORMETEROL FUMARATE 80/4.5 mcg INHALER IH SCH ×2 (11:50→22:40)
[2021-06-26] MEDS: AMMONIUM LACTATE 12% LOTION 225 GM BOTTLE TP SCH (11:51)
[2021-06-26] MEDS: NYSTATIN POWDER 100,000 UNITS/GM - 15 GM TOPICAL POWDER TP SCH (11:51)
[2021-06-26 15:41] VITALS: BMI 21.6
[2021-06-26] MEDS: SODIUM CHLORIDE 1,000 ML IV SCH (16:09)
[2021-06-26] MEDS: ROSUVASTATIN CA 20 MG TABLET PO SCH (22:39)
[2021-06-26] MEDS: CHLORHEXIDINE GLUCONATE 4% CLEANSER FOR DECOLONIZATION TP SCH (22:40)
[2021-06-26] MEDS: DONEPEZIL HCL 5 MG TABLET (FP) PO SCH (22:56)
[2021-06-27 07:28] LABS: BASO % 0.5 % (0-2.0); EOS % 5.9 % (0-4.5); HEMATOCRIT 39.5 % (35.4-49); HEMOGLOBIN 13.7 GM/dL (11.7-16.9); LYMPH % 18.5 % (8-40); MCH 33.1 pg (25.7-33.7); MCHC 34.7 g/dl (32.0-35.9); MEAN CELL VOLUME 95.6 fl (80-96); MEAN PLT VOLUME 8.4 fl (7.5-11.1); MONO % 7.8 % (3.8-10.2); NEUT % 67.3 % (42.8-82.8); PLATELET COUNT 114 10^3/uL (134-434); RBC 4.13 M/mm3 (4.00-5.60); RDW 13.8 % (11.9-15.9)
[2021-06-27 07:48] LABS: ALBUMIN 3.1 g/dl (3.4-5.0); BLOOD UREA NITROGEN 12.8 mg/dL (7-18)
[2021-06-27 07:49] LABS: BILIRUBIN,TOTAL 0.9 mg/dL (0.2-1); TOT PROT 6.3 g/dl (6.4-8.2)
[2021-06-27 07:50] LABS: CALCIUM 7.7 mg/dL (8.5-10.1)
[2021-06-27 07:51] LABS: CREATININE 1.3 mg/dL (0.55-1.3); MAGNESIUM 2.5 mg/dL (1.8-2.4); PHOSPHOROUS 2.1 mg/dL (2.5-4.9)
[2021-06-27] MEDS: TRIAMCINOLONE ACET 0.025% CREAM 15 GM TUBE TP SCH (09:53)
[2021-06-27] MEDS: MUPIROCIN 2% TOPICAL OINTMENT FOR DECOLONIZATION NS SCH ×2 (09:53→22:27)
[2021-06-27] MEDS: FLUTICASONE PROP 0.05% 16 GM NASAL SPRAY NS SCH (09:53)
[2021-06-27] MEDS: ISOSORBIDE MONONITRATE 30 MG TAB.SR.24H (FP) PO SCH ×2 (09:54→21:48)
[2021-06-27] MEDS: levETIRAcetam 500 MG TABLET (FP) PO SCH ×2 (09:54→21:47)
[2021-06-27] MEDS: NYSTATIN POWDER 100,000 UNITS/GM - 15 GM TOPICAL POWDER TP SCH (09:55)
[2021-06-27] MEDS: FUROSEMIDE 40 MG TABLET (FP) PO SCH (09:55)
[2021-06-27] MEDS: RANOLAZINE E.R. 500 MG TABLET (FP) PO SCH ×2 (09:55→21:47)
[2021-06-27] MEDS: AMMONIUM LACTATE 12% LOTION 225 GM BOTTLE TP SCH (09:55)
[2021-06-27] MEDS: metoPROLOL SUCCINATE 25 MG TAB.SR.24H (FP) PO SCH ×2 (09:55→21:47)
[2021-06-27] MEDS: BUDESONIDE/FORMETEROL FUMARATE 80/4.5 mcg INHALER IH SCH ×2 (09:55→21:48)
[2021-06-27] MEDS: PRAMIPEXOLE DIHYDROCHLORIDE 0.125 MG TABLET PO SCH (09:55)
[2021-06-27] MEDS: SODIUM CHLORIDE 1,000 ML IV SCH ×2 (12:40→22:27)
[2021-06-27] MEDS: DONEPEZIL HCL 5 MG TABLET (FP) PO SCH (21:47)
[2021-06-27] MEDS: ROSUVASTATIN CA 20 MG TABLET PO SCH (21:47)
[2021-06-27] MEDS: CHLORHEXIDINE GLUCONATE 4% CLEANSER FOR DECOLONIZATION TP SCH (21:48)
[2021-06-28 05:26] VITALS: BP 145/56; PULSE 60; TEMP 98
[2021-06-28 08:38] LABS: BASO % 0.5 % (0-2.0); EOS % 6.9 % (0-4.5); HEMATOCRIT 35.3 % (35.4-49); HEMOGLOBIN 12.4 GM/dL (11.7-16.9); LYMPH % 19.9 % (8-40); MCH 33.5 pg (25.7-33.7); MCHC 35.3 g/dl (32.0-35.9); MEAN PLT VOLUME 8.8 fl (7.5-11.1); MONO % 7.4 % (3.8-10.2); NEUT % 65.3 % (42.8-82.8); PLATELET COUNT 103 10^3/uL (134-434); RBC 3.71 M/mm3 (4.00-5.60); RDW 13.7 % (11.9-15.9); WHITE BLOOD COUNT 6.3 K/mm3 (4.0-10.0)
[2021-06-28 08:49] LABS: ALBUMIN 2.8 g/dl (3.4-5.0); CALCIUM 7.2 mg/dL (8.5-10.1)
[2021-06-28 08:50] LABS: BLOOD UREA NITROGEN 11.2 mg/dL (7-18); MAGNESIUM 2.2 mg/dL (1.8-2.4)
[2021-06-28 08:52] LABS: CREATININE 1.2 mg/dL (0.55-1.3); PHOSPHOROUS 1.9 mg/dL (2.5-4.9)
[2021-06-28 08:54] LABS: BILIRUBIN,TOTAL 0.7 mg/dL (0.2-1); TOT PROT 5.7 g/dl (6.4-8.2)
[2021-06-28] MEDS: metoPROLOL SUCCINATE 25 MG TAB.SR.24H (FP) PO SCH (10:05)
[2021-06-28] MEDS: RANOLAZINE E.R. 500 MG TABLET (FP) PO SCH (10:06)
[2021-06-28] MEDS: BUDESONIDE/FORMETEROL FUMARATE 80/4.5 mcg INHALER IH SCH (10:06)
[2021-06-28] MEDS: PRAMIPEXOLE DIHYDROCHLORIDE 0.125 MG TABLET PO SCH (10:06)
[2021-06-28] MEDS: levETIRAcetam 500 MG TABLET (FP) PO SCH (10:06)
[2021-06-28] MEDS: FUROSEMIDE 40 MG TABLET (FP) PO SCH (10:06)
[2021-06-28] MEDS: FLUTICASONE PROP 0.05% 16 GM NASAL SPRAY NS SCH (10:07)
[2021-06-28] MEDS: MUPIROCIN 2% TOPICAL OINTMENT FOR DECOLONIZATION NS SCH (10:08)
[2021-06-28] MEDS: AMMONIUM LACTATE 12% LOTION 225 GM BOTTLE TP SCH (10:08)
[2021-06-28] MEDS ORDERED: NAPH,MB-DB/K PH,MBDB POWDER PACKET PO SCH (10:30)
[2021-06-28] MEDS: ISOSORBIDE MONONITRATE 30 MG TAB.SR.24H (FP) PO SCH (11:16)
[2021-06-28] MEDS: NYSTATIN POWDER 100,000 UNITS/GM - 15 GM TOPICAL POWDER TP SCH (11:16)
[2021-06-28] MEDS: TRIAMCINOLONE ACET 0.025% CREAM 15 GM TUBE TP SCH (12:53)
== END 2021-06-28 13:56 | disposition home health service (06) | DRG 83 ==
LOC: JER 17:40 → JERBED 21:07 → JICU 22:09 → J8W 06-27 20:42
PROVIDERS: ADMIT Family Medicine; ATTEND Family Medicine
DX: S06.5X9A Traumatic subdural hemorrhage with loss of consciousness of unspecified duration, initial encounter (principal); I50.32 Chronic diastolic (congestive) heart failure; I13.0 Hypertensive heart and chronic kidney disease with heart failure and stage 1 through stage 4 chronic kidney disease, or unspecified chronic kidney disease; N17.9 Acute kidney failure, unspecified; G20 Parkinson's disease; F03.90 Unspecified dementia, unspecified severity, without behavioral disturbance, psychotic disturbance, mood disturbance, and anxiety; R55 Syncope and collapse; R29.810 Facial weakness; S00.03XA Contusion of scalp, initial encounter; I25.10 Atherosclerotic heart disease of native coronary artery without angina pectoris; Z98.61 Coronary angioplasty status; E78.5 Hyperlipidemia, unspecified; W19.XXXA Unspecified fall, initial encounter; Y93.9 Activity, unspecified; Y92.89 Other specified places as the place of occurrence of the external cause; Y99.9 Unspecified external cause status; Z95.1 Presence of aortocoronary bypass graft; I27.20 Pulmonary hypertension, unspecified
CPT/HCPCS: 36415; 70450-TC; 70544-TC; 70547-TC; 70551-TC; 71045-TC-FY; 72125-TC; 80053; 83735; 84100; 84484; 85025; 85027; 85610; 85730; 86850; 86900; 86901; 93005; 93010; 97116-GP; 97162-GP; 99285-25; C9803-CS; U0003; U0005

== ENCOUNTER 2021-07-24 13:47 | Inpatient (IN) | payer OTHER ==
[2021-07-24 15:39] LABS: BASO % 0.6 % (0-2.0); EOS % 5.3 % (0-4.5); HEMATOCRIT 36.2 % (35.4-49); HEMOGLOBIN 12.2 GM/dL (11.7-16.9); LYMPH % 24.5 % (8-40); MCH 32.4 pg (25.7-33.7); MCHC 33.8 g/dl (32.0-35.9); MONO % 10.2 % (3.8-10.2); NEUT % 59.4 % (42.8-82.8); PLATELET COUNT 121 10^3/uL (134-434); RBC 3.77 M/mm3 (4.00-5.60); RDW 14.5 % (11.9-15.9); WHITE BLOOD COUNT 5.6 K/mm3 (4.0-10.0)
[2021-07-24] MEDS ORDERED: ASPIRIN 81 MG CHEWABLE TABLETS PO ONE (15:47)
[2021-07-24] MEDS ORDERED: ASPIRIN 81 MG CHEWABLE TABLETS ONE (15:51)
[2021-07-24 15:59] LABS: ACTIVATED PTT 35.3 SECONDS (25.2-36.5); INR 1.13 (0.83-1.09)
[2021-07-24 16:05] LABS: CHLORIDE 105 mmol/L (98-107); SODIUM 138 mmol/L (136-145)
[2021-07-24 16:08] LABS: ALBUMIN 3.4 g/dl (3.4-5.0); ANION GAP 5 MMOL/L (8-16); CALCIUM 8.3 mg/dL (8.5-10.1); CO2 28 mmol/L (21-32); GLUCOSE,RANDOM 110 mg/dL (74-106)
[2021-07-24 16:09] LABS: BLOOD UREA NITROGEN 14.6 mg/dL (7-18)
[2021-07-24 16:11] LABS: CREATININE 1.4 mg/dL (0.55-1.3); SGPT/ALT 15 U/L (13-61)
[2021-07-24 16:12] LABS: SGOT/AST 63 U/L (15-37)
[2021-07-24 16:13] LABS: BILIRUBIN,TOTAL 0.6 mg/dL (0.2-1); TOT PROT 6.6 g/dl (6.4-8.2)
[2021-07-24 16:14] LABS: ALK PHOS 87 U/L (45-117)
[2021-07-24] MEDS: RANOLAZINE E.R. 500 MG TABLET (FP) PO SCH (23:29)
[2021-07-24] MEDS: metoPROLOL SUCCINATE 25 MG TAB.SR.24H (FP) PO SCH (23:29)
[2021-07-24] MEDS: ROSUVASTATIN CA 20 MG TABLET PO SCH (23:29)
[2021-07-24] MEDS: levETIRAcetam 500 MG TABLET (FP) PO SCH (23:30)
[2021-07-25 02:55] VITALS: BMI 23.1
[2021-07-25] MEDS ORDERED: ISOSORBIDE MONONITRATE 30 MG TAB.SR.24H (FP) PO SCH (07:00)
[2021-07-25 07:54] LABS: CHLORIDE 108 mmol/L (98-107); SODIUM 141 mmol/L (136-145)
[2021-07-25 07:56] LABS: ANION GAP 7 MMOL/L (8-16); BLOOD UREA NITROGEN 12.6 mg/dL (7-18); CALCIUM 8.2 mg/dL (8.5-10.1); CO2 26 mmol/L (21-32)
[2021-07-25 07:57] LABS: ALBUMIN 3.2 g/dl (3.4-5.0); GLUCOSE,RANDOM 96 mg/dL (74-106)
[2021-07-25 07:59] LABS: SGOT/AST 30 U/L (15-37); SGPT/ALT 21 U/L (13-61)
[2021-07-25 08:00] LABS: CHOLESTEROL 110 mg/dL (50-200); CREATININE 1.3 mg/dL (0.55-1.3)
[2021-07-25 08:01] LABS: BILIRUBIN,TOTAL 0.8 mg/dL (0.2-1); LDL CHOLESTEROL (ONLY SJRH) 62 mg/dL (5-100); TOT PROT 5.9 g/dl (6.4-8.2)
[2021-07-25 08:02] LABS: ALK PHOS 73 U/L (45-117); HDL CHOLESTEROL 40 mg/dL (40-60); TRIGLYCERIDES 72 mg/dL (0-150)
[2021-07-25 08:36] LABS: PLATELET ESTIMATE DECREASED
[2021-07-25 08:43] LABS: BASO % 0.6 % (0-2.0); EOS % 6.9 % (0-4.5); HEMATOCRIT 35.3 % (35.4-49); HEMOGLOBIN 12.1 GM/dL (11.7-16.9); LYMPH % 24.5 % (8-40); MCH 32.8 pg (25.7-33.7); MCHC 34.3 g/dl (32.0-35.9); MEAN CELL VOLUME 95.6 fl (80-96); MEAN PLT VOLUME 9.2 fl (7.5-11.1); MONO % 9.9 % (3.8-10.2); NEUT % 58.1 % (42.8-82.8); PLATELET COUNT 116 10^3/uL (134-434); RBC 3.69 M/mm3 (4.00-5.60); RDW 14.3 % (11.9-15.9); WHITE BLOOD COUNT 5.8 K/mm3 (4.0-10.0)
[2021-07-25] MEDS: FUROSEMIDE 40 MG TABLET (FP) PO SCH (09:23)
[2021-07-25] MEDS: metoPROLOL SUCCINATE 25 MG TAB.SR.24H (FP) PO SCH ×2 (09:23→21:38)
[2021-07-25] MEDS: levETIRAcetam 500 MG TABLET (FP) PO SCH ×2 (09:23→21:38)
[2021-07-25] MEDS: RANOLAZINE E.R. 500 MG TABLET (FP) PO SCH ×2 (09:23→21:38)
[2021-07-25] MEDS: TAMSULOSIN HCL 0.4 MG CAP PO SCH (09:23)
[2021-07-25] MEDS ORDERED: DONEPEZIL HCL 5 MG TABLET (FP) PO SCH (10:00)
[2021-07-25] MEDS ORDERED: BUDESONIDE/FORMETEROL FUMARATE 80/4.5 mcg INHALER IH SCH (10:00)
[2021-07-25] MEDS: ASPIRIN 81 MG CHEWABLE TABLETS PO SCH (11:53)
[2021-07-25] MEDS: ROSUVASTATIN CA 20 MG TABLET PO SCH (21:38)
[2021-07-25] MEDS: ISOSORBIDE MONONITRATE 30 MG TAB.SR.24H (FP) PO SCH (21:38)
[2021-07-26] MEDS ORDERED: POTASSIUM CHLORIDE TABS 10 MEQ TABLET.ER (FP) PO ONE (09:05)
[2021-07-26 09:23] LABS: CALCIUM 8.2 mg/dL (8.5-10.1)
[2021-07-26 09:24] LABS: BLOOD UREA NITROGEN 16.8 mg/dL (7-18)
[2021-07-26 09:27] LABS: CREATININE 1.4 mg/dL (0.55-1.3)
[2021-07-26 09:46] LABS: MAGNESIUM 2.5 mg/dL (1.8-2.4)
[2021-07-26] MEDS: ASPIRIN 81 MG CHEWABLE TABLETS PO SCH (09:57)
[2021-07-26] MEDS: FUROSEMIDE 40 MG TABLET (FP) PO SCH (09:57)
[2021-07-26] MEDS: levETIRAcetam 500 MG TABLET (FP) PO SCH ×2 (09:57→21:26)
[2021-07-26] MEDS: ISOSORBIDE MONONITRATE 30 MG TAB.SR.24H (FP) PO SCH ×2 (09:57→21:25)
[2021-07-26] MEDS: metoPROLOL SUCCINATE 25 MG TAB.SR.24H (FP) PO SCH ×2 (09:57→21:26)
[2021-07-26] MEDS: TAMSULOSIN HCL 0.4 MG CAP PO SCH (09:58)
[2021-07-26] MEDS: RANOLAZINE E.R. 500 MG TABLET (FP) PO SCH ×2 (09:58→21:26)
[2021-07-26] MEDS: POTASSIUM CHLORIDE TABS 10 MEQ TABLET.ER (FP) PO SCH (09:58)
[2021-07-26] MEDS: ROSUVASTATIN CA 20 MG TABLET PO SCH (21:26)
[2021-07-27] MEDS: levETIRAcetam 500 MG TABLET (FP) PO SCH (09:44)
[2021-07-27] MEDS: ISOSORBIDE MONONITRATE 30 MG TAB.SR.24H (FP) PO SCH (09:44)
[2021-07-27] MEDS: ASPIRIN 81 MG CHEWABLE TABLETS PO SCH (09:44)
[2021-07-27] MEDS: metoPROLOL SUCCINATE 25 MG TAB.SR.24H (FP) PO SCH (09:44)
[2021-07-27] MEDS: TAMSULOSIN HCL 0.4 MG CAP PO SCH (09:45)
[2021-07-27] MEDS: POTASSIUM CHLORIDE TABS 10 MEQ TABLET.ER (FP) PO SCH (09:45)
[2021-07-27] MEDS: RANOLAZINE E.R. 500 MG TABLET (FP) PO SCH (09:45)
[2021-07-27 10:38] VITALS: BP 123/50; PULSE 66; TEMP 97.7
== END 2021-07-27 15:51 | disposition home health service (06) | DRG 280 ==
LOC: JER 13:47 → JERBED 15:48 → J4W 23:19
PROVIDERS: ADMIT Family Medicine; ATTEND Family Medicine
DX: I21.4 Non-ST elevation (NSTEMI) myocardial infarction (principal); I62.03 Nontraumatic chronic subdural hemorrhage; I13.0 Hypertensive heart and chronic kidney disease with heart failure and stage 1 through stage 4 chronic kidney disease, or unspecified chronic kidney disease; I50.32 Chronic diastolic (congestive) heart failure; N18.31 Chronic kidney disease, stage 3a; N40.0 Benign prostatic hyperplasia without lower urinary tract symptoms; E78.5 Hyperlipidemia, unspecified; I25.10 Atherosclerotic heart disease of native coronary artery without angina pectoris; I87.2 Venous insufficiency (chronic) (peripheral); Z95.1 Presence of aortocoronary bypass graft; Z98.61 Coronary angioplasty status
CPT/HCPCS: 36415; 71045-TC-FY; 80048; 80053; 80061; 83735; 84484; 85025; 85610; 85730; 93005; 93010; 97116-GP; 97161-GP; 99285-25; C9803-CS; U0003; U0005

== ENCOUNTER 2021-10-24 09:23 | Inpatient (IN) | payer OTHER ==
[2021-10-24 10:15] VITALS: BMI 20.5
[2021-10-24 11:31] LABS: BASO % 0.6 % (0-2.0); EOS % 3.9 % (0-4.5); HEMATOCRIT 43.9 % (35.4-49); HEMOGLOBIN 14.9 GM/dL (11.7-16.9); MCH 32.6 pg (25.7-33.7); MCHC 33.9 g/dl (32.0-35.9); MEAN CELL VOLUME 96.4 fl (80-96); MEAN PLT VOLUME 8.5 fl (7.5-11.1); MONO % 6.9 % (3.8-10.2); NEUT % 60.6 % (42.8-82.8); PLATELET COUNT 134 10^3/uL (134-434); RBC 4.55 M/mm3 (4.00-5.60); WHITE BLOOD COUNT 5.8 K/mm3 (4.0-10.0)
[2021-10-24 11:32] LABS: INR 1.12 (0.83-1.09); PROTHROMBIN TIME (PATIENT) 12.9 SEC (9.7-13.0)
[2021-10-24 11:35] LABS: ACTIVATED PTT 32.9 SECONDS (25.2-36.5)
[2021-10-24 11:54] LABS: CALCIUM 8.9 mg/dL (8.5-10.1)
[2021-10-24 11:58] LABS: CREATININE 1.7 mg/dL (0.55-1.3)
[2021-10-24 11:59] LABS: BILIRUBIN,TOTAL 0.9 mg/dL (0.2-1); TOT PROT 7.8 g/dl (6.4-8.2)
[2021-10-24 19:33] LABS: URINE APPEARANCE CLEAR; URINE BILIRUBIN NEGATIVE (NEGATIVE); URINE COLOR YELLOW; URINE GLUCOSE (UA) NEGATIVE (NEGATIVE); URINE KETONE NEGATIVE (NEGATIVE); URINE LEUK ESTERASE NEGATIVE (NEGATIVE); URINE NITRITE NEGATIVE (NEGATIVE); URINE PROTEIN TRACE (NEGATIVE); URINE UROBILINOGEN 0.2 mg/dL (0.2-1.0)
[2021-10-24] MEDS ORDERED: levETIRAcetam 500 MG TABLET (FP) PO ONE (21:38)
[2021-10-24] MEDS ORDERED: metoPROLOL SUCCINATE 25 MG TAB.SR.24H (FP) PO ONE (21:38)
[2021-10-24] MEDS ORDERED: ISOSORBIDE MONONITRATE 30 MG TAB.SR.24H (FP) PO ONE (21:38)
[2021-10-24] MEDS ORDERED: ROSUVASTATIN CA 20 MG TABLET ONE (21:39)
[2021-10-24] MEDS: levETIRAcetam 500 MG TABLET (FP) PO SCH (21:43)
[2021-10-24] MEDS: ISOSORBIDE MONONITRATE 30 MG TAB.SR.24H (FP) PO SCH (21:43)
[2021-10-24] MEDS: metoPROLOL SUCCINATE 25 MG TAB.SR.24H (FP) PO SCH (21:43)
[2021-10-24] MEDS ORDERED: ROSUVASTATIN CA 20 MG TABLET PO SCH (22:00)
[2021-10-25] MEDS ORDERED: HEPARIN NA (PORCINE) 5,000 UNITS/ML 1ML VIAL IVPUSH PRN ×2 (04:54)
[2021-10-25] MEDS ORDERED: HEPARIN INFUSION - 25,000 UNITS/500 ML INFUS.BAG IVPB SCH (05:00)
[2021-10-25] MEDS ORDERED: CLOPIDOGREL BISULFATE 300 MG TABLET PO ONE (05:12)
[2021-10-25] MEDS ORDERED: ASPIRIN 325 MG TABLET PO ONE (05:13)
[2021-10-25 05:46] LABS: ALBUMIN 3.4 g/dl (3.4-5.0); BLOOD UREA NITROGEN 18.4 mg/dL (7-18)
[2021-10-25 05:49] LABS: CREATININE 1.4 mg/dL (0.55-1.3)
[2021-10-25 05:51] LABS: TOT PROT 6.4 g/dl (6.4-8.2)
[2021-10-25 06:34] VITALS: TEMP 98
[2021-10-25] MEDS ORDERED: levETIRAcetam 500 MG TABLET (FP) PO ONE (09:49)
[2021-10-25] MEDS ORDERED: ISOSORBIDE MONONITRATE 30 MG TAB.SR.24H (FP) PO ONE (09:49)
[2021-10-25] MEDS ORDERED: metoPROLOL SUCCINATE 25 MG TAB.SR.24H (FP) PO ONE (09:49)
[2021-10-25] MEDS ORDERED: DONEPEZIL HCL 5 MG TABLET (FP) ONE (09:49)
[2021-10-25] MEDS ORDERED: TAMSULOSIN HCL 0.4 MG CAP ONE (09:49)
[2021-10-25] MEDS ORDERED: CLOPIDOGREL BISULFATE 75 MG TABLET (FP) PO SCH (10:00)
[2021-10-25] MEDS ORDERED: DONEPEZIL HCL 5 MG TABLET (FP) PO SCH (10:00)
[2021-10-25] MEDS ORDERED: TAMSULOSIN HCL 0.4 MG CAP PO SCH (10:00)
[2021-10-25] MEDS ORDERED: ASPIRIN 81 MG CHEWABLE TABLETS PO SCH (10:00)
[2021-10-25] MEDS: levETIRAcetam 500 MG TABLET (FP) PO SCH (10:02)
[2021-10-25] MEDS: metoPROLOL SUCCINATE 25 MG TAB.SR.24H (FP) PO SCH (10:02)
[2021-10-25] MEDS: ISOSORBIDE MONONITRATE 30 MG TAB.SR.24H (FP) PO SCH (10:02)
[2021-10-25] MEDS ORDERED: ASPIRIN 81 MG CHEWABLE TABLETS ONE (10:06)
[2021-10-25 16:36] VITALS: BP 142/53; PULSE 61; RESP 20
[2021-10-26] MEDS ORDERED: CLOPIDOGREL BISULFATE 75 MG TABLET (FP) PO SCH (10:00)
== END 2021-10-25 15:27 | disposition home or self-care (01) | DRG 281 ==
LOC: JER 09:23 → JERBED 15:44 → OBSVTOIN 17:03
PROVIDERS: ADMIT Family Medicine; ATTEND Family Medicine
DX: I21.4 Non-ST elevation (NSTEMI) myocardial infarction (principal); I13.0 Hypertensive heart and chronic kidney disease with heart failure and stage 1 through stage 4 chronic kidney disease, or unspecified chronic kidney disease; I50.32 Chronic diastolic (congestive) heart failure; I25.10 Atherosclerotic heart disease of native coronary artery without angina pectoris; R55 Syncope and collapse; I48.91 Unspecified atrial fibrillation; I44.7 Left bundle-branch block, unspecified; E78.5 Hyperlipidemia, unspecified; G20 Parkinson's disease; Z88.0 Allergy status to penicillin; Z95.1 Presence of aortocoronary bypass graft; I27.20 Pulmonary hypertension, unspecified; I35.0 Nonrheumatic aortic (valve) stenosis; N18.30 Chronic kidney disease, stage 3 unspecified; N40.0 Benign prostatic hyperplasia without lower urinary tract symptoms; I87.2 Venous insufficiency (chronic) (peripheral)
CPT/HCPCS: 0241U-QW; 36415; 70450-TC; 71045-TC-FY; 80053; 81003; 82550; 84484; 85025; 85610; 85730; 86850; 86900; 86901; 87086; 93005; 93010; 99285-25; G0378; J1644

== ENCOUNTER 2022-06-24 15:56 | Observation (INO) | payer OTHER ==
[2022-06-24 18:45] LABS: BASO % 0.8 % (0-2.0); EOS % 5.4 % (0-4.5); HEMATOCRIT 43.9 % (35.4-49); HEMOGLOBIN 15.2 GM/dL (11.7-16.9); MCH 32.7 pg (25.7-33.7); MCHC 34.6 g/dl (32.0-35.9); MEAN CELL VOLUME 94.4 fl (80-96); MEAN PLT VOLUME 8.5 fl (7.5-11.1); MONO % 10.6 % (3.8-10.2); NEUT % 57.2 % (42.8-82.8); PLATELET COUNT 146 10^3/uL (134-434); RBC 4.65 M/mm3 (4.00-5.60); RDW 14.1 % (11.9-15.9); WHITE BLOOD COUNT 5.2 K/mm3 (4.0-10.0)
[2022-06-24 19:04] LABS: CALCIUM 8.9 mg/dL (8.5-10.1)
[2022-06-24 19:05] LABS: ALBUMIN 3.8 g/dl (3.4-5.0); BLOOD UREA NITROGEN 18.2 mg/dL (7-18); MAGNESIUM 2.7 mg/dL (1.8-2.4)
[2022-06-24 19:08] LABS: PHOSPHOROUS 3.8 mg/dL (2.5-4.9)
[2022-06-24 19:09] LABS: TOT PROT 7.7 g/dl (6.4-8.2)
[2022-06-24 19:10] LABS: BILIRUBIN,TOTAL 0.6 mg/dL (0.2-1)
[2022-06-24 19:39] LABS: URINE APPEARANCE CLEAR; URINE BILIRUBIN NEGATIVE (NEGATIVE); URINE COLOR YELLOW; URINE GLUCOSE (UA) NEGATIVE (NEGATIVE); URINE KETONE NEGATIVE (NEGATIVE); URINE LEUK ESTERASE NEGATIVE (NEGATIVE); URINE NITRITE NEGATIVE (NEGATIVE); URINE PROTEIN NEGATIVE (NEGATIVE); URINE UROBILINOGEN 0.2 mg/dL (0.2-1.0)
[2022-06-24] MEDS ORDERED: ROSUVASTATIN CA 20 MG TABLET PO SCH (22:23)
[2022-06-25 06:43] LABS: BASO % 0.7 % (0-2.0); EOS % 5.3 % (0-4.5); HEMATOCRIT 41.8 % (35.4-49); HEMOGLOBIN 14.8 GM/dL (11.7-16.9); LYMPH % 21.4 % (8-40); MCH 33.5 pg (25.7-33.7); MCHC 35.5 g/dl (32.0-35.9); MEAN CELL VOLUME 94.3 fl (80-96); MEAN PLT VOLUME 8.5 fl (7.5-11.1); MONO % 8.6 % (3.8-10.2); PLATELET COUNT 135 10^3/uL (134-434); RBC 4.43 M/mm3 (4.00-5.60); RDW 14.1 % (11.9-15.9)
[2022-06-25] MEDS: BUDESONIDE/FORMETEROL FUMARATE 80/4.5 mcg INHALER IH SCH (06:53)
[2022-06-25] MEDS: levETIRAcetam 500 MG TABLET (FP) PO SCH ×3 (06:56→22:48)
[2022-06-25 06:58] LABS: ALBUMIN 3.5 g/dl (3.4-5.0); BLOOD UREA NITROGEN 15.6 mg/dL (7-18); CALCIUM 8.5 mg/dL (8.5-10.1); MAGNESIUM 2.6 mg/dL (1.8-2.4)
[2022-06-25] MEDS ORDERED: levETIRAcetam 500 MG TABLET (FP) PO ONE (06:59)
[2022-06-25 07:01] LABS: CREATININE 1.8 mg/dL (0.55-1.3)
[2022-06-25 07:03] LABS: BILIRUBIN,TOTAL 0.7 mg/dL (0.2-1); TOT PROT 6.9 g/dl (6.4-8.2)
[2022-06-25] MEDS ORDERED: FLUTICASONE PROP 0.05% 16 GM NASAL SPRAY NS SCH (10:00)
[2022-06-25] MEDS: ASPIRIN COATED 81 MG TABLET.EC PO SCH (10:00)
[2022-06-25] MEDS ORDERED: ASPIRIN COATED 81 MG TABLET.EC ONE (10:08)
[2022-06-25] MEDS: TAMSULOSIN HCL 0.4 MG CAP PO SCH (13:00)
[2022-06-25] MEDS: amLODIPine BESYLATE 5 MG TABLET (FP) PO SCH (13:00)
[2022-06-25] MEDS ORDERED: amLODIPine BESYLATE 5 MG TABLET (FP) ONE (13:29)
[2022-06-25] MEDS ORDERED: FUROSEMIDE 40 MG TABLET (FP) ONE (13:29)
[2022-06-25] MEDS ORDERED: TAMSULOSIN HCL 0.4 MG CAP ONE (13:30)
[2022-06-25 15:28] VITALS: BMI 22.4
[2022-06-25] MEDS ORDERED: VITAMINS A AND D TOPICAL OINTMENT 60 GM TUBE TP SCH (18:00)
[2022-06-25] MEDS ORDERED: ROSUVASTATIN CA 20 MG TABLET PO SCH (22:00)
[2022-06-25] MEDS: RANOLAZINE E.R. 500 MG TABLET (FP) PO SCH (22:48)
[2022-06-26 06:25] VITALS: RESP 18
[2022-06-26] MEDS: TAMSULOSIN HCL 0.4 MG CAP PO SCH (09:25)
[2022-06-26] MEDS: ASPIRIN COATED 81 MG TABLET.EC PO SCH (09:25)
[2022-06-26] MEDS: levETIRAcetam 500 MG TABLET (FP) PO SCH (09:25)
[2022-06-26] MEDS: RANOLAZINE E.R. 500 MG TABLET (FP) PO SCH (09:26)
[2022-06-26] MEDS: amLODIPine BESYLATE 5 MG TABLET (FP) PO SCH (09:26)
[2022-06-26] MEDS ORDERED: FUROSEMIDE 40 MG TABLET (FP) PO SCH (10:00)
[2022-06-26] MEDS: BUDESONIDE/FORMETEROL FUMARATE 80/4.5 mcg INHALER IH SCH (10:55)
[2022-06-26 14:26] VITALS: BP 114/51; PULSE 96; TEMP 97.3
== END 2022-06-26 16:02 | disposition home or self-care (01) ==
LOC: JER 15:56 → JERBED 17:31 → J4W 06-25 13:55
PROVIDERS: ADMIT Internal Medicine; ATTEND Family Medicine
DX: R00.1 Bradycardia, unspecified (principal); Z88.0 Allergy status to penicillin; Z88.8 Allergy status to other drugs, medicaments and biological substances; I25.10 Atherosclerotic heart disease of native coronary artery without angina pectoris; I11.9 Hypertensive heart disease without heart failure; I44.7 Left bundle-branch block, unspecified; I77.9 Disorder of arteries and arterioles, unspecified; I27.20 Pulmonary hypertension, unspecified; Z86.73 Personal history of transient ischemic attack (TIA), and cerebral infarction without residual deficits; Z95.1 Presence of aortocoronary bypass graft
CPT/HCPCS: 0241U-QW; 36415; 70450-TC; 71045-TC-FY; 80053; 80177; 81003; 83735; 84100; 84443; 84484; 85025; 87086; 93005; 93010; 99285-25; G0378

== ENCOUNTER 2022-11-11 10:03 | Inpatient (IN) | payer OTHER ==
[2022-11-11] MEDS ORDERED: SODIUM CHLORIDE 1,000 ML IV SCH (11:15)
[2022-11-11 14:01] LABS: BASO % 0.6 % (0-2.0); EOS % 2.5 % (0-4.5); HEMATOCRIT 38.5 % (35.4-49); LYMPH % 19.6 % (8-40); MCH 32.7 pg (25.7-33.7); MCHC 33.8 g/dl (32.0-35.9); MEAN CELL VOLUME 96.7 fl (80-96); MEAN PLT VOLUME 9.3 fl (7.5-11.1); MONO % 7.9 % (3.8-10.2); NEUT % 69.4 % (42.8-82.8); PLATELET COUNT 118 10^3/uL (134-434); RBC 3.98 M/mm3 (4.00-5.60); RDW 13.6 % (11.9-15.9); WHITE BLOOD COUNT 5.7 K/mm3 (4.0-10.0)
[2022-11-11 14:11] LABS: INR 1.5 (0.83-1.09); PROTHROMBIN TIME (PATIENT) 17.3 SEC (9.7-13.0)
[2022-11-11 14:14] LABS: ACTIVATED PTT 36.4 SECONDS (25.2-36.5)
[2022-11-11 14:21] LABS: POTASSIUM 5.3 mmol/L (3.5-5.1)
[2022-11-11 14:23] LABS: CALCIUM 8.3 mg/dL (8.5-10.1)
[2022-11-11 14:24] LABS: ALBUMIN 3.4 g/dl (3.4-5.0)
[2022-11-11 14:27] LABS: CREATININE 2.4 mg/dL (0.55-1.3)
[2022-11-11 14:28] LABS: TOT PROT 6.9 g/dl (6.4-8.2)
[2022-11-11 14:30] LABS: BILIRUBIN,TOTAL 0.6 mg/dL (0.2-1)
[2022-11-11 14:44] LABS: PH,URINE 7.5 (5.0-8.0); URINE APPEARANCE CLEAR; URINE BILIRUBIN NEGATIVE (NEGATIVE); URINE COLOR YELLOW; URINE GLUCOSE (UA) NEGATIVE (NEGATIVE); URINE KETONE NEGATIVE (NEGATIVE); URINE LEUK ESTERASE NEGATIVE (NEGATIVE); URINE NITRITE NEGATIVE (NEGATIVE); URINE PROTEIN NEGATIVE (NEGATIVE); URINE UROBILINOGEN 0.2 mg/dL (0.2-1.0)
[2022-11-11] MEDS ORDERED: APIXABAN 5 MG TABLET ONE (21:43)
[2022-11-11] MEDS ORDERED: ATORVASTATIN CA 40 MG TABLET (FP) ONE (21:43)
[2022-11-11] MEDS: ATORVASTATIN CA 40 MG TABLET (FP) PO SCH (21:51)
[2022-11-11] MEDS: APIXABAN 5 MG TABLET PO SCH (21:51)
[2022-11-11] MEDS ORDERED: METOPROLOL TARTRATE 5 MG/5 ML VIAL IVPUSH ONE (22:55)
[2022-11-12 02:29] VITALS: BMI 23.4
[2022-11-12 08:32] LABS: HEMATOCRIT 41.9 % (35.4-49); HEMOGLOBIN 13.9 GM/dL (11.7-16.9); MCH 32.6 pg (25.7-33.7); MCHC 33.2 g/dl (32.0-35.9); MEAN CELL VOLUME 98.1 fl (80-96); MEAN PLT VOLUME 9.8 fl (7.5-11.1); PLATELET COUNT 116 10^3/uL (134-434); RBC 4.27 M/mm3 (4.00-5.60); RDW 13.7 % (11.9-15.9); WHITE BLOOD COUNT 6.5 K/mm3 (4.0-10.0)
[2022-11-12 08:47] LABS: POTASSIUM 4.4 mmol/L (3.5-5.1)
[2022-11-12 08:51] LABS: BLOOD UREA NITROGEN 22.2 mg/dL (7-18); CALCIUM 8.4 mg/dL (8.5-10.1); MAGNESIUM 2.5 mg/dL (1.8-2.4)
[2022-11-12 08:54] LABS: CREATININE 2.1 mg/dL (0.55-1.3)
[2022-11-12] MEDS: CARBIDOPA/LEVODOPA 10/100 TABLET (FP) PO SCH ×4 (10:00→21:42)
[2022-11-12] MEDS ORDERED: FUROSEMIDE 40 MG TABLET (FP) PO SCH (10:00)
[2022-11-12] MEDS: ISOSORBIDE MONONITRATE 60 MG TAB.SR.24H (FP) PO SCH (10:23)
[2022-11-12] MEDS: APIXABAN 5 MG TABLET PO SCH (10:23)
[2022-11-12] MEDS: ASPIRIN COATED 81 MG TABLET.EC PO SCH (10:23)
[2022-11-12] MEDS: MEMANTINE HCL 10 MG TABLET (FP) PO SCH (10:23)
[2022-11-12] MEDS: SODIUM CHLORIDE 0.45% 1,000 ML IV SCH (15:21)
[2022-11-12] MEDS: APIXABAN 2.5 MG TABLET PO SCH (21:42)
[2022-11-12] MEDS: ATORVASTATIN CA 40 MG TABLET (FP) PO SCH (21:42)
[2022-11-12 21:51] LABS: INR 1.6 (0.83-1.09); PROTHROMBIN TIME (PATIENT) 18.5 SEC (9.7-13.0)
[2022-11-12 21:54] LABS: ACTIVATED PTT 37.6 SECONDS (25.2-36.5)
[2022-11-13] MEDS: metoPROLOL SUCCINATE 25 MG TAB.SR.24H (FP) PO SCH (10:40)
[2022-11-13] MEDS: ASPIRIN COATED 81 MG TABLET.EC PO SCH (10:40)
[2022-11-13] MEDS: MEMANTINE HCL 10 MG TABLET (FP) PO SCH (10:40)
[2022-11-13] MEDS: ISOSORBIDE MONONITRATE 60 MG TAB.SR.24H (FP) PO SCH (10:40)
[2022-11-13] MEDS: APIXABAN 2.5 MG TABLET PO SCH ×3 (10:40→22:35)
[2022-11-13] MEDS: CARBIDOPA/LEVODOPA 10/100 TABLET (FP) PO SCH ×4 (10:41→22:34)
[2022-11-13 12:06] LABS: POTASSIUM 4.2 mmol/L (3.5-5.1)
[2022-11-13 12:08] LABS: BLOOD UREA NITROGEN 22.9 mg/dL (7-18); CALCIUM 8.4 mg/dL (8.5-10.1)
[2022-11-13 12:11] LABS: CREATININE 1.9 mg/dL (0.55-1.3)
[2022-11-13] MEDS: SODIUM CHLORIDE 0.45% 1,000 ML IV SCH (15:19)
[2022-11-13] MEDS: ATORVASTATIN CA 40 MG TABLET (FP) PO SCH (22:34)
[2022-11-14] MEDS: ASPIRIN COATED 81 MG TABLET.EC PO SCH (10:23)
[2022-11-14] MEDS: metoPROLOL SUCCINATE 25 MG TAB.SR.24H (FP) PO SCH (10:23)
[2022-11-14] MEDS: MEMANTINE HCL 10 MG TABLET (FP) PO SCH (10:23)
[2022-11-14] MEDS: APIXABAN 2.5 MG TABLET PO SCH (10:23)
[2022-11-14] MEDS: CARBIDOPA/LEVODOPA 10/100 TABLET (FP) PO SCH ×3 (10:24→17:41)
[2022-11-14] MEDS: ISOSORBIDE MONONITRATE 60 MG TAB.SR.24H (FP) PO SCH (10:25)
[2022-11-14] MEDS: SODIUM CHLORIDE 0.45% 1,000 ML IV SCH (14:31)
[2022-11-14 18:44] VITALS: BP 115/48; PULSE 74; RESP 18; TEMP 97.8
== END 2022-11-14 20:45 | disposition home or self-care (01) | DRG 57 ==
LOC: JER 10:03 → JERBED 14:41 → J4W 11-12 02:50 → OBSVTOIN 11-12 14:23
PROVIDERS: ADMIT Internal Medicine; ATTEND Internal Medicine
DX: G20 Parkinson's disease (principal); N17.9 Acute kidney failure, unspecified; I13.0 Hypertensive heart and chronic kidney disease with heart failure and stage 1 through stage 4 chronic kidney disease, or unspecified chronic kidney disease; I50.42 Chronic combined systolic (congestive) and diastolic (congestive) heart failure; G45.9 Transient cerebral ischemic attack, unspecified; I25.10 Atherosclerotic heart disease of native coronary artery without angina pectoris; I48.91 Unspecified atrial fibrillation; I87.8 Other specified disorders of veins; E78.5 Hyperlipidemia, unspecified; F03.90 Unspecified dementia, unspecified severity, without behavioral disturbance, psychotic disturbance, mood disturbance, and anxiety; I27.20 Pulmonary hypertension, unspecified; I35.1 Nonrheumatic aortic (valve) insufficiency; E11.22 Type 2 diabetes mellitus with diabetic chronic kidney disease; N18.9 Chronic kidney disease, unspecified; Z95.1 Presence of aortocoronary bypass graft
CPT/HCPCS: 36415; 70450-TC; 70551-TC; 76775-TC; 80048; 80053; 80061; 81003; 82550; 82962; 83036; 83735; 84443; 84484; 85025; 85027; 85610; 85730; 86850; 86900; 86901; 93005; 93010; 93306-TC; 97116-GP; 97161-GP; 99285-25; G0378